=== PATIENT | female | born 1965 | race Caucasian/White ===

== ENCOUNTER 2016-02-21 22:09 | Emergency (ER) | payer MEDICARE, OTHER ==
[~2016-02-21] VITALS: Ht 165.1 cm; Wt 52.0 kg
[~2016-02-21 22:09] MED LIST: FENT25DI TD; HYDR-3535 PO; LORA-392 PO; MVI PO; PROT40TA PO; TUMS500C PO; VITA500T83 PO
[2016-02-21 22:12] VITALS: BP 134/76; PULSE 88; RESP 18; TEMP 98.4; O2SAT 99
[2016-02-21 22:35] VITALS: BP 156/96; PULSE 91; RESP 18; TEMP 98.1; O2SAT 98
[2016-02-21] MEDS ORDERED: SODIUM CHLORIDE 0.9% FLUSH 5 ML FLUSH IVF PRN (22:45)
[2016-02-21] MEDS ORDERED: HYDROmorphone HCL PF 1 MG/ML VIAL IV PUSH ONE (22:45)
[2016-02-21] MEDS ORDERED: ONDANSETRON HCL 4 MG/2 ML VIAL IVP ONE (22:45)
--- NOTE | 2016-02-21 22:52 | PD ---
HPI Chief Complaint: Fall Time Seen by Provider: 22:32 Travel History International Travel<30 days: No Contact w/Intl Traveler<30days: No Traveled to known affect area: No History of Present Illness HPI The patient is 50 year old female who presents to the [facility] emergency department with a history of reportedly losing her balance while attempting to move a piece of furniture at approximately 6 PM today. The patient reports that she fell forward and struck her left eyebrow area on the furniture and also hit her left shoulder. The patient additionally reports having left lateral chest wall pain. The patient reports that she did not come in right away as she did not think that she had any significant injuries. She reports that she became concerned when she was having difficulty moving her left shoulder when she was trying to place a sweater on her dog to go outside for a walk. The patient reports that she has had 2 alcoholic beverages this evening. She reports that she does have a history of pancreatitis and alcohol abuse, however she had been sober up until the holidays. She reports that she spent the holidays with her family and began to drink again. She denies taking any of her usual anxiety medication, Ativan, or her pain medication, Lortab today. The patient reports that she felt briefly disoriented after hitting her head. She denies having any loss of consciousness. She denies having any neck pain, paresthesias, or weakness of her extremities. The patient denies any recent fevers, cough, congestion, neck pain, chest pain, shortness of breath, abdominal pain, vomiting, diarrhea, urinary symptoms, or neurologic symptoms. [facility] Past Medical History Narrative Medical The patient's past medical history is significant for alcohol abuse, anxiety disorder, history of cirrhosis, pancreatitis, tobacco abuse, history of chronic abdominal pain related to pancreatitis, history of restless leg syndrome. Arthritis: No Asthma: No Autoimmune Disease: No Anxiety: Yes (PANIC ATTACKS) Depression: No Heart Rhythm Problems: No Cancer: Yes (SKIN RIGHT SHOULDER UPPER BACK 8 YEARS AGO) Cardiovascular Problems: No High Cholesterol: No Chemotherapy: No Chest Pain: No Congestive Heart Failure: No COPD: No Cerebrovascular Accident: No Diabetes: No Diminished Hearing: No Endocrine: No Gastrointestinal Disorders: Yes (had gtube to gain wt in 2011) GERD: No Genitourinary: No Headaches: Yes Hepatitis: Yes (CIRRHOSIS, PANCREATITIS) Hiatal Hernia: No Hypertension: No Immune Disorder: No Implanted Vascular Access Dvce: No Kidney Stones: No Musculoskeletal: Yes (SCOLIOSIS) Neurologic: No Psychiatric: Yes (ANXIETY/DEPRESSION) Reproductive: No Respiratory: Yes (EVERY DAY SMOKER- 1 PACK DAY.) Migraines: Yes Pancreatitis: Yes Radiation Therapy: No Renal Failure: No Seizures: No Sickle Cell Disease: No Sleep Apnea: No Thyroid Disease: No Ulcer: No Influenza Vaccination: No ?: Not Menopausal: Yes : 4 Para: 3 Miscarriage: 1 : 0 Past Surgical History Narrative Surgical The patient's past surgical history is significant for a right hip replacement. Abdominal Surgery: No AICD: No Arteriovenous Shunt: No Cardiac Surgery: No Ear Surgery: No Endocrine Surgery: No Eye Surgery: No Genitourinary Surgery: No Gynecologic Surgery: No Insulin Pump: No Joint Replacement: Yes (right hip replacement) Neurologic Surgery: No Oral Surgery: No Pacemaker: No Thoracic Surgery: No Social History Alcohol Use: Yes (daily ) Tobacco Use: Yes (vap cig) Substance Use: No Allergies-Medications (Allergen,Severity, Reaction): Coded Allergies: Morphine (Verified Allergy, Mild, ITCHY SKIN, 02/21/16) Penicillin (Verified Allergy, Mild, Rash, 02/21/16) Reported Meds & Prescriptions Reported Meds & Active Scripts Active Protonix (Pantoprazole Sodium) 40 Mg Tab 40 Mg PO DAILY 30 Days Tums (Calcium Carbonate) 500 Mg Chew 500 Mg PO BID Duragesic 25 Mcg/Hr (Fentanyl) 25 Mcg/Hr Patch 1 Patch TD Q3D Vitamin C (Ascorbic Acid) 500 Mg Tab 500 Mg PO BID Theragran (Multivitamins) 1 Tab Tab 1 Tab PO DAILY Reported Ativan (Lorazepam) 0.5 Mg Tab 0.5 Mg PO BID PRN Lortab 10 mg/325 mg (Hydrocodone/Acetaminophen 10 mg/325 mg) 1 Tab 1 Tab PO TID PRN Review of Systems Except as stated in HPI: all other systems reviewed are Neg General / Constitutional: No: Fever Eyes: No: Visual changes HENT: No: Headaches, Neck Stiffness, Neck Pain Cardiovascular: Positive: Chest Pain or Discomfort (left chest wall pain), No : Dyspnea on exertion Respiratory: No: Shortness of Breath Gastrointestinal: No: Abdominal Pain Genitourinary: No: Dysuria Musculoskeletal: Positive: Arthralgias, Limited ROM, Edema, Pain Skin: No Rash Neurologic: Positive: Headache, No: Weakness, Focal Abnormalities, Change in Mentation, Slurred Speech, Sensory Disturbance Psychiatric: No: Depression Endocrine: No: Polydipsia Hematologic/Lymphatic: No: Easy Bruising Physical Exam Narrative General: The patient is a well-developed well-nourished female in no acute distress. Head and Neck exam: Head is normocephalic, evidence of injury to the left lateral eyebrow area. The patient has an area of swelling, small hematoma formation with tenderness on palpation. There is no crepitus or step-off. No increased facial bone mobility with palpation. Eyes: Pupils are equal round and reactive to light. Nose: Midline septum with pink mucous membranes Mouth: Dentition unremarkable. Moist mucus membranes. Posterior oropharynx is not erythematous. No tonsillar hypertrophy. Uvula midline. Airway patent. Neck: No palpable lymphadenopathy. No nuchal rigidity. No thyromegaly. No spinous process tenderness to palpation, no step-off, no crepitus, no erythema or ecchymosis. The patient has full active range of motion without pain. Cardiovascular: Regular rate and rhythm without murmurs, gallops, or rubs. The patient reports chest wall tenderness on palpation along the left lateral chest wall and underneath the left breast. There is no visible ecchymosis or erythema. There is no step-off or crepitus. There is no flail segment. Lungs: Clear to auscultation bilaterally. No wheezes, rhonchi, or rales. Abdomen: Soft, without tenderness to palpation in all 4 quadrants of the abdomen. No guarding, rebound, or rigidity. Normal bowel sounds are audible. Extremities: No clubbing, cyanosis, or edema, except an area of interest, the left shoulder. The patient is noted to have swelling along the upper aspect of the left shoulder, overlying specifically the distal left clavicle and proximal humerus. The patient has decreased range of motion. She has no loss of fullness in the glenoid fossa. She has intact sensation over all fingertips. She has no pain on palpation of her left elbow, left wrist, or hand. The patient has no pain with range of motion of her left elbow, left wrist, or left hand. The patient has less than 3 second capillary refill. 2+ pulses in all 4 extremities. Back: No spinous process tenderness to palpation. No costovertebral angle tenderness to palpation. Neurologic Exam: Cranial nerves 2-12 were intact on exam. Strength is 5/5 in all 4 extremities. No sensory deficits noted. The patient is oriented to person, place, time, and situation. Skin Exam: No rash noted. Intact skin that is warm and dry. Data Data Last Documented VS Vital Signs Date Time Temp Pulse Resp B/P Pulse Ox O2 Delivery O2 Flow Rate FiO2 02/21/16 23:16 98 Room Air 02/21/16 22:35 98.1 91 18 156/96 Orders Shoulder, Complete (>2vws) (02/21/16 22:33) Ice/Cold Pack (02/21/16 22:33) Ribs, Uni (W/Exp Cxr-Min 3vw) (02/21/16 22:36) Iv Access Insert/Monitor (02/21/16 22:36) Ecg Monitoring (02/21/16 22:36) Oximetry (02/21/16 22:36) NPO (02/21/16 22:36) Ondansetron Inj (Zofran Inj) (02/21/16 22:45) Sodium Chloride 0.9% Flush (Ns Flush) (02/21/16 22:45) Hydromorphone Pf Inj (Dilaudid Pf Inj) (02/21/16 22:45) Ct Brain W/O Iv Contrast(Rout) (02/21/16 22:40) Splint Or Brace Apply/Monitor (02/21/16 23:11) Sling And Swathe (02/21/16 ) Acetamin-Hydrocod 325-5 Mg (Dulac 5-325 (02/21/16 23:30) MDM Medical Decision Making Medical Screen Exam Complete: Yes Emergency Medical Condition: Yes Medical Record Reviewed: Yes Differential Diagnosis Rib fracture, versus pneumothorax, versus hemothorax, versus chest wall contusion, versus left shoulder fracture, versus dislocation, versus clavicle fracture, versus intracranial trauma Narrative Course During the course of the patients emergency department visit, the patients history, examination, and differential diagnosis were reviewed with the patient. The patient had IV access obtained and blood work sent for analysis. A left rib series was ordered. A left shoulder x-ray series was ordered. The patient will have an ice pack applied to the area of swelling. A CT scan of the brain was ordered. The patient was provided Lortab for pain after imaging reveals a distal apical fracture that is only mildly displaced. Radiology studies were reviewed and remarkable for a left shoulder x-ray that reveals a mildly displaced distal left clavicle fracture. No other fracture of the left shoulder. Left sided rib films reveals no evidence of pneumothorax or acute rib fracture, however the patient has evidence of prior bilateral older appearing rib fractures. CT scan of the brain shows minimal fluid in the right sphenoid sinus. No acute intracranial abnormality. The patient will be discharged home to continue her usual pain management regimen. The patient was instructed to avoid alcohol. The patient was instructed to follow-up with an orthopedic physician regarding her left clavicle fracture. She is placed in a sling and swath she is given the name of the orthopedic physician on-call for follow-up, Dr. Orourke. The patient is resting comfortably and feels better, is alert and in no distress. The patients results and examination findings were discussed with the patient. The repeat examination is unremarkable and benign. The history, exam, diagnostic testing, and current condition do not suggest any significant pathology to warrant further testing, continued ED treatment, admission, or surgical evaluation at this point. The vital signs have been stable. The patient does not have uncontrollable pain, intractable vomiting, or other significant symptoms. The patient's condition is stable and appropriate for discharge. The patient will pursue further outpatient evaluation with a primary care physician or other designated or consulting physician as indicated in the discharge instructions. The patient expressed understanding and was agreeable with this plan. Diagnosis Primary Impression: Fall Additional Impressions: Left shoulder pain Qualified Code: M25.512 - Acute pain of left shoulder Clavicle fracture Qualified Code: S42.035A - Closed nondisplaced fracture of acromial end of left clavicle, initial encounter Referrals: hBarath Orourke MD 1 week Primary Care Physician 2 days Patient Instructions: Clavicle Fracture (ED), Contusion in Adults (ED), Fall Prevention (ED), General Instructions Additional Instructions: Continue your current pain management regimen. Avoid alcohol. Follow-up with orthopedic physician in the next week. Disposition: 01 DISCHARGE HOME Condition: Stable Verna Ramirez MD Feb 21, 2016 22:52
--- NOTE | 2016-02-21 23:13 | RADRPT ---
EXAM DATE/TIME: 02/21/2016 22:50 [facility] COMPARISON: CHEST SINGLE AP, June 06, 2013, 12:13. INDICATIONS : Pain from fall on dresser. MEDICAL HISTORY : None. SURGICAL HISTORY : None. ENCOUNTER: Initial ACUITY: 1 day PAIN SCORE: 10/10 LOCATION: Left shoulder. FINDINGS: Multiple views of the left ribs were performed. There is no evidence of displaced fracture. No dest ructive lesions or areas of periosteal thickening are seen. Expiratory view of the chest is negative for pneumothorax. The mediastinal structures are midline. Old bilateral rib fractures. CONCLUSION: No acute disease. Angelo Fiore MD on February 21, 2016 at 23:09 Board Certified Radiologist. This report was verified electronically.
--- NOTE | 2016-02-21 23:14 | RADRPT ---
EXAM DATE/TIME: 02/21/2016 22:54 [facility] COMPARISON: No previous studies available for comparison. INDICATIONS : Pain from falling on dresser. MEDICAL HISTORY : None. SURGICAL HISTORY : None. ENCOUNTER: Initial ACUITY: 1 day PAIN SCORE: 10/10 LOCATION: Left shoulder. FINDINGS: Multiple view examination of the left shoulder demonstrates mildly displaced distal left clavicle fra cture. Remainder the left shoulder is otherwise intact. The glenohumeral joint is maintained. CONCLUSION: Distal left clavicle fracture. Angelo Fiore MD on February 21, 2016 at 23:11 Board Certified Radiologist. This report was verified electronically.
[2016-02-21 23:16] VITALS: O2SAT 98
--- NOTE | 2016-02-21 23:22 | RADRPT ---
EXAM DATE/TIME: 02/21/2016 23:07 [facility] COMPARISON: No previous studies available for comparison. INDICATIONS : Trauma; fall. RADIATION DOSE: 34.32 CTDIvol (mGy) MEDICAL HISTORY : Cirrhosis. Pancreatitis. SURGICAL HISTORY : Right hip replacement. ENCOUNTER: Initial ACUITY: 1 day PAIN SCALE: 2/10 LOCATION: cranial TECHNIQUE: Multiple contiguous axial images were obtained of the head. Using automated exposure control and adj ustment of the mA and/or kV according to patient size, radiation dose was kept as low as reasonably a chievable to obtain optimal diagnostic quality images. FINDINGS: CEREBRUM: The ventricles are normal for age. No evidence of midline shift, mass lesion, hemorrhage or acute in farction. No extra-axial fluid collections are seen. POSTERIOR FOSSA: The cerebellum and brainstem are intact. The 4th ventricle is midline. The cerebellopontine angle i s unremarkable. EXTRACRANIAL: The visualized portion of the orbits is intact. Minimal fluid right sphenoid sinus. SKULL: The calvaria is intact. No evidence of skull fracture. CONCLUSION: Minimal fluid right sphenoid sinus. No acute intracranial abnormality. Angelo Fiore MD on February 21, 2016 at 23:19 Board Certified Radiologist. This report was verified electronically.
[2016-02-21] MEDS ORDERED: ACETAMINOPHEN/HYDROcodone 325 MG/5 MG TAB PO ONE (23:30)
== END 2016-02-22 00:23 | disposition home or self-care (01) ==
LOC: NEPE 22:09
DX: S42.032A Displaced fracture of lateral end of left clavicle, initial encounter for closed fracture (principal); W18.39XA Other fall on same level, initial encounter; Y93.89 Activity, other specified; Y92.9 Unspecified place or not applicable; Z72.0 Tobacco use; F10.20 Alcohol dependence, uncomplicated
CPT/HCPCS: 70450; 71101; 73030; 96374; 99284; J2405

== ENCOUNTER 2016-04-18 17:09 | Emergency (ER) | payer MEDICARE, OTHER ==
[~2016-04-18] VITALS: Ht 165.1 cm; Wt 52.0 kg
[2016-04-18 17:12] VITALS: BP 122/75; PULSE 90; RESP 16; TEMP 97.8; O2SAT 98
--- NOTE | 2016-04-18 19:25 | PD ---
HPI Chief Complaint: Injury Time Seen by Provider: 19:19 Travel History International Travel<30 days: No Contact w/Intl Traveler<30days: No Traveled to known affect area: No History of Present Illness HPI 50-year-old white female presents to emergency department by EMS for evaluation of left foot pain. She states that she fell earlier this morning over her dogs bed. She does not recall hearing or feeling a pop or crack in her foot. She states her foot became swollen and painful. She is not been able to bear weight. She states that she's been crawling around her apartment. She admits to drinking alcohol. She denies any injury to her head, neck or back. No numbness or tingling. PFSH Past Medical History Arthritis: No Asthma: No Autoimmune Disease: No Anxiety: Yes (PANIC ATTACKS) Depression: No Heart Rhythm Problems: No Cancer: Yes (SKIN RIGHT SHOULDER UPPER BACK 8 YEARS AGO) Cardiovascular Problems: No High Cholesterol: No Chemotherapy: No Chest Pain: No Congestive Heart Failure: No COPD: No Cerebrovascular Accident: No Diabetes: No Diminished Hearing: No Endocrine: No Gastrointestinal Disorders: Yes (had gtube to gain wt in 2011) GERD: No Genitourinary: No Headaches: Yes Hepatitis: Yes (CIRRHOSIS, PANCREATITIS) Hiatal Hernia: No Hypertension: No Immune Disorder: No Implanted Vascular Access Dvce: No Kidney Stones: No Musculoskeletal: Yes (SCOLIOSIS) Neurologic: No Psychiatric: Yes (ANXIETY/DEPRESSION) Reproductive: No Respiratory: Yes (EVERY DAY SMOKER- 1 PACK DAY.) Migraines: Yes Pancreatitis: Yes Radiation Therapy: No Renal Failure: No Seizures: No Sickle Cell Disease: No Sleep Apnea: No Thyroid Disease: No Ulcer: No Menopausal: Yes : 4 Para: 3 Miscarriage: 1 : 0 Past Surgical History Abdominal Surgery: No AICD: No Arteriovenous Shunt: No Cardiac Surgery: No Ear Surgery: No Endocrine Surgery: No Eye Surgery: No Genitourinary Surgery: No Gynecologic Surgery: No Insulin Pump: No Joint Replacement: Yes (right hip replacement) Neurologic Surgery: No Oral Surgery: No Pacemaker: No Thoracic Surgery: No Social History Alcohol Use: Yes (daily ) Tobacco Use: Yes (vap cig) Substance Use: No Allergies-Medications (Allergen,Severity, Reaction): Coded Allergies: Morphine (Verified Allergy, Mild, ITCHY SKIN, 04/18/16) Penicillin (Verified Allergy, Mild, Rash, 04/18/16) Reported Meds & Prescriptions Reported Meds & Active Scripts Active Protonix (Pantoprazole Sodium) 40 Mg Tab 40 Mg PO DAILY 30 Days Tums (Calcium Carbonate) 500 Mg Chew 500 Mg PO BID Duragesic 25 Mcg/Hr (Fentanyl) 25 Mcg/Hr Patch 1 Patch TD Q3D Vitamin C (Ascorbic Acid) 500 Mg Tab 500 Mg PO BID Theragran (Multivitamins) 1 Tab Tab 1 Tab PO DAILY Reported Ativan (Lorazepam) 0.5 Mg Tab 0.5 Mg PO BID PRN Lortab 10 mg/325 mg (Hydrocodone/Acetaminophen 10 mg/325 mg) 1 Tab 1 Tab PO TID PRN Review of Systems Except as stated in HPI: all other systems reviewed are Neg Physical Exam Narrative GENERAL: Well-developed, well-nourished in no acute distress. Nontoxic appearing. HEAD: Normocephalic, atraumatic. EYES: Pupils equal round and reactive. Extraocular motions intact. No scleral icterus. No injection or drainage. ENT: TMs clear without erythema. The external auditory canals clear. Nose: clear . Posterior pharynx is pink and moist. No tonsillar edema or exudate. Uvula midline. Airway patent. NECK: Trachea midline.Supple, nontender, moves head freely. No central bony tenderness or spasm. CARDIOVASCULAR: Regular rate and rhythm without murmurs, gallops, or rubs. RESPIRATORY: Clear to auscultation. Breath sounds equal bilaterally. No wheezes , rales, or rhonchi. GASTROINTESTINAL: Abdomen soft, non-tender, nondistended. No hepato-splenomegaly , or palpable masses. No guarding. EXTREMITIES: No clubbing, cyanosis, or examination of the left lower extremity reveals pain and swelling to the distal forefoot involving the third, fourth, fifth metatarsals. The skin is intact. There is some ecchymosis. No pain in the toes, heel, Achilles. No pain in the ankle, knee or hip. The right lower extremity as well as the upper extremities are without localizing bony tenderness or deformity. She has some mild ecchymosis to both knees from crawling on the floor. BACK: Nontender without deformity or crepitance. No flank tenderness. Data Data Last Documented VS Vital Signs Date Time Temp Pulse Resp B/P Pulse Ox O2 Delivery O2 Flow Rate FiO2 04/18/16 17:12 97.8 90 16 122/75 98 Room Air Orders Foot, Complete (Eic3typ) (04/18/16 19:10) Ice/Cold Pack (04/18/16 19:10) Crutches (04/18/16 19:10) Splint Or Brace Apply/Monitor (04/18/16 19:25) MDM Medical Decision Making Medical Screen Exam Complete: Yes Emergency Medical Condition: Yes Medical Record Reviewed: Yes Interpretation(s) Left foot: Patient has a fracture of the base of the second metatarsal. There is a question of fracture the base of the third metatarsal. Differential Diagnosis MDM: High Differential diagnoses: Fracture, sprain, strain, dislocation, contusion, neurovascular injury Narrative Course Patient has sustained fractures of the left foot read she is placed in a cam walker and given crutches. Patient given Lortab 5 a grams by mouth. Diagnosis Primary Impression: Foot fracture, left Qualified Code: S92.902A - Foot fracture, left, closed, initial encounter Patient Instructions: General Instructions Additional Instructions: Rest. Elevation. Ice packs for the next 3 days. Cam Walker and crutches. No weight-bearing and then progress to weight-bearing as tolerated. Continue her home meds. Follow-up with an orthopedist or pharmacy technician infusion in 3-7 days.. Return to the ER if any problems Med/Other Pt SpecificInfo: No Meds Exist/No RX given Disposition: 01 DISCHARGE HOME Condition: Stable Nikolay Saba Apr 18, 2016 19:25
[2016-04-18] MEDS ORDERED: ACETAMINOPHEN/HYDROcodone 325 MG/5 MG TAB PO ONE (19:30)
--- NOTE | 2016-04-18 19:39 | RADRPT ---
EXAM DATE/TIME: 04/18/2016 19:31 [facility] COMPARISON: No previous studies available for comparison. INDICATIONS : Pain and swelling left foot, fell MEDICAL HISTORY : None. SURGICAL HISTORY : None. ENCOUNTER: Initial ACUITY: 2 days PAIN SCORE: 10/10 LOCATION: Left Foot FINDINGS: Mildly displaced fracture seen base of the second metatarsal and there is about 2 mm of lateral displ acement. No other fractures are demonstrated. No acute bony destruction seen. Bones are osteopenic. N o radiopaque foreign bodies are demonstrated. CONCLUSION: Second metatarsal base is fractured. Marco Antonio Lawson MD on April 18, 2016 at 19:36 Board Certified Radiologist. This report was verified electronically.
== END 2016-04-18 20:13 | disposition home or self-care (01) ==
LOC: NEPB 17:09
DX: S92.322A Displaced fracture of second metatarsal bone, left foot, initial encounter for closed fracture (principal); K74.60 Unspecified cirrhosis of liver; K85.90 Acute pancreatitis without necrosis or infection, unspecified; M41.9 Scoliosis, unspecified; F17.210 Nicotine dependence, cigarettes, uncomplicated; F41.8 Other specified anxiety disorders; Z96.641 Presence of right artificial hip joint; F10.20 Alcohol dependence, uncomplicated; W01.0XXA Fall on same level from slipping, tripping and stumbling without subsequent striking against object, initial encounter; Y93.9 Activity, unspecified; Y92.89 Other specified places as the place of occurrence of the external cause; Y99.9 Unspecified external cause status
CPT/HCPCS: 73630; 99283; E0113; L2114

== ENCOUNTER 2017-10-27 14:51 | Inpatient (IN) ==
--- NOTE | 2017-10-27 15:08 | ED ---
HPI General Chief complaint: GI Bleed Stated complaint: GI complaint Time Seen by Provider: 10/27/17 15:05 Source: patient and EMS Mode of arrival: EMS Limitations: no limitations History of Present Illness HPI Narrative: 52-year-old female patient with history of cirrhosis, ascites, pancreatitis, history of alcohol use, presents to the ER today brought in by EMS because she states that she was seen 2 days ago, was scheduled to go get ascites drainage today but something was wrong with her paperwork, also started having black stool today and getting weaker, nauseous, throwing up, at which point she decided to call EMS. She denies any chest pains, or other issues. Related Data Home Medications Medication Instructions Recorded Confirmed fentanyl 1 patch TRANSDERMAL Q72H 10/25/17 10/27/17 gabapentin 600 mg PO HS 10/25/17 10/27/17 hydrocodone-acetaminophen 1 tab PO Q4H PRN 10/25/17 10/27/17 Allergies Allergy/AdvReac Type Severity Reaction Status Date / Time morphine Allergy Mild ITCHY SKIN Verified 10/25/17 18:15 penicillin G Allergy Mild Rash Verified 10/25/17 18:15 Review of Systems ROS: all other systems reviewed are negative [facility] Medical History Medical History Cirrhosis of liver (Acute) Hepatitis C (Acute) History of abdominal paracentesis (Acute) Pancreatitis (Acute) Weight loss (Acute) Surgical History Surgical History History of hip surgery (Acute) Social History Social History Substance History: No History of Abuse Second Hand Smoke Exposure: No Smoking Status: Current every day smoker Tobacco Type: Cigarettes How Often Do You Have a Drink Containing Alcohol: 4 or more times a week Recent Travel in [facility] within the Last 8 Weeks: No Recent Out of Country Travel within the Last 8 Weeks: No Immunization History Tetanus Immunization: Unsure Hx Influenza Vaccine This Season: No Exam Narrative Exam Narrative: GENERAL: Well-developed middle-age female patient currently in moderate distress. Awake and oriented 3. SKIN: Focused skin assessment warm/dry. Jaundiced. HEAD: Atraumatic. Normocephalic. EYES: Pupils equal and round. Notable scleral icterus. No injection or drainage. ENT: No nasal bleeding or discharge. Mucous membranes pink and moist. NECK: Trachea midline. No JVD. CARDIOVASCULAR: Regular rate and rhythm. No murmur appreciated. RESPIRATORY: No accessory muscle use. Clear to auscultation. Breath sounds equal bilaterally. GASTROINTESTINAL: Abdomen soft, non-tender, moderately distended. MUSCULOSKELETAL: No obvious deformities. No clubbing. No cyanosis. No edema. RECTAL EXAM: No masses or tenderness, stool is dark, Hemoccult positive. NEUROLOGICAL: Awake and alert. No obvious cranial nerve deficits. Motor grossly within normal limits. Normal speech. PSYCHIATRIC: Appropriate mood and affect; insight and judgment normal. Procedures Hemaprompt Stool Procedural Steps Taken: specimen placed in appropriate test area, developer placed on specimen and control areas and controls appropriately positive and negative Hemaprompt Stool Result: positive Course Initial Documented Vital Signs Temperature 98.5 F 10/27/17 15:04 Pulse Rate 86 10/27/17 15:04 Respiratory Rate 24 10/27/17 15:04 Blood Pressure 131/81 10/27/17 15:04 Pulse Oximetry 95 10/27/17 15:04 Last Documented Vital Signs Temperature 98.5 F 10/27/17 15:04 Pulse Rate 86 10/27/17 15:04 Respiratory Rate 24 10/27/17 15:04 Blood Pressure 131/81 10/27/17 15:04 Pulse Oximetry 95 10/27/17 15:32 Medical Decision Making MDM Narrative Medical decision making narrative: Hemoglobin is quite low, Hemoccult is positive. Suspicion is that she is having a GI bleed. Protonix was initiated in the ER. 2 units of blood were ordered for her. Patient will need admission and GI consult for further treatment. Case has been discussed with Dr. Mills for admission. Medical Screen Exam Complete: Yes Emergency Medical Condition: Yes Differential Diagnosis Differential Diagnosis: GI bleed Lab Data Lab results reviewed: Yes I reviewed the patient's lab results. Result diagrams: 10/27/17 15:13 10/27/17 15:13 Lab Results 10/27/17 10/27/17 10/27/17 Range/Units 15:13 15:13 15:13 WBC 7.2 (4.0-11.0) th/mm3 RBC 1.64 L (4.00-5.30) mil/mm3 Hgb 6.6 L* (11.6-15.3) gm/dL Hct 19.9 L* (35.0-46.0) % MCV 121.3 H D (80.0-100.0) fL MCH 40.0 H (27.0-34.0) pg MCHC 33.0 (32.0-36.0) % RDW 18.1 H (11.6-17.2) % Plt Count 45 L (150-450) th/mm3 MPV 9.0 (7.0-11.0) fL Prelim Diff (Auto) Slide review pending Neut % (Auto) 74.9 H (16.0-70.0) % Lymph % (Auto) 14.3 (9.0-44.0) % [place] % (Auto) 8.8 H (0.0-8.0) % Eos % (Auto) 1.4 (0.0-4.0) % Baso % (Auto) 0.6 (0.0-2.0) % Neut # (Auto) 5.4 (1.8-7.7) th/mm3 Lymph # (Auto) 1.0 (1.0-4.8) th/mm3 [place] # (Auto) 0.6 (0.0-0.9) th/mm3 Eos # (Auto) 0.1 (0.0-0.4) th/mm3 Baso # (Auto) 0.0 (0.0-0.2) th/mm3 WBC Differential . Diff Scan Auto diff confirmed Differential Comment . PT 20.2 H (9.8-11.6) sec INR 2.0 Ratio APTT 35.3 H (24.3-30.1) sec Sodium 139 (136-145) meq/L Potassium 3.3 L (3.5-5.1) meq/L Chloride 106 (98-107) meq/L Carbon Dioxide 25.9 (21.0-32.0) meq/L Anion Gap 7 (5-15) meq/L BUN 10 (7-18) mg/dL Creatinine 0.56 (0.50-1.00) mg/dL Estimated GFR Greater than 89 (>89) mL/min Random Glucose 94 (74-106) mg/dL Calcium 7.9 L (8.5-10.1) mg/dL Total Bilirubin 15.7 H (0.2-1.0) mg/dL AST 140 H (15-37) U/L ALT 24 (10-53) U/L Alkaline Phosphatase 131 H (45-117) U/L Ammonia (11-32) mcmol/L Total Protein 7.2 (6.4-8.2) g/dL Albumin 2.0 L (3.4-5.0) g/dL Lipase 103 (73-393) U/L Blood Type Antibody Screen MTS Gel Crossmatch 10/27/17 10/27/17 10/27/17 Range/Units 15:13 15:17 15:38 WBC (4.0-11.0) th/mm3 RBC (4.00-5.30) mil/mm3 Hgb (11.6-15.3) gm/dL Hct (35.0-46.0) % MCV (80.0-100.0) fL MCH (27.0-34.0) pg MCHC (32.0-36.0) % RDW (11.6-17.2) % Plt Count (150-450) th/mm3 MPV (7.0-11.0) fL Prelim Diff (Auto) Neut % (Auto) (16.0-70.0) % Lymph % (Auto) (9.0-44.0) % [place] % (Auto) (0.0-8.0) % Eos % (Auto) (0.0-4.0) % Baso % (Auto) (0.0-2.0) % Neut # (Auto) (1.8-7.7) th/mm3 Lymph # (Auto) (1.0-4.8) th/mm3 [place] # (Auto) (0.0-0.9) th/mm3 Eos # (Auto) (0.0-0.4) th/mm3 Baso # (Auto) (0.0-0.2) th/mm3 WBC Differential Diff Scan Differential Comment PT (9.8-11.6) sec INR Ratio APTT (24.3-30.1) sec Sodium (136-145) meq/L Potassium (3.5-5.1) meq/L Chloride (98-107) meq/L Carbon Dioxide (21.0-32.0) meq/L Anion Gap (5-15) meq/L BUN (7-18) mg/dL Creatinine (0.50-1.00) mg/dL Estimated GFR (>89) mL/min Random Glucose (74-106) mg/dL Calcium (8.5-10.1) mg/dL Total Bilirubin (0.2-1.0) mg/dL AST (15-37) U/L ALT (10-53) U/L Alkaline Phosphatase (45-117) U/L Ammonia 21 (11-32) mcmol/L Total Protein (6.4-8.2) g/dL Albumin (3.4-5.0) g/dL Lipase (73-393) U/L Blood Type O Positive Antibody Screen Negative MTS Gel Crossmatch See Detail Discharge Plan Discharge Disposition Patient Disposition: 30 Still Patient Discharge Condition Condition: Fair Discharge Details Anticipated Discharge Date: 10/27/17 Diagnosis: Acute GI bleeding, Anemia Physicians Team ED Provider: Dru Bray Primary Care Provider: Marco Antonio Aranda Rxs /Orders / Referrals /Forms Prescriptions: No Action gabapentin 600 mg Tablet 600 mg PO HS RF: 0 hydrocodone-acetaminophen 10-325 mg Tablet 1 tab PO Q4H PRN (Reason: Pain) RF: 0 fentanyl 25 mcg/hr Patch 72 Hour 1 patch TRANSDERMAL Q72H RF: 0 Discharge Interventions Interventions: Vital Signs Last Done: 10/27/17 15:04 Status ED Status: With Doctor
[2017-10-27 15:27] LABS: Baso % (Auto) 0.6 % (0.0-2.0); Eos # (Auto) 0.1 th/mm3 (0.0-0.4); Eos % (Auto) 1.4 % (0.0-4.0); Lymph % (Auto) 14.3 % (9.0-44.0); Mean Corpuscular Volume 121.3 fL (80.0-100.0); Mono # (Auto) 0.6 th/mm3 (0.0-0.9); Mono % (Auto) 8.8 % (0.0-8.0); Neut # (Auto) 5.4 th/mm3 (1.8-7.7); Neut % (Auto) 74.9 % (16.0-70.0); Platelet Count 45 th/mm3 (150-450); Red Blood Count 1.64 mil/mm3 (4.00-5.30); Red Cell Distribution Width 18.1 % (11.6-17.2); White Blood Count 7.2 th/mm3 (4.0-11.0)
[2017-10-27 15:37] LABS: Activated Partial Thrombo Time 35.3 sec (24.3-30.1)
[2017-10-27] MEDS: Pantoprazole Inj 80 MG in Sodium Chlor 0.9% Inj 100 ML IV.CONT SCH (15:37)
[2017-10-27 15:38] LABS: Hematocrit 19.9 % (35.0-46.0); Hemoglobin 6.6 gm/dL (11.6-15.3); Prothrombin Time 20.2 sec (9.8-11.6)
[2017-10-27 15:51] LABS: Anion Gap 7 meq/L (5-15); Aspartate Aminotransferase 140 U/L (15-37); Blood Urea Nitrogen 10 mg/dL (7-18); Calcium 7.9 mg/dL (8.5-10.1); Carbon Dioxide 25.9 meq/L (21.0-32.0); Chloride 106 meq/L (98-107); Glomerular Filtration Rate Greater Than 89 mL/min (>89); Glucose,Random 94 mg/dL (74-106); Lipase 103 U/L (73-393); Potassium 3.3 meq/L (3.5-5.1); Sodium 139 meq/L (136-145)
[2017-10-27 15:53] LABS: Alanine Aminotransferase 24 U/L (10-53)
[2017-10-27 15:54] LABS: Alkaline Phosphatase 131 U/L (45-117); Total Protein 7.2 g/dL (6.4-8.2)
[2017-10-27] MEDS ORDERED: Sodium Chlor 0.9% Inj 250 ML IV.SIG SCH (16:00)
[2017-10-27] MEDS: Sod Chloride 0.9% Inj 1,000 ML IV.CONT SCH (17:14)
[2017-10-27] MEDS ORDERED: Naloxone Inj 0.4 MG/ML Vial IV.PUSH PRN (17:15)
[2017-10-27] MEDS ORDERED: Acetaminophen 325 MG Tablet PO PRN (17:15)
--- NOTE | 2017-10-27 17:15 | P.HPIM ---
History of Present Illness Primary Care Physician: Marco Antonio Aranda DO Chief Complaint: Nausea vomiting abdominal pain History of Present Illness: 52-year-old white female with a history of hepatitis C, alcoholic cirrhosis presents with a four-day history of worsening abdominal girth and swelling along with epigastric abdominal pain. She noted black tarry stools yesterday evening and describes her stool as loose and watery. She also reports multiple episodes of nonbilious and nonbloody emesis along with symptoms of nausea. She reports she was drinking 3-4 alcoholic drinks on a daily basis but stopped about 4 days ago when she started having increased abdominal pain. She currently is not taking any medications. She denies taking aspirin and over-the -counter NSAIDs. Of note, she had EGD back in 2013 which showed esophagitis and gastritis. She denies any unusual food intake. Inpatient Certification: I certify that the inpatient services were ordered in accordance with Medicare regulations governing the order. This includes certification that hospital inpatient services are reasonable and necessary and in the case of services not specified as inpatient-only under 42 CFR 419.22(n), that they are appropriately provided as inpatient services in accordance to with the 2-midnight benchmark under 43 CFR 412.3(e) Estimated Total Length of Stay (Days): 3 Plans for Post Hospital Care: Home Review of Systems All other systems reviewed negative except as stated in HPI PMFSH - History History Provided By: Patient - Medical History Medical History: Medical History (Last Reviewed 10/27/17 @ 15:09 by Dru Bray MD) Cirrhosis of liver Hepatitis C History of abdominal paracentesis Pancreatitis Weight loss - Surgical History Surgical History: Surgical History (Last Updated 10/27/17 @ 17:09 by Joana Mills MD) History of total right hip replacement - Family History Family History: Family History (Last Updated 10/27/17 @ 17:09 by Joana Mills MD) Mother Heart disease - Tobacco History Second Hand Smoke Exposure: No Tobacco Use In Past 30 Days: Yes Smoking Status: Current every day smoker Tobacco Type: Cigarettes - Alcohol History How Often Do You Have a Drink Containing Alcohol: 4 or more times a week - Substance Use History Substance History: No History of Abuse - Travel History Recent Travel in the [place] Within the Last 8 Weeks: No Recent Travel Out of the Country Within the Last 8 Weeks: No - Immunization History Tetanus Immunization: Unsure Hx Influenza Vaccine This Season: No Medications and Allergies Active Medications: Active Medications Pantoprazole Sodium 80 mg/ (Sodium Chloride) 100 mls @ 10 mls/hr IV.CONT CONT ERIN Last Admin: 10/27/17 15:37 Dose: 10 mls/hr Sodium Chloride (Ns Inj) 250 mls @ 15 mls/hr IV.SIG ONCE ERIN Stop: 10/28/17 08:39 Sodium Chloride (Ns Inj) 1,000 mls @ 70 mls/hr IV.CONT .[id number] ERIN Octreotide Acetate 500 mcg/ (Sodium Chloride) 500.5 mls @ 25.02 mls/hr IV.CONT .Q20H1M ERIN Stop: 11/01/17 16:59 Ciprofloxacin/Dextrose (Cipro 400 Mg/200 Ml Inj) 400 mg in 200 mls @ 200 mls/ hr IV.SIG Q12H ERIN Ondansetron HCl (Zofran Inj) 4 mg IV.PUSH Q6H PRN PRN Reason: NAUSEA OR VOMITING Sodium Chloride (Ns Flush) 2 ml IV.FLUSH PRN PRN PRN Reason: FLUSH AFTER USING IV ACCESS Sodium Chloride (Ns Flush) 2 ml IV.FLUSH BID ERIN Sodium Chloride (Ns Flush) 2 ml IV.FLUSH PRN PRN PRN Reason: FLUSH AFTER USING IV ACCESS Allergies Allergy/AdvReac Type Severity Reaction Status Date / Time morphine Allergy Mild ITCHY SKIN Verified 10/25/17 18:15 penicillin G Allergy Mild Rash Verified 10/25/17 18:15 Home Medications Medication Instructions Recorded Confirmed Type fentanyl 1 patch TRANSDERMAL Q72H 10/25/17 10/27/17 History gabapentin 600 mg PO HS 10/25/17 10/27/17 History hydrocodone-acetaminophen 1 tab PO Q4H PRN 10/25/17 10/27/17 History Exam Vital signs: Vital Signs 10/27/17 15:04 10/27/17 15:32 Temperature 98.5 F Pulse Rate 86 Respiratory Rate 24 Blood Pressure 131/81 Pulse Oximetry 95 95 Intake & Output 10/26/17 10/27/17 10/27/17 18:59 06:59 18:59 Weight 51.71 kg Narrative: GENERAL: Well-nourished well-developed white female in no acute distress jaundice SKIN: Warm and dry. Jaundice HEAD: Atraumatic. Normocephalic. EYES: Pupils equal and round. Positive for scleral icterus. No injection or drainage. ENT: No nasal bleeding or discharge. Mucous membranes pink and moist. NECK: Trachea midline. No JVD. CARDIOVASCULAR: Regular rate and rhythm. RESPIRATORY: No accessory muscle use. Clear to auscultation. Breath sounds equal bilaterally. GASTROINTESTINAL: Abdomen soft, epigastric tenderness with no rebound or guarding, mild distention hepatic and splenic margins not palpable. Normoactive bowel sounds MUSCULOSKELETAL: Extremities without clubbing, cyanosis, or edema. No obvious deformities. NEUROLOGICAL: Awake and alert to person place time. No obvious cranial nerve deficits. Motor grossly within normal limits. Five out of 5 muscle strength in the arms and legs. Normal speech. PSYCHIATRIC: Appropriate mood and affect; insight and judgment normal. Results - Labs CBC & Chem 7: 10/27/17 15:13 10/27/17 15:13 Labs: Short CBC 10/27/17 Range/Units 15:13 WBC 7.2 (4.0-11.0) th/mm3 Hgb 6.6 L* (11.6-15.3) gm/dL Hct 19.9 L* (35.0-46.0) % Plt Count 45 L (150-450) th/mm3 BMP 10/27/17 15:13 Sodium 139 Potassium 3.3 L Chloride 106 Carbon Dioxide 25.9 BUN 10 Creatinine 0.56 Calcium 7.9 L Liver Function 10/27/17 Range/Units 15:13 Total Bilirubin 15.7 H (0.2-1.0) mg/dL AST 140 H (15-37) U/L ALT 24 (10-53) U/L Alkaline Phosphatase 131 H (45-117) U/L Albumin 2.0 L (3.4-5.0) g/dL Caprini VTE Risk Assessment Caprini VTE Risk Assessment: Moderate/High Risk (score >= 2) Caprini Risk Assessment Model: Point Value = 1 Point Value = 2 Point Value = 3 Point Value = 5 Age 41-60 Minor surgery BMI > 25 kg/m2 Swollen legs Varicose veins or History of unexplained or recurrent spontaneous Oral contraceptives or hormone replacement Sepsis (< 1 month) Serious lung disease, including pneumonia (< 1 month) Abnormal pulmonary function Acute myocardial infarction Congestive heart failure (< 1 month) History of inflammatory bowel disease Medical patient at bed rest Age 61-74 Arthroscopic surgery Major open surgery (> 45 min) Laparoscopic surgery (> 45 min) Malignancy Confined to bed (> 72 hours) Immobilizing plaster cast Central venous access Age >= 75 History of VTE Family history of VTE Factor V Leiden Prothrombin [id number] Lupus anticoagulant Anticardiolipin antibodies Elevated serum homocysteine Heparin-induced thrombocytopenia Other congenital or acquired thrombophilia Stroke (< 1 month) Elective arthroplasty Hip, pelvis, or leg fracture Acute spinal cord injury (< 1 month) Prophylaxis Regimen: Total Risk Factor Score Risk Level Prophylaxis Regimen 0-1 Low Early ambulation 2 Moderate Order ONE of the following: *Sequential Compression Device (SCD) *Heparin 5000 units SQ BID 3-4 Higher Order ONE of the following medications: *Heparin 5000 units SQ TID *Enoxaparin/Lovenox 40 mg SQ daily (WT < 150 kg, CrCl > 30 mL/min) *Enoxaparin/Lovenox 30 mg SQ daily (WT < 150 kg, CrCl > 10-29 mL/min) *Enoxaparin/Lovenox 30 mg SQ BID (WT < 150 kg, CrCl > 30 mL/min) AND/OR *Sequential Compression Device (SCD) 5 or more Highest Order ONE of the following medications: *Heparin 5000 units SQ TID (Preferred with Epidurals) *Enoxaparin/Lovenox 40 mg SQ daily (WT < 150 kg, CrCl > 30 mL/min) *Enoxaparin/Lovenox 30 mg SQ daily (WT < 150 kg, CrCl > 10-29 mL/min) *Enoxaparin/Lovenox 30 mg SQ BID (WT < 150 kg, CrCl > 30 mL/min) AND *Sequential Compression Device (SCD) Assessment and Plan - Plan 52-year-old white female with a history of alcoholic cirrhosis, hepatitis C presents with 1. GI bleedsuspect upper, at this time Protonix drip has been initiated. Due to history of cirrhosis will initiate octreotide until EGD can be completed. Cipro IV to be initiated for empiric antibiotics prophylaxis. Transfuse 2 units of packed red blood cell, serial hemoglobin hematocrit to be done. Obtain a GI consultation for further recommendations and evaluation for EGD. 2. Acute anemia due to acute GI bleed. Monitor serial hemoglobin hematocrit, transfuse 2 units of packed red blood cell. 3. History of alcoholic cirrhosis with ascitesconsider restarting diuretics Lasix and Aldactone after stabilization of patient's GI bleed. 4. History of alcohol abuse cessation counseling. Placed on CIWA protocol and monitor for withdrawal symptoms. 5. Hypokalemiareplete check magnesium level 6. Acute liver failure likely due to chronic alcohol abuse and hep Cconsider steroids and monitor hepatic function, further recommendations per GI. 7. DVT prophylaxisanticoagulation contraindicated due to GI bleed.
[2017-10-27] MEDS: Ciprofloxacin 400 MG/200 ML 400 MG/200 ML PIGGYBACK IV.SIG SCH (18:08)
[2017-10-27] MEDS ORDERED: HYDROmorphone PF Inj 2 MG/ML Vial IV.PUSH PRN (18:15)
[2017-10-27] MEDS: Octreotide Inj 500 MCG in Sodium Chlor 0.9% Inj 500 ML IV.CONT SCH (18:20)
[2017-10-27] MEDS: Gabapentin 300 MG Capsule PO SCH (20:55)
[2017-10-28 00:42] LABS: Hemoglobin 8.1 gm/dL (11.6-15.3)
[2017-10-28] MEDS: Pantoprazole Inj 80 MG in Sodium Chlor 0.9% Inj 100 ML IV.CONT SCH (03:01)
[2017-10-28] MEDS: Ciprofloxacin 400 MG/200 ML 400 MG/200 ML PIGGYBACK IV.SIG SCH ×2 (06:05→17:45)
[2017-10-28] MEDS: Sod Chloride 0.9% Inj 1,000 ML IV.CONT SCH ×3 (06:05→23:05)
[2017-10-28 07:09] LABS: Hematocrit 23.2 % (35.0-46.0); Hemoglobin 8.1 gm/dL (11.6-15.3)
[2017-10-28 07:35] LABS: Alanine Aminotransferase 20 U/L (10-53); Albumin 1.8 g/dL (3.4-5.0); Anion Gap 9 meq/L (5-15); Aspartate Aminotransferase 112 U/L (15-37); Blood Urea Nitrogen 11 mg/dL (7-18); Calcium 7.2 mg/dL (8.5-10.1); Carbon Dioxide 23.7 meq/L (21.0-32.0); Chloride 107 meq/L (98-107); Glomerular Filtration Rate Greater Than 89 mL/min (>89); Glucose,Random 75 mg/dL (74-106); Potassium 3.5 meq/L (3.5-5.1); Sodium 140 meq/L (136-145)
[2017-10-28 07:41] LABS: Alkaline Phosphatase 116 U/L (45-117); Total Protein 6.4 g/dL (6.4-8.2)
--- NOTE | 2017-10-28 12:22 | P.PNIM ---
Subjective Interval history: Mrs. Ortiz is a 52 year old female admitted with GI Bleed and Upper Abdominal Pain and bloating. She is transfused overnight. Hgb shows improvement this morning status post transfusion. Patient has not had another bloody bowel movement. Physical Exam Vital signs: Vital Signs 10/27/17 15:04 10/27/17 15:32 10/27/17 17:10 Temperature 98.5 F 98.4 F Pulse Rate 86 90 Respiratory Rate 24 20 Blood Pressure 131/81 121/59 L Pulse Oximetry 95 95 98 10/27/17 17:26 10/27/17 17:50 10/27/17 20:00 Temperature 98.4 F 98.5 F 99.3 F Pulse Rate 88 95 H 83 Respiratory Rate 22 20 18 Blood Pressure 114/64 133/90 131/67 Pulse Oximetry 98 95 92 L 10/27/17 20:20 10/27/17 20:27 10/27/17 20:43 Temperature 98.3 F 98.3 F 98.5 F Pulse Rate 75 79 77 Respiratory Rate 18 18 18 Blood Pressure 125/68 127/68 127/72 Pulse Oximetry 95 95 95 10/27/17 22:45 10/28/17 00:00 10/28/17 03:09 Temperature 98.9 F 98.9 F Pulse Rate 71 77 Respiratory Rate 18 18 Blood Pressure 132/67 117/57 L Pulse Oximetry 95 93 L 95 10/28/17 04:00 10/28/17 08:00 Temperature 98.4 F 98.5 F Pulse Rate 78 78 Respiratory Rate 18 18 Blood Pressure 114/62 116/68 Pulse Oximetry 94 L 92 L Intake & Output 10/27/17 10/28/17 10/28/17 18:59 06:59 18:59 Intake Total 0 / 0 1540 / 1540 1250 / 1250 Balance 0 / 0 1540 / 1540 1250 / 1250 Weight 55.6 kg 56.1 kg Intake: IV 500 / 500 1250 / 1250 Protonix Inj 80 MG In NS Inj 100 / 100 100 ML @ 10 mls/hr IV.CONT CONT ERIN Rx#:[id number] NS Inj 1,000 ML @ 70 mls/hr IV. 1000 / 1000 CONT .[id number] ERIN Rx#:[id number] Cipro 400 MG/200 ML Inj 400 mg 400 / 400 In 200 ml @ 200 mls/hr IV.SIG Q12H ERIN Rx#:[id number] NS Inj 250 ML @ 15 mls/hr IV. 250 / 250 SIG ONCE ERIN Rx#:[id number] Oral 240 / 240 Intake (Blood Product) Amt 0 / 0 0 / 0 Rbc As-3 Leukoreduced Unit 0 / 0 0 / 0 [id number] Rbc As-3 Leukoreduced Unit 0 / 0 [id number] Mass Transfusion Protocol 800 / 800 Other: # Voids 1 Date of Last Bowel Movement 10/27/17 10/27/17 # Bowel Movements 2 Weight On Admission 55.6 kg Narrative: GENERAL: NAD, A&Ox3 HEAD: Normocephalic. NECK: Supple, trachea midline. No lymphadenopathy. EYES: No scleral icterus. No injection or drainage. CARDIOVASCULAR: Regular rate and rhythm without murmurs, gallops, or rubs. RESPIRATORY: Breath sounds equal bilaterally. No accessory muscle use. GASTROINTESTINAL: Abdomen soft, non-tender, nondistended. MUSCULOSKELETAL: No cyanosis, or edema. SKIN: Warm and dry. NEURO: No focal neurological deficits. Results - Labs CBC & Chem 7: 10/28/17 05:59 10/28/17 05:59 Laboratory Results - last 24 hr 10/27/17 10/27/17 10/27/17 15:13 15:13 15:13 WBC 7.2 RBC 1.64 L Hgb 6.6 L* Hct 19.9 L* MCV 121.3 H D MCH 40.0 H MCHC 33.0 RDW 18.1 H Plt Count 45 L MPV 9.0 Prelim Diff (Auto) Slide review pending Neut % (Auto) 74.9 H Lymph % (Auto) 14.3 [place] % (Auto) 8.8 H Eos % (Auto) 1.4 Baso % (Auto) 0.6 Neut # (Auto) 5.4 Lymph # (Auto) 1.0 [place] # (Auto) 0.6 Eos # (Auto) 0.1 Baso # (Auto) 0.0 WBC Differential . Diff Scan Auto diff confirmed Differential Comment . PT 20.2 H INR 2.0 APTT 35.3 H Sodium 139 Potassium 3.3 L Chloride 106 Carbon Dioxide 25.9 Anion Gap 7 BUN 10 Creatinine 0.56 Estimated GFR Greater than 89 Random Glucose 94 Calcium 7.9 L Prot Corrected Calcium Total Bilirubin 15.7 H AST 140 H ALT 24 Alkaline Phosphatase 131 H Ammonia Total Protein 7.2 Albumin 2.0 L Lipase 103 Blood Type Antibody Screen MTS Gel Crossmatch 10/27/17 10/27/17 10/27/17 15:13 15:17 15:38 WBC RBC Hgb Hct MCV MCH MCHC RDW Plt Count MPV Prelim Diff (Auto) Neut % (Auto) Lymph % (Auto) [place] % (Auto) Eos % (Auto) Baso % (Auto) Neut # (Auto) Lymph # (Auto) [place] # (Auto) Eos # (Auto) Baso # (Auto) WBC Differential Diff Scan Differential Comment PT INR APTT Sodium Potassium Chloride Carbon Dioxide Anion Gap BUN Creatinine Estimated GFR Random Glucose Calcium Prot Corrected Calcium Total Bilirubin AST ALT Alkaline Phosphatase Ammonia 21 Total Protein Albumin Lipase Blood Type O Positive Antibody Screen Negative MTS Gel Crossmatch See Detail 10/28/17 10/28/17 10/28/17 00:05 05:59 05:59 WBC RBC Hgb 8.1 L 8.1 L Hct 23.0 L 23.2 L MCV MCH MCHC RDW Plt Count MPV Prelim Diff (Auto) Neut % (Auto) Lymph % (Auto) [place] % (Auto) Eos % (Auto) Baso % (Auto) Neut # (Auto) Lymph # (Auto) [place] # (Auto) Eos # (Auto) Baso # (Auto) WBC Differential Diff Scan Differential Comment PT INR APTT Sodium 140 Potassium 3.5 Chloride 107 Carbon Dioxide 23.7 Anion Gap 9 BUN 11 Creatinine 0.64 Estimated GFR Greater than 89 Random Glucose 75 Calcium 7.2 L* Prot Corrected Calcium 7.6 L Total Bilirubin 15.0 H AST 112 H ALT 20 Alkaline Phosphatase 116 Ammonia Total Protein 6.4 D Albumin 1.8 L Lipase Blood Type Antibody Screen MTS Gel Crossmatch Assessment and Plan - Assessment (1) Acute GI bleeding Code(s): K92.2 - Gastrointestinal hemorrhage, unspecified Status: Acute (2) Anemia Code(s): D64.9 - Anemia, unspecified Status: Acute - Plan 52-year-old white female with a history of alcoholic cirrhosis, hepatitis C presents with GI bleed and acute blood loss anemia. GI bleed History of cirrhosis with ascites Acute blood loss anemia Suspected upper GI bleed Continue Protonix drip Continue octreotide GI has been consulted Ciprofloxacin continued Patient transfused 2 units packed red blood cells on 10/27/2017 consider restarting diuretics Lasix and Aldactone after stabilization History of alcoholism Continue CIWA protocol Monitor for delirium tremens Hypokalemia Monitor and replace as needed Acute liver failure likely due to chronic alcohol abuse and hep C Avoid alcohol Follow LFTs Not a good candidate for steroids at this point DVT prophylaxis SCDs
--- NOTE | 2017-10-28 13:31 | P.CONGI ---
History of Present Illness Chief complaint: GI bleed/ symtomatic anemia History of Present Illness: This is a 52 year old female patient with history of chronic pancreatitis, alcoholic hepatitis, cirrhosis who presents to the emergency room with worsening abd girth which started 3 days ago, was seen in the ED at that time and was sent home. Pt returned with black tarry stools X 2 days, last episode was yesterday morning. CT of a/p on 10/25/17 showed cirrhosis with moderate amount of ascitic fluid. Chronic pancreatitis, spleen is upper limits of normal size, non obstructing bilateral renal calculi, gall bladder is at the upper limits of normal in size. PPI and Octreotide started. hgb on admission 6.6, today is 8.1 s/p 2 units of blood. Pt had EGD on 04/10/15 showed mild antral gastropathy, other linton normal. States hasn't been following with GI as an OP. She cont to drink about 4 drinks a day but quit 4 days ago. She is not taking any medications for cirrhosis. INR today is 2.0, bili is 15, AST 112, rest normal , albumin is 1.8. WBC wnl. Pt denies nausea, vomiting, or hematochezia. <Rome Meier - Last Filed: 10/28/17 13:38> Review of Systems All other systems reviewed negative except as stated in HPI <Rome Meier - Last Filed: 10/28/17 13:38> PMFSH - History History Provided By: Patient - Medical History Medical History: Medical History (Last Reviewed 10/27/17 @ 18:37 by Lashanda Agarwal RN) Cirrhosis of liver History of abdominal paracentesis Pancreatitis Weight loss - Surgical History Surgical History: Surgical History (Last Reviewed 10/27/17 @ 18:37 by Lashanda Agarwal RN) History of total right hip replacement - Family History Family History: Family History (Last Updated 10/27/17 @ 17:09 by Joana Mills MD) Mother Heart disease - Tobacco History Second Hand Smoke Exposure: Yes Tobacco Use In Past 30 Days: Yes Smoking Status: Current every day smoker Tobacco Type: Cigarettes - Alcohol History How Often Do You Have a Drink Containing Alcohol: 2 to 3 times a week - Substance Use History Substance History: No History of Abuse - Travel History Recent Travel in the [facility] Within the Last 8 Weeks: No Recent Travel Out of the Country Within the Last 8 Weeks: No - Immunization History Tetanus Immunization: Unsure Hx Influenza Vaccine This Season: No <Rome Meier - Last Filed: 10/28/17 13:38> - Medical History Medical History: Medical History (Last Reviewed 10/27/17 @ 18:37 by Lashanda Agarwal RN) Cirrhosis of liver History of abdominal paracentesis Pancreatitis Weight loss - Surgical History Surgical History: Surgical History (Last Reviewed 10/27/17 @ 18:37 by Lashanda Agarwal RN) History of total right hip replacement - Family History Family History: Family History (Last Updated 10/27/17 @ 17:09 by Joana Mills MD) Mother Heart disease <Livia Nur - Last Filed: 10/28/17 17:55> Medications and Allergies Active Medications: Active Medications Acetaminophen (Tylenol) 650 mg PO Q6HR PRN PRN Reason: PAIN SCALE 1 TO 2 Hydrocodone Bitart/Acetaminophen (Roby 5/325) 1 tab PO Q4H PRN PRN Reason: PAIN SCALE 3 TO 5 Hydrocodone Bitart/Acetaminophen (Roby 7.5/325) 1 tab PO Q4H PRN PRN Reason: PAIN SCALE 6 TO 10 Last Admin: 10/28/17 11:00 Dose: 1 tab Gabapentin (Neurontin) 600 mg PO HS [facility] Last Admin: 10/27/17 20:55 Dose: 600 mg Hydromorphone HCl (Dilaudid Pf Inj) 1 mg IV.PUSH Q4H PRN PRN Reason: BREAKTHROUGH PAIN Pantoprazole Sodium 80 mg/ (Sodium Chloride) 100 mls @ 10 mls/hr IV.CONT CONT [facility] Last Admin: 10/28/17 03:01 Dose: 10 mls/hr Sodium Chloride (Ns Inj) 1,000 mls @ 70 mls/hr IV.CONT .[id number] ERIN Last Admin: 10/28/17 11:04 Dose: 70 mls/hr Octreotide Acetate 500 mcg/ (Sodium Chloride) 500.5 mls @ 25.02 mls/hr IV.CONT .Q20H1M ERIN Stop: 11/01/17 16:59 Last Admin: 10/27/17 18:20 Dose: 25 mcg/hr, 25.02 mls/hr Ciprofloxacin/Dextrose (Cipro 400 Mg/200 Ml Inj) 400 mg in 200 mls @ 200 mls/ hr IV.SIG Q12H [facility] Last Infusion: 10/28/17 06:30 Dose: Infused Naloxone HCl (Narcan Inj) 0.4 mg IV.PUSH UNSCH PRN PRN Reason: SEE LABEL COMMENTS Ondansetron HCl (Zofran Inj) 4 mg IV.PUSH Q6H PRN PRN Reason: NAUSEA OR VOMITING Sodium Chloride (Ns Flush) 2 ml IV.FLUSH BID [facility] Last Admin: 10/28/17 11:01 Dose: 2 ml Sodium Chloride (Ns Flush) 2 ml IV.FLUSH PRN PRN PRN Reason: FLUSH AFTER USING IV ACCESS <Rome Meier - Last Filed: 10/28/17 13:38> Active Medications: Active Medications Acetaminophen (Tylenol) 650 mg PO Q6HR PRN PRN Reason: PAIN SCALE 1 TO 2 Hydrocodone Bitart/Acetaminophen (Roby 5/325) 1 tab PO Q4H PRN PRN Reason: PAIN SCALE 3 TO 5 Hydrocodone Bitart/Acetaminophen (Roby 7.5/325) 1 tab PO Q4H PRN PRN Reason: PAIN SCALE 6 TO 10 Last Admin: 10/28/17 11:00 Dose: 1 tab Furosemide (Lasix) 20 mg PO DAILY [facility] Gabapentin (Neurontin) 600 mg PO HS [facility] Last Admin: 10/27/17 20:55 Dose: 600 mg Hydromorphone HCl (Dilaudid Pf Inj) 1 mg IV.PUSH Q4H PRN PRN Reason: BREAKTHROUGH PAIN Pantoprazole Sodium 80 mg/ (Sodium Chloride) 100 mls @ 10 mls/hr IV.CONT CONT [facility] Last Infusion: 10/28/17 13:29 Dose: Infused Sodium Chloride (Ns Inj) 1,000 mls @ 70 mls/hr IV.CONT .[id number] [facility] Last Admin: 10/28/17 11:04 Dose: 70 mls/hr Octreotide Acetate 500 mcg/ (Sodium Chloride) 500.5 mls @ 25.02 mls/hr IV.CONT .Q20H1M [facility] Stop: 11/01/17 16:59 Last Admin: 10/28/17 15:32 Dose: 25 mcg/hr, 25.02 mls/hr Ciprofloxacin/Dextrose (Cipro 400 Mg/200 Ml Inj) 400 mg in 200 mls @ 200 mls/ hr IV.SIG Q12H ERIN Last Admin: 10/28/17 17:45 Dose: 200 mls/hr Albumin Human (Flexbumin 25% Inj) 50 mls @ 60 mls/hr IV.SIG Q12H ERIN Stop: 10/30/17 13:59 Last Infusion: 10/28/17 16:29 Dose: Infused Naloxone HCl (Narcan Inj) 0.4 mg IV.PUSH UNSCH PRN PRN Reason: SEE LABEL COMMENTS Ondansetron HCl (Zofran Inj) 4 mg IV.PUSH Q6H PRN PRN Reason: NAUSEA OR VOMITING Sodium Chloride (Ns Flush) 2 ml IV.FLUSH BID [facility] Last Admin: 10/28/17 11:01 Dose: 2 ml Sodium Chloride (Ns Flush) 2 ml IV.FLUSH PRN PRN PRN Reason: FLUSH AFTER USING IV ACCESS Spironolactone (Aldactone) 50 mg PO DAILY [facility] <Livia Nur - Last Filed: 10/28/17 17:55> Allergies Allergy/AdvReac Type Severity Reaction Status Date / Time penicillin G Allergy Mild Rash Verified 10/25/17 18:15 Home Medications Medication Instructions Recorded Confirmed Type fentanyl 1 patch TRANSDERMAL Q72H 10/25/17 10/27/17 History gabapentin 600 mg PO HS 10/25/17 10/27/17 History hydrocodone-acetaminophen 1 tab PO Q4H PRN 10/25/17 10/27/17 History lorazepam [Ativan] 0.5 mg PO PRN 10/27/17 10/27/17 History Exam Vital signs: Vital Signs 10/27/17 15:04 10/27/17 15:32 10/27/17 17:10 Temperature 98.5 F 98.4 F Pulse Rate 86 90 Respiratory Rate 24 20 Blood Pressure 131/81 121/59 L Pulse Oximetry 95 95 98 10/27/17 17:26 10/27/17 17:50 10/27/17 20:00 Temperature 98.4 F 98.5 F 99.3 F Pulse Rate 88 95 H 83 Respiratory Rate 22 20 18 Blood Pressure 114/64 133/90 131/67 Pulse Oximetry 98 95 92 L 10/27/17 20:20 10/27/17 20:27 10/27/17 20:43 Temperature 98.3 F 98.3 F 98.5 F Pulse Rate 75 79 77 Respiratory Rate 18 18 18 Blood Pressure 125/68 127/68 127/72 Pulse Oximetry 95 95 95 10/27/17 22:45 10/28/17 00:00 10/28/17 03:09 Temperature 98.9 F 98.9 F Pulse Rate 71 77 Respiratory Rate 18 18 Blood Pressure 132/67 117/57 L Pulse Oximetry 95 93 L 95 10/28/17 04:00 10/28/17 08:00 10/28/17 12:00 Temperature 98.4 F 98.5 F Pulse Rate 78 78 71 Respiratory Rate 18 18 Blood Pressure 114/62 116/68 Pulse Oximetry 94 L 92 L 10/28/17 12:55 Temperature Pulse Rate Respiratory Rate Blood Pressure Pulse Oximetry 92 L Intake & Output 10/27/17 10/28/17 10/28/17 18:59 06:59 18:59 Intake Total 0 / 0 1540 / 1540 1250 / 1250 Balance 0 / 0 1540 / 1540 1250 / 1250 Weight 55.6 kg 56.1 kg Intake: IV 500 / 500 1250 / 1250 Protonix Inj 80 MG In NS Inj 100 / 100 100 ML @ 10 mls/hr IV.CONT CONT ERIN Rx#:[id number] NS Inj 1,000 ML @ 70 mls/hr IV. 1000 / 1000 CONT .[id number] ERIN Rx#:[id number] Cipro 400 MG/200 ML Inj 400 mg 400 / 400 In 200 ml @ 200 mls/hr IV.SIG Q12H ERIN Rx#:[id number] NS Inj 250 ML @ 15 mls/hr IV. 250 / 250 SIG ONCE ERIN Rx#:[id number] Oral 240 / 240 Intake (Blood Product) Amt 0 / 0 0 / 0 Rbc As-3 Leukoreduced Unit 0 / 0 0 / 0 [id number] Rbc As-3 Leukoreduced Unit 0 / 0 [id number] Mass Transfusion Protocol 800 / 800 Other: # Voids 1 Date of Last Bowel Movement 10/27/17 10/27/17 # Bowel Movements 2 Weight On Admission 55.6 kg - Constitutional no acute distress - Routine HEENT Exam Head: Present: normocephalic - Routine Respiratory Exam Present: CTA bilaterally - Routine Cardiovascular Exam Present: RRR - Routine Abdominal Exam Present: normoactive bowel sounds, tenderness, distended - Routine Extremities Exam Absent: edema - Routine Skin Exam Present: intact, dry, jaundice - Routine Neurological Exam Present: alert, oriented X3 <Rome Meier - Last Filed: 10/28/17 13:38> Vital signs: Vital Signs 10/27/17 20:00 10/27/17 20:20 10/27/17 20:27 Temperature 99.3 F 98.3 F 98.3 F Pulse Rate 83 75 79 Respiratory Rate 18 18 18 Blood Pressure 131/67 125/68 127/68 Pulse Oximetry 92 L 95 95 10/27/17 20:43 10/27/17 22:45 10/28/17 00:00 Temperature 98.5 F 98.9 F 98.9 F Pulse Rate 77 71 77 Respiratory Rate 18 18 18 Blood Pressure 127/72 132/67 117/57 L Pulse Oximetry 95 95 93 L 10/28/17 03:09 10/28/17 04:00 10/28/17 08:00 Temperature 98.4 F 98.5 F Pulse Rate 78 78 Respiratory Rate 18 18 Blood Pressure 114/62 116/68 Pulse Oximetry 95 94 L 92 L 10/28/17 12:00 10/28/17 12:55 10/28/17 17:47 Temperature 98.3 F Pulse Rate 70 Respiratory Rate 18 Blood Pressure 117/62 Pulse Oximetry 92 L 92 L 92 L Intake & Output 10/27/17 10/28/17 10/28/17 18:59 06:59 18:59 Intake Total 0 / 0 1540 / 1540 1900.5 / 1900.5 Balance 0 / 0 1540 / 1540 1900.5 / 1900.5 Weight 55.6 kg 56.1 kg Intake: IV 500 / 500 1900.5 / 1900.5 SandoSTATIN Inj 500 MCG In NS 500.5 / 500.5 Inj 500 ML @ 25 MCG/HR 25.02 mls/hr IV.CONT .Q20H1M EIRN Rx#: [id number] Protonix Inj 80 MG In NS Inj 100 / 100 100 / 100 100 ML @ 10 mls/hr IV.CONT CONT ERIN Rx#:[id number] NS Inj 1,000 ML @ 70 mls/hr IV. 1000 / 1000 CONT .[id number] ERIN Rx#:[id number] Flexbumin 25% Inj 50 ML @ 60 50 / 50 mls/hr IV.SIG Q12H ERIN Rx#: [id number] Cipro 400 MG/200 ML Inj 400 mg 400 / 400 In 200 ml @ 200 mls/hr IV.SIG Q12H ERIN Rx#:[id number] NS Inj 250 ML @ 15 mls/hr IV. 250 / 250 SIG ONCE ERIN Rx#:[id number] Oral 240 / 240 Intake (Blood Product) Amt 0 / 0 0 / 0 Rbc As-3 Leukoreduced Unit 0 / 0 0 / 0 [id number] Rbc As-3 Leukoreduced Unit 0 / 0 [id number] Mass Transfusion Protocol 800 / 800 Other: # Voids 1 Date of Last Bowel Movement 10/27/17 10/27/17 # Bowel Movements 2 Weight On Admission 55.6 kg <Livia Nur - Last Filed: 10/28/17 17:55> Results - Labs CBC & Chem 7: 10/28/17 05:59 10/28/17 05:59 Labs: Laboratory Results - last 24 hr 10/27/17 10/27/17 10/27/17 15:13 15:13 15:13 WBC 7.2 RBC 1.64 L Hgb 6.6 L* Hct 19.9 L* MCV 121.3 H D MCH 40.0 H MCHC 33.0 RDW 18.1 H Plt Count 45 L MPV 9.0 Prelim Diff (Auto) Slide review pending Neut % (Auto) 74.9 H Lymph % (Auto) 14.3 [place] % (Auto) 8.8 H Eos % (Auto) 1.4 Baso % (Auto) 0.6 Neut # (Auto) 5.4 Lymph # (Auto) 1.0 [place] # (Auto) 0.6 Eos # (Auto) 0.1 Baso # (Auto) 0.0 WBC Differential . Diff Scan Auto diff confirmed Differential Comment . PT 20.2 H INR 2.0 APTT 35.3 H Sodium 139 Potassium 3.3 L Chloride 106 Carbon Dioxide 25.9 Anion Gap 7 BUN 10 Creatinine 0.56 Estimated GFR Greater than 89 Random Glucose 94 Calcium 7.9 L Prot Corrected Calcium Total Bilirubin 15.7 H AST 140 H ALT 24 Alkaline Phosphatase 131 H Ammonia Total Protein 7.2 Albumin 2.0 L Lipase 103 Blood Type Antibody Screen MTS Gel Crossmatch 10/27/17 10/27/17 10/27/17 15:13 15:17 15:38 WBC RBC Hgb Hct MCV MCH MCHC RDW Plt Count MPV Prelim Diff (Auto) Neut % (Auto) Lymph % (Auto) [place] % (Auto) Eos % (Auto) Baso % (Auto) Neut # (Auto) Lymph # (Auto) [place] # (Auto) Eos # (Auto) Baso # (Auto) WBC Differential Diff Scan Differential Comment PT INR APTT Sodium Potassium Chloride Carbon Dioxide Anion Gap BUN Creatinine Estimated GFR Random Glucose Calcium Prot Corrected Calcium Total Bilirubin AST ALT Alkaline Phosphatase Ammonia 21 Total Protein Albumin Lipase Blood Type O Positive Antibody Screen Negative MTS Gel Crossmatch See Detail 10/28/17 10/28/17 10/28/17 00:05 05:59 05:59 WBC RBC Hgb 8.1 L 8.1 L Hct 23.0 L 23.2 L MCV MCH MCHC RDW Plt Count MPV Prelim Diff (Auto) Neut % (Auto) Lymph % (Auto) [place] % (Auto) Eos % (Auto) Baso % (Auto) Neut # (Auto) Lymph # (Auto) [place] # (Auto) Eos # (Auto) Baso # (Auto) WBC Differential Diff Scan Differential Comment PT INR APTT Sodium 140 Potassium 3.5 Chloride 107 Carbon Dioxide 23.7 Anion Gap 9 BUN 11 Creatinine 0.64 Estimated GFR Greater than 89 Random Glucose 75 Calcium 7.2 L* Prot Corrected Calcium 7.6 L Total Bilirubin 15.0 H AST 112 H ALT 20 Alkaline Phosphatase 116 Ammonia Total Protein 6.4 D Albumin 1.8 L Lipase Blood Type Antibody Screen MTS Gel Crossmatch <Rome Meier - Last Filed: 10/28/17 13:38> - Labs CBC & Chem 7: 10/28/17 05:59 10/28/17 05:59 Labs: Laboratory Results - last 24 hr 10/27/17 10/28/17 10/28/17 15:38 00:05 05:59 Hgb 8.1 L Hct 23.0 L Sodium 140 Potassium 3.5 Chloride 107 Carbon Dioxide 23.7 Anion Gap 9 BUN 11 Creatinine 0.64 Estimated GFR Greater than 89 Random Glucose 75 Calcium 7.2 L* Prot Corrected Calcium 7.6 L Total Bilirubin 15.0 H AST 112 H ALT 20 Alkaline Phosphatase 116 Total Protein 6.4 D Albumin 1.8 L MTS Gel Crossmatch See Detail Blood Bank Comment 10/28/17 10/28/17 05:59 13:41 Hgb 8.1 L Hct 23.2 L Sodium Potassium Chloride Carbon Dioxide Anion Gap BUN Creatinine Estimated GFR Random Glucose Calcium Prot Corrected Calcium Total Bilirubin AST ALT Alkaline Phosphatase Total Protein Albumin MTS Gel Crossmatch Blood Bank Comment <Livia Nur - Last Filed: 10/28/17 17:55> Assessment and Plan - Plan - Melena/anemia- Hx of alcoholic hepatitis, cirrhosis who presents to the emergency room with worsening abd girth which started 3 days ago, was seen in the ED at that time and was sent home. Pt returned with black tarry stools X 2 days, last episode was yesterday morning. CT of a/p on 10/25/17 showed cirrhosis with moderate amount of ascitic fluid. Chronic pancreatitis, spleen is upper limits of normal size, non obstructing bilateral renal calculi, gall bladder is at the upper limits of normal in size. PPI and Octreotide started. hgb on admission 6.6, today is 8.1 s/p 2 units of blood. Pt had EGD on 04/10/15 showed mild antral gastropathy, other linton normal. States hasn't been following with GI as an OP. She cont to drink about 4 drinks a day but quit 4 days ago. She is not taking any medications for cirrhosis. - Ascites- will start diuretics, not candidate for paracentesis with high INR - Coagulopathy/thrombocytopenia- INR today is 2.0, plt 45 - Hypo albumin is 1.8. - Hx of chronic pancreatitis- Sees pain management, takes Lortab as needed Normal Lipase - Alcoholic hepatitis on underlying liver cirrhosis. Continues to drink ETOH ( 4x a day but quit 4 days ago). Discriminant factor 58 T. Bilirubin 15, AST 112, rest normal Imaging as above. no indication for tx - Anemia. hgb on admission 6.6, today is 8.1 s/p 2 units of blood. due to acute gi bleed and hx of cirrhosis and continued ETOH use. - Hypocalcemia, hypokalemia per primary PLAN: - clears - IVF - PPI/octreotide - CBC, PT/INR, CMP in am - EGD/colonoscopy tomorrow if INR < 1.5 will - Golytely today - NPO mn - Give 2 units of FFP - Lasix 20 - Aldactone 50 - Give albumin - Alcohol cessation - Supportive care - Further recommendations to follow based on results of above - Pt seen and examined by and myself and this note is written on her behalf <Rome Meier - Last Filed: 10/28/17 13:38> - Attending Attestation seen, examined agree with above <Livia Nur - Last Filed: 10/28/17 17:55>
[2017-10-28] MEDS: Albumin Human 25% Inj 50 ML IV.SIG SCH (15:32)
[2017-10-28] MEDS: Octreotide Inj 500 MCG in Sodium Chlor 0.9% Inj 500 ML IV.CONT SCH (15:32)
[2017-10-28] MEDS ORDERED: PEG 3350/E-Lyte Soln 4000 ML Bottle PO ONE (16:00)
[2017-10-28] MEDS: Gabapentin 300 MG Capsule PO SCH (21:54)
[2017-10-29] MEDS: Albumin Human 25% Inj 50 ML IV.SIG SCH ×2 (03:01→13:49)
[2017-10-29] MEDS: Ciprofloxacin 400 MG/200 ML 400 MG/200 ML PIGGYBACK IV.SIG SCH ×2 (06:16→18:08)
[2017-10-29 07:38] LABS: Baso # (Auto) 0.1 th/mm3 (0.0-0.2); Baso % (Auto) 1.2 % (0.0-2.0); Eos # (Auto) 0.1 th/mm3 (0.0-0.4); Hematocrit 22.6 % (35.0-46.0); Hemoglobin 7.9 gm/dL (11.6-15.3); Lymph # (Auto) 0.8 th/mm3 (1.0-4.8); Lymph % (Auto) 11.3 % (9.0-44.0); Mean Corpuscular HGB Conc 35.1 % (32.0-36.0); Mean Corpuscular Hemoglobin 36.7 pg (27.0-34.0); Mean Corpuscular Volume 104.6 fL (80.0-100.0); Mean Platelet Volume 9.2 fL (7.0-11.0); Mono # (Auto) 0.7 th/mm3 (0.0-0.9); Mono % (Auto) 10.1 % (0.0-8.0); Neut # (Auto) 5.5 th/mm3 (1.8-7.7); Neut % (Auto) 75.4 % (16.0-70.0); Platelet Count 42 th/mm3 (150-450); Red Blood Count 2.17 mil/mm3 (4.00-5.30); Red Cell Distribution Width 27.7 % (11.6-17.2); White Blood Count 7.3 th/mm3 (4.0-11.0)
[2017-10-29 07:49] LABS: INR 2.3 Ratio; Prothrombin Time 23.5 sec (9.8-11.6)
[2017-10-29] MEDS: Spironolactone 50 MG Tablet PO SCH (08:00)
[2017-10-29] MEDS: Furosemide 20 MG Tablet PO SCH (08:00)
[2017-10-29 08:09] LABS: Alanine Aminotransferase 21 U/L (10-53); Albumin 1.9 g/dL (3.4-5.0); Alkaline Phosphatase 106 U/L (45-117); Anion Gap 8 meq/L (5-15); Aspartate Aminotransferase 97 U/L (15-37); Blood Urea Nitrogen 7 mg/dL (7-18); Calcium 6.5 mg/dL (8.5-10.1); Carbon Dioxide 23.3 meq/L (21.0-32.0); Chloride 105 meq/L (98-107); Glomerular Filtration Rate Greater Than 89 mL/min (>89); Glucose,Random 108 mg/dL (74-106); Magnesium 1.5 mg/dL (1.5-2.5); Potassium 3.3 meq/L (3.5-5.1); Sodium 136 meq/L (136-145); Total Protein 6.1 g/dL (6.4-8.2)
[2017-10-29 08:42] LABS: Dimorphic RBC Present
--- NOTE | 2017-10-29 11:20 | P.PNGI ---
Subjective Interval history: Pt is sitting up in chair, with complaints of abd bloating, and diarrhea due to the prep, no melena or hematochezia <Rome Meier - Last Filed: 10/31/17 19:31> Physical Exam Vital signs: Vital Signs 10/28/17 17:47 10/28/17 20:00 10/29/17 00:00 Temperature 98.0 F 98.2 F Pulse Rate 75 72 Respiratory Rate 20 21 Blood Pressure 137/70 117/64 Pulse Oximetry 92 L 94 L 90 L 10/29/17 04:00 10/29/17 04:33 10/29/17 08:00 Temperature 98.0 F 97.9 F Pulse Rate 73 98 H Respiratory Rate 19 16 20 Blood Pressure 115/59 L 122/68 Pulse Oximetry 96 94 L 10/29/17 10:56 10/29/17 11:57 10/29/17 12:00 Temperature 97.9 F 98.0 F Pulse Rate 67 68 Respiratory Rate 16 16 Blood Pressure 125/59 L 125/58 L Pulse Oximetry 94 L 95 94 L 10/29/17 12:15 10/29/17 15:33 10/29/17 16:25 Temperature 97.8 F 97.6 F 97.6 F Pulse Rate 69 70 67 Respiratory Rate 16 16 16 Blood Pressure 124/59 L 125/62 130/69 Pulse Oximetry 93 L 93 L Intake & Output 10/28/17 10/29/17 10/29/17 18:59 06:59 18:59 Intake Total 2100.5 / 2100.5 1425 / 1425 1550.5 / 1550.5 Balance 2100.5 / 2100.5 1425 / 1425 1550.5 / 1550.5 Weight 62.6 kg Intake: IV 2100.5 / 2100.5 1045 / 1045 1550.5 / 1550.5 SandoSTATIN Inj 500 MCG In NS 500.5 / 500.5 500.5 / 500.5 Inj 500 ML @ 25 MCG/HR 25.02 mls/hr IV.CONT .Q20H1M ERIN Rx#: [id number] Protonix Inj 80 MG In NS Inj 100 / 100 100 ML @ 10 mls/hr IV.CONT CONT ERIN Rx#:[id number] NS Inj 1,000 ML @ 70 mls/hr IV. 1000 / 1000 795 / 795 1000 / 1000 CONT .[id number] ERIN Rx#:[id number] Flexbumin 25% Inj 50 ML @ 60 50 / 50 50 / 50 50 / 50 mls/hr IV.SIG Q12H ERIN Rx#: [id number] Cipro 400 MG/200 ML Inj 400 mg 200 / 200 200 / 200 In 200 ml @ 200 mls/hr IV.SIG Q12H ERIN Rx#:[id number] NS Inj 250 ML @ 15 mls/hr IV. 250 / 250 SIG ONCE ERIN Rx#:[id number] Oral 380 / 380 Intake (Blood Product) Amt 0 / 0 Plasma Thawed 5 Day Cp2d Unit 0 / 0 [id number] Plasma Thawed 5 Day Cp2d Unit 0 / 0 [id number] Plt Pheresis A Leukoreduced 0 / 0 Unit [id number] Other: # Voids 5 Date of Last Bowel Movement 10/27/17 10/27/17 10/27/17 # Bowel Movements 0 <Livia Nur - Last Filed: 10/29/17 17:05> Vital signs: Vital Signs 10/28/17 12:00 10/28/17 12:55 10/28/17 16:00 Temperature 98.3 F 98.1 F Pulse Rate 70 69 Respiratory Rate 18 18 Blood Pressure 117/62 126/64 Pulse Oximetry 92 L 92 L 93 L 10/28/17 17:47 10/28/17 20:00 10/29/17 00:00 Temperature 98.0 F 98.2 F Pulse Rate 75 72 Respiratory Rate 20 21 Blood Pressure 137/70 117/64 Pulse Oximetry 92 L 94 L 90 L 10/29/17 04:00 10/29/17 04:33 10/29/17 08:00 Temperature 98.0 F 97.9 F Pulse Rate 73 71 Respiratory Rate 19 16 20 Blood Pressure 115/59 L 122/68 Pulse Oximetry 96 94 L 10/29/17 10:56 Temperature Pulse Rate Respiratory Rate Blood Pressure Pulse Oximetry 94 L Intake & Output 10/28/17 10/29/17 10/29/17 18:59 06:59 18:59 Intake Total 2099.5 / 2099.5 1425 / 1425 Balance 2100.5 / 2099.5 1425 / 1425 Weight 62.6 kg Intake: IV 2100.5 / 2100.5 1045 / 1045 SandoSTATIN Inj 500 MCG In NS 500.5 / 500.5 Inj 500 ML @ 25 MCG/HR 25.02 mls/hr IV.CONT .Q20H1M ERIN Rx#: [id number] Protonix Inj 80 MG In NS Inj 100 / 100 100 ML @ 10 mls/hr IV.CONT CONT ERIN Rx#:[id number] NS Inj 1,000 ML @ 70 mls/hr IV. 1000 / 1000 795 / 795 CONT .[id number] ERIN Rx#:[id number] Flexbumin 25% Inj 50 ML @ 60 50 / 50 50 / 50 mls/hr IV.SIG Q12H ERIN Rx#: [id number] Cipro 400 MG/200 ML Inj 400 mg 200 / 200 200 / 200 In 200 ml @ 200 mls/hr IV.SIG Q12H ERIN Rx#:[id number] NS Inj 250 ML @ 15 mls/hr IV. 250 / 250 SIG ONCE ERIN Rx#:[id number] Oral 380 / 380 Other: # Voids 5 Date of Last Bowel Movement 10/27/17 10/27/17 # Bowel Movements 0 Narrative: GENERAL: no acute distress HEAD: Normocephalic. NECK: Supple, trachea midline. CARDIOVASCULAR: Regular rate and rhythm without murmurs, gallops, or rubs. RESPIRATORY: Breath sounds equal bilaterally. No accessory muscle use. GASTROINTESTINAL: Abdomen distended, ascites, organomegaly, + bowel sounds MUSCULOSKELETAL: No cyanosis, or edema. SKIN: Warm and dry. Jaundice NEURO: No focal neurological deficits. <Rome Meier - Last Filed: 10/31/17 19:31> Results - Labs CBC & Chem 7: 10/29/17 07:04 10/29/17 07:04 Laboratory Results - last 24 hr 10/28/17 10/29/17 10/29/17 13:41 07:04 07:04 WBC 7.3 RBC 2.17 L Hgb 7.9 L Hct 22.6 L MCV 104.6 H D MCH 36.7 H MCHC 35.1 RDW 27.7 H D Plt Count 42 L MPV 9.2 Prelim Diff (Auto) Slide review pending Neut % (Auto) 75.4 H Lymph % (Auto) 11.3 [place] % (Auto) 10.1 H Eos % (Auto) 2.0 Baso % (Auto) 1.2 Neut # (Auto) 5.5 Lymph # (Auto) 0.8 L [place] # (Auto) 0.7 Eos # (Auto) 0.1 Baso # (Auto) 0.1 WBC Differential . Diff Scan Auto diff confirmed Differential Comment . Dimorphic RBCs Present H PT INR Sodium 136 Potassium 3.3 L Chloride 105 Carbon Dioxide 23.3 Anion Gap 8 BUN 7 Creatinine 0.55 Estimated GFR Greater than 89 Random Glucose 108 H Calcium 6.5 L* Prot Corrected Calcium 7.0 L* Phosphorus 2.0 L Magnesium 1.5 Total Bilirubin 14.5 H AST 97 H ALT 21 Alkaline Phosphatase 106 Total Protein 6.1 L Albumin 1.9 L Blood Bank Comment Bld Prod Order Comment 10/29/17 10/29/17 07:04 11:51 WBC RBC Hgb Hct MCV MCH MCHC RDW Plt Count MPV Prelim Diff (Auto) Neut % (Auto) Lymph % (Auto) [place] % (Auto) Eos % (Auto) Baso % (Auto) Neut # (Auto) Lymph # (Auto) [place] # (Auto) Eos # (Auto) Baso # (Auto) WBC Differential Diff Scan Differential Comment Dimorphic RBCs PT 23.5 H INR 2.3 Sodium Potassium Chloride Carbon Dioxide Anion Gap BUN Creatinine Estimated GFR Random Glucose Calcium Prot Corrected Calcium Phosphorus Magnesium Total Bilirubin AST ALT Alkaline Phosphatase Total Protein Albumin Blood Bank Comment Bld Prod Order Comment <Livia Nur - Last Filed: 10/29/17 17:05> - Labs CBC & Chem 7: 10/31/17 06:07 10/31/17 06:07 Laboratory Results - last 24 hr 10/28/17 10/29/17 10/29/17 13:41 07:04 07:04 WBC 7.3 RBC 2.17 L Hgb 7.9 L Hct 22.6 L MCV 104.6 H D MCH 36.7 H MCHC 35.1 RDW 27.7 H D Plt Count 42 L MPV 9.2 Prelim Diff (Auto) Slide review pending Neut % (Auto) 75.4 H Lymph % (Auto) 11.3 [place] % (Auto) 10.1 H Eos % (Auto) 2.0 Baso % (Auto) 1.2 Neut # (Auto) 5.5 Lymph # (Auto) 0.8 L [place] # (Auto) 0.7 Eos # (Auto) 0.1 Baso # (Auto) 0.1 WBC Differential . Diff Scan Auto diff confirmed Differential Comment . Dimorphic RBCs Present H PT INR Sodium 136 Potassium 3.3 L Chloride 105 Carbon Dioxide 23.3 Anion Gap 8 BUN 7 Creatinine 0.55 Estimated GFR Greater than 89 Random Glucose 108 H Calcium 6.5 L* Prot Corrected Calcium 7.0 L* Phosphorus 2.0 L Magnesium 1.5 Total Bilirubin 14.5 H AST 97 H ALT 21 Alkaline Phosphatase 106 Total Protein 6.1 L Albumin 1.9 L Blood Bank Comment 10/29/17 07:04 WBC RBC Hgb Hct MCV MCH MCHC RDW Plt Count MPV Prelim Diff (Auto) Neut % (Auto) Lymph % (Auto) [place] % (Auto) Eos % (Auto) Baso % (Auto) Neut # (Auto) Lymph # (Auto) [place] # (Auto) Eos # (Auto) Baso # (Auto) WBC Differential Diff Scan Differential Comment Dimorphic RBCs PT 23.5 H INR 2.3 Sodium Potassium Chloride Carbon Dioxide Anion Gap BUN Creatinine Estimated GFR Random Glucose Calcium Prot Corrected Calcium Phosphorus Magnesium Total Bilirubin AST ALT Alkaline Phosphatase Total Protein Albumin Blood Bank Comment <Rome Meier - Last Filed: 10/31/17 19:31> Assessment and Plan - Attending Attestation seen examined agree with above liver w-up, we will start Trental for now until egd/colon done Rifaximin 550 mg po bid chronic pancreatitis-start Sravani new lung lesion-see body of ct abd report-pulmonary eval <Livia Nur - Last Filed: 10/29/17 17:05> - Plan - Melena/anemia- (06/28/17) No melena or hematochezia today. hh today is 7.9/22.6, stable (06/27/17) Hx of alcoholic hepatitis, cirrhosis who presents to the emergency room with worsening abd girth which started 3 days ago, was seen in the ED at that time and was sent home. Pt returned with black tarry stools X 2 days, last episode was yesterday morning. CT of a/p on 10/25/17 showed cirrhosis with moderate amount of ascitic fluid. Chronic pancreatitis, spleen is upper limits of normal size, non obstructing bilateral renal calculi, gall bladder is at the upper limits of normal in size. PPI and Octreotide started. hgb on admission 6.6, today is 8.1 s/p 2 units of blood. Pt had EGD on 04/10/15 showed mild antral gastropathy, other linton normal. States hasn't been following with GI as an OP. She cont to drink about 4 drinks a day but quit 4 days ago. She is not taking any medications for cirrhosis. - Ascites- diuretics started , not candidate for paracentesis with high INR - Coagulopathy/thrombocytopenia- INR today is 2.3 plt 42 - Hypo albumin is 1.9. - Hx of chronic pancreatitis- Sees pain management, takes Lortab as needed Normal Lipase - Alcoholic hepatitis on underlying liver cirrhosis. Continues to drink ETOH ( 4x a day but quit 4 days ago). Discriminant factor 58 trending down slowly. T. Bilirubin 15---> 14.5, AST 112--->97, rest normal Imaging as above. - Anemia. hh stable, no signs of active bleed. hgb on admission 6.6, s/p 2 units of blood. hgb today is 7.9 stable due to acute gi bleed and hx of cirrhosis and continued ETOH use. - Hypocalcemia, hypokalemia per primary PLAN: - clears - IVF - PPI/octreotide - CBC, PT/INR, CMP in am - EGD/colonoscopy tomorrow if INR < 1.5 - cont. Golytely today, still working on it - NPO mn - Give 2 units of FFP, unfortunately, these were not given yesterday - Give one unit of plt - Cont. Lasix 20 - Cont. Aldactone 50 - Cont. albumin - Trental/ Xifaxan - Alcohol cessation - Supportive care - plan was discussed in details with charge nurse - Further recommendations to follow based on results of above - Pt seen and examined by and myself and this note is written on her behalf <Rome Meier - Last Filed: 10/31/17 19:31>
--- NOTE | 2017-10-29 12:17 | P.PNIM ---
Subjective Interval history: Slight downward trend in hemoglobin. Plan for EGD and colonoscopy if INR is less than 1.5. Currently INR is 2.3. Physical Exam Vital signs: Vital Signs 10/28/17 12:55 10/28/17 16:00 10/28/17 17:47 Temperature 98.1 F Pulse Rate 69 Respiratory Rate 18 Blood Pressure 126/64 Pulse Oximetry 92 L 93 L 92 L 10/28/17 20:00 10/29/17 00:00 10/29/17 04:00 Temperature 98.0 F 98.2 F 98.0 F Pulse Rate 75 72 73 Respiratory Rate 20 21 19 Blood Pressure 137/70 117/64 115/59 L Pulse Oximetry 94 L 90 L 96 10/29/17 04:33 10/29/17 08:00 10/29/17 10:56 Temperature 97.9 F Pulse Rate 71 Respiratory Rate 16 20 Blood Pressure 122/68 Pulse Oximetry 94 L 94 L 10/29/17 11:57 Temperature 97.9 F Pulse Rate 67 Respiratory Rate 16 Blood Pressure 125/59 L Pulse Oximetry 95 Intake & Output 10/28/17 10/29/17 10/29/17 18:59 06:59 18:59 Intake Total 2100.5 / 2100.5 1425 / 1425 Balance 2100.5 / 2100.5 1425 / 1425 Weight 62.6 kg Intake: IV 2100.5 / 2100.5 1045 / 1045 SandoSTATIN Inj 500 MCG In NS 500.5 / 500.5 Inj 500 ML @ 25 MCG/HR 25.02 mls/hr IV.CONT .Q20H1M ERIN Rx#: [id number] Protonix Inj 80 MG In NS Inj 100 / 100 100 ML @ 10 mls/hr IV.CONT CONT ERIN Rx#:[id number] NS Inj 1,000 ML @ 70 mls/hr IV. 1000 / 1000 795 / 795 CONT .[id number] ERIN Rx#:[id number] Flexbumin 25% Inj 50 ML @ 60 50 / 50 50 / 50 mls/hr IV.SIG Q12H ERIN Rx#: [id number] Cipro 400 MG/200 ML Inj 400 mg 200 / 200 200 / 200 In 200 ml @ 200 mls/hr IV.SIG Q12H ERIN Rx#:[id number] NS Inj 250 ML @ 15 mls/hr IV. 250 / 250 SIG ONCE ERIN Rx#:[id number] Oral 380 / 380 Other: # Voids 5 Date of Last Bowel Movement 10/27/17 10/27/17 # Bowel Movements 0 Narrative: GENERAL: NAD, A&Ox3 HEAD: Normocephalic. NECK: Supple, trachea midline. No lymphadenopathy. EYES: No scleral icterus. No injection or drainage. CARDIOVASCULAR: Regular rate and rhythm without murmurs, gallops, or rubs. RESPIRATORY: Breath sounds equal bilaterally. No accessory muscle use. GASTROINTESTINAL: Abdomen soft, non-tender, nondistended. MUSCULOSKELETAL: No cyanosis, or edema. SKIN: Warm and dry. NEURO: No focal neurological deficits. Results - Labs CBC & Chem 7: 10/29/17 07:04 10/29/17 07:04 Laboratory Results - last 24 hr 10/28/17 10/29/17 10/29/17 13:41 07:04 07:04 WBC 7.3 RBC 2.17 L Hgb 7.9 L Hct 22.6 L MCV 104.6 H D MCH 36.7 H MCHC 35.1 RDW 27.7 H D Plt Count 42 L MPV 9.2 Prelim Diff (Auto) Slide review pending Neut % (Auto) 75.4 H Lymph % (Auto) 11.3 [place] % (Auto) 10.1 H Eos % (Auto) 2.0 Baso % (Auto) 1.2 Neut # (Auto) 5.5 Lymph # (Auto) 0.8 L [place] # (Auto) 0.7 Eos # (Auto) 0.1 Baso # (Auto) 0.1 WBC Differential . Diff Scan Auto diff confirmed Differential Comment . Dimorphic RBCs Present H PT INR Sodium 136 Potassium 3.3 L Chloride 105 Carbon Dioxide 23.3 Anion Gap 8 BUN 7 Creatinine 0.55 Estimated GFR Greater than 89 Random Glucose 108 H Calcium 6.5 L* Prot Corrected Calcium 7.0 L* Phosphorus 2.0 L Magnesium 1.5 Total Bilirubin 14.5 H AST 97 H ALT 21 Alkaline Phosphatase 106 Total Protein 6.1 L Albumin 1.9 L Blood Bank Comment Bld Prod Order Comment 10/29/17 10/29/17 07:04 11:51 WBC RBC Hgb Hct MCV MCH MCHC RDW Plt Count MPV Prelim Diff (Auto) Neut % (Auto) Lymph % (Auto) [place] % (Auto) Eos % (Auto) Baso % (Auto) Neut # (Auto) Lymph # (Auto) [place] # (Auto) Eos # (Auto) Baso # (Auto) WBC Differential Diff Scan Differential Comment Dimorphic RBCs PT 23.5 H INR 2.3 Sodium Potassium Chloride Carbon Dioxide Anion Gap BUN Creatinine Estimated GFR Random Glucose Calcium Prot Corrected Calcium Phosphorus Magnesium Total Bilirubin AST ALT Alkaline Phosphatase Total Protein Albumin Blood Bank Comment Bld Prod Order Comment Assessment and Plan - Assessment (1) Acute GI bleeding Code(s): K92.2 - Gastrointestinal hemorrhage, unspecified Status: Acute (2) Anemia Code(s): D64.9 - Anemia, unspecified Status: Acute - Plan 52-year-old white female with a history of alcoholic cirrhosis, hepatitis C presents with GI bleed and acute blood loss anemia. INR is 2.3. Goal of INR is less than 1.5 in order to obtain EGD and colonoscopy. For now continue to monitor CBC. Transfuse again if needed, no acute need for transfusion this morning. Patient may have chronic hypertherapeutic INR due to her liver disease. GI bleed History of cirrhosis with ascites Acute blood loss anemia Suspected upper GI bleed Continue Protonix drip Continue octreotide GI has been consulted Ciprofloxacin continued Patient transfused 2 units packed red blood cells on 10/27/2017 consider restarting diuretics Lasix and Aldactone after stabilization History of alcoholism Continue CIWA protocol Monitor for delirium tremens Hypokalemia Monitor and replace as needed Acute liver failure likely due to chronic alcohol abuse and hep C Avoid alcohol Follow LFTs Not a good candidate for steroids at this point DVT prophylaxis SCDs
[2017-10-29] MEDS: Octreotide Inj 500 MCG in Sodium Chlor 0.9% Inj 500 ML IV.CONT SCH ×2 (12:18→16:00)
[2017-10-29] MEDS: Sod Chloride 0.9% Inj 1,000 ML IV.CONT SCH (12:19)
[2017-10-29] MEDS: Pentoxifylline 400 MG Controlled Release Tablet PO SCH (18:37)
[2017-10-29] MEDS: Lipase/Protease/Amylase 24/76/120 DR Capsule PO SCH (18:37)
[2017-10-29 20:17] LABS: Alpha Fetoprotein Tumor Marker 5.8 ng/mL (0.5-8.0)
[2017-10-29] MEDS: Gabapentin 300 MG Capsule PO SCH (20:22)
[2017-10-29 21:03] LABS: Hepatitis A IgM Antibody Nonreactive (Nonreactive)
[2017-10-30] MEDS: Albumin Human 25% Inj 50 ML IV.SIG SCH (01:15)
[2017-10-30] MEDS: Ciprofloxacin 400 MG/200 ML 400 MG/200 ML PIGGYBACK IV.SIG SCH ×2 (05:05→17:21)
[2017-10-30] MEDS: Octreotide Inj 500 MCG in Sodium Chlor 0.9% Inj 500 ML IV.CONT SCH ×2 (05:06→17:45)
[2017-10-30] MEDS: Sod Chloride 0.9% Inj 1,000 ML IV.CONT SCH ×2 (05:14→16:30)
[2017-10-30 06:28] LABS: Baso # (Auto) 0.1 th/mm3 (0.0-0.2); Baso % (Auto) 0.9 % (0.0-2.0); Eos # (Auto) 0.1 th/mm3 (0.0-0.4); Eos % (Auto) 1.3 % (0.0-4.0); Hematocrit 23.9 % (35.0-46.0); Hemoglobin 8.5 gm/dL (11.6-15.3); Lymph % (Auto) 11.7 % (9.0-44.0); Mean Corpuscular HGB Conc 35.4 % (32.0-36.0); Mean Corpuscular Hemoglobin 36.7 pg (27.0-34.0); Mean Corpuscular Volume 103.6 fL (80.0-100.0); Mean Platelet Volume 8.7 fL (7.0-11.0); Mono % (Auto) 12.1 % (0.0-8.0); Neut # (Auto) 6.2 th/mm3 (1.8-7.7); Platelet Count 82 th/mm3 (150-450); Red Cell Distribution Width 26.9 % (11.6-17.2); White Blood Count 8.4 th/mm3 (4.0-11.0)
[2017-10-30] MEDS ORDERED: Chlorhexidine Gluconate 2% 1 Pack (2 Cloths) TOPICAL ONE (06:35)
[2017-10-30 06:41] LABS: INR 2.2 Ratio; Prothrombin Time 22.7 sec (9.8-11.6)
[2017-10-30] MEDS ORDERED: Sodium Chlor 0.9% Inj 500 ML IV.SIG SCH (07:00)
[2017-10-30 07:05] LABS: Alanine Aminotransferase 22 U/L (10-53); Albumin 2.4 g/dL (3.4-5.0); Alkaline Phosphatase 108 U/L (45-117); Anion Gap 10 meq/L (5-15); Aspartate Aminotransferase 87 U/L (15-37); Blood Urea Nitrogen 4 mg/dL (7-18); Calcium 7.5 mg/dL (8.5-10.1); Carbon Dioxide 25.5 meq/L (21.0-32.0); Chloride 100 meq/L (98-107); Glomerular Filtration Rate Greater Than 89 mL/min (>89); Glucose,Random 122 mg/dL (74-106); Sodium 135 meq/L (136-145); Total Protein 6.7 g/dL (6.4-8.2)
[2017-10-30 07:18] LABS: Potassium 2.9 meq/L (3.5-5.1)
[2017-10-30 08:50] LABS: Dimorphic RBC Present; Platelet Morphology Normal (Normal)
[2017-10-30] MEDS: Potassium Chlor 10 mEq Premix 10 MEQ/100 ML PIGGYBACK IV.SIG SCH ×4 (09:00→13:13)
[2017-10-30] MEDS: Lipase/Protease/Amylase 24/76/120 DR Capsule PO SCH ×3 (09:14→17:20)
[2017-10-30] MEDS: Pentoxifylline 400 MG Controlled Release Tablet PO SCH ×3 (09:14→17:20)
[2017-10-30] MEDS: Spironolactone 50 MG Tablet PO SCH (09:14)
[2017-10-30] MEDS: Furosemide 20 MG Tablet PO SCH (11:55)
--- NOTE | 2017-10-30 12:25 | P.PNGI ---
Subjective Interval history: Comfortable in bed complains of abdominal distention and abdominal discomfort asking if she could go home Apparently patient did not drink her colonic prep for her endoscopy today Physical Exam Vital signs: Vital Signs 10/29/17 15:33 10/29/17 16:00 10/29/17 16:25 Temperature 97.6 F 98.1 F 97.6 F Pulse Rate 70 67 67 Respiratory Rate 16 16 16 Blood Pressure 125/62 130/69 130/69 Pulse Oximetry 93 L 95 93 L 10/29/17 20:00 10/30/17 00:00 10/30/17 04:00 Temperature 98.4 F 98.1 F Pulse Rate 72 70 74 Respiratory Rate 20 20 Blood Pressure 135/65 123/60 Pulse Oximetry 91 L 91 L 10/30/17 08:00 10/30/17 10:58 Temperature 97.9 F Pulse Rate 94 H Respiratory Rate 18 Blood Pressure 146/90 H Pulse Oximetry 93 L 93 L Intake & Output 10/29/17 10/30/17 10/30/17 18:59 06:59 18:59 Intake Total 2110.5 / 2110.5 460 / 460 200 / 200 Balance 2110.5 / 2110.5 460 / 460 200 / 200 Intake: IV 1550.5 / 1550.5 460 / 460 200 / 200 SandoSTATIN Inj 500 MCG In NS 500.5 / 500.5 Inj 500 ML @ 25 MCG/HR 25.02 mls/hr IV.CONT .Q20H1M ERIN Rx#: [id number] NS Inj 1,000 ML @ 70 mls/hr IV. 1000 / 1000 CONT .[id number] ERIN Rx#:[id number] Flexbumin 25% Inj 50 ML @ 60 50 / 50 50 / 50 mls/hr IV.SIG Q12H ERIN Rx#: [id number] Cipro 400 MG/200 ML Inj 400 mg 410 / 410 In 200 ml @ 200 mls/hr IV.SIG Q12H ERIN Rx#:[id number] KCl 10 mEq Premix Inj 10 meq In 200 / 200 100 ml @ 100 mls/hr IV.SIG Q1H ERIN Rx#:[id number] Oral 560 / 560 Intake (Blood Product) Amt 0 / 0 Plasma Thawed 5 Day Cp2d Unit 0 / 0 [id number] Plasma Thawed 5 Day Cp2d Unit 0 / 0 [id number] Plt Pheresis A Leukoreduced 0 / 0 Unit [id number] Other: # Voids 6 Date of Last Bowel Movement 10/27/17 # Bowel Movements 0 - Constitutional no acute distress - Routine HEENT Exam Head: Present: normocephalic - Routine Neck Exam Present: supple - Routine Respiratory Exam Present: CTA bilaterally - Routine Cardiovascular Exam Present: RRR - Routine Abdominal Exam Present: distended (Mildly tender no rebound or guarding positive for ascites) - Routine Extremities Exam Present: cyanosis, clubbing Results - Labs CBC & Chem 7: 10/30/17 06:11 10/30/17 06:11 Laboratory Results - last 24 hr 10/28/17 10/29/17 10/29/17 13:41 11:51 18:55 WBC RBC Hgb Hct MCV MCH MCHC RDW Plt Count MPV Prelim Diff (Auto) Neut % (Auto) Lymph % (Auto) [place] % (Auto) Eos % (Auto) Baso % (Auto) Neut # (Auto) Lymph # (Auto) [place] # (Auto) Eos # (Auto) Baso # (Auto) WBC Differential Diff Scan Differential Comment Platelet Estimate Platelet Morphology Dimorphic RBCs PT INR Sodium Potassium Chloride Carbon Dioxide Anion Gap BUN Creatinine Estimated GFR Random Glucose Calcium Iron 32 L Ferritin 278 H Total Bilirubin AST ALT Alkaline Phosphatase Total Protein Albumin Tumor Marker AFP 5.8 Hepatitis A IgM Ab Hep Bs Antigen Hep B Core IgM Ab Hep C IgG Ab Blood Bank Comment Bld Prod Order Comment 10/29/17 10/29/17 10/30/17 18:55 18:55 06:11 WBC 8.4 RBC 2.30 L Hgb 8.5 L Hct 23.9 L MCV 103.6 H MCH 36.7 H MCHC 35.4 RDW 26.9 H Plt Count 82 L D MPV 8.7 Prelim Diff (Auto) Slide review pending Neut % (Auto) 74.0 H Lymph % (Auto) 11.7 [place] % (Auto) 12.1 H Eos % (Auto) 1.3 Baso % (Auto) 0.9 Neut # (Auto) 6.2 Lymph # (Auto) 1.0 [place] # (Auto) 1.0 H Eos # (Auto) 0.1 Baso # (Auto) 0.1 WBC Differential . Diff Scan Auto diff confirmed Differential Comment . Platelet Estimate Low L Platelet Morphology Normal Dimorphic RBCs Present H PT INR Sodium Potassium Chloride Carbon Dioxide Anion Gap BUN Creatinine Estimated GFR Random Glucose Calcium Iron Ferritin Total Bilirubin AST ALT Alkaline Phosphatase Total Protein Albumin Tumor Marker AFP Hepatitis A IgM Ab Nonreactive Hep Bs Antigen Nonreactive Hep B Core IgM Ab Nonreactive Hep C IgG Ab Nonreactive Blood Bank Comment Bld Prod Order Comment 10/30/17 10/30/17 06:11 06:11 WBC RBC Hgb Hct MCV MCH MCHC RDW Plt Count MPV Prelim Diff (Auto) Neut % (Auto) Lymph % (Auto) [place] % (Auto) Eos % (Auto) Baso % (Auto) Neut # (Auto) Lymph # (Auto) [place] # (Auto) Eos # (Auto) Baso # (Auto) WBC Differential Diff Scan Differential Comment Platelet Estimate Platelet Morphology Dimorphic RBCs PT 22.7 H INR 2.2 Sodium 135 L Potassium 2.9 L* Chloride 100 Carbon Dioxide 25.5 Anion Gap 10 BUN 4 L Creatinine 0.59 Estimated GFR Greater than 89 Random Glucose 122 H Calcium 7.5 L D Iron Ferritin Total Bilirubin 15.8 H AST 87 H ALT 22 Alkaline Phosphatase 108 Total Protein 6.7 D Albumin 2.4 L Tumor Marker AFP Hepatitis A IgM Ab Hep Bs Antigen Hep B Core IgM Ab Hep C IgG Ab Blood Bank Comment Bld Prod Order Comment Assessment and Plan - Plan - Melena/anemia- (10/30/17) No melena or hematochezia today. hh stable no signs of active bleeding (10/28/17) Hx of alcoholic hepatitis, cirrhosis who presents to the emergency room with worsening abd girth which started 3 days ago, was seen in the ED at that time and was sent home. Pt returned with black tarry stools X 2 days, last episode was yesterday morning. CT of a/p on 10/25/17 showed cirrhosis with moderate amount of ascitic fluid. Chronic pancreatitis, spleen is upper limits of normal size, non obstructing bilateral renal calculi, gall bladder is at the upper limits of normal in size. PPI and Octreotide started. hgb on admission 6.6, today is 8.1 s/p 2 units of blood. Pt had EGD on 04/10/15 showed mild antral gastropathy, other linton normal. States hasn't been following with GI as an OP. She cont to drink about 4 drinks a day but quit 4 days ago. She is not taking any medications for cirrhosis. - Ascites- diuretics started , not candidate for paracentesis with high INR - Coagulopathy/thrombocytopenia- INR today is 2.3 plt 42 - Hypo albumin is 1.9. - Hx of chronic pancreatitis- Sees pain management, takes Lortab as needed Normal Lipase - Alcoholic hepatitis on underlying liver cirrhosis. Continues to drink ETOH ( 4x a day but quit 4 days ago). Discriminant factor 58 trending down slowly. T. Bilirubin 15---> 14.5, AST 112--->97, rest normal Imaging as above. no indication for tx - Anemia. hh stable, no signs of active bleed. hgb on admission 6.6, s/p 2 units of blood. hgb today is 7.9 stable due to acute gi bleed and hx of cirrhosis and continued ETOH use. - Hypocalcemia, hypokalemia per primary PLAN: -We will advance diet to low-salt -Need to minimize IV fluids at this point -Continue with PPI/octreotide -Monitor labs - EGD/colonoscopy prior to discharge once coagulopathy is being corrected and patient a little more stable and comfortable for cooperation -We will start vitamin K subcu and continue with the albumin - Cont. Lasix 20 - Cont. Aldactone 50 - Cont. albumin - Alcohol cessation - Supportive care
[2017-10-30] MEDS: Phytonadione Inj 10 MG/ML Vial SQ SCH (13:24)
--- NOTE | 2017-10-30 15:50 | P.PNIM ---
Subjective Interval history: INR is 2.2 today, despite plasma and platelet transfusions yesterday. No reports of active bleed. Upward trend in Hgb to 8.5 today. Physical Exam Vital signs: Vital Signs 10/29/17 16:00 10/29/17 16:25 10/29/17 20:00 Temperature 98.1 F 97.6 F 98.4 F Pulse Rate 67 67 72 Respiratory Rate 16 16 20 Blood Pressure 130/69 130/69 135/65 Pulse Oximetry 95 93 L 91 L 10/30/17 00:00 10/30/17 04:00 10/30/17 08:00 Temperature 98.1 F 97.9 F Pulse Rate 70 74 69 Respiratory Rate 20 18 Blood Pressure 123/60 146/90 H Pulse Oximetry 91 L 93 L 10/30/17 10:58 10/30/17 12:00 Temperature 98.4 F Pulse Rate 63 Respiratory Rate 18 Blood Pressure 121/72 Pulse Oximetry 93 L 98 Intake & Output 10/29/17 10/30/17 10/30/17 18:59 06:59 18:59 Intake Total 2110.5 / 2110.5 460 / 460 300 / 300 Balance 2110.5 / 2110.5 460 / 460 300 / 300 Intake: IV 1550.5 / 1550.5 460 / 460 300 / 300 SandoSTATIN Inj 500 MCG In NS 500.5 / 500.5 Inj 500 ML @ 25 MCG/HR 25.02 mls/hr IV.CONT .Q20H1M ERIN Rx#: [id number] NS Inj 1,000 ML @ 70 mls/hr IV. 1000 / 1000 CONT .[id number] ERIN Rx#:[id number] Flexbumin 25% Inj 50 ML @ 60 50 / 50 50 / 50 mls/hr IV.SIG Q12H ERIN Rx#: [id number] Cipro 400 MG/200 ML Inj 400 mg 410 / 410 In 200 ml @ 200 mls/hr IV.SIG Q12H ERIN Rx#:[id number] KCl 10 mEq Premix Inj 10 meq In 300 / 300 100 ml @ 100 mls/hr IV.SIG Q1H ERIN Rx#:[id number] Oral 560 / 560 Intake (Blood Product) Amt 0 / 0 Plasma Thawed 5 Day Cp2d Unit 0 / 0 [id number] Plasma Thawed 5 Day Cp2d Unit 0 / 0 [id number] Plt Pheresis A Leukoreduced 0 / 0 Unit [id number] Other: # Voids 6 1 # Urine Diapers 1 Date of Last Bowel Movement 10/27/17 # Bowel Movements 0 Narrative: GENERAL: NAD, A&Ox3 HEAD: Normocephalic. NECK: Supple, trachea midline. No lymphadenopathy. EYES: No scleral icterus. No injection or drainage. CARDIOVASCULAR: Regular rate and rhythm without murmurs, gallops, or rubs. RESPIRATORY: Breath sounds equal bilaterally. No accessory muscle use. GASTROINTESTINAL: Abdomen soft, non-tender, nondistended. MUSCULOSKELETAL: No cyanosis, or edema. SKIN: Warm and dry. NEURO: No focal neurological deficits. Results - Labs CBC & Chem 7: 10/30/17 06:11 10/30/17 06:11 Laboratory Results - last 24 hr 10/28/17 10/29/17 10/29/17 13:41 18:55 18:55 WBC RBC Hgb Hct MCV MCH MCHC RDW Plt Count MPV Prelim Diff (Auto) Neut % (Auto) Lymph % (Auto) [place] % (Auto) Eos % (Auto) Baso % (Auto) Neut # (Auto) Lymph # (Auto) [place] # (Auto) Eos # (Auto) Baso # (Auto) WBC Differential Diff Scan Differential Comment Platelet Estimate Platelet Morphology Dimorphic RBCs PT INR Sodium Potassium Chloride Carbon Dioxide Anion Gap BUN Creatinine Estimated GFR Random Glucose Calcium Iron 32 L Ferritin 278 H Total Bilirubin AST ALT Alkaline Phosphatase Total Protein Albumin Tumor Marker AFP 5.8 JOHN Screen Hepatitis A IgM Ab Nonreactive Hep Bs Antigen Hep B Core IgM Ab Nonreactive Hep C IgG Ab Nonreactive Blood Bank Comment 10/29/17 10/29/17 10/30/17 18:55 18:55 06:11 WBC 8.4 RBC 2.30 L Hgb 8.5 L Hct 23.9 L MCV 103.6 H MCH 36.7 H MCHC 35.4 RDW 26.9 H Plt Count 82 L D MPV 8.7 Prelim Diff (Auto) Slide review pending Neut % (Auto) 74.0 H Lymph % (Auto) 11.7 [place] % (Auto) 12.1 H Eos % (Auto) 1.3 Baso % (Auto) 0.9 Neut # (Auto) 6.2 Lymph # (Auto) 1.0 [place] # (Auto) 1.0 H Eos # (Auto) 0.1 Baso # (Auto) 0.1 WBC Differential . Diff Scan Auto diff confirmed Differential Comment . Platelet Estimate Low L Platelet Morphology Normal Dimorphic RBCs Present H PT INR Sodium Potassium Chloride Carbon Dioxide Anion Gap BUN Creatinine Estimated GFR Random Glucose Calcium Iron Ferritin Total Bilirubin AST ALT Alkaline Phosphatase Total Protein Albumin Tumor Marker AFP JOHN Screen Neg Hepatitis A IgM Ab Hep Bs Antigen Nonreactive Hep B Core IgM Ab Hep C IgG Ab Blood Bank Comment 10/30/17 10/30/17 06:11 06:11 WBC RBC Hgb Hct MCV MCH MCHC RDW Plt Count MPV Prelim Diff (Auto) Neut % (Auto) Lymph % (Auto) [place] % (Auto) Eos % (Auto) Baso % (Auto) Neut # (Auto) Lymph # (Auto) [place] # (Auto) Eos # (Auto) Baso # (Auto) WBC Differential Diff Scan Differential Comment Platelet Estimate Platelet Morphology Dimorphic RBCs PT 22.7 H INR 2.2 Sodium 135 L Potassium 2.9 L* Chloride 100 Carbon Dioxide 25.5 Anion Gap 10 BUN 4 L Creatinine 0.59 Estimated GFR Greater than 89 Random Glucose 122 H Calcium 7.5 L D Iron Ferritin Total Bilirubin 15.8 H AST 87 H ALT 22 Alkaline Phosphatase 108 Total Protein 6.7 D Albumin 2.4 L Tumor Marker AFP JOHN Screen Hepatitis A IgM Ab Hep Bs Antigen Hep B Core IgM Ab Hep C IgG Ab Blood Bank Comment Assessment and Plan - Assessment (1) Acute GI bleeding Code(s): K92.2 - Gastrointestinal hemorrhage, unspecified Status: Acute (2) Anemia Code(s): D64.9 - Anemia, unspecified Status: Acute - Plan 52-year-old white female with a history of alcoholic cirrhosis, hepatitis C presents with GI bleed and acute blood loss anemia. INR is 2.2 today, status post transfusion of platelets and plasma yesterday. Goal of INR is less than 1.5 in order to obtain EGD and colonoscopy. Vitamin K is being provided today. For now continue to monitor CBC. Transfuse again if needed, no acute need for transfusion this morning. Patient may have chronic hypnotherapeutic INR due to her liver disease. GI bleed History of cirrhosis with ascites Acute blood loss anemia Suspected upper GI bleed Continue Protonix drip Continue octreotide GI has been consulted Ciprofloxacin continued Patient transfused 2 units packed red blood cells on 10/27/2017 consider restarting diuretics Lasix and Aldactone after stabilization History of alcoholism Continue CIWA protocol Monitor for delirium tremens Hypokalemia Monitor and replace as needed Acute liver failure likely due to chronic alcohol abuse and hep C Avoid alcohol Follow LFTs Not a good candidate for steroids at this point DVT prophylaxis SCDs
--- NOTE | 2017-10-30 20:01 | ECG ---
Date Performed: 10/30/2017 Time Performed: 08:45:14 PTAGE: 52 years EKG: Sinus rhythm . Prolonged QT interval Possible anterior infarct - age undetermined Low QRS voltages in limb leads A bnormal ECG PREVIOUS TRACING : 05/30/2013 01.27 Compared to previous tracing, The QT interval is prolonged. There has been an increase in the T-wave changes. Clinical correlation is recommended DOCTOR: Monica Alatorre Interpretating Date/Time 10/30/2017 19:59:54
--- NOTE | 2017-10-30 20:50 | CT ---
EXAM DATE: 10/30/2017 8:43 PM EDT AGE/SEX: 52 years / Female INDICATIONS: Evaluate for lung mass CLINICAL DATA: This is the patient's initial encounter. Patient reports that signs and symptoms have been present for 1 day and indicates a pain score of 3/10. MEDICAL/SURGICAL HISTORY: Cirrhosis. Pancreatitis. None. RADIATION DOSE: 4.7 CTDI (mGy) COMPARISON: No prior exams available for comparison. TECHNIQUE: Multiple contiguous axial images were obtained through the chest without contrast. Image s were obtained in suspended respiration using multiple row detector helical technique. Using automa rhona exposure control and adjustment of the mA and/or kV according to patient size, radiation dose was kept as low as reasonably achievable to obtain optimal diagnostic quality images. DICOM format imag e data is available electronically for review and comparison. FINDINGS: There is some groundglass opacity in the perihilar and regions bilaterally. Differential diagnosis in cludes a mild inflammatory infiltrate or mild edema. There is some linear consolidation at the left l joe base, probably atelectasis with trace pleural fluid bilaterally. Upper abdomen reveals liver cirrhosis and mild ascites. No hilar, mediastinal or axillary adenopathy identified. CONCLUSION: 1. Perihilar and upper lobe groundglass opacity which is nonspecific but could represent some mild i nflammatory changes or mild edema. 2. Linear atelectasis or minimal consolidation at the left lung base with trace pleural fluid. 3. No suspicious lung mass or adenopathy identified. 4. Liver cirrhosis and mild to moderate ascites. Electronically signed by: Nikolay Wing MD 10/30/2017 8:49 PM EDT
[2017-10-30] MEDS: Gabapentin 300 MG Capsule PO SCH (21:29)
[2017-10-30] MEDS ORDERED: LORazepam 0.5 MG Tablet PO ONE (22:14)
--- NOTE | 2017-10-30 23:23 | MB ---
cc: Heri Aguilera MD DATE: 10/30/2017 REASON FOR CONSULTATION: Right lung density. HISTORY OF PRESENT ILLNESS: This is a 52-year-old lady with a past history of alcoholic cirrhosis and hepatitis C with chronic abdominal pain and chronic pancreatitis, was admitted via the emergency room with epigastric and abdominal pain and increasing abdominal distention. The patient also had some bloody stools and she was evaluated with a CT of the abdomen. CT of the abdomen demonstrated evidence of ascitics and cirrhotic-appearing liver with chronic pancreatitis that was noted. Spleen was in the upper limits of normal. There were bilateral renal calculi and there was also a density in the right lower lung zone about 1.2 cm in diameter, which was not present before. The patient states she has nausea. She has abdominal pains and denies any fevers, chills or hemoptysis, but has had some weight loss. PAST MEDICAL HISTORY: Included cirrhosis of the liver, hepatitis C, history of ascites with paracentesis and chronic pancreatitis for 4 years. PAST SURGICAL HISTORY: Includes right total hip replacement. HABITS: The patient smoked 1/2 to 1 pack per day and has done so for over 25 years. Alcohol use heavy in the past, but not recently. FAMILY HISTORY: Essentially noncontributory. Mother has heart disease. ALLERGIES: MORPHINE AND PENICILLIN . MEDICATIONS: List included: 1. Gabapentin 600 mg at bedtime 2. Fentanyl patch every 72 hours. REVIEW OF SYSTEMS: The patient has abdominal pains, nausea. She has lost weight. She has no leg swelling. Denies headaches or blackouts, but has some wheezing, cough and chest congestion. Depression and anxiety and joint pains of her extremities. No skin rash. PHYSICAL EXAMINATION: GENERAL: Thinly built, middle-aged lady, who is alert, pale, in no acute distress. VITAL SIGNS: Blood pressure 128/80, pulse was 90, respirations 20, temperature 98.2. HEENT: Normocephalic. Pupils were reactive. Sclerae were injected. Ears, no inflammation. Throat was dry. NECK: Supple, no bruits or thyroid enlargement or lymphadenopathy. CHEST: Distant breath sounds with occasional wheezes bilaterally. No crackles. HEART: Sounds regular S1 and S2. No murmur. No S3. ABDOMEN: Slightly protuberant with tenderness over the upper quadrants as well as epigastric area. The liver edge just felt below the costal margin. The bowel sounds are active. EXTREMITIES: No edema. No lesions, no calf tenderness. Reflexes are 1+. The patient does move all lower extremities well with no focal deficits. IMPRESSION: 1. Right lower lobe lung nodule, etiology undetermined. 2. Chronic obstructive pulmonary disease. 3. History of chronic pancreatitis. 4. History of alcoholic cirrhosis and ascites. 5. History of hepatitis C. 6. Small pleural effusions. PLAN: The patient will be sent for a CT of the chest without contrast. Nebulized albuterol and Atrovent solution added q.i.d. and O2 2 liters p.r.n. We will get a pulmonary function study at the bedside and the patient was advised to quit cigarette smoking and could possibly use nicotine patch p.r.n. I will followup the case with you, Dr. Mills. Heri Aguilera MD VMICHAEL/jordi , 07:49 PM , 08:01 PM
[2017-10-31] MEDS: Octreotide Inj 500 MCG in Sodium Chlor 0.9% Inj 500 ML IV.CONT SCH ×3 (01:29→21:40)
[2017-10-31] MEDS: Sod Chloride 0.9% Inj 1,000 ML IV.CONT SCH ×3 (05:28→20:00)
[2017-10-31] MEDS: Ciprofloxacin 400 MG/200 ML 400 MG/200 ML PIGGYBACK IV.SIG SCH ×2 (05:29→17:34)
[2017-10-31 06:53] LABS: Baso % (Auto) 0.4 % (0.0-2.0); Eos # (Auto) 0.1 th/mm3 (0.0-0.4); Eos % (Auto) 1.5 % (0.0-4.0); Hematocrit 24.7 % (35.0-46.0); Hemoglobin 8.4 gm/dL (11.6-15.3); Lymph # (Auto) 1.1 th/mm3 (1.0-4.8); Lymph % (Auto) 13.5 % (9.0-44.0); Mean Corpuscular HGB Conc 34.1 % (32.0-36.0); Mean Corpuscular Hemoglobin 36.6 pg (27.0-34.0); Mean Corpuscular Volume 107.3 fL (80.0-100.0); Mean Platelet Volume 8.7 fL (7.0-11.0); Mono # (Auto) 1.1 th/mm3 (0.0-0.9); Mono % (Auto) 14.2 % (0.0-8.0); Neut # (Auto) 5.6 th/mm3 (1.8-7.7); Neut % (Auto) 70.4 % (16.0-70.0); Platelet Count 80 th/mm3 (150-450); Red Cell Distribution Width 27.6 % (11.6-17.2)
[2017-10-31 07:31] LABS: Alanine Aminotransferase 18 U/L (10-53); Alkaline Phosphatase 96 U/L (45-117); Anion Gap 10 meq/L (5-15); Aspartate Aminotransferase 72 U/L (15-37); Blood Urea Nitrogen 4 mg/dL (7-18); Carbon Dioxide 27.4 meq/L (21.0-32.0); Chloride 100 meq/L (98-107); Glomerular Filtration Rate Greater Than 89 mL/min (>89); Glucose,Random 99 mg/dL (74-106); Sodium 137 meq/L (136-145)
[2017-10-31 08:28] LABS: Dimorphic RBC Present; Platelet Morphology Normal (Normal)
[2017-10-31] MEDS: Lipase/Protease/Amylase 24/76/120 DR Capsule PO SCH ×3 (09:48→17:34)
[2017-10-31] MEDS: Furosemide 20 MG Tablet PO SCH (09:48)
[2017-10-31] MEDS: Pentoxifylline 400 MG Controlled Release Tablet PO SCH ×3 (09:49→17:34)
[2017-10-31] MEDS: Mag Sulf 1 gm/100 ml Premix 100 ML IV.SIG SCH ×2 (09:49→12:02)
[2017-10-31] MEDS: Spironolactone 50 MG Tablet PO SCH (09:49)
[2017-10-31] MEDS: Phytonadione Inj 10 MG/ML Vial SQ SCH (09:50)
--- NOTE | 2017-10-31 11:40 | P.PNGI ---
Subjective Interval history: Patient resting in bed comfortably watching TV. States she had a BM last night that was soft and dark brown. Reports mild abdominal pain. Denies nausea or vomiting and tolerating diet well. <EdwardsMarni - Last Filed: 10/31/17 11:41> Physical Exam Vital signs: Vital Signs 10/30/17 12:00 10/30/17 16:00 10/30/17 20:22 Temperature 98.4 F 97.8 F Pulse Rate 58 L 57 L 59 L Respiratory Rate 18 18 Blood Pressure 121/72 120/56 L Pulse Oximetry 98 95 10/30/17 23:58 10/31/17 03:56 10/31/17 04:00 Temperature 98.6 F Pulse Rate 63 60 64 Respiratory Rate 18 Blood Pressure 107/57 L Pulse Oximetry 96 10/31/17 08:00 10/31/17 09:11 Temperature 97.8 F Pulse Rate 58 L 56 L Respiratory Rate 16 14 Blood Pressure 107/57 L Pulse Oximetry 94 L 97 Intake & Output 10/30/17 10/31/17 10/31/17 18:59 06:59 18:59 Intake Total 1850.5 / 1850.5 1410 / 1410 Output Total 400 / 400 Balance 1850.5 / 1850.5 1010 / 1010 Weight 56.6 kg Intake: IV 900.5 / 900.5 1410 / 1410 SandoSTATIN Inj 500 MCG In NS 500.5 / 500.5 Inj 500 ML @ 25 MCG/HR 25.02 mls/hr IV.CONT .Q20H1M ERIN Rx#: [id number] NS Inj 1,000 ML @ 70 mls/hr IV. 1000 / 1000 CONT .[id number] ERIN Rx#:[id number] Cipro 400 MG/200 ML Inj 400 mg 410 / 410 In 200 ml @ 200 mls/hr IV.SIG Q12H ERIN Rx#:[id number] KCl 10 mEq Premix Inj 10 meq In 400 / 400 100 ml @ 100 mls/hr IV.SIG Q1H ERIN Rx#:[id number] Other 950 / 950 Output: Urine 400 / 400 Other: # Voids 8 # Urine Diapers 1 Date of Last Bowel Movement 10/30/17 10/30/17 - Constitutional mild distress - Routine HEENT Exam Head: Present: normocephalic - Routine Neck Exam Present: supple - Routine Respiratory Exam Present: CTA bilaterally. Absent: accessory muscle use, respiratory distress - Routine Cardiovascular Exam Present: RRR - Routine Abdominal Exam Present: soft, normoactive bowel sounds, distended. Absent: guarding, firm - Routine Extremities Exam Present: pulses intact. Absent: cyanosis, edema - Routine Skin Exam Present: dry, warm - Routine Neurological Exam Present: alert, oriented X3 - Detailed Neurological Exam: Coma Scale Eye Opening: Spontaneous Verbal Response: Oriented Motor Response: Obey commands Franca Coma Scale Total: 15 - Routine Psychiatric Exam Present: normal affect, cooperative <EdwardsMarni - Last Filed: 10/31/17 11:41> Vital signs: Vital Signs 10/30/17 23:58 10/31/17 03:56 10/31/17 04:00 Temperature 98.6 F Pulse Rate 63 60 64 Respiratory Rate 18 Blood Pressure 107/57 L Pulse Oximetry 96 10/31/17 08:00 10/31/17 09:11 10/31/17 12:00 Temperature 97.8 F 97.9 F Pulse Rate 58 L 56 L 64 Respiratory Rate 16 14 19 Blood Pressure 107/57 L 98/57 L Pulse Oximetry 94 L 97 94 L 10/31/17 16:00 10/31/17 16:09 10/31/17 20:00 Temperature 98.9 F Pulse Rate 67 58 L 64 Respiratory Rate 14 18 Blood Pressure 96/51 L Pulse Oximetry 96 10/31/17 21:29 Temperature Pulse Rate 82 Respiratory Rate 12 Blood Pressure Pulse Oximetry Intake & Output 10/31/17 10/31/17 11/01/17 06:59 18:59 06:59 Intake Total 1410 / 1410 2059 Output Total 400 / 400 Balance 1010 / 1010 2059 Weight 56.6 kg Intake: IV 1410 / 1410 1100 / 1100 SandoSTATIN Inj 500 MCG In NS 500 / 500 Inj 500 ML @ 25 MCG/HR 25.02 mls/hr IV.CONT .Q20H1M ERIN Rx#: [id number] NS Inj 1,000 ML @ 70 mls/hr IV. 1000 / 1000 CONT .[id number] ERIN Rx#:[id number] Cipro 400 MG/200 ML Inj 400 mg 410 / 410 200 / 200 In 200 ml @ 200 mls/hr IV.SIG Q12H ERIN Rx#:[id number] Magnesium Sulfate 1 gm/D5W 100 200 / 200 ml Premix 100 ML @ 100 mls/hr IV.SIG Q1H ERIN Rx#:[id number] KCl 10 mEq Premix Inj 10 meq In 200 / 200 100 ml @ 100 mls/hr IV.SIG Q1H ERIN Rx#:[id number] Oral 960 / 960 Output: Urine 400 / 400 Other: # Voids 4 Date of Last Bowel Movement 10/30/17 # Bowel Movements 1 <Cade Chaudhary E - Last Filed: 10/31/17 21:37> Results - Labs CBC & Chem 7: 10/31/17 06:07 10/31/17 06:07 Laboratory Results - last 24 hr 10/29/17 10/30/17 10/31/17 18:55 16:10 06:07 WBC 8.0 RBC 2.30 L Hgb 8.4 L Hct 24.7 L MCV 107.3 H D MCH 36.6 H MCHC 34.1 RDW 27.6 H Plt Count 80 L MPV 8.7 Prelim Diff (Auto) Slide review pending Neut % (Auto) 70.4 H Lymph % (Auto) 13.5 [place] % (Auto) 14.2 H Eos % (Auto) 1.5 Baso % (Auto) 0.4 Neut # (Auto) 5.6 Lymph # (Auto) 1.1 [place] # (Auto) 1.1 H Eos # (Auto) 0.1 Baso # (Auto) 0.0 WBC Differential . Diff Scan Auto diff confirmed Differential Comment . Platelet Estimate Low L Platelet Morphology Normal Dimorphic RBCs Present H Sodium Potassium 3.2 L Chloride Carbon Dioxide Anion Gap BUN Creatinine Estimated GFR Random Glucose Calcium Prot Corrected Calcium Total Bilirubin AST ALT Alkaline Phosphatase Total Protein Albumin JOHN Screen Neg 10/31/17 06:07 WBC RBC Hgb Hct MCV MCH MCHC RDW Plt Count MPV Prelim Diff (Auto) Neut % (Auto) Lymph % (Auto) [place] % (Auto) Eos % (Auto) Baso % (Auto) Neut # (Auto) Lymph # (Auto) [place] # (Auto) Eos # (Auto) Baso # (Auto) WBC Differential Diff Scan Differential Comment Platelet Estimate Platelet Morphology Dimorphic RBCs Sodium 137 Potassium 3.0 L Chloride 100 Carbon Dioxide 27.4 Anion Gap 10 BUN 4 L Creatinine 0.53 Estimated GFR Greater than 89 Random Glucose 99 Calcium 7.0 L* Prot Corrected Calcium 7.6 L Total Bilirubin 13.5 H AST 72 H ALT 18 Alkaline Phosphatase 96 Total Protein 6.0 L D Albumin 2.0 L JOHN Screen - Imaging Impressions Chest CT 10/30/17 00:00 CONCLUSION: 1. Perihilar and upper lobe groundglass opacity which is nonspecific but could represent some mild inflammatory changes or mild edema. 2. Linear atelectasis or minimal consolidation at the left lung base with trace pleural fluid. 3. No suspicious lung mass or adenopathy identified. 4. Liver cirrhosis and mild to moderate ascites. <Marni Edwards - Last Filed: 10/31/17 11:41> - Labs CBC & Chem 7: 10/31/17 06:07 10/31/17 06:07 Laboratory Results - last 24 hr 10/31/17 10/31/17 06:07 06:07 WBC 8.0 RBC 2.30 L Hgb 8.4 L Hct 24.7 L MCV 107.3 H D MCH 36.6 H MCHC 34.1 RDW 27.6 H Plt Count 80 L MPV 8.7 Prelim Diff (Auto) Slide review pending Neut % (Auto) 70.4 H Lymph % (Auto) 13.5 [place] % (Auto) 14.2 H Eos % (Auto) 1.5 Baso % (Auto) 0.4 Neut # (Auto) 5.6 Lymph # (Auto) 1.1 [place] # (Auto) 1.1 H Eos # (Auto) 0.1 Baso # (Auto) 0.0 WBC Differential . Diff Scan Auto diff confirmed Differential Comment . Platelet Estimate Low L Platelet Morphology Normal Dimorphic RBCs Present H Sodium 137 Potassium 3.0 L Chloride 100 Carbon Dioxide 27.4 Anion Gap 10 BUN 4 L Creatinine 0.53 Estimated GFR Greater than 89 Random Glucose 99 Calcium 7.0 L* Prot Corrected Calcium 7.6 L Total Bilirubin 13.5 H AST 72 H ALT 18 Alkaline Phosphatase 96 Total Protein 6.0 L D Albumin 2.0 L <Cade Chaudhary - Last Filed: 10/31/17 21:37> Assessment and Plan (1) Acute GI bleeding Status: Acute Code(s): K92.2 - Gastrointestinal hemorrhage, unspecified (2) Anemia Status: Acute Code(s): D64.9 - Anemia, unspecified - Plan - Melena/anemia- (10/30/17) No melena or hematochezia today. hh stable no signs of active bleeding (10/28/17) Hx of alcoholic hepatitis, cirrhosis who presents to the emergency room with worsening abd girth which started 3 days ago, was seen in the ED at that time and was sent home. Pt returned with black tarry stools X 2 days, last episode was yesterday morning. CT of a/p on 10/25/17 showed cirrhosis with moderate amount of ascitic fluid. Chronic pancreatitis, spleen is upper limits of normal size, non obstructing bilateral renal calculi, gall bladder is at the upper limits of normal in size. PPI and Octreotide started. hgb on admission 6.6, today is 8.1 s/p 2 units of blood. Pt had EGD on 04/10/15 showed mild antral gastropathy, other l[place] normal. States hasn't been following with GI as an OP. She cont to drink about 4 drinks a day but quit 4 days ago. She is not taking any medications for cirrhosis. - Ascites- diuretics started , not candidate for paracentesis with high INR - Coagulopathy/thrombocytopenia- INR today is 2.3 plt 42 - Hypo albumin is 1.9. - Hx of chronic pancreatitis- Sees pain management, takes Lortab as needed Normal Lipase - Alcoholic hepatitis on underlying liver cirrhosis. Continues to drink ETOH ( 4x a day but quit 4 days ago). Discriminant factor 58 trending down slowly. T. Bilirubin 15---> 14.5, AST 112--->97, rest normal Imaging as above. no indication for tx - Anemia. hh stable, no signs of active bleed. hgb on admission 6.6, s/p 2 units of blood. hgb today is 7.9 stable due to acute gi bleed and hx of cirrhosis and continued ETOH use. - Hypocalcemia, hypokalemia per primary 10/31/17- Patient resting comfortably and reports mild abdominal tenderness on palpation. Tolerating diet well and denies nausea or vomiting. Pt states she had 1 dark brown bm last pm with no obvious bleeding noted. Hgb stable at 8.4 this morning. INR 10/30/17 2.2. Will recheck same, as patient currently receiving Vit K 10 mg SC daily.( 2nd dose) PLAN: -Cardiac diet -Continue PPI -Continue to monitor labs: Immunology pending -EGD/colonoscopy prior to discharge once coagulopathy is being corrected and patient a little more stable and comfortable for cooperation ( as per Dr. Chaudhary) -Continue Vitamin K -Cont. Lasix 20 and Aldactone for Ascites -Cont. albumin -Discussed the importance of alcohol cessation -Supportive care <Marni Edwards - Last Filed: 10/31/17 11:41> - Attending Attestation Patient seen and examined Agree with above Continue with current supportive care Monitor labs <Cade Chaudhary - Last Filed: 10/31/17 21:37>
[2017-10-31] MEDS: Potassium Chlor 10 mEq Premix 10 MEQ/100 ML PIGGYBACK IV.SIG SCH ×3 (12:02→14:07)
--- NOTE | 2017-10-31 13:47 | P.PN ---
Subjective Interval history: Follow-up visit GI bleed, history of cirrhosis with ascites, acute blood loss anemia, history of EtOH. Patient seen and examined today. Reports she still feel weak. Denies any hematochezia, hematemesis. States she has been jaundiced for months. Complains of being anxious and wanted to restart her medication Ativan. Denies pain and discomfort. Denies SOB/ dyspnea. Denies chest pain, palpitations, headaches, dizziness. Denies fevers, chills, n/v/d. Denies hematuria, dysuria. Physical Exam Vital signs: Vital Signs 10/30/17 16:00 10/30/17 20:22 10/30/17 23:58 Temperature 97.8 F Pulse Rate 57 L 59 L 63 Respiratory Rate 18 Blood Pressure 120/56 L Pulse Oximetry 95 10/31/17 03:56 10/31/17 04:00 10/31/17 08:00 Temperature 98.6 F 97.8 F Pulse Rate 60 64 58 L Respiratory Rate 18 16 Blood Pressure 107/57 L 107/57 L Pulse Oximetry 96 94 L 10/31/17 09:11 Temperature Pulse Rate 56 L Respiratory Rate 14 Blood Pressure Pulse Oximetry 97 Intake & Output 10/30/17 10/31/17 10/31/17 18:59 06:59 18:59 Intake Total 1850.5 / 1850.5 1410 / 1410 600 / 600 Output Total 400 / 400 Balance 1850.5 / 1850.5 1010 / 1010 600 / 600 Weight 56.6 kg Intake: IV 900.5 / 900.5 1410 / 1410 600 / 600 SandoSTATIN Inj 500 MCG In NS 500.5 / 500.5 500 / 500 Inj 500 ML @ 25 MCG/HR 25.02 mls/hr IV.CONT .Q20H1M ERIN Rx#: [id number] NS Inj 1,000 ML @ 70 mls/hr IV. 1000 / 1000 CONT .[id number] ERIN Rx#:[id number] Cipro 400 MG/200 ML Inj 400 mg 410 / 410 In 200 ml @ 200 mls/hr IV.SIG Q12H ERIN Rx#:[id number] Magnesium Sulfate 1 gm/D5W 100 100 / 100 ml Premix 100 ML @ 100 mls/hr IV.SIG Q1H ERIN Rx#:[id number] KCl 10 mEq Premix Inj 10 meq In 400 / 400 0 / 0 100 ml @ 100 mls/hr IV.SIG Q1H ERIN Rx#:[id number] Other 950 / 950 Output: Urine 400 / 400 Other: # Voids 8 # Urine Diapers 1 Date of Last Bowel Movement 10/30/17 10/30/17 Narrative: GENERAL: This is a well-nourished, well-developed patient, in no apparent distress. SKIN: Warm and dry. HEENT: Normocephalic. Pupils equal round, sclerae icteric. Nose without bleeding. Airway patent. NECK: Trachea midline. CARDIOVASCULAR: Regular rate and rhythm without murmurs, gallops, or rubs. RESPIRATORY: Diminished bases. No wheezes, rales, or rhonchi. GASTROINTESTINAL: Abdomen non-tender, distended, ascites. Bowel Sounds normoactive x4. MUSCULOSKELETAL: Extremities without clubbing, cyanosis, or edema. NEUROLOGICAL: Awake and alert. No focal neuro deficit. Moves all extremities. Normal speech. Results - Labs CBC & Chem 7: 10/31/17 06:07 10/31/17 06:07 Laboratory Results - last 24 hr 10/29/17 10/30/17 10/31/17 18:55 16:10 06:07 WBC 8.0 RBC 2.30 L Hgb 8.4 L Hct 24.7 L MCV 107.3 H D MCH 36.6 H MCHC 34.1 RDW 27.6 H Plt Count 80 L MPV 8.7 Prelim Diff (Auto) Slide review pending Neut % (Auto) 70.4 H Lymph % (Auto) 13.5 [place] % (Auto) 14.2 H Eos % (Auto) 1.5 Baso % (Auto) 0.4 Neut # (Auto) 5.6 Lymph # (Auto) 1.1 [place] # (Auto) 1.1 H Eos # (Auto) 0.1 Baso # (Auto) 0.0 WBC Differential . Diff Scan Auto diff confirmed Differential Comment . Platelet Estimate Low L Platelet Morphology Normal Dimorphic RBCs Present H Sodium Potassium 3.2 L Chloride Carbon Dioxide Anion Gap BUN Creatinine Estimated GFR Random Glucose Calcium Prot Corrected Calcium Total Bilirubin AST ALT Alkaline Phosphatase Total Protein Albumin JOHN Screen Neg 10/31/17 06:07 WBC RBC Hgb Hct MCV MCH MCHC RDW Plt Count MPV Prelim Diff (Auto) Neut % (Auto) Lymph % (Auto) [place] % (Auto) Eos % (Auto) Baso % (Auto) Neut # (Auto) Lymph # (Auto) [place] # (Auto) Eos # (Auto) Baso # (Auto) WBC Differential Diff Scan Differential Comment Platelet Estimate Platelet Morphology Dimorphic RBCs Sodium 137 Potassium 3.0 L Chloride 100 Carbon Dioxide 27.4 Anion Gap 10 BUN 4 L Creatinine 0.53 Estimated GFR Greater than 89 Random Glucose 99 Calcium 7.0 L* Prot Corrected Calcium 7.6 L Total Bilirubin 13.5 H AST 72 H ALT 18 Alkaline Phosphatase 96 Total Protein 6.0 L D Albumin 2.0 L JOHN Screen - Imaging Impressions Chest CT 10/30/17 00:00 CONCLUSION: 1. Perihilar and upper lobe groundglass opacity which is nonspecific but could represent some mild inflammatory changes or mild edema. 2. Linear atelectasis or minimal consolidation at the left lung base with trace pleural fluid. 3. No suspicious lung mass or adenopathy identified. 4. Liver cirrhosis and mild to moderate ascites. Assessment and Plan - Assessment (1) Acute GI bleeding Code(s): K92.2 - Gastrointestinal hemorrhage, unspecified Status: Acute (2) Anemia Code(s): D64.9 - Anemia, unspecified Status: Acute - Plan 52-year-old white female with a history of alcoholic cirrhosis, hepatitis C presents with GI bleed and acute blood loss anemia. INR is 2.2 today, status post transfusion of platelets and plasma yesterday. Goal of INR is less than 1.5 in order to obtain EGD and colonoscopy. Vitamin K is being provided today. For now continue to monitor CBC. Transfuse again if needed, no acute need for transfusion this morning. Patient may have chronic hypnotherapeutic INR due to her liver disease. GI bleed History of cirrhosis with ascites Acute blood loss anemia -Suspected upper GI bleed -Continue Protonix drip -Continue octreotide -GI has been consulted. Appreciate recommendations. Plan for EGD colonoscopy when INR is within normal. Current INR 2.2. Plan for vitamin K administration -Ciprofloxacin continued -Patient transfused 2 units packed red blood cells on 10/27/2017 -Started on Lasix and Aldactone -Monitor Anxiety -E-FORCSE Prescription Drug Monitoring Database has been queried and verified prior to prescribing the controlled substance. -Ativan 0.5 mg as needed History of alcoholism -Continue CIWA protocol -Monitor for delirium tremens Hypokalemia -Monitor and replace as needed -Check Mag, replace as needed -Follow BMP Acute liver failure likely due to chronic alcohol abuse and hep C -Avoid alcohol -Follow LFTs -Not a good candidate for steroids at this point. MELD 25 DVT prophylaxis SCDs Code Status: Full code Discussed Condition With: Patient, nursing Discharge Planning: Plan to DC home when clinically improved. Pending GI procedure.
[2017-10-31] MEDS: LORazepam 0.5 MG Tablet PO PRN ×2 (14:03→21:37)
--- NOTE | 2017-10-31 18:49 | P.PN ---
Subjective Interval history: C /O abdominal pain. No SOB at rest . Off O2. Has some wheezing and PFT pending. Physical Exam Vital signs: Vital Signs 10/30/17 20:22 10/30/17 23:58 10/31/17 03:56 Temperature Pulse Rate 59 L 63 60 Respiratory Rate Blood Pressure Pulse Oximetry 10/31/17 04:00 10/31/17 08:00 10/31/17 09:11 Temperature 98.6 F 97.8 F Pulse Rate 64 58 L 56 L Respiratory Rate 18 16 14 Blood Pressure 107/57 L 107/57 L Pulse Oximetry 96 94 L 97 10/31/17 12:00 10/31/17 16:00 10/31/17 16:09 Temperature 97.9 F Pulse Rate 64 67 58 L Respiratory Rate 19 14 Blood Pressure 98/57 L Pulse Oximetry 94 L Intake & Output 10/30/17 10/31/17 10/31/17 18:59 06:59 18:59 Intake Total 1850.5 / 1850.5 1410 / 1410 1500 / 1500 Output Total 400 / 400 Balance 1850.5 / 1850.5 1010 / 1010 1500 / 1500 Weight 56.6 kg Intake: IV 900.5 / 900.5 1410 / 1410 1100 / 1100 SandoSTATIN Inj 500 MCG In NS 500.5 / 500.5 500 / 500 Inj 500 ML @ 25 MCG/HR 25.02 mls/hr IV.CONT .Q20H1M ERIN Rx#: [id number] NS Inj 1,000 ML @ 70 mls/hr IV. 1000 / 1000 CONT .[id number] ERIN Rx#:[id number] Cipro 400 MG/200 ML Inj 400 mg 410 / 410 200 / 200 In 200 ml @ 200 mls/hr IV.SIG Q12H ERIN Rx#:[id number] Magnesium Sulfate 1 gm/D5W 100 200 / 200 ml Premix 100 ML @ 100 mls/hr IV.SIG Q1H ERIN Rx#:[id number] KCl 10 mEq Premix Inj 10 meq In 400 / 400 200 / 200 100 ml @ 100 mls/hr IV.SIG Q1H ERIN Rx#:[id number] Oral 400 / 400 Other 950 / 950 Output: Urine 400 / 400 Other: # Voids 8 5 # Urine Diapers 1 Date of Last Bowel Movement 10/30/17 10/30/17 Narrative: GENERAL: This is a well-nourished, well-developed patient, in no apparent distress. SKIN: Warm and dry. HEENT: Normocephalic. Pupils equal round, sclerae icteric. Nose without bleeding. Airway patent. NECK: Trachea midline. CARDIOVASCULAR: Regular rate and rhythm without murmurs, gallops, or rubs. RESPIRATORY: Diminished bases. Occ Bilateral wheezes GASTROINTESTINAL: Abdomen is tender, in upper abdomen and not distended, + ascites. Bowel Sounds normoactive x4. MUSCULOSKELETAL: Extremities without clubbing, cyanosis, or edema. NEUROLOGICAL: Awake and alert. No focal neuro deficit. Moves all extremities. Normal speech. Results - Labs CBC & Chem 7: 10/31/17 06:07 10/31/17 06:07 Laboratory Results - last 24 hr 10/31/17 10/31/17 06:07 06:07 WBC 8.0 RBC 2.30 L Hgb 8.4 L Hct 24.7 L MCV 107.3 H D MCH 36.6 H MCHC 34.1 RDW 27.6 H Plt Count 80 L MPV 8.7 Prelim Diff (Auto) Slide review pending Neut % (Auto) 70.4 H Lymph % (Auto) 13.5 [place] % (Auto) 14.2 H Eos % (Auto) 1.5 Baso % (Auto) 0.4 Neut # (Auto) 5.6 Lymph # (Auto) 1.1 [place] # (Auto) 1.1 H Eos # (Auto) 0.1 Baso # (Auto) 0.0 WBC Differential . Diff Scan Auto diff confirmed Differential Comment . Platelet Estimate Low L Platelet Morphology Normal Dimorphic RBCs Present H Sodium 137 Potassium 3.0 L Chloride 100 Carbon Dioxide 27.4 Anion Gap 10 BUN 4 L Creatinine 0.53 Estimated GFR Greater than 89 Random Glucose 99 Calcium 7.0 L* Prot Corrected Calcium 7.6 L Total Bilirubin 13.5 H AST 72 H ALT 18 Alkaline Phosphatase 96 Total Protein 6.0 L D Albumin 2.0 L - Imaging Impressions Chest CT 10/30/17 00:00 CONCLUSION: 1. Perihilar and upper lobe groundglass opacity which is nonspecific but could represent some mild inflammatory changes or mild edema. 2. Linear atelectasis or minimal consolidation at the left lung base with trace pleural fluid. 3. No suspicious lung mass or adenopathy identified. 4. Liver cirrhosis and mild to moderate ascites. Assessment and Plan - Assessment (1) Pulmonary infiltrate Code(s): R91.8 - Other nonspecific abnormal finding of lung field Status: Acute (2) Pneumonia Code(s): J18.9 - Pneumonia, unspecified organism Status: Acute (3) Acute GI bleeding Code(s): K92.2 - Gastrointestinal hemorrhage, unspecified Status: Acute (4) Anemia Code(s): D64.9 - Anemia, unspecified Status: Acute (5) Hepatitis C Code(s): B19.20 - Unspecified viral hepatitis C without hepatic coma Status: Acute - Plan 1. IS at bedside q3h. 2. Continue antibiotic as orederd. 3. Add Symbicort 160/4.5 mcg, 2puffs bid. 4. nebs qid , duoneb 5. O2 PRN 2L 6. lasix 20 mg daily
[2017-10-31 21:37] LABS: Alpha 1 Antitrypsin 137 mg/dL (100 - 190); Smooth Muscle Total Auto Abs Negative (Negative)
[2017-10-31] MEDS: Gabapentin 300 MG Capsule PO SCH (21:37)
[2017-11-01] MEDS: LORazepam 0.5 MG Tablet PO PRN ×4 (03:57→22:17)
[2017-11-01 06:13] LABS: Baso # (Auto) 0.1 th/mm3 (0.0-0.2); Eos # (Auto) 0.1 th/mm3 (0.0-0.4); Eos % (Auto) 1.4 % (0.0-4.0); Hematocrit 24.9 % (35.0-46.0); Hemoglobin 8.5 gm/dL (11.6-15.3); Lymph # (Auto) 0.9 th/mm3 (1.0-4.8); Lymph % (Auto) 14.2 % (9.0-44.0); Mean Corpuscular HGB Conc 34.1 % (32.0-36.0); Mean Corpuscular Hemoglobin 36.5 pg (27.0-34.0); Mean Corpuscular Volume 107.2 fL (80.0-100.0); Mean Platelet Volume 8.6 fL (7.0-11.0); Mono % (Auto) 15.9 % (0.0-8.0); Neut # (Auto) 4.4 th/mm3 (1.8-7.7); Neut % (Auto) 67.5 % (16.0-70.0); Platelet Count 87 th/mm3 (150-450); Red Blood Count 2.33 mil/mm3 (4.00-5.30); Red Cell Distribution Width 27.3 % (11.6-17.2); White Blood Count 6.5 th/mm3 (4.0-11.0)
[2017-11-01 06:20] LABS: INR 2.2 Ratio; Prothrombin Time 21.8 sec (9.8-11.6)
[2017-11-01] MEDS: Ciprofloxacin 400 MG/200 ML 400 MG/200 ML PIGGYBACK IV.SIG SCH ×2 (06:39→17:03)
[2017-11-01 06:54] LABS: Alanine Aminotransferase 20 U/L (10-53); Albumin 2.2 g/dL (3.4-5.0); Alkaline Phosphatase 105 U/L (45-117); Anion Gap 12 meq/L (5-15); Aspartate Aminotransferase 80 U/L (15-37); Blood Urea Nitrogen 5 mg/dL (7-18); Calcium 7.6 mg/dL (8.5-10.1); Chloride 102 meq/L (98-107); Glomerular Filtration Rate 88 mL/min (>89); Glucose,Random 103 mg/dL (74-106); Sodium 138 meq/L (136-145); Total Protein 6.4 g/dL (6.4-8.2)
[2017-11-01 07:05] LABS: Potassium 2.9 meq/L (3.5-5.1)
[2017-11-01] MEDS ORDERED: Potassium Chlor 20 mEq Premix 20 MEQ/100 ML PIGGYBACK IV.SIG SCH (07:51)
[2017-11-01] MEDS ORDERED: Potassium Chloride 25 MEQ Effervescent Tablet PO ONE (07:51)
[2017-11-01] MEDS ORDERED: Magnesium Sulfate Inj 2 GM in Sodium Chlor 0.9% Inj 96 ML IV.SIG ONE (07:51)
[2017-11-01 07:57] LABS: Dimorphic RBC Present
[2017-11-01 07:58] LABS: Platelet Morphology Normal (Normal)
[2017-11-01] MEDS: Spironolactone 50 MG Tablet PO SCH (08:29)
[2017-11-01] MEDS: Pentoxifylline 400 MG Controlled Release Tablet PO SCH ×3 (08:30→17:03)
[2017-11-01] MEDS: Phytonadione Inj 10 MG/ML Vial SQ SCH (08:30)
[2017-11-01] MEDS: Furosemide 20 MG Tablet PO SCH (08:30)
[2017-11-01] MEDS: Lipase/Protease/Amylase 24/76/120 DR Capsule PO SCH ×3 (08:31→17:02)
[2017-11-01] MEDS: Potassium Chlor 10 mEq Premix 10 MEQ/100 ML PIGGYBACK IV.SIG SCH ×4 (08:31→12:25)
[2017-11-01] MEDS: Octreotide Inj 500 MCG in Sodium Chlor 0.9% Inj 500 ML IV.CONT SCH (08:32)
[2017-11-01] MEDS: Sod Chloride 0.9% Inj 1,000 ML IV.CONT SCH ×2 (11:59→16:59)
--- NOTE | 2017-11-01 13:55 | P.PN ---
Subjective Interval history: Follow-up visit GI bleed, history of cirrhosis with ascites, acute blood loss anemia, history of EtOH. Patient seen and examined today. She feels generally weak. Denies pain and discomfort. Denies SOB/ dyspnea. Denies chest pain, palpitations, headaches, dizziness. Denies fevers, chills, n/v/d. Denies dysuria. Physical Exam Vital signs: Vital Signs 10/31/17 16:00 10/31/17 16:09 10/31/17 20:00 Temperature 98.9 F Pulse Rate 67 58 L 62 Respiratory Rate 14 18 Blood Pressure 96/51 L Pulse Oximetry 96 10/31/17 21:29 11/01/17 00:00 11/01/17 03:58 Temperature 98.4 F Pulse Rate 82 79 72 Respiratory Rate 12 18 16 Blood Pressure 91/44 L Pulse Oximetry 95 11/01/17 04:00 11/01/17 08:00 11/01/17 12:00 Temperature 98.3 F 98 F 98.2 F Pulse Rate 80 74 70 Respiratory Rate 18 18 18 Blood Pressure 92/53 L 96/52 L 98/56 L Pulse Oximetry 95 95 96 Intake & Output 10/31/17 11/01/17 11/01/17 18:59 06:59 18:59 Intake Total 2059 / 0 1200 / 1200 2200.5 / 2200.5 Output Total 400 / 400 Balance 2059 / 2059 800 / 800 2200.5 / 2200.5 Weight 57.4 kg Intake: IV 1100 / 1100 1000 / 1000 2200.5 / 2200.5 SandoSTATIN Inj 500 MCG In NS 500 / 500 500.5 / 500.5 Inj 500 ML @ 25 MCG/HR 25.02 mls/hr IV.CONT .Q20H1M ERIN Rx#: [id number] NS Inj 1,000 ML @ 50 mls/hr IV. 1000 / 1000 1000 / 1000 CONT .Q20H ERIN Rx#:[id number] Cipro 400 MG/200 ML Inj 400 mg 200 / 200 200 / 200 In 200 ml @ 200 mls/hr IV.SIG Q12H ERIN Rx#:[id number] Magnesium Sulfate 1 gm/D5W 100 200 / 200 ml Premix 100 ML @ 100 mls/hr IV.SIG Q1H ERIN Rx#:[id number] Magnesium Sulfate Inj 2 GM In 100 / 100 NS Inj 96 ML @ 50 mls/hr IV.SIG ONCE ONE Rx#:[id number] KCl 10 mEq Premix Inj 10 meq In 200 / 200 400 / 400 100 ml @ 100 mls/hr IV.SIG Q1H ERIN Rx#:[id number] Oral 960 / 960 200 / 200 Output: Urine 400 / 400 Other: # Voids 4 Date of Last Bowel Movement 10/31/17 10/31/17 # Bowel Movements 1 1 Narrative: GENERAL: This is a well-nourished, well-developed patient, in no apparent distress. SKIN: Warm and dry. Jaundiced. HEENT: Normocephalic. Pupils equal round, sclerae icteric. Nose without bleeding. Airway patent. NECK: Trachea midline. CARDIOVASCULAR: Regular rate and rhythm without murmurs, gallops, or rubs. RESPIRATORY: Diminished bases. No wheezes, rales, or rhonchi. GASTROINTESTINAL: Abdomen non-tender, distended, ascites. Bowel Sounds normoactive x4. MUSCULOSKELETAL: Extremities without clubbing, cyanosis, or edema. NEUROLOGICAL: Awake and alert. No focal neuro deficit. Moves all extremities. Normal speech. Results - Labs CBC & Chem 7: 11/01/17 05:49 11/01/17 05:49 Laboratory Results - last 24 hr 10/30/17 11/01/17 11/01/17 06:11 05:49 05:49 WBC 6.5 RBC 2.33 L Hgb 8.5 L Hct 24.9 L MCV 107.2 H MCH 36.5 H MCHC 34.1 RDW 27.3 H Plt Count 87 L MPV 8.6 Prelim Diff (Auto) Slide review pending Neut % (Auto) 67.5 Lymph % (Auto) 14.2 [place] % (Auto) 15.9 H Eos % (Auto) 1.4 Baso % (Auto) 1.0 Neut # (Auto) 4.4 Lymph # (Auto) 0.9 L [place] # (Auto) 1.0 H Eos # (Auto) 0.1 Baso # (Auto) 0.1 WBC Differential . Diff Scan Auto diff confirmed Differential Comment . Platelet Estimate Low L Platelet Morphology Normal Dimorphic RBCs Present H PT 21.8 H INR 2.2 Sodium Potassium Chloride Carbon Dioxide Anion Gap BUN Creatinine Estimated GFR Random Glucose Calcium Total Bilirubin AST ALT Alkaline Phosphatase Total Protein Albumin [id number] Anti-Smooth Muscle Ab Negative 11/01/17 05:49 WBC RBC Hgb Hct MCV MCH MCHC RDW Plt Count MPV Prelim Diff (Auto) Neut % (Auto) Lymph % (Auto) [place] % (Auto) Eos % (Auto) Baso % (Auto) Neut # (Auto) Lymph # (Auto) [place] # (Auto) Eos # (Auto) Baso # (Auto) WBC Differential Diff Scan Differential Comment Platelet Estimate Platelet Morphology Dimorphic RBCs PT INR Sodium 138 Potassium 2.9 L* Chloride 102 Carbon Dioxide 24.0 Anion Gap 12 BUN 5 L Creatinine 0.70 Estimated GFR 88 L Random Glucose 103 Calcium 7.6 L Total Bilirubin 13.6 H AST 80 H ALT 20 Alkaline Phosphatase 105 Total Protein 6.4 Albumin 2.2 L [id number] Anti-Smooth Muscle Ab Assessment and Plan - Assessment (1) Acute GI bleeding Code(s): K92.2 - Gastrointestinal hemorrhage, unspecified Status: Acute (2) Anemia Code(s): D64.9 - Anemia, unspecified Status: Acute - Plan 52-year-old white female with a history of alcoholic cirrhosis, hepatitis C presents with GI bleed and acute blood loss anemia. INR is 2.2 today, status post transfusion of platelets and plasma yesterday. Goal of INR is less than 1.5 in order to obtain EGD and colonoscopy. Vitamin K is being provided today. For now continue to monitor CBC. Transfuse again if needed, no acute need for transfusion this morning. Patient may have chronic hypnotherapeutic INR due to her liver disease. GI bleed History of cirrhosis with ascites Acute blood loss anemia -Suspected upper GI bleed -Continue Protonix drip -Continue octreotide -GI has been consulted. Appreciate recommendations. Plan for EGD colonoscopy when INR is within normal. -Vitamin K administration -Ciprofloxacin continued -Patient transfused 2 units packed red blood cells on 10/27/2017 -on Lasix and Aldactone -Abdominal distention but tolerating PO diet. Unable to do paracentesis as INR cont to be elevated -Monitor INR 2.2 Anxiety -E-FORCSE Prescription Drug Monitoring Database has been queried and verified prior to prescribing the controlled substance. -Ativan 0.5 mg as needed History of alcoholism -Continue CIHI protocol -Monitor for delirium tremens Hypokalemia -Monitor and replace as needed -Check Mag, replace as needed -Follow BMP Acute liver failure likely due to chronic alcohol abuse and hep C -Avoid alcohol -Follow LFTs -Not a good candidate for steroids at this point. MELD 25 DVT prophylaxis SCDs Code Status: Full Code Discussed Condition With: Patient, nursing Discharge Planning: Plan to DC home when clinically improved. Pending GI procedure.
[2017-11-01 16:55] LABS: Calcium 7.8 mg/dL (8.5-10.1); Carbon Dioxide 26.2 meq/L (21.0-32.0)
--- NOTE | 2017-11-01 17:34 | P.PNGI ---
Subjective Interval history: Patient ambulating in room with Physical therapy and sitting up in chair at bedside. Pt states she is tolerating meals well. Denies nausea or vomiting. BM today, denies noted bleeding <Marni Edwards - Last Filed: 11/01/17 17:46> Physical Exam Vital signs: Vital Signs 10/31/17 20:00 10/31/17 21:29 11/01/17 00:00 Temperature 98.9 F 98.4 F Pulse Rate 62 82 79 Respiratory Rate 18 12 18 Blood Pressure 96/51 L 91/44 L Pulse Oximetry 96 95 11/01/17 03:58 11/01/17 04:00 11/01/17 08:00 Temperature 98.3 F 98 F Pulse Rate 72 80 74 Respiratory Rate 16 18 18 Blood Pressure 92/53 L 96/52 L Pulse Oximetry 95 95 11/01/17 12:00 11/01/17 14:08 11/01/17 16:00 Temperature 98.2 F Pulse Rate 70 71 Respiratory Rate 18 Blood Pressure 98/56 L Pulse Oximetry 96 93 L Intake & Output 10/31/17 11/01/17 11/01/17 18:59 06:59 18:59 Intake Total 0 / 2060 1200 / 1200 2200.5 / 2200.5 Output Total 400 / 400 Balance 2059 / 0 800 / 800 2200.5 / 2200.5 Weight 57.4 kg Intake: IV 1100 / 1100 1000 / 1000 2200.5 / 2200.5 SandoSTATIN Inj 500 MCG In NS 500 / 500 500.5 / 500.5 Inj 500 ML @ 25 MCG/HR 25.02 mls/hr IV.CONT .Q20H1M ERIN Rx#: [id number] NS Inj 1,000 ML @ 50 mls/hr IV. 1000 / 1000 1000 / 1000 CONT .Q20H ERIN Rx#:[id number] Cipro 400 MG/200 ML Inj 400 mg 200 / 200 200 / 200 In 200 ml @ 200 mls/hr IV.SIG Q12H ERIN Rx#:[id number] Magnesium Sulfate 1 gm/D5W 100 200 / 200 ml Premix 100 ML @ 100 mls/hr IV.SIG Q1H ERIN Rx#:[id number] Magnesium Sulfate Inj 2 GM In 100 / 100 NS Inj 96 ML @ 50 mls/hr IV.SIG ONCE ONE Rx#:[id number] KCl 10 mEq Premix Inj 10 meq In 200 / 200 400 / 400 100 ml @ 100 mls/hr IV.SIG Q1H ERIN Rx#:[id number] Oral 960 / 960 200 / 200 Output: Urine 400 / 400 Other: # Voids 4 Date of Last Bowel Movement 10/31/17 10/31/17 # Bowel Movements 1 1 - Constitutional no acute distress - Routine HEENT Exam Head: Present: normocephalic Eye: Present: conjunctival icterus - Routine Respiratory Exam Present: CTA bilaterally - Routine Cardiovascular Exam Present: RRR - Routine Abdominal Exam Present: normoactive bowel sounds, distended. Absent: tenderness - Routine Extremities Exam Present: full ROM, pulses intact - Routine Skin Exam Present: dry, warm, jaundice - Routine Neurological Exam Present: alert, oriented X3 - Detailed Neurological Exam: Coma Scale Eye Opening: Spontaneous Verbal Response: Oriented Motor Response: Obey commands Carbon Coma Scale Total: 15 - Routine Psychiatric Exam Present: normal affect, cooperative <Edwards,Marni - Last Filed: 11/01/17 17:46> Vital signs: Vital Signs 11/01/17 00:00 11/01/17 03:58 11/01/17 04:00 Temperature 98.4 F 98.3 F Pulse Rate 79 72 80 Respiratory Rate 18 16 18 Blood Pressure 91/44 L 92/53 L Pulse Oximetry 95 95 11/01/17 08:00 11/01/17 12:00 11/01/17 14:08 Temperature 98 F 98.2 F Pulse Rate 74 70 Respiratory Rate 18 18 Blood Pressure 96/52 L 98/56 L Pulse Oximetry 95 96 93 L 11/01/17 16:00 11/01/17 20:00 Temperature 97.9 F 97.9 F Pulse Rate 72 77 Respiratory Rate 20 18 Blood Pressure 104/58 L 96/54 L Pulse Oximetry 97 96 Intake & Output 11/01/17 11/01/17 11/02/17 06:59 18:59 06:59 Intake Total 1200 / 1200 2920.5 / 2920.5 Output Total 400 / 400 Balance 800 / 800 2920.5 / 2920.5 Weight 57.4 kg Intake: IV 1000 / 1000 2400.5 / 2400.5 SandoSTATIN Inj 500 MCG In NS 500.5 / 500.5 Inj 500 ML @ 25 MCG/HR 25.02 mls/hr IV.CONT .Q20H1M ERIN Rx#: [id number] NS Inj 1,000 ML @ 50 mls/hr IV. 1000 / 1000 1000 / 1000 CONT .Q20H ERIN Rx#:[id number] Cipro 400 MG/200 ML Inj 400 mg 400 / 400 In 200 ml @ 200 mls/hr IV.SIG Q12H ERIN Rx#:[id number] Magnesium Sulfate Inj 2 GM In 100 / 100 NS Inj 96 ML @ 50 mls/hr IV.SIG ONCE ONE Rx#:[id number] KCl 10 mEq Premix Inj 10 meq In 400 / 400 100 ml @ 100 mls/hr IV.SIG Q1H ERIN Rx#:[id number] Oral 200 / 200 520 / 520 Output: Urine 400 / 400 Other: # Voids 5 Date of Last Bowel Movement 10/31/17 10/31/17 # Bowel Movements 1 0 <Cade Chaudhary E - Last Filed: 11/01/17 21:53> Results - Labs CBC & Chem 7: 11/01/17 05:49 11/01/17 15:44 Laboratory Results - last 24 hr 10/30/17 11/01/17 11/01/17 06:11 05:49 05:49 WBC 6.5 RBC 2.33 L Hgb 8.5 L Hct 24.9 L MCV 107.2 H MCH 36.5 H MCHC 34.1 RDW 27.3 H Plt Count 87 L MPV 8.6 Prelim Diff (Auto) Slide review pending Neut % (Auto) 67.5 Lymph % (Auto) 14.2 [place] % (Auto) 15.9 H Eos % (Auto) 1.4 Baso % (Auto) 1.0 Neut # (Auto) 4.4 Lymph # (Auto) 0.9 L [place] # (Auto) 1.0 H Eos # (Auto) 0.1 Baso # (Auto) 0.1 WBC Differential . Diff Scan Auto diff confirmed Differential Comment . Platelet Estimate Low L Platelet Morphology Normal Dimorphic RBCs Present H PT 21.8 H INR 2.2 Sodium Potassium Chloride Carbon Dioxide Anion Gap BUN Creatinine Estimated GFR Random Glucose Calcium Total Bilirubin AST ALT Alkaline Phosphatase Total Protein Albumin Bsceb-[id number] 137 Anti-Smooth Muscle Ab Negative 11/01/17 11/01/17 05:49 15:44 WBC RBC Hgb Hct MCV MCH MCHC RDW Plt Count MPV Prelim Diff (Auto) Neut % (Auto) Lymph % (Auto) [place] % (Auto) Eos % (Auto) Baso % (Auto) Neut # (Auto) Lymph # (Auto) [place] # (Auto) Eos # (Auto) Baso # (Auto) WBC Differential Diff Scan Differential Comment Platelet Estimate Platelet Morphology Dimorphic RBCs PT INR Sodium 138 137 Potassium 2.9 L* 4.0 D Chloride 102 103 Carbon Dioxide 24.0 26.2 Anion Gap 12 8 BUN 5 L 4 L Creatinine 0.70 0.70 Estimated GFR 88 L 88 L Random Glucose 103 128 H Calcium 7.6 L 7.8 L Total Bilirubin 13.6 H AST 80 H ALT 20 Alkaline Phosphatase 105 Total Protein 6.4 Albumin 2.2 L [id number]-6-[id number] Anti-Smooth Muscle Ab <Marni Edwards - Last Filed: 11/01/17 17:46> - Labs CBC & Chem 7: 11/01/17 05:49 11/01/17 15:44 Laboratory Results - last 24 hr 10/30/17 11/01/17 11/01/17 06:11 05:49 05:49 WBC 6.5 RBC 2.33 L Hgb 8.5 L Hct 24.9 L MCV 107.2 H MCH 36.5 H MCHC 34.1 RDW 27.3 H Plt Count 87 L MPV 8.6 Prelim Diff (Auto) Slide review pending Neut % (Auto) 67.5 Lymph % (Auto) 14.2 [place] % (Auto) 15.9 H Eos % (Auto) 1.4 Baso % (Auto) 1.0 Neut # (Auto) 4.4 Lymph # (Auto) 0.9 L [place] # (Auto) 1.0 H Eos # (Auto) 0.1 Baso # (Auto) 0.1 WBC Differential . Diff Scan Auto diff confirmed Differential Comment . Platelet Estimate Low L Platelet Morphology Normal Dimorphic RBCs Present H PT 21.8 H INR 2.2 Sodium Potassium Chloride Carbon Dioxide Anion Gap BUN Creatinine Estimated GFR Random Glucose Calcium Total Bilirubin AST ALT Alkaline Phosphatase Total Protein Albumin IgA 997 H Tiss Transglutamin IgG ND 11/01/17 11/01/17 05:49 15:44 WBC RBC Hgb Hct MCV MCH MCHC RDW Plt Count MPV Prelim Diff (Auto) Neut % (Auto) Lymph % (Auto) [place] % (Auto) Eos % (Auto) Baso % (Auto) Neut # (Auto) Lymph # (Auto) [place] # (Auto) Eos # (Auto) Baso # (Auto) WBC Differential Diff Scan Differential Comment Platelet Estimate Platelet Morphology Dimorphic RBCs PT INR Sodium 138 137 Potassium 2.9 L* 4.0 D Chloride 102 103 Carbon Dioxide 24.0 26.2 Anion Gap 12 8 BUN 5 L 4 L Creatinine 0.70 0.70 Estimated GFR 88 L 88 L Random Glucose 103 128 H Calcium 7.6 L 7.8 L Total Bilirubin 13.6 H AST 80 H ALT 20 Alkaline Phosphatase 105 Total Protein 6.4 Albumin 2.2 L IgA Tiss Transglutamin IgG <Cade Chaudhary - Last Filed: 11/01/17 21:53> Assessment and Plan - Plan - Melena/anemia- (06/28/17) No melena or hematochezia today. hh today is 7.9/22.6, stable (06/27/17) Hx of alcoholic hepatitis, cirrhosis who presents to the emergency room with worsening abd girth which started 3 days ago, was seen in the ED at that time and was sent home. Pt returned with black tarry stools X 2 days, last episode was yesterday morning. CT of a/p on 10/25/17 showed cirrhosis with moderate amount of ascitic fluid. Chronic pancreatitis, spleen is upper limits of normal size, non obstructing bilateral renal calculi, gall bladder is at the upper limits of normal in size. PPI and Octreotide started. hgb on admission 6.6, today is 8.1 s/p 2 units of blood. Pt had EGD on 04/10/15 showed mild antral gastropathy, other linton normal. States hasn't been following with GI as an OP. She cont to drink about 4 drinks a day but quit 4 days ago. She is not taking any medications for cirrhosis. - Ascites- diuretics started , not candidate for paracentesis with high INR - Coagulopathy/thrombocytopenia- INR today is 2.3 plt 42 - Hypo albumin is 1.9. - Hx of chronic pancreatitis- Sees pain management, takes Lortab as needed Normal Lipase - Alcoholic hepatitis on underlying liver cirrhosis. Continues to drink ETOH ( 4x a day but quit 4 days ago). Discriminant factor 58 trending down slowly. T. Bilirubin 15---> 14.5, AST 112--->97, rest normal Imaging as above. - Anemia. hh stable, no signs of active bleed. hgb on admission 6.6, s/p 2 units of blood. hgb today is 7.9 stable due to acute gi bleed and hx of cirrhosis and continued ETOH use. - Hypocalcemia, hypokalemia per primary 11/01/17- Patient ambulating in room with physical therapy. Sitting up in chair. Reports eating well and denies nausea or vomiting. BM today with no noted bleeding. AM labs noted Hgb 8.5 Hct 24.9 TB 13.6 AST 80 ALT 20 Alk phos 105 Albumin 2.2 INR 2.2 Vitamin K ineffective and 3rd dose administered this am. Will discontinue for now. PLAN: - Cardiac diet - IVF - PPI -Cont. Lasix 20 -Cont. Aldactone 50 -Cont. albumin -Trental/ Xifaxan -Alcohol cessation -Supportive care -Further recommendations to follow based on results of above Patient seen by myself and Dr. Chaudhary and this note is written on his behalf. <Marni Edwards - Last Filed: 11/01/17 17:46> - Plan Patient seen and examined Agree with above Continue with current supportive care Monitor labs EGD colonoscopy either Monday or prior discharge depending on how she is doing <Cade Chaudhary - Last Filed: 11/01/17 21:53>
--- NOTE | 2017-11-01 17:42 | P.PN ---
Subjective Interval history: Alert and having no SOB. Off O2. CT chest shows no mass and only shows patchy infiltrates. Going for EGD/ Colonoscopy Physical Exam Vital signs: Vital Signs 10/31/17 20:00 10/31/17 21:29 11/01/17 00:00 Temperature 98.9 F 98.4 F Pulse Rate 62 82 79 Respiratory Rate 18 12 18 Blood Pressure 96/51 L 91/44 L Pulse Oximetry 96 95 11/01/17 03:58 11/01/17 04:00 11/01/17 08:00 Temperature 98.3 F 98 F Pulse Rate 72 80 74 Respiratory Rate 16 18 18 Blood Pressure 92/53 L 96/52 L Pulse Oximetry 95 95 11/01/17 12:00 11/01/17 14:08 11/01/17 16:00 Temperature 98.2 F Pulse Rate 70 71 Respiratory Rate 18 Blood Pressure 98/56 L Pulse Oximetry 96 93 L Intake & Output 10/31/17 11/01/17 11/01/17 18:59 06:59 18:59 Intake Total 2060 / 2060 1200 / 1200 2200.5 / 2200.5 Output Total 400 / 400 Balance 2059 / 2060 800 / 800 2200.5 / 2200.5 Weight 57.4 kg Intake: IV 1100 / 1100 1000 / 1000 2200.5 / 2200.5 SandoSTATIN Inj 500 MCG In NS 500 / 500 500.5 / 500.5 Inj 500 ML @ 25 MCG/HR 25.02 mls/hr IV.CONT .Q20H1M ERIN Rx#: [id number] NS Inj 1,000 ML @ 50 mls/hr IV. 1000 / 1000 1000 / 1000 CONT .Q20H ERIN Rx#:[id number] Cipro 400 MG/200 ML Inj 400 mg 200 / 200 200 / 200 In 200 ml @ 200 mls/hr IV.SIG Q12H ERIN Rx#:[id number] Magnesium Sulfate 1 gm/D5W 100 200 / 200 ml Premix 100 ML @ 100 mls/hr IV.SIG Q1H ERIN Rx#:[id number] Magnesium Sulfate Inj 2 GM In 100 / 100 NS Inj 96 ML @ 50 mls/hr IV.SIG ONCE ONE Rx#:[id number] KCl 10 mEq Premix Inj 10 meq In 200 / 200 400 / 400 100 ml @ 100 mls/hr IV.SIG Q1H ERIN Rx#:[id number] Oral 960 / 960 200 / 200 Output: Urine 400 / 400 Other: # Voids 4 Date of Last Bowel Movement 10/31/17 10/31/17 # Bowel Movements 1 1 Narrative: GENERAL: This is a thin Mid aged W/F , in no apparent distress. SKIN: Warm and dry. Jaundiced. HEENT: Normocephalic. Pupils equal round, sclerae icteric. Nose without bleeding. Airway patent. NECK: Trachea midline. CARDIOVASCULAR: Regular rate and rhythm without murmurs, gallops, or rubs. RESPIRATORY: No wheezes, rales, or rhonchi. GASTROINTESTINAL: Abdomen non-tender, distended, with ascites. Bowel Sounds normoactive x4. MUSCULOSKELETAL: Extremities without clubbing, cyanosis, or edema. NEUROLOGICAL: Awake and alert. No focal neuro deficit. Moves all extremities. Normal speech. Results - Labs CBC & Chem 7: 11/01/17 05:49 11/01/17 15:44 Laboratory Results - last 24 hr 10/30/17 11/01/17 11/01/17 06:11 05:49 05:49 WBC 6.5 RBC 2.33 L Hgb 8.5 L Hct 24.9 L MCV 107.2 H MCH 36.5 H MCHC 34.1 RDW 27.3 H Plt Count 87 L MPV 8.6 Prelim Diff (Auto) Slide review pending Neut % (Auto) 67.5 Lymph % (Auto) 14.2 [place] % (Auto) 15.9 H Eos % (Auto) 1.4 Baso % (Auto) 1.0 Neut # (Auto) 4.4 Lymph # (Auto) 0.9 L [place] # (Auto) 1.0 H Eos # (Auto) 0.1 Baso # (Auto) 0.1 WBC Differential . Diff Scan Auto diff confirmed Differential Comment . Platelet Estimate Low L Platelet Morphology Normal Dimorphic RBCs Present H PT 21.8 H INR 2.2 Sodium Potassium Chloride Carbon Dioxide Anion Gap BUN Creatinine Estimated GFR Random Glucose Calcium Total Bilirubin AST ALT Alkaline Phosphatase Total Protein Albumin Kldij-8-Eeuygahzvsh 137 Anti-Smooth Muscle Ab Negative 11/01/17 11/01/17 05:49 15:44 WBC RBC Hgb Hct MCV MCH MCHC RDW Plt Count MPV Prelim Diff (Auto) Neut % (Auto) Lymph % (Auto) [place] % (Auto) Eos % (Auto) Baso % (Auto) Neut # (Auto) Lymph # (Auto) [place] # (Auto) Eos # (Auto) Baso # (Auto) WBC Differential Diff Scan Differential Comment Platelet Estimate Platelet Morphology Dimorphic RBCs PT INR Sodium 138 137 Potassium 2.9 L* 4.0 D Chloride 102 103 Carbon Dioxide 24.0 26.2 Anion Gap 12 8 BUN 5 L 4 L Creatinine 0.70 0.70 Estimated GFR 88 L 88 L Random Glucose 103 128 H Calcium 7.6 L 7.8 L Total Bilirubin 13.6 H AST 80 H ALT 20 Alkaline Phosphatase 105 Total Protein 6.4 Albumin 2.2 L Nyvfw-1-Rgaqawenpta Anti-Smooth Muscle Ab Assessment and Plan - Assessment (1) Pulmonary infiltrate Code(s): R91.8 - Other nonspecific abnormal finding of lung field Status: Acute (2) Pneumonia Code(s): J18.9 - Pneumonia, unspecified organism Status: Acute (3) Acute GI bleeding Code(s): K92.2 - Gastrointestinal hemorrhage, unspecified Status: Acute (4) Anemia Code(s): D64.9 - Anemia, unspecified Status: Acute (5) Hepatitis C Code(s): B19.20 - Unspecified viral hepatitis C without hepatic coma Status: Acute - Plan 1. IS at bedside q3h. 2. Continue antibiotic 3. Cont Symbicort 160/4.5 mcg, 2puffs bid. 4. nebs qid , duoneb 5. O2 PRN 2L 6. Cont lasix 20 mg daily 7. CBC, BMP in am
[2017-11-01 19:52] LABS: IgA Serum 997 mg/dL (81-463); Tissue Transglutaminase Ab IgG ND U/mL (())
[2017-11-01] MEDS: Gabapentin 300 MG Capsule PO SCH (21:07)
[2017-11-02] MEDS: LORazepam 0.5 MG Tablet PO PRN ×3 (04:16→20:23)
[2017-11-02] MEDS: Ciprofloxacin 400 MG/200 ML 400 MG/200 ML PIGGYBACK IV.SIG SCH ×2 (05:19→17:13)
--- NOTE | 2017-11-02 06:52 | XR ---
EXAM DATE: 11/02/2017 6:44 AM EDT AGE/SEX: 52 years / Female INDICATIONS: Short of breath, evaluate infiltrate CLINICAL DATA: This is the patient's subsequent encounter. Patient reports that signs and symptoms h ave been present for 1 week and indicates a pain score of 0/10. MEDICAL/SURGICAL HISTORY: Cirrhosis. Pancreatitis. ascites None. [place] [facility] [place]. . FINDINGS: Patchy mild areas of alveolar infiltrate and some subsegmental atelectasis in the left lung base. No significant effusion. Cardiac contours are satisfactory. CONCLUSION: Patchy infiltrates. Electronically signed by: Marco Antonio Valle MD 11/02/2017 6:51 AM EDT
[2017-11-02 07:10] LABS: Anion Gap 8 meq/L (5-15); Aspartate Aminotransferase 84 U/L (15-37); Blood Urea Nitrogen 4 mg/dL (7-18); Calcium 7.9 mg/dL (8.5-10.1); Carbon Dioxide 24.7 meq/L (21.0-32.0); Chloride 103 meq/L (98-107); Glomerular Filtration Rate Greater Than 89 mL/min (>89); Glucose,Random 102 mg/dL (74-106); Potassium 4.2 meq/L (3.5-5.1); Sodium 136 meq/L (136-145)
[2017-11-02 07:11] LABS: Alanine Aminotransferase 21 U/L (10-53)
[2017-11-02 07:13] LABS: Alkaline Phosphatase 107 U/L (45-117); Total Protein 6.4 g/dL (6.4-8.2)
[2017-11-02] MEDS: Lipase/Protease/Amylase 24/76/120 DR Capsule PO SCH ×3 (08:36→17:14)
[2017-11-02] MEDS: Pentoxifylline 400 MG Controlled Release Tablet PO SCH ×3 (08:37→17:14)
[2017-11-02] MEDS: Furosemide 20 MG Tablet PO SCH (08:37)
[2017-11-02] MEDS: Spironolactone 50 MG Tablet PO SCH (08:37)
[2017-11-02] MEDS: Sod Chloride 0.9% Inj 1,000 ML IV.CONT SCH ×2 (09:14→13:22)
--- NOTE | 2017-11-02 13:29 | P.PNGI ---
Subjective Interval history: Patient resting in bed, awake and alert. She denies abdominal pain. Denies nausea or vomiting. States she had a small BM yesterday and denies any noted bleeding. <Marni Edwards - Last Filed: 11/02/17 15:26> Physical Exam Vital signs: Vital Signs 11/01/17 14:08 11/01/17 16:00 11/01/17 20:00 Temperature 97.9 F 97.9 F Pulse Rate 72 65 Respiratory Rate 20 18 Blood Pressure 104/58 L 96/54 L Pulse Oximetry 93 L 97 96 11/02/17 00:00 11/02/17 04:00 11/02/17 08:00 Temperature 97.5 F L 98.1 F Pulse Rate 70 64 56 L Respiratory Rate 18 18 20 Blood Pressure 113/55 L 110/54 L Pulse Oximetry 97 95 11/02/17 09:15 Temperature Pulse Rate 63 Respiratory Rate 16 Blood Pressure Pulse Oximetry 97 Intake & Output 11/01/17 11/02/17 11/02/17 18:59 06:59 18:59 Intake Total 2920.5 / 2920.5 896 / 896 400 / 400 Output Total 1200 / 1200 Balance 2920.5 / 2920.5 -304 / -304 400 / 400 Weight 57.2 kg Intake: IV 2400.5 / 2400.5 800 / 800 400 / 400 SandoSTATIN Inj 500 MCG In NS 500.5 / 500.5 0 / 0 Inj 500 ML @ 25 MCG/HR 25.02 mls/hr IV.CONT .Q20H1M ERIN Rx#: [id number] NS Inj 1,000 ML @ 50 mls/hr IV. 1000 / 1000 600 / 600 400 / 400 CONT .Q20H ERIN Rx#:[id number] Cipro 400 MG/200 ML Inj 400 mg 400 / 400 200 / 200 In 200 ml @ 200 mls/hr IV.SIG Q12H ERIN Rx#:[id number] Magnesium Sulfate Inj 2 GM In 100 / 100 NS Inj 96 ML @ 50 mls/hr IV.SIG ONCE ONE Rx#:[id number] KCl 10 mEq Premix Inj 10 meq In 400 / 400 100 ml @ 100 mls/hr IV.SIG Q1H ERIN Rx#:[id number] Oral 520 / 520 96 / 96 Output: Urine 1200 / 1200 Other: # Voids 5 Date of Last Bowel Movement 10/31/17 11/01/17 # Bowel Movements 0 - Constitutional no acute distress - Routine HEENT Exam Head: Present: normocephalic Eye: Present: conjunctival icterus - Routine Respiratory Exam Present: CTA bilaterally. Absent: accessory muscle use - Routine Cardiovascular Exam Present: RRR - Routine Abdominal Exam Present: soft, normoactive bowel sounds, distended. Absent: tenderness - Routine Skin Exam Present: dry, warm, jaundice - Routine Neurological Exam Present: alert, oriented X3 - Detailed Neurological Exam: Coma Scale Eye Opening: Spontaneous Verbal Response: Oriented Motor Response: Obey commands Franca Coma Scale Total: 15 - Routine Psychiatric Exam Present: normal affect, cooperative <Edwards,Marni - Last Filed: 11/02/17 15:26> Vital signs: Vital Signs 11/01/17 20:00 11/02/17 00:00 11/02/17 04:00 Temperature 97.9 F 97.5 F L 98.1 F Pulse Rate 65 70 64 Respiratory Rate 18 18 18 Blood Pressure 96/54 L 113/55 L 110/54 L Pulse Oximetry 96 97 95 11/02/17 08:00 11/02/17 09:15 11/02/17 12:00 Temperature 97.6 F 97.5 F L Pulse Rate 61 63 66 Respiratory Rate 16 16 16 Blood Pressure 112/57 L 103/55 L Pulse Oximetry 95 97 94 L 11/02/17 16:00 11/02/17 16:24 Temperature Pulse Rate 57 L 63 Respiratory Rate 14 Blood Pressure Pulse Oximetry Intake & Output 11/01/17 11/02/17 11/02/17 18:59 06:59 18:59 Intake Total 2920.5 / 2920.5 896 / 896 400 / 400 Output Total 1200 / 1200 Balance 2920.5 / 2920.5 -304 / -304 400 / 400 Weight 57.2 kg Intake: IV 2400.5 / 2400.5 800 / 800 400 / 400 SandoSTATIN Inj 500 MCG In NS 500.5 / 500.5 0 / 0 Inj 500 ML @ 25 MCG/HR 25.02 mls/hr IV.CONT .Q20H1M ERIN Rx#: [id number] NS Inj 1,000 ML @ 50 mls/hr IV. 1000 / 1000 600 / 600 400 / 400 CONT .Q20H ERIN Rx#:[id number] Cipro 400 MG/200 ML Inj 400 mg 400 / 400 200 / 200 In 200 ml @ 200 mls/hr IV.SIG Q12H [facility] Rx#:[id number] Magnesium Sulfate Inj 2 GM In 100 / 100 NS Inj 96 ML @ 50 mls/hr IV.SIG ONCE ONE Rx#:[id number] KCl 10 mEq Premix Inj 10 meq In 400 / 400 100 ml @ 100 mls/hr IV.SIG Q1H [facility] Rx#:[id number] Oral 520 / 520 96 / 96 Output: Urine 1200 / 1200 Other: # Voids 5 Date of Last Bowel Movement 10/31/17 11/01/17 # Bowel Movements 0 <Cade Chaudhary - Last Filed: 11/02/17 17:02> Results - Labs CBC & Chem 7: 11/01/17 05:49 11/02/17 05:56 Laboratory Results - last 24 hr 10/30/17 11/01/17 11/02/17 06:11 15:44 05:56 Sodium 137 136 Potassium 4.0 D 4.2 Chloride 103 103 Carbon Dioxide 26.2 24.7 Anion Gap 8 8 BUN 4 L 4 L Creatinine 0.70 0.60 Estimated GFR 88 L Greater than 89 Random Glucose 128 H 102 Calcium 7.8 L 7.9 L Total Bilirubin 12.3 H AST 84 H ALT 21 Alkaline Phosphatase 107 Total Protein 6.4 Albumin 2.0 L IgA 997 H Endomysial Ab Titer ND Endomysial IgA Ab ND Tiss Transglutamin IgG ND Tiss Transglutamin IgA 3 Celiac Disease Interp - Imaging Impressions Chest X-Ray 11/02/17 00:00 CONCLUSION: Patchy infiltrates. <Marni Edwards - Last Filed: 11/02/17 15:26> - Labs CBC & Chem 7: 11/01/17 05:49 11/02/17 05:56 Laboratory Results - last 24 hr 10/30/17 11/01/17 11/02/17 06:11 15:44 05:56 Sodium 137 136 Potassium 4.0 D 4.2 Chloride 103 103 Carbon Dioxide 26.2 24.7 Anion Gap 8 8 BUN 4 L 4 L Creatinine 0.70 0.60 Estimated GFR 88 L Greater than 89 Random Glucose 128 H 102 Calcium 7.8 L 7.9 L Total Bilirubin 12.3 H AST 84 H ALT 21 Alkaline Phosphatase 107 Total Protein 6.4 Albumin 2.0 L Ceruloplasmin 18 IgA 997 H Endomysial Ab Titer ND Endomysial IgA Ab ND Tiss Transglutamin IgG ND Tiss Transglutamin IgA 3 Celiac Disease Interp - Imaging Impressions Chest X-Ray 11/02/17 00:00 CONCLUSION: Patchy infiltrates. <Sa Jetoneida Hernadez - Last Filed: 11/02/17 17:02> Assessment and Plan (1) Acute GI bleeding Status: Acute Code(s): K92.2 - Gastrointestinal hemorrhage, unspecified (2) Anemia Status: Acute Code(s): D64.9 - Anemia, unspecified - Plan Melena/anemia- (06/28/17) No melena or hematochezia today. hh today is 7.9/22.6, stable (06/27/17) Hx of alcoholic hepatitis, cirrhosis who presents to the emergency room with worsening abd girth which started 3 days ago, was seen in the ED at that time and was sent home. Pt returned with black tarry stools X 2 days, last episode was yesterday morning. CT of a/p on 10/25/17 showed cirrhosis with moderate amount of ascitic fluid. Chronic pancreatitis, spleen is upper limits of normal size, non obstructing bilateral renal calculi, gall bladder is at the upper limits of normal in size. PPI and Octreotide started. hgb on admission 6.6, today is 8.1 s/p 2 units of blood. Pt had EGD on 04/10/15 showed mild antral gastropathy, other linton normal. States hasn't been following with GI as an OP. She cont to drink about 4 drinks a day but quit 4 days ago. She is not taking any medications for cirrhosis. - Ascites- diuretics started , not candidate for paracentesis with high INR - Coagulopathy/thrombocytopenia- INR today is 2.3 plt 42 - Hypo albumin is 1.9. - Hx of chronic pancreatitis- Sees pain management, takes Lortab as needed Normal Lipase - Alcoholic hepatitis on underlying liver cirrhosis. Continues to drink ETOH ( 4x a day but quit 4 days ago). Discriminant factor 58 trending down slowly. T. Bilirubin 15---> 14.5, AST 112--->97, rest normal Imaging as above. - Anemia. hh stable, no signs of active bleed. hgb on admission 6.6, s/p 2 units of blood. hgb today is 7.9 stable due to acute gi bleed and hx of cirrhosis and continued ETOH use. - Hypocalcemia, hypokalemia per primary 11/01/17- Patient ambulating in room with physical therapy. Sitting up in chair. Reports eating well and denies nausea or vomiting. BM today with no noted bleeding. AM labs noted Hgb 8.5 Hct 24.9 TB 13.6 AST 80 ALT 20 Alk phos 105 Albumin 2.2 INR 2.2 Vitamin K ineffective and 3rd dose administered this am. Will discontinue for now. 11/02/17- Patient sitting up in bed. Reports no nausea or vomiting. States small BM yesterday with no noted bleeding. Discussed INR test and need for EGD/ Colon if stable prior to discharge per Dr. Chaudhary. Pt verbalized understanding. Patient states she would like to have EGD and Colonoscopy on Monday11/06/17. Consent forms on chart. Labs 11/02/17- Total Bili 12.3 AST 84 ALT 21 ALP 107. . Plan -Cardiac diet -IVF -PPI -Cont. Lasix 20 -Trental -Monitor labs -EGD and Colonoscopy on Monday11/06/17/ will order FFP to correct INR if needed -Alcohol cessation -Supportive care - Further recommendations to follow based on results of above Patient seen by myself and Dr. Chaudhary and this note is written on his behalf. <Marni Edwards - Last Filed: 11/02/17 15:26> (1) Acute GI bleeding Status: Acute Code(s): K92.2 - Gastrointestinal hemorrhage, unspecified (2) Anemia Status: Acute Code(s): D64.9 - Anemia, unspecified - Plan Patient seen and examined Agree with above Continue with current supportive care Monitor labs Probable endoscopy on Monday <Cade Chaudhary - Last Filed: 11/02/17 17:02>
[2017-11-02 13:53] LABS: Ceruloplasmin 18 mg/dL (18-53)
--- NOTE | 2017-11-02 15:18 | P.PN ---
Subjective Interval history: awake and alert states ate pretty well- had German muffin no melena or hematochezia- "has not poop yet today" no cough, no dysuria Physical Exam Vital signs: Vital Signs 11/01/17 16:00 11/01/17 20:00 11/02/17 00:00 Temperature 97.9 F 97.9 F 97.5 F L Pulse Rate 72 65 70 Respiratory Rate 20 18 18 Blood Pressure 104/58 L 96/54 L 113/55 L Pulse Oximetry 97 96 97 11/02/17 04:00 11/02/17 08:00 11/02/17 09:15 Temperature 98.1 F 97.6 F Pulse Rate 64 61 63 Respiratory Rate 18 16 16 Blood Pressure 110/54 L 112/57 L Pulse Oximetry 95 95 97 11/02/17 12:00 Temperature 97.5 F L Pulse Rate 66 Respiratory Rate 16 Blood Pressure 103/55 L Pulse Oximetry 94 L Intake & Output 11/01/17 11/02/17 11/02/17 18:59 06:59 18:59 Intake Total 2920.5 / 2920.5 896 / 896 400 / 400 Output Total 1200 / 1200 Balance 2920.5 / 2920.5 -304 / -304 400 / 400 Weight 57.2 kg Intake: IV 2400.5 / 2400.5 800 / 800 400 / 400 SandoSTATIN Inj 500 MCG In NS 500.5 / 500.5 0 / 0 Inj 500 ML @ 25 MCG/HR 25.02 mls/hr IV.CONT .Q20H1M [facility] Rx#: [id number] NS Inj 1,000 ML @ 50 mls/hr IV. 1000 / 1000 600 / 600 400 / 400 CONT .Q20H [facility] Rx#:[id number] Cipro 400 MG/200 ML Inj 400 mg 400 / 400 200 / 200 In 200 ml @ 200 mls/hr IV.SIG Q12H [facility] Rx#:[id number] Magnesium Sulfate Inj 2 GM In 100 / 100 NS Inj 96 ML @ 50 mls/hr IV.SIG ONCE ONE Rx#:[id number] KCl 10 mEq Premix Inj 10 meq In 400 / 400 100 ml @ 100 mls/hr IV.SIG Q1H [facility] Rx#:[id number] Oral 520 / 520 96 / 96 Output: Urine 1200 / 1200 Other: # Voids 5 Date of Last Bowel Movement 10/31/17 11/01/17 # Bowel Movements 0 Narrative: awake and alert, oriented x 3 anciteric neck suple lungs- no rales, no wheezes regular rhythm abdomen- distended but soft- likley wth ascites extremiteis no edema neuro exam- unremarkable Results - Labs CBC & Chem 7: 11/04/17 04:42 11/04/17 04:42 Laboratory Results - last 24 hr 10/30/17 11/01/17 11/02/17 06:11 15:44 05:56 Sodium 137 136 Potassium 4.0 D 4.2 Chloride 103 103 Carbon Dioxide 26.2 24.7 Anion Gap 8 8 BUN 4 L 4 L Creatinine 0.70 0.60 Estimated GFR 88 L Greater than 89 Random Glucose 128 H 102 Calcium 7.8 L 7.9 L Total Bilirubin 12.3 H AST 84 H ALT 21 Alkaline Phosphatase 107 Total Protein 6.4 Albumin 2.0 L Ceruloplasmin 18 IgA 997 H Endomysial Ab Titer ND Endomysial IgA Ab ND Tiss Transglutamin IgG ND Tiss Transglutamin IgA 3 Celiac Disease Interp - Imaging Impressions Chest X-Ray 11/02/17 00:00 CONCLUSION: Patchy infiltrates. Assessment and Plan - Assessment (1) Acute GI bleeding Code(s): K92.2 - Gastrointestinal hemorrhage, unspecified Status: Acute (2) Anemia Code(s): D64.9 - Anemia, unspecified Status: Acute - Plan 52-year-old white female with a history of alcoholic cirrhosis, hepatitis C presents with GI bleed and acute blood loss anemia. INR is 2.1 status post transfusion of platelets and plasma 10/31 Goal of INR is less than 1.5 in order to obtain EGD and colonoscopy. Vitamin K is being provided today. For now continue to monitor CBC. Transfuse again if needed, no acute need for transfusion this morning. Patient may have chronic hypnotherapeutic INR due to her liver disease. GI bleed History of cirrhosis Ascites on exam- soft not tense Acute blood loss anemia -Suspected upper GI bleed -Continue Protonix- change to po 40 mg bid -GI has been consulted. Appreciate recommendations. Plan for EGD colonoscopy when INR is within normal. -Vitamin K administration -Ciprofloxacin continued- DC ciprofloxacin after tonight -Patient transfused 2 units packed red blood cells on 10/27/2017 -on Lasix and Aldactone -tolerating PO diet. Unable to do paracentesis as INR cont to be elevated -Monitor INR 2.2 - monitor abdominal girth Anxiety -E-FORCSE Prescription Drug Monitoring Database has been queried and verified prior to prescribing the controlled substance. -Ativan 0.5 mg as needed History of alcoholism -Continue CIWA protocol -Monitor for delirium tremens Hypokalemia -Monitor and replace as needed -Check Mag, replace as needed -Follow BMP Acute liver failure likely due to chronic alcohol abuse and hep C -Avoid alcohol -Follow LFTs -Not a good candidate for steroids at this point. MELD 25 DVT prophylaxis SCDs Code Status: Full Code Discussed Condition With: Patient, nursing Discharge Planning: Plan to DC home when clinically improved. Pending GI procedure.
[2017-11-02] MEDS: Gabapentin 300 MG Capsule PO SCH (20:22)
[2017-11-03] MEDS: LORazepam 0.5 MG Tablet PO PRN ×3 (04:35→23:41)
[2017-11-03] MEDS: Sod Chloride 0.9% Inj 1,000 ML IV.CONT SCH ×2 (06:23→08:56)
[2017-11-03 07:22] LABS: Baso # (Auto) 0.1 th/mm3 (0.0-0.2); Baso % (Auto) 0.8 % (0.0-2.0); Eos # (Auto) 0.1 th/mm3 (0.0-0.4); Eos % (Auto) 1.6 % (0.0-4.0); Hematocrit 25.1 % (35.0-46.0); Hemoglobin 8.7 gm/dL (11.6-15.3); Lymph # (Auto) 1.4 th/mm3 (1.0-4.8); Lymph % (Auto) 20.5 % (9.0-44.0); Mean Corpuscular HGB Conc 34.7 % (32.0-36.0); Mean Corpuscular Volume 106.5 fL (80.0-100.0); Mean Platelet Volume 8.9 fL (7.0-11.0); Mono # (Auto) 1.1 th/mm3 (0.0-0.9); Mono % (Auto) 15.6 % (0.0-8.0); Neut # (Auto) 4.2 th/mm3 (1.8-7.7); Neut % (Auto) 61.5 % (16.0-70.0); Platelet Count 121 th/mm3 (150-450); Red Blood Count 2.36 mil/mm3 (4.00-5.30); Red Cell Distribution Width 25.7 % (11.6-17.2); White Blood Count 6.8 th/mm3 (4.0-11.0)
[2017-11-03 07:38] LABS: INR 2.1 Ratio; Prothrombin Time 21.1 sec (9.8-11.6)
[2017-11-03 07:57] LABS: Alanine Aminotransferase 21 U/L (10-53); Albumin 2.2 g/dL (3.4-5.0); Alkaline Phosphatase 117 U/L (45-117); Anion Gap 10 meq/L (5-15); Aspartate Aminotransferase 94 U/L (15-37); Blood Urea Nitrogen 6 mg/dL (7-18); Calcium 8.1 mg/dL (8.5-10.1); Carbon Dioxide 25.4 meq/L (21.0-32.0); Chloride 103 meq/L (98-107); Glomerular Filtration Rate Greater Than 89 mL/min (>89); Glucose,Random 87 mg/dL (74-106); Potassium 3.2 meq/L (3.5-5.1); Sodium 138 meq/L (136-145); Total Protein 6.7 g/dL (6.4-8.2)
[2017-11-03] MEDS: Spironolactone 50 MG Tablet PO SCH (08:53)
[2017-11-03] MEDS: Furosemide 20 MG Tablet PO SCH (08:53)
[2017-11-03] MEDS: Lipase/Protease/Amylase 24/76/120 DR Capsule PO SCH ×3 (08:53→18:34)
[2017-11-03] MEDS: Pentoxifylline 400 MG Controlled Release Tablet PO SCH ×3 (08:54→18:35)
[2017-11-03 09:24] LABS: Dimorphic RBC Present
--- NOTE | 2017-11-03 09:29 | P.PN ---
Subjective Interval history: patient feeling better ate 75 % of her breakfast no pain no BM yet- but feels it is coming-+ lots of flatus Physical Exam Vital signs: Vital Signs 11/02/17 12:00 11/02/17 16:00 11/02/17 16:24 Temperature 97.5 F L 97.3 F L Pulse Rate 66 78 63 Respiratory Rate 16 16 14 Blood Pressure 103/55 L 102/56 L Pulse Oximetry 94 L 97 11/02/17 20:00 11/02/17 23:54 11/03/17 00:00 Temperature 98.1 F 98.8 F Pulse Rate 76 70 70 Respiratory Rate 15 14 Blood Pressure 100/53 L 92/51 L Pulse Oximetry 96 95 11/03/17 04:00 11/03/17 04:18 11/03/17 08:00 Temperature 98 F 98.3 F Pulse Rate 85 77 77 Respiratory Rate 18 19 16 Blood Pressure 100/51 L 103/53 L Pulse Oximetry 96 97 95 11/03/17 08:08 Temperature Pulse Rate 80 Respiratory Rate 14 Blood Pressure Pulse Oximetry Intake & Output 11/02/17 11/03/17 11/03/17 18:59 06:59 18:59 Intake Total 1560 / 1560 1240 / 1240 Output Total 1500 / 1500 950 / 950 Balance 60 / 60 290 / 290 Weight 56.3 kg Intake: IV 600 / 600 1000 / 1000 NS Inj 1,000 ML @ 50 mls/hr IV. 400 / 400 1000 / 1000 CONT .Q20H [facility] Rx#:[id number] Cipro 400 MG/200 ML Inj 400 mg 200 / 200 In 200 ml @ 200 mls/hr IV.SIG Q12H [facility] Rx#:[id number] Oral 960 / 960 240 / 240 Output: Urine 1500 / 1500 950 / 950 Other: Date of Last Bowel Movement 11/02/17 # Bowel Movements 0 1 Narrative: awake and alert, oriented x 3 + icterisia neck supple lungs- no rales, no wheezes regular rhythm abdomen- soft, mild fluid wave, no guarding, extremiteis no edema neuro exam- unremarkable Results - Labs CBC & Chem 7: 11/04/17 04:42 11/04/17 04:42 Laboratory Results - last 24 hr 10/30/17 11/03/17 11/03/17 06:11 05:50 05:50 WBC 6.8 RBC 2.36 L Hgb 8.7 L Hct 25.1 L MCV 106.5 H MCH 37.0 H MCHC 34.7 RDW 25.7 H Plt Count 121 L D MPV 8.9 Prelim Diff (Auto) Slide review pending Neut % (Auto) 61.5 Lymph % (Auto) 20.5 Allen % (Auto) 15.6 H Eos % (Auto) 1.6 Baso % (Auto) 0.8 Neut # (Auto) 4.2 Lymph # (Auto) 1.4 Allen # (Auto) 1.1 H Eos # (Auto) 0.1 Baso # (Auto) 0.1 Differential Comment . PT INR Sodium 138 Potassium 3.2 L D Chloride 103 Carbon Dioxide 25.4 Anion Gap 10 BUN 6 L Creatinine 0.68 Estimated GFR Greater than 89 Random Glucose 87 Calcium 8.1 L Total Bilirubin 13.1 H AST 94 H ALT 21 Alkaline Phosphatase 117 Total Protein 6.7 Albumin 2.2 L Ceruloplasmin 18 11/03/17 05:50 WBC RBC Hgb Hct MCV MCH MCHC RDW Plt Count MPV Prelim Diff (Auto) Neut % (Auto) Lymph % (Auto) Allen % (Auto) Eos % (Auto) Baso % (Auto) Neut # (Auto) Lymph # (Auto) Allen # (Auto) Eos # (Auto) Baso # (Auto) Differential Comment PT 21.1 H INR 2.1 Sodium Potassium Chloride Carbon Dioxide Anion Gap BUN Creatinine Estimated GFR Random Glucose Calcium Total Bilirubin AST ALT Alkaline Phosphatase Total Protein Albumin Ceruloplasmin Assessment and Plan - Assessment (1) Acute GI bleeding Code(s): K92.2 - Gastrointestinal hemorrhage, unspecified Status: Acute (2) Anemia Code(s): D64.9 - Anemia, unspecified Status: Acute - Plan 52-year-old white female with a history of alcoholic cirrhosis, hepatitis C presents with GI bleed and acute blood loss anemia. INR is 2.1 status post transfusion of platelets and plasma 10/31 Goal of INR is less than 1.5 in order to obtain EGD and colonoscopy. Vitamin K is being provided today. For now continue to monitor CBC. Transfuse again if needed, no acute need for transfusion this morning. Patient may have chronic hypnotherapeutic INR due to her liver disease. GI bleed History of cirrhosis Ascites on exam- soft not tense Acute blood loss anemia -Suspected upper GI bleed -Continue Protonix- po 40 mg bid -GI has been consulted. Appreciate recommendations. Plan for EGD colonoscopy when INR is within normal. -Vitamin K administration -S/P Ciprofloxacin course 11/02 -Patient transfused 2 units packed red blood cells on 10/27/2017 -on Lasix and Aldactone -tolerating PO diet. Unable to do paracentesis as INR cont to be elevated -Monitor INR 2.2 - monitor abdominal girth- abdomen soft, nont tense - plan for endoscopy- Monday per GI Anxiety -E-FORCSE Prescription Drug Monitoring Database has been queried and verified prior to prescribing the controlled substance. -Ativan 0.5 mg as needed History of alcoholism- stable no DTs -Continue CIWA protocol -Monitor for delirium tremens Hypokalemia -replaced- recheck this am -Check Mag, replace as needed Acute liver failure likely due to chronic alcohol abuse and hep C -Avoid alcohol -Follow LFTs -Not a good candidate for steroids at this point. MELD 25 DVT prophylaxis SCDs Patient up and ambulating Code Status: Full Code Discussed Condition With: Patient, nursing Discharge Planning: Plan to DC home when clinically improved. Pending GI procedure.
--- NOTE | 2017-11-03 12:32 | P.PNGI ---
Subjective Interval history: Patient resting comfortably in bed with eyes closed. Denies any nausea or vomiting. Tolerating meal well. States no BM as of yet today. Denies any noted bleeding. Plan for endoscopy on Monday. <Marni Edwards - Last Filed: 11/03/17 12:40> Physical Exam Vital signs: Vital Signs 11/02/17 16:00 11/02/17 16:24 11/02/17 20:00 Temperature 97.3 F L 98.1 F Pulse Rate 78 63 76 Respiratory Rate 16 14 15 Blood Pressure 102/56 L 100/53 L Pulse Oximetry 97 96 11/02/17 23:54 11/03/17 00:00 11/03/17 04:00 Temperature 98.8 F 98 F Pulse Rate 70 70 85 Respiratory Rate 14 18 Blood Pressure 92/51 L 100/51 L Pulse Oximetry 95 96 11/03/17 04:18 11/03/17 08:00 11/03/17 08:08 Temperature 98.3 F Pulse Rate 77 74 80 Respiratory Rate 19 16 14 Blood Pressure 103/53 L Pulse Oximetry 97 95 Intake & Output 11/02/17 11/03/17 11/03/17 18:59 06:59 18:59 Intake Total 1560 / 1560 1240 / 1240 Output Total 1500 / 1500 950 / 950 Balance 60 / 60 290 / 290 Weight 56.3 kg Intake: IV 600 / 600 1000 / 1000 NS Inj 1,000 ML @ 50 mls/hr IV. 400 / 400 1000 / 1000 CONT .Q20H [facility] Rx#:[id number] Cipro 400 MG/200 ML Inj 400 mg 200 / 200 In 200 ml @ 200 mls/hr IV.SIG Q12H [facility] Rx#:[id number] Oral 960 / 960 240 / 240 Output: Urine 1500 / 1500 950 / 950 Other: Date of Last Bowel Movement 11/02/17 # Bowel Movements 0 1 - Constitutional no acute distress - Routine HEENT Exam Head: Present: normocephalic - Routine Respiratory Exam Present: CTA bilaterally. Absent: accessory muscle use - Routine Cardiovascular Exam Present: RRR - Routine Abdominal Exam Present: soft, normoactive bowel sounds, distended. Absent: guarding, firm - Routine Extremities Exam Present: full ROM, pulses intact - Routine Skin Exam Present: dry, warm, jaundice - Routine Neurological Exam Present: alert, oriented X3 - Detailed Neurological Exam: Coma Scale Eye Opening: Spontaneous Verbal Response: Oriented Motor Response: Obey commands Franca Coma Scale Total: 15 - Routine Psychiatric Exam Present: normal affect, cooperative <Marni Edwards - Last Filed: 11/03/17 12:40> Vital signs: Vital Signs 11/02/17 16:00 11/02/17 16:24 11/02/17 20:00 Temperature 97.3 F L 98.1 F Pulse Rate 78 63 76 Respiratory Rate 16 14 15 Blood Pressure 102/56 L 100/53 L Pulse Oximetry 97 96 11/02/17 23:54 11/03/17 00:00 11/03/17 04:00 Temperature 98.8 F 98 F Pulse Rate 70 70 85 Respiratory Rate 14 18 Blood Pressure 92/51 L 100/51 L Pulse Oximetry 95 96 11/03/17 04:18 11/03/17 08:00 11/03/17 08:08 Temperature 98.3 F Pulse Rate 77 74 80 Respiratory Rate 19 16 14 Blood Pressure 103/53 L Pulse Oximetry 97 95 Intake & Output 11/02/17 11/03/17 11/03/17 18:59 06:59 18:59 Intake Total 1560 / 1560 1240 / 1240 Output Total 1500 / 1500 950 / 950 Balance 60 / 60 290 / 290 Weight 56.3 kg Intake: IV 600 / 600 1000 / 1000 NS Inj 1,000 ML @ 50 mls/hr IV. 400 / 400 1000 / 1000 CONT .Q20H [facility] Rx#:[id number] Cipro 400 MG/200 ML Inj 400 mg 200 / 200 In 200 ml @ 200 mls/hr IV.SIG Q12H [facility] Rx#:[id number] Oral 960 / 960 240 / 240 Output: Urine 1500 / 1500 950 / 950 Other: Date of Last Bowel Movement 11/02/17 # Bowel Movements 0 1 <Cade Chaudhary - Last Filed: 11/03/17 13:05> Results - Labs CBC & Chem 7: 11/03/17 05:50 11/03/17 05:50 Laboratory Results - last 24 hr 10/30/17 11/03/17 11/03/17 06:11 05:50 05:50 WBC 6.8 RBC 2.36 L Hgb 8.7 L Hct 25.1 L MCV 106.5 H MCH 37.0 H MCHC 34.7 RDW 25.7 H Plt Count 121 L D MPV 8.9 Prelim Diff (Auto) Slide review pending Neut % (Auto) 61.5 Lymph % (Auto) 20.5 Graham % (Auto) 15.6 H Eos % (Auto) 1.6 Baso % (Auto) 0.8 Neut # (Auto) 4.2 Lymph # (Auto) 1.4 Graham # (Auto) 1.1 H Eos # (Auto) 0.1 Baso # (Auto) 0.1 WBC Differential . Diff Scan Auto diff confirmed Differential Comment . Dimorphic RBCs Present H PT INR Sodium 138 Potassium 3.2 L D Chloride 103 Carbon Dioxide 25.4 Anion Gap 10 BUN 6 L Creatinine 0.68 Estimated GFR Greater than 89 Random Glucose 87 Calcium 8.1 L Magnesium Total Bilirubin 13.1 H AST 94 H ALT 21 Alkaline Phosphatase 117 Total Protein 6.7 Albumin 2.2 L Ceruloplasmin 18 11/03/17 11/03/17 05:50 05:50 WBC RBC Hgb Hct MCV MCH MCHC RDW Plt Count MPV Prelim Diff (Auto) Neut % (Auto) Lymph % (Auto) Graham % (Auto) Eos % (Auto) Baso % (Auto) Neut # (Auto) Lymph # (Auto) Graham # (Auto) Eos # (Auto) Baso # (Auto) WBC Differential Diff Scan Differential Comment Dimorphic RBCs PT 21.1 H INR 2.1 Sodium Potassium Chloride Carbon Dioxide Anion Gap BUN Creatinine Estimated GFR Random Glucose Calcium Magnesium 1.6 Total Bilirubin AST ALT Alkaline Phosphatase Total Protein Albumin Ceruloplasmin <Marni Edwards - Last Filed: 11/03/17 12:40> - Labs CBC & Chem 7: 11/03/17 05:50 11/03/17 05:50 Laboratory Results - last 24 hr 10/30/17 11/03/17 11/03/17 06:11 05:50 05:50 WBC 6.8 RBC 2.36 L Hgb 8.7 L Hct 25.1 L MCV 106.5 H MCH 37.0 H MCHC 34.7 RDW 25.7 H Plt Count 121 L D MPV 8.9 Prelim Diff (Auto) Slide review pending Neut % (Auto) 61.5 Lymph % (Auto) 20.5 Graham % (Auto) 15.6 H Eos % (Auto) 1.6 Baso % (Auto) 0.8 Neut # (Auto) 4.2 Lymph # (Auto) 1.4 Graham # (Auto) 1.1 H Eos # (Auto) 0.1 Baso # (Auto) 0.1 WBC Differential . Diff Scan Auto diff confirmed Differential Comment . Dimorphic RBCs Present H PT INR Sodium 138 Potassium 3.2 L D Chloride 103 Carbon Dioxide 25.4 Anion Gap 10 BUN 6 L Creatinine 0.68 Estimated GFR Greater than 89 Random Glucose 87 Calcium 8.1 L Magnesium Total Bilirubin 13.1 H AST 94 H ALT 21 Alkaline Phosphatase 117 Total Protein 6.7 Albumin 2.2 L Ceruloplasmin 18 11/03/17 11/03/17 05:50 05:50 WBC RBC Hgb Hct MCV MCH MCHC RDW Plt Count MPV Prelim Diff (Auto) Neut % (Auto) Lymph % (Auto) Graham % (Auto) Eos % (Auto) Baso % (Auto) Neut # (Auto) Lymph # (Auto) Graham # (Auto) Eos # (Auto) Baso # (Auto) WBC Differential Diff Scan Differential Comment Dimorphic RBCs PT 21.1 H INR 2.1 Sodium Potassium Chloride Carbon Dioxide Anion Gap BUN Creatinine Estimated GFR Random Glucose Calcium Magnesium 1.6 Total Bilirubin AST ALT Alkaline Phosphatase Total Protein Albumin Ceruloplasmin <Cade Chaudhary E - Last Filed: 11/03/17 13:05> Assessment and Plan (1) Acute GI bleeding Status: Acute Code(s): K92.2 - Gastrointestinal hemorrhage, unspecified (2) Anemia Status: Acute Code(s): D64.9 - Anemia, unspecified - Plan 11/02/17- Patient sitting up in bed. Reports no nausea or vomiting. States small BM yesterday with no noted bleeding. Discussed INR test and need for EGD/ Colon if stable prior to discharge per Dr. Chaudhary. Pt verbalized understanding. Patient states she would like to have EGD and Colonoscopy on Monday11/06/17. Consent forms on chart. Labs 11/02/17- Total Bili 12.3 AST 84 ALT 21 ALP 107 11/03/17-Patient laying in bed resting comfortably. No BM today denies any bleeding noted. Denies any nausea or vomiting .Plan for EGD and colonoscopy on 11/06/2017. Labs reviewed today WBC count 6.8 hemoglobin 8.7 hematocrit 25.1 platelet count 121 INR 2.1 total bilirubin 13.1 AST 94 ALT 21 alk phos 117 albumin 2.2. Plan -Cardiac diet -Continue PPI -Trental -Aldactone -Continue Creon -Continue to monitor labs -EGD and colonoscopy planned for 11/06/2017 -Avoid hepatotoxic chemicals -Avoid NSAIDs -Alcohol cessation -Supportive care -Further recommendations to follow This patient has been seen by myself and Dr. Chaudhary and this note is written on his behalf <Marni Edwards - Last Filed: 11/03/17 12:40> (1) Acute GI bleeding Status: Acute Code(s): K92.2 - Gastrointestinal hemorrhage, unspecified (2) Anemia Status: Acute Code(s): D64.9 - Anemia, unspecified - Plan Patient seen and examined Agree with above Continue current supportive care Monitor labs Patient with acute alcoholic hepatitis appears to be resolving No active bleeding at this point Plan for endoscopy on Monday <Cade Chaudhary - Last Filed: 11/03/17 13:05>
[2017-11-03] MEDS: Gabapentin 300 MG Capsule PO SCH (20:19)
[2017-11-04 05:17] LABS: Baso % (Auto) 0.5 % (0.0-2.0); Eos # (Auto) 0.1 th/mm3 (0.0-0.4); Hematocrit 25.5 % (35.0-46.0); Hemoglobin 8.8 gm/dL (11.6-15.3); Lymph # (Auto) 1.2 th/mm3 (1.0-4.8); Lymph % (Auto) 18.3 % (9.0-44.0); Mean Corpuscular HGB Conc 34.4 % (32.0-36.0); Mean Corpuscular Hemoglobin 37.2 pg (27.0-34.0); Mean Corpuscular Volume 107.9 fL (80.0-100.0); Mean Platelet Volume 7.9 fL (7.0-11.0); Mono % (Auto) 15.2 % (0.0-8.0); Neut # (Auto) 4.1 th/mm3 (1.8-7.7); Platelet Count 126 th/mm3 (150-450); Red Blood Count 2.37 mil/mm3 (4.00-5.30); Red Cell Distribution Width 25.4 % (11.6-17.2); White Blood Count 6.3 th/mm3 (4.0-11.0)
[2017-11-04 05:22] LABS: INR 2.2 Ratio; Prothrombin Time 21.8 sec (9.8-11.6)
[2017-11-04 05:41] LABS: Albumin 2.1 g/dL (3.4-5.0); Anion Gap 11 meq/L (5-15); Aspartate Aminotransferase 92 U/L (15-37); Blood Urea Nitrogen 8 mg/dL (7-18); Calcium 8.1 mg/dL (8.5-10.1); Carbon Dioxide 24.8 meq/L (21.0-32.0); Chloride 103 meq/L (98-107); Glomerular Filtration Rate Greater Than 89 mL/min (>89); Glucose,Random 80 mg/dL (74-106); Potassium 3.8 meq/L (3.5-5.1); Sodium 139 meq/L (136-145)
[2017-11-04 05:46] LABS: Alanine Aminotransferase 23 U/L (10-53); Alkaline Phosphatase 115 U/L (45-117); Total Protein 6.8 g/dL (6.4-8.2)
[2017-11-04 07:14] LABS: Dimorphic RBC Present; Platelet Morphology Normal (Normal)
[2017-11-04] MEDS: Spironolactone 50 MG Tablet PO SCH (08:40)
[2017-11-04] MEDS: Lipase/Protease/Amylase 24/76/120 DR Capsule PO SCH ×3 (08:40→18:30)
[2017-11-04] MEDS: Furosemide 20 MG Tablet PO SCH (08:40)
[2017-11-04] MEDS: Pentoxifylline 400 MG Controlled Release Tablet PO SCH ×3 (08:40→18:30)
[2017-11-04] MEDS: LORazepam 0.5 MG Tablet PO PRN ×2 (08:43→20:27)
--- NOTE | 2017-11-04 12:05 | P.PNGI ---
Subjective Interval history: Patient's resting in the bed answers questions appropriately denies any nausea vomiting or abdominal pain States bowel movement 11/03/2017 current hemoglobin stable at 8.8 no obvious bleeding <Yvonne Richards - Last Filed: 11/04/17 12:07> Physical Exam Vital signs: Vital Signs 11/03/17 12:00 11/03/17 16:00 11/03/17 20:00 Temperature 98.3 F 98.4 F 98.2 F Pulse Rate 70 72 69 Respiratory Rate 16 17 15 Blood Pressure 109/52 L 90/60 L 102/56 L Pulse Oximetry 97 95 95 11/04/17 00:00 11/04/17 04:00 11/04/17 08:00 Temperature 97.9 F 98.2 F 98.6 F Pulse Rate 75 71 64 Respiratory Rate 16 18 18 Blood Pressure 109/68 104/60 104/60 Pulse Oximetry 98 95 95 Intake & Output 11/03/17 11/04/17 11/04/17 18:59 06:59 18:59 Intake Total 700 / 700 420 / 420 Output Total 2200 / 2200 750 / 750 Balance -1500 / -1500 -330 / -330 Weight 55.8 kg Intake: IV 340 / 340 NS Inj 1,000 ML @ 50 mls/hr IV. 340 / 340 CONT .Q20H [facility] Rx#:[id number] Oral 360 / 360 420 / 420 Output: Urine 2200 / 2200 750 / 750 Other: # Bowel Movements 0 - Constitutional no acute distress, chronically ill appearing - Routine HEENT Exam Head: Present: normocephalic ENT: Present: mucous membranes moist - Routine Neck Exam Present: supple - Routine Respiratory Exam Present: accessory muscle use (No obvious shortness of breath) - Routine Cardiovascular Exam Present: S1, S2 - Routine Abdominal Exam Present: soft (Round, no obvious abdominal pain, minimal discomfort with light palpation) - Routine Skin Exam Present: intact <Yvonne Richards - Last Filed: 11/04/17 12:07> Vital signs: Vital Signs 11/04/17 00:00 11/04/17 04:00 11/04/17 08:00 Temperature 97.9 F 98.2 F 98.6 F Pulse Rate 75 71 64 Respiratory Rate 16 18 18 Blood Pressure 109/68 104/60 104/60 Pulse Oximetry 98 95 95 11/04/17 12:00 11/04/17 16:00 11/04/17 20:00 Temperature 98.5 F 98.1 F 97.9 F Pulse Rate 65 81 77 Respiratory Rate 18 20 18 Blood Pressure 97/51 L 172/96 H 98/54 L Pulse Oximetry 94 L 98 94 L Intake & Output 11/04/17 11/04/17 11/05/17 06:59 18:59 06:59 Intake Total 420 / 420 480 / 480 Output Total 750 / 750 Balance -330 / -330 480 / 480 Weight 55.8 kg Intake: Oral 420 / 420 480 / 480 Output: Urine 750 / 750 Other: # Voids 2 Date of Last Bowel Movement 11/04/17 # Bowel Movements 1 <Cade Chaudhary - Last Filed: 11/04/17 22:58> Results - Labs CBC & Chem 7: 11/04/17 04:42 11/04/17 04:42 Laboratory Results - last 24 hr 11/04/17 11/04/17 11/04/17 04:42 04:42 04:42 WBC 6.3 RBC 2.37 L Hgb 8.8 L Hct 25.5 L MCV 107.9 H MCH 37.2 H MCHC 34.4 RDW 25.4 H Plt Count 126 L MPV 7.9 Prelim Diff (Auto) Slide review pending Neut % (Auto) 65.0 Lymph % (Auto) 18.3 Gillespie % (Auto) 15.2 H Eos % (Auto) 1.0 Baso % (Auto) 0.5 Neut # (Auto) 4.1 Lymph # (Auto) 1.2 Gillespie # (Auto) 1.0 H Eos # (Auto) 0.1 Baso # (Auto) 0.0 WBC Differential . Diff Scan Auto diff confirmed Differential Comment . Platelet Estimate Low L Platelet Morphology Normal Dimorphic RBCs Present H PT 21.8 H INR 2.2 Sodium 139 Potassium 3.8 Chloride 103 Carbon Dioxide 24.8 Anion Gap 11 BUN 8 Creatinine 0.58 Estimated GFR Greater than 89 Random Glucose 80 Calcium 8.1 L Total Bilirubin 14.0 H AST 92 H ALT 23 Alkaline Phosphatase 115 Total Protein 6.8 Albumin 2.1 L <Yvonne Richards - Last Filed: 11/04/17 12:07> - Labs CBC & Chem 7: 11/04/17 04:42 11/04/17 04:42 Laboratory Results - last 24 hr 11/04/17 11/04/17 11/04/17 04:42 04:42 04:42 WBC 6.3 RBC 2.37 L Hgb 8.8 L Hct 25.5 L MCV 107.9 H MCH 37.2 H MCHC 34.4 RDW 25.4 H Plt Count 126 L MPV 7.9 Prelim Diff (Auto) Slide review pending Neut % (Auto) 65.0 Lymph % (Auto) 18.3 Gillespie % (Auto) 15.2 H Eos % (Auto) 1.0 Baso % (Auto) 0.5 Neut # (Auto) 4.1 Lymph # (Auto) 1.2 Gillespie # (Auto) 1.0 H Eos # (Auto) 0.1 Baso # (Auto) 0.0 WBC Differential . Diff Scan Auto diff confirmed Differential Comment . Platelet Estimate Low L Platelet Morphology Normal Dimorphic RBCs Present H PT 21.8 H INR 2.2 Sodium 139 Potassium 3.8 Chloride 103 Carbon Dioxide 24.8 Anion Gap 11 BUN 8 Creatinine 0.58 Estimated GFR Greater than 89 Random Glucose 80 Calcium 8.1 L Total Bilirubin 14.0 H AST 92 H ALT 23 Alkaline Phosphatase 115 Total Protein 6.8 Albumin 2.1 L <Cade Chaudhary - Last Filed: 11/04/17 22:58> Assessment and Plan (1) Acute GI bleeding Status: Acute Code(s): K92.2 - Gastrointestinal hemorrhage, unspecified (2) Anemia Status: Acute Code(s): D64.9 - Anemia, unspecified - Plan 11/02/17- Patient sitting up in bed. Reports no nausea or vomiting. States small BM yesterday with no noted bleeding. Discussed INR test and need for EGD/ Colon if stable prior to discharge per Dr. Chaudhary. Pt verbalized understanding. Patient states she would like to have EGD and Colonoscopy on Monday11/06/17. Consent forms on chart. Labs 11/02/17- Total Bili 12.3 AST 84 ALT 21 ALP 107 11/03/17-Patient laying in bed resting comfortably. No BM today denies any bleeding noted. Denies any nausea or vomiting .Plan for EGD and colonoscopy on 11/06/2017. Labs reviewed today WBC count 6.8 hemoglobin 8.7 hematocrit 25.1 platelet count 121 INR 2.1 total bilirubin 13.1 AST 94 ALT 21 alk phos 117 albumin 2.2. 11/04/2017 patient noted with alcoholic hepatitis, current PT/INR 2.2, hemoglobin stable at 8.8, platelet count increased to 126, bilirubin 14, AST 92 , ALT normal at 23. Patient noted gradual improvement. Patient is tolerating food this morning without nausea and vomiting. Encourage patient to be up in chair and increased mobility today. Plan Diet manager cardiac cath labs with special attention hemoglobin and PT/INR Recheck INR in a.m. consider FFP if needed before procedure, Medications trend how, Aldactone, Creon, PPI Discussed with patient EGD for Monday a.m. consent N.p.o. at midnight on 11/06/2017 Avoid alcohol Further recommendations to follow after EGD patient has been seen by myself and Dr. Chaudhary, note is written on his behalf <Yvonne Richards - Last Filed: 11/04/17 12:07> (1) Acute GI bleeding Status: Acute Code(s): K92.2 - Gastrointestinal hemorrhage, unspecified (2) Anemia Status: Acute Code(s): D64.9 - Anemia, unspecified - Plan Patient seen and examined Agree with above Continue with current supportive care Monitor labs EGD on Monday <Cade Chaudhary - Last Filed: 11/04/17 22:58>
--- NOTE | 2017-11-04 12:38 | P.PN ---
Subjective Interval history: no complains tolerating po well states brown stools- no hematochezia or melena Physical Exam Vital signs: Vital Signs 11/03/17 16:00 11/03/17 20:00 11/04/17 00:00 Temperature 98.4 F 98.2 F 97.9 F Pulse Rate 72 69 75 Respiratory Rate 17 15 16 Blood Pressure 90/60 L 102/56 L 109/68 Pulse Oximetry 95 95 98 11/04/17 04:00 11/04/17 08:00 11/04/17 12:00 Temperature 98.2 F 98.6 F 98.5 F Pulse Rate 71 64 71 Respiratory Rate 18 18 18 Blood Pressure 104/60 104/60 97/51 L Pulse Oximetry 95 95 94 L Intake & Output 11/03/17 11/04/17 11/04/17 18:59 06:59 18:59 Intake Total 700 / 700 420 / 420 Output Total 2200 / 2200 750 / 750 Balance -1500 / -1500 -330 / -330 Weight 55.8 kg Intake: IV 340 / 340 NS Inj 1,000 ML @ 50 mls/hr IV. 340 / 340 CONT .[facility] Rx#:[id number] Oral 360 / 360 420 / 420 Output: Urine 2200 / 2200 750 / 750 Other: # Bowel Movements 0 Narrative: awake and alert, oriented x 3 + icterisia neck supple lungs- no rales, no wheezes regular rhythm abdomen- soft, mild fluid wave, no guarding, extremities no edema neuro exam- unremarkable up and ambulating Results - Labs CBC & Chem 7: 11/04/17 04:42 11/04/17 04:42 Laboratory Results - last 24 hr 11/04/17 11/04/17 11/04/17 04:42 04:42 04:42 WBC 6.3 RBC 2.37 L Hgb 8.8 L Hct 25.5 L MCV 107.9 H MCH 37.2 H MCHC 34.4 RDW 25.4 H Plt Count 126 L MPV 7.9 Prelim Diff (Auto) Slide review pending Neut % (Auto) 65.0 Lymph % (Auto) 18.3 [place] % (Auto) 15.2 H Eos % (Auto) 1.0 Baso % (Auto) 0.5 Neut # (Auto) 4.1 Lymph # (Auto) 1.2 [place] # (Auto) 1.0 H Eos # (Auto) 0.1 Baso # (Auto) 0.0 WBC Differential . Diff Scan Auto diff confirmed Differential Comment . Platelet Estimate Low L Platelet Morphology Normal Dimorphic RBCs Present H PT 21.8 H INR 2.2 Sodium 139 Potassium 3.8 Chloride 103 Carbon Dioxide 24.8 Anion Gap 11 BUN 8 Creatinine 0.58 Estimated GFR Greater than 89 Random Glucose 80 Calcium 8.1 L Total Bilirubin 14.0 H AST 92 H ALT 23 Alkaline Phosphatase 115 Total Protein 6.8 Albumin 2.1 L Assessment and Plan - Assessment (1) Acute GI bleeding Code(s): K92.2 - Gastrointestinal hemorrhage, unspecified Status: Acute (2) Anemia Code(s): D64.9 - Anemia, unspecified Status: Acute - Plan 52-year-old white female with a history of alcoholic cirrhosis, hepatitis C presents with GI bleed and acute blood loss anemia. INR is 2.1 status post transfusion of platelets and plasma 10/31 Goal of INR is less than 1.5 in order to obtain EGD and colonoscopy. Vitamin K is being provided today. For now continue to monitor CBC. Transfuse again if needed, no acute need for transfusion this morning. Patient may have chronic hypnotherapeutic INR due to her liver disease. GI bleed History of cirrhosis Ascites on exam- soft not tense Acute blood loss anemia -Suspected upper GI bleed- H and H stable -Continue Protonix- po 40 mg bid -GI has been consulted. Appreciate recommendations. Plan for EGD colonoscopy when INR is within normal. -Vitamin K administration -S/P Ciprofloxacin course 11/02 -Patient transfused 2 units packed red blood cells on 10/27/2017 -on Lasix and Aldactone -tolerating PO diet. Unable to do paracentesis as INR cont to be elevated -Monitor INR 2.2 - monitor abdominal girth- abdomen soft, nont tense - plan for endoscopy- Monday per GI Anxiety -E-FORE Prescription Drug Monitoring Database has been queried and verified prior to prescribing the controlled substance. -Ativan 0.5 mg as needed History of alcoholism- stable no DTs -Continue CIWA protocol -Monitor for delirium tremens Hypokalemia recurrent - now - improved - start KCL 10 meq po daily - monitor periodically- on Lasix + Aldactone Acute liver failure likely due to chronic alcohol abuse and hep C -Avoid alcohol -Follow LFTs -Not a good candidate for steroids at this point. MELD 25 DVT prophylaxis SCDs Patient up and ambulating Code Status: Full Code Discussed Condition With: Patient, nursing Discharge Planning: Plan to DC home when clinically improved. Pending GI procedure.
[2017-11-04] MEDS: Gabapentin 300 MG Capsule PO SCH (20:27)
[2017-11-05] MEDS: LORazepam 0.5 MG Tablet PO PRN ×3 (05:06→22:19)
[2017-11-05] MEDS: Pentoxifylline 400 MG Controlled Release Tablet PO SCH ×3 (09:10→18:40)
[2017-11-05] MEDS: Furosemide 20 MG Tablet PO SCH (09:11)
[2017-11-05] MEDS: Spironolactone 50 MG Tablet PO SCH (09:12)
[2017-11-05] MEDS: Lipase/Protease/Amylase 24/76/120 DR Capsule PO SCH ×3 (09:15→18:40)
--- NOTE | 2017-11-05 09:28 | P.PN ---
Subjective Interval history: awake and alert no complains states brown stools last evening- formed no abdominal pain Physical Exam Vital signs: Vital Signs 11/04/17 12:00 11/04/17 16:00 11/04/17 20:00 Temperature 98.5 F 98.1 F 97.9 F Pulse Rate 65 81 77 Respiratory Rate 18 20 18 Blood Pressure 97/51 L 172/96 H 98/54 L Pulse Oximetry 94 L 98 94 L 11/04/17 23:54 11/05/17 00:00 11/05/17 04:00 Temperature 98 F 98.1 F Pulse Rate 75 80 79 Respiratory Rate 20 20 Blood Pressure 104/55 L 119/62 Pulse Oximetry 96 94 L 11/05/17 04:01 11/05/17 08:00 Temperature 98.1 F Pulse Rate 73 74 Respiratory Rate 16 Blood Pressure 106/58 L Pulse Oximetry 96 Intake & Output 11/04/17 11/05/17 11/05/17 18:59 06:59 18:59 Intake Total 480 / 480 Balance 480 / 480 Intake: Oral 480 / 480 Other: # Voids 2 Date of Last Bowel Movement 11/04/17 11/04/17 # Bowel Movements 1 Narrative: awake and alert, oriented x 3 + icterisia neck supple lungs- no rales, no wheezes regular rhythm abdomen- soft, mild fluid wave, no guarding, extremities no edema neuro exam- unremarkable up and ambulating Results - Labs CBC & Chem 7: 11/04/17 04:42 11/04/17 04:42 Assessment and Plan - Assessment (1) Acute GI bleeding Code(s): K92.2 - Gastrointestinal hemorrhage, unspecified Status: Acute (2) Anemia Code(s): D64.9 - Anemia, unspecified Status: Acute - Plan 52-year-old white female with a history of alcoholic cirrhosis, hepatitis C presents with GI bleed and acute blood loss anemia. INR is 2.1 status post transfusion of platelets and plasma 10/31 Goal of INR is less than 1.5 in order to obtain EGD and colonoscopy. Vitamin K is being provided today. For now continue to monitor CBC. Transfuse again if needed, no acute need for transfusion this morning. Patient may have chronic hypnotherapeutic INR due to her liver disease. GI bleed History of cirrhosis Ascites on exam- soft not tense Acute blood loss anemia -Suspected upper GI bleed- H and H stable -Continue Protonix- po 40 mg bid -S/P Ciprofloxacin course 11/02 -Patient transfused 2 units packed red blood cells on 10/27/2017 -on Lasix and Aldactone -tolerating PO diet. Unable to do paracentesis as INR cont to be elevated - monitor abdominal girth- abdomen soft, nont tense - plan for endoscopy- Monday per GI- check INR now - FFP if needed prior to procedure -GI has been consulted. Appreciate recommendations. Plan for EGD colonoscopy - Monday Anxiety -E-FORCSE Prescription Drug Monitoring Database has been queried and verified prior to prescribing the controlled substance. -Ativan 0.5 mg as needed History of alcoholism- stable no DTs -Continue CIWA protocol -Monitor for delirium tremens Hypokalemia recurrent - now - improved - start KCL 10 meq po daily - monitor periodically- on Lasix + Aldactone Acute liver failure likely due to chronic alcohol abuse and hep C -Avoid alcohol -Follow LFTs -Not a good candidate for steroids at this point. MELD 25 DVT prophylaxis SCDs Patient up and ambulating Code Status: Full Code Discussed Condition With: Patient, nursing Discharge Planning: Plan to DC home when clinically improved. Pending GI procedure.
--- NOTE | 2017-11-05 14:00 | P.PNGI ---
Subjective Interval history: Patient resting in the bed eating solid food now but does note some bloating, no acute abdominal pain hemoglobin currently stable at 8.7, PT/INR 2.2 essentially unchanged <Yvonne Richards - Last Filed: 11/05/17 14:06> Physical Exam Vital signs: Vital Signs 11/04/17 16:00 11/04/17 20:00 11/04/17 23:54 Temperature 98.1 F 97.9 F Pulse Rate 81 77 75 Respiratory Rate 20 18 Blood Pressure 172/96 H 98/54 L Pulse Oximetry 98 94 L 11/05/17 00:00 11/05/17 04:00 11/05/17 04:01 Temperature 98 F 98.1 F Pulse Rate 80 79 73 Respiratory Rate 20 20 Blood Pressure 104/55 L 119/62 Pulse Oximetry 96 94 L 11/05/17 08:00 11/05/17 12:00 Temperature 98.1 F 98.2 F Pulse Rate 67 79 Respiratory Rate 16 16 Blood Pressure 106/58 L 104/58 L Pulse Oximetry 96 96 Intake & Output 11/04/17 11/05/17 11/05/17 18:59 06:59 18:59 Intake Total 480 / 480 Balance 480 / 480 Intake: Oral 480 / 480 Other: # Voids 2 Date of Last Bowel Movement 11/04/17 11/04/17 11/04/17 # Bowel Movements 1 - Constitutional mild distress, thin, chronically ill appearing - Routine HEENT Exam Head: Present: normocephalic - Routine Respiratory Exam Present: accessory muscle use (No obvious shortness of breath) - Routine Cardiovascular Exam Present: S1, S2 - Routine Abdominal Exam Present: distended (Mild, soft, no obvious abdominal pain) <Yvonne Richards - Last Filed: 11/05/17 14:06> Vital signs: Vital Signs 11/04/17 20:00 11/04/17 23:54 11/05/17 00:00 Temperature 97.9 F 98 F Pulse Rate 77 75 80 Respiratory Rate 18 20 Blood Pressure 98/54 L 104/55 L Pulse Oximetry 94 L 96 11/05/17 04:00 11/05/17 04:01 11/05/17 08:00 Temperature 98.1 F 98.1 F Pulse Rate 79 73 67 Respiratory Rate 20 16 Blood Pressure 119/62 106/58 L Pulse Oximetry 94 L 96 11/05/17 12:00 11/05/17 16:00 Temperature 98.2 F 97.9 F Pulse Rate 72 77 Respiratory Rate 16 16 Blood Pressure 104/58 L 98/52 L Pulse Oximetry 96 96 Intake & Output 11/04/17 11/05/17 11/05/17 18:59 06:59 18:59 Intake Total 480 / 480 Balance 480 / 480 Intake: Oral 480 / 480 Other: # Voids 2 Date of Last Bowel Movement 11/04/17 11/04/17 11/04/17 # Bowel Movements 1 <Cade Chaudhary - Last Filed: 11/05/17 17:39> Results - Labs CBC & Chem 7: 11/04/17 04:42 11/04/17 04:42 <Yvonne Richards - Last Filed: 11/05/17 14:06> - Labs CBC & Chem 7: 11/04/17 04:42 11/04/17 04:42 Laboratory Results - last 24 hr 11/05/17 13:24 PT 19.7 H INR 1.9 <Cade Chaudhary - Last Filed: 11/05/17 17:39> Assessment and Plan (1) Acute GI bleeding Status: Acute Code(s): K92.2 - Gastrointestinal hemorrhage, unspecified (2) Anemia Status: Acute Code(s): D64.9 - Anemia, unspecified - Plan 11/03/17-Patient laying in bed resting comfortably. No BM today denies any bleeding noted. Denies any nausea or vomiting .Plan for EGD and colonoscopy on 11/06/2017. Labs reviewed today WBC count 6.8 hemoglobin 8.7 hematocrit 25.1 platelet count 121 INR 2.1 total bilirubin 13.1 AST 94 ALT 21 alk phos 117 albumin 2.2. 11/04/2017 patient noted with alcoholic hepatitis, current PT/INR 2.2, hemoglobin stable at 8.8, platelet count increased to 126, bilirubin 14, AST 92 , ALT normal at 23. Patient noted gradual improvement. Patient is tolerating food this morning without nausea and vomiting. Encourage patient to be up in chair and increased mobility today. 11/05/2017 patient is resting in the bed still appears mildly weak and fatigued denies any nausea or vomiting but does have some mild abdominal bloating bowel sounds are positive loose BM 1 yesterday but otherwise no obvious bleeding current hemoglobin 8.7,. Encourage patient to eat slowly take small bites and maintain her hydration. Discussed EGD in a.m. INR remains 2.2, alcohol abstinence. Will give FFP 2 units tonight at 0100. Plan Diet ,cardiac, encouraged slow eating and chew thoroughly Consent for EGD Monday N.p.o. at midnight FFP 2 units to began at a 100 on 11/06/2017 PPI, Creon, trental, spironolactone Encourage some sitting up in chair and mobility today Monitor labs Further recommendations to follow after EGD Patient was seen per myself and Dr. Chaudhary, note was written on his behalf <Yvonne Richards - Last Filed: 11/05/17 14:06> (1) Acute GI bleeding Status: Acute Code(s): K92.2 - Gastrointestinal hemorrhage, unspecified (2) Anemia Status: Acute Code(s): D64.9 - Anemia, unspecified - Plan Patient seen and examined Agree with above Continue with current supportive care Monitor labs <Cade Chaudhary - Last Filed: 11/05/17 17:39>
[2017-11-05 14:16] LABS: INR 1.9 Ratio; Prothrombin Time 19.7 sec (9.8-11.6)
[2017-11-05] MEDS ORDERED: Sodium Chlor 0.9% Inj 250 ML IV.SIG SCH (15:00)
[2017-11-05] MEDS: Gabapentin 300 MG Capsule PO SCH (20:27)
[2017-11-06] MEDS: LORazepam 0.5 MG Tablet PO PRN ×2 (07:05→17:34)
[2017-11-06 07:15] LABS: Baso % (Auto) 0.7 % (0.0-2.0); Eos # (Auto) 0.1 th/mm3 (0.0-0.4); Eos % (Auto) 1.2 % (0.0-4.0); Hematocrit 22.6 % (35.0-46.0); Lymph # (Auto) 1.2 th/mm3 (1.0-4.8); Lymph % (Auto) 17.4 % (9.0-44.0); Mean Corpuscular HGB Conc 35.2 % (32.0-36.0); Mean Corpuscular Hemoglobin 37.2 pg (27.0-34.0); Mean Corpuscular Volume 105.7 fL (80.0-100.0); Mean Platelet Volume 8.1 fL (7.0-11.0); Mono # (Auto) 0.7 th/mm3 (0.0-0.9); Mono % (Auto) 10.9 % (0.0-8.0); Neut # (Auto) 4.6 th/mm3 (1.8-7.7); Neut % (Auto) 69.8 % (16.0-70.0); Platelet Count 128 th/mm3 (150-450); Red Blood Count 2.14 mil/mm3 (4.00-5.30); Red Cell Distribution Width 24.3 % (11.6-17.2); White Blood Count 6.7 th/mm3 (4.0-11.0)
[2017-11-06 07:33] LABS: INR 1.8 Ratio; Prothrombin Time 18.1 sec (9.8-11.6)
[2017-11-06] MEDS: Pentoxifylline 400 MG Controlled Release Tablet PO SCH ×3 (08:05→18:40)
--- NOTE | 2017-11-06 08:30 | P.PN ---
Subjective Interval history: looking forward to EGD this am no reported bleeding no pain no nausea Physical Exam Vital signs: Vital Signs 11/05/17 12:00 11/05/17 16:00 11/05/17 20:00 Temperature 98.2 F 97.9 F Pulse Rate 72 77 76 Respiratory Rate 16 16 Blood Pressure 104/58 L 98/52 L Pulse Oximetry 96 96 11/05/17 20:32 11/05/17 23:54 11/06/17 01:37 Temperature 98.2 F 98.6 F Pulse Rate 79 75 81 Respiratory Rate 18 16 Blood Pressure 105/55 L 91/52 L Pulse Oximetry 96 95 11/06/17 01:54 11/06/17 03:45 11/06/17 03:59 Temperature 98.5 F 98.6 F Pulse Rate 86 73 72 Respiratory Rate 16 16 Blood Pressure 90/55 L 113/58 L Pulse Oximetry 94 L 94 L 11/06/17 04:44 11/06/17 05:00 11/06/17 06:45 Temperature 98 F 98.0 F 98 F Pulse Rate 73 71 79 Respiratory Rate 16 16 16 Blood Pressure 112/59 L 118/56 L 106/56 L Pulse Oximetry 92 L 94 L 94 L Intake & Output 11/05/17 11/06/17 11/06/17 18:59 06:59 18:59 Intake Total 480 / 480 611 / 611 Output Total 600 / 600 Balance -120 / -120 611 / 611 Intake: Oral 480 / 480 Intake (Blood Product) Amt 611 / 611 Plasma Thawed 5 Day Cp2d Unit 331 / 331 [id number] Plasma Thawed 5 Day Cp2d Unit 280 / 280 [id number] Output: Urine 600 / 600 Other: Date of Last Bowel Movement 11/04/17 # Bowel Movements 0 Narrative: awake and alert, oriented x 3 + icterisia neck supple lungs- no rales, no wheezes regular rhythm abdomen- soft, mild fluid wave, no guarding, extremities no edema neuro exam- unremarkable Results - Labs CBC & Chem 7: 11/06/17 06:15 11/04/17 04:42 Laboratory Results - last 24 hr 11/05/17 11/06/17 11/06/17 13:24 06:15 06:15 WBC 6.7 RBC 2.14 L Hgb 8.0 L Hct 22.6 L MCV 105.7 H MCH 37.2 H MCHC 35.2 RDW 24.3 H Plt Count 128 L MPV 8.1 Prelim Diff (Auto) Slide review pending Neut % (Auto) 69.8 Lymph % (Auto) 17.4 [place] % (Auto) 10.9 H Eos % (Auto) 1.2 Baso % (Auto) 0.7 Neut # (Auto) 4.6 Lymph # (Auto) 1.2 [place] # (Auto) 0.7 Eos # (Auto) 0.1 Baso # (Auto) 0.0 Differential Comment . PT 19.7 H 18.1 H INR 1.9 1.8 Blood Bank Comment 11/06/17 Unknown WBC RBC Hgb Hct MCV MCH MCHC RDW Plt Count MPV Prelim Diff (Auto) Neut % (Auto) Lymph % (Auto) [place] % (Auto) Eos % (Auto) Baso % (Auto) Neut # (Auto) Lymph # (Auto) [place] # (Auto) Eos # (Auto) Baso # (Auto) Differential Comment PT INR Blood Bank Comment Assessment and Plan - Assessment (1) Acute GI bleeding Code(s): K92.2 - Gastrointestinal hemorrhage, unspecified Status: Acute (2) Anemia Code(s): D64.9 - Anemia, unspecified Status: Acute - Plan 52-year-old white female with a history of alcoholic cirrhosis, hepatitis C presents with GI bleed and acute blood loss anemia. INR is 2.1 status post transfusion of platelets and plasma 10/31 Goal of INR is less than 1.5 in order to obtain EGD and colonoscopy. Vitamin K is being provided today. For now continue to monitor CBC. Transfuse again if needed, no acute need for transfusion this morning. Patient may have chronic hypnotherapeutic INR due to her liver disease. GI bleed History of cirrhosis Ascites on exam- soft not tense Acute blood loss anemia -Suspected upper GI bleed- H and H stable -Continue Protonix- po 40 mg bid -GI has been consulted. Appreciate recommendations. Plan for EGD colonoscopy when INR is within normal. -Vitamin K administration -S/P Ciprofloxacin course 11/02 -Patient transfused 2 units packed red blood cells on 10/27/2017 -on Lasix and Aldactone -tolerating PO diet. Unable to do paracentesis as INR cont to be elevated - INR down - monitor abdominal girth- abdomen soft, nont tense - plan for endoscopy- Monday per GI Anxiety -E-FORCSE Prescription Drug Monitoring Database has been queried and verified prior to prescribing the controlled substance. -Ativan 0.5 mg as needed History of alcoholism- stable no DTs -Continue CIWA protocol -Monitor for delirium tremens Hypokalemia recurrent - now - improved - start KCL 10 meq po daily - monitor periodically- on Lasix + Aldactone Acute liver failure likely due to chronic alcohol abuse and hep C -Avoid alcohol -Follow LFTs -Not a good candidate for steroids at this point. MELD 25 DVT prophylaxis SCDs Patient up and ambulating Code Status: Full Code Discussed Condition With: Patient, nursing Discharge Planning: disposition - home . Pending GI procedure.
[2017-11-06 08:34] LABS: Target Cells 1+
[2017-11-06 08:35] LABS: Rouleaux Present
[2017-11-06 08:36] LABS: Dimorphic RBC Present; Platelet Morphology Normal (Normal)
[2017-11-06] MEDS ORDERED: Sodium Chlor 0.9% Inj 500 ML IV.CONT ONE (09:45)
[2017-11-06] MEDS ORDERED: Chlorhexidine Gluconate 2% 1 Pack (2 Cloths) TOPICAL ONE (09:45)
[2017-11-06] MEDS ORDERED: Metoprolol Tartrate 25 MG Tablet PO ONE (09:45)
--- NOTE | 2017-11-06 10:00 | GIPROC ---
[facility] [address] [facility]. [facility], [address] EGD PROCEDURE REPORT EXAM DATE: 11/06/2017 PATIENT NAME: Debbie Ortiz MR #: [id number] BIRTHDATE: 1965 ATTENDING: Sj Garcia MD ORDER #: [id number] NEURO OPHTHALMOLOGIST: Cristino Conde Pena, Gabriela, and Safia Saxena STATUS: inpatient INDICATIONS: The patient is a 52 yr old female here for an EGD due to acute post hemorrhagic anemia and hematemesis PROCEDURE PERFORMED: EGD w/ ablation MEDICATIONS: Per Anesthesia and None. TOPICAL ANESTHETIC: CONSENT: The patient understands the risks and benefits of the procedure and understands that these risks include, but are not limited to: sedation, allergic reaction, infection, perforation and/or bleeding. Alternative means of evaluation and treatment include, among others: physical exam, x-rays, and/or surgical intervention. The patient elects to proceed with this endoscopic procedure. medical equipment was checked for proper function. Hand hygiene and appropriate measures for infection prevention was taken. After the risks, benefits and alternatives of the procedure were thoroughly explained, Informed consent was verified, confirmed and timeout was successfully executed by the treatment team. The patient was anesthetized with topical anesthesia and the Pentax EG-[id number] endoscope was introduced through the mouth and advanced to the second portion of the duodenum. Retroflexed views revealed no abnormalities The gastroscope was then slowly withdrawn and removed. ESOPHAGUS: There was LA Class A esophagitis noted. There was a single small varix in the distal esophagus. The varices were not bleeding. There was evidence of prior scarring. Dieulofy"s lesion. APC ablation done. STOMACH: Severe portal hypertensive gastropathy was found in the gastric fundus and gastric body. DUODENUM: The duodenal mucosa appeared normal in the bulb and second portion of the duodenum. ADVERSE EVENTS: There were no complications. IMPRESSIONS: 1. There was LA Class A esophagitis noted 2. Dieulofy"s lesion. APC ablation done 3. Portal hypertensive gastropathy was found in the gastric fundus and gastric body 4. Retroflexed views revealed no abnormalities RECOMMENDATIONS: 1. Anti-reflux regimen 2. Continue PPI 3. Avoid NSAIDS PATIENT CONDITION: stable DISPOSITION: Inpatient REPEAT EXAM: Return 6 months EGD Sj Garcia MD eSigned: Sj Garcia MD 11/06/2017 10:00 AM cc: PATIENT NAME: Debbie Ortiz MR#: [id number]
[2017-11-06] MEDS: Furosemide 20 MG Tablet PO SCH (10:58)
[2017-11-06] MEDS: Spironolactone 50 MG Tablet PO SCH (10:59)
[2017-11-06] MEDS: Lipase/Protease/Amylase 24/76/120 DR Capsule PO SCH ×3 (11:02→18:40)
--- NOTE | 2017-11-06 14:13 | P.DCO ---
- Home Health Nursing Order: Medical education, Signs/symptoms of disease process - [employer] Order: To evaluate: Living conditions/environment, Support services - Case Management Consult Yes - Certification I have seen patient Debbie Ortiz on 11/06/17. My clinical findings support the need for the requested home health care services because: Need for psychosocial assistance I certify that my clinical findings support that this patient is homebound because: Need for psychosocial assistance
--- NOTE | 2017-11-06 18:43 | P.PN ---
Subjective Interval history: No new pulmonary Issues. Off O2 . No cough or SOB at rest. Physical Exam Vital signs: Vital Signs 11/05/17 20:00 11/05/17 20:32 11/05/17 23:54 Temperature 98.2 F Pulse Rate 76 79 75 Respiratory Rate 18 Blood Pressure 105/55 L Pulse Oximetry 96 11/06/17 01:37 11/06/17 01:54 11/06/17 03:45 Temperature 98.6 F 98.5 F 98.6 F Pulse Rate 81 86 73 Respiratory Rate 16 16 16 Blood Pressure 91/52 L 90/55 L 113/58 L Pulse Oximetry 95 94 L 94 L 11/06/17 03:59 11/06/17 04:44 11/06/17 05:00 Temperature 98 F 98.0 F Pulse Rate 72 73 71 Respiratory Rate 16 16 Blood Pressure 112/59 L 118/56 L Pulse Oximetry 92 L 94 L 11/06/17 06:45 11/06/17 08:00 11/06/17 10:05 Temperature 98 F 98.2 F 98.4 F Pulse Rate 79 74 71 Respiratory Rate 16 20 18 Blood Pressure 106/56 L 122/57 L 104/53 L Pulse Oximetry 94 L 94 L 11/06/17 12:00 11/06/17 16:00 Temperature 98.0 F 97.8 F Pulse Rate 74 71 Respiratory Rate 18 16 Blood Pressure 109/55 L 113/57 L Pulse Oximetry 96 98 Intake & Output 11/05/17 11/06/17 11/06/17 18:59 06:59 18:59 Intake Total 480 / 480 611 / 611 300 / 300 Output Total 600 / 600 Balance -120 / -120 611 / 611 300 / 300 Intake: IV 0 / 0 NS Inj 250 ML @ 15 mls/hr IV. 0 / 0 SIG ONCE ERIN Rx#:[id number] Oral 480 / 480 Anesthesia Amount 300 / 300 Intake (Blood Product) Amt 611 / 611 Plasma Thawed 5 Day Cp2d Unit 331 / 331 [id number] Plasma Thawed 5 Day Cp2d Unit 280 / 280 [id number] Output: Urine 600 / 600 Other: Date of Last Bowel Movement 11/04/17 11/04/17 # Bowel Movements 0 Narrative: awake and alert, oriented x 3 Mild icterus and is pale neck supple. throat clear. lungs- no rales, no wheezes regular rhythm No Murmur. abdomen- soft, mild fluid wave, no guarding, extremities no edema neuro exam- No gross deficits. Results - Labs CBC & Chem 7: 11/06/17 06:15 11/04/17 04:42 Laboratory Results - last 24 hr 11/06/17 11/06/17 11/06/17 06:15 06:15 Unknown WBC 6.7 RBC 2.14 L Hgb 8.0 L Hct 22.6 L MCV 105.7 H MCH 37.2 H MCHC 35.2 RDW 24.3 H Plt Count 128 L MPV 8.1 Prelim Diff (Auto) Slide review pending Neut % (Auto) 69.8 Lymph % (Auto) 17.4 [place] % (Auto) 10.9 H Eos % (Auto) 1.2 Baso % (Auto) 0.7 Neut # (Auto) 4.6 Lymph # (Auto) 1.2 [place] # (Auto) 0.7 Eos # (Auto) 0.1 Baso # (Auto) 0.0 WBC Differential . Diff Scan Auto diff confirmed Differential Comment . Platelet Estimate Low L Platelet Morphology Normal Dimorphic RBCs Present H Target Cells 1+ H Rouleaux Present H PT 18.1 H INR 1.8 Blood Bank Comment Assessment and Plan - Assessment (1) Pulmonary infiltrate Code(s): R91.8 - Other nonspecific abnormal finding of lung field Status: Acute (2) Pneumonia Code(s): J18.9 - Pneumonia, unspecified organism Status: Acute (3) Acute GI bleeding Code(s): K92.2 - Gastrointestinal hemorrhage, unspecified Status: Acute (4) Anemia Code(s): D64.9 - Anemia, unspecified Status: Acute (5) Hepatitis C Code(s): B19.20 - Unspecified viral hepatitis C without hepatic coma Status: Acute - Plan 1. IS at bedside q3h. 2. D/C antibiotic 3. Symbicort 160/4.5 mcg, 2 puffs bid. 4. nebs qid , duoneb 5. D/C O2 6. Cont lasix 20 mg daily 7. Home per Dr rahman
[2017-11-06] MEDS: Gabapentin 300 MG Capsule PO SCH (21:00)
[2017-11-07] MEDS: LORazepam 0.5 MG Tablet PO PRN ×2 (04:34→12:16)
[2017-11-07] MEDS: Pentoxifylline 400 MG Controlled Release Tablet PO SCH ×2 (09:29→12:12)
[2017-11-07] MEDS: Lipase/Protease/Amylase 24/76/120 DR Capsule PO SCH ×2 (09:29→12:12)
[2017-11-07] MEDS: Furosemide 20 MG Tablet PO SCH (09:30)
[2017-11-07] MEDS: Spironolactone 50 MG Tablet PO SCH (09:30)
[2017-11-07 10:39] LABS: Hematocrit 25.4 % (35.0-46.0); Hemoglobin 8.7 gm/dL (11.6-15.3); Mean Corpuscular HGB Conc 34.3 % (32.0-36.0); Mean Corpuscular Hemoglobin 37.1 pg (27.0-34.0); Mean Corpuscular Volume 108.2 fL (80.0-100.0); Mean Platelet Volume 8.7 fL (7.0-11.0); Platelet Count 133 th/mm3 (150-450); Red Blood Count 2.35 mil/mm3 (4.00-5.30); Red Cell Distribution Width 23.9 % (11.6-17.2); White Blood Count 7.4 th/mm3 (4.0-11.0)
--- NOTE | 2017-11-07 10:56 | P.PNIM ---
Subjective Interval history: f/u; GI bleed in no acute distress. has mild nausea earlier which has resolved. no other complaints. Physical Exam Vital signs: Vital Signs 11/06/17 12:00 11/06/17 16:00 11/06/17 19:51 Temperature 98.0 F 97.8 F Pulse Rate 74 71 85 Respiratory Rate 18 16 Blood Pressure 109/55 L 113/57 L Pulse Oximetry 96 98 11/06/17 20:00 11/07/17 00:00 11/07/17 00:32 Temperature 97.8 F 99.2 F Pulse Rate 81 78 76 Respiratory Rate 20 18 Blood Pressure 99/54 L 99/54 L Pulse Oximetry 97 96 11/07/17 04:00 11/07/17 04:11 11/07/17 08:00 Temperature 97.3 F L 97.8 F Pulse Rate 95 H 78 79 Respiratory Rate 17 12 Blood Pressure 111/64 100/55 L Pulse Oximetry 100 97 Intake & Output 11/06/17 11/07/17 11/07/17 18:59 06:59 18:59 Intake Total 300 / 300 240 / 240 Output Total 650 / 650 Balance 300 / 300 -410 / -410 Weight 52.7 kg Intake: IV 0 / 0 NS Inj 250 ML @ 15 mls/hr IV. 0 / 0 SIG ONCE ERIN Rx#:[id number] Oral 240 / 240 Anesthesia Amount 300 / 300 Output: Urine 650 / 650 Other: Date of Last Bowel Movement 11/04/17 11/04/17 - Constitutional no acute distress - Routine Respiratory Exam Present: CTA bilaterally - Routine Cardiovascular Exam Present: RRR - Routine Abdominal Exam Present: soft, distended (mildly distended.) - Routine Extremities Exam Comments: no pedal edema. - Routine Neurological Exam Present: alert, oriented X3 Results - Labs CBC & Chem 7: 11/07/17 10:05 11/04/17 04:42 Laboratory Results - last 24 hr 11/07/17 10:05 WBC 7.4 RBC 2.35 L Hgb 8.7 L Hct 25.4 L MCV 108.2 H MCH 37.1 H MCHC 34.3 RDW 23.9 H Plt Count 133 L MPV 8.7 - Procedures EGD. Assessment and Plan - Assessment (1) Acute GI bleeding Code(s): K92.2 - Gastrointestinal hemorrhage, unspecified Status: Acute (2) Anemia Code(s): D64.9 - Anemia, unspecified Status: Acute - Plan 52-year-old white female with a history of alcoholic cirrhosis, hepatitis C presents with GI bleed and acute blood loss anemia. GI bleed History of cirrhosis Ascites on exam- soft not tense Acute blood loss anemia -Suspected upper GI bleed- H and H stable -Continue Protonix- po 40 mg bid -GI has been consulted. Appreciate recommendations. s/p EGD with LA Class A esophagitis, Dieulofy"s lesion. APC ablation done, Portal hypertensive gastropathy was found in the gastric fundus and gastric body along with small esophageal varix. -S/P Ciprofloxacin course 11/02 -Patient transfused 2 units packed red blood cells on 10/27/2017 -on Lasix and Aldactone -tolerating PO diet. Anxiety -E-FORCSE Prescription Drug Monitoring Database has been queried and verified prior to prescribing the controlled substance. -Ativan 0.5 mg as needed History of alcoholism- stable no DTs -Continue CIWA protocol -Monitor for delirium tremens Hypokalemia recurrent - now - improved - start KCL 10 meq po daily Acute liver failure likely due to chronic alcohol abuse and hep C -Avoid alcohol -Follow LFTs -Not a good candidate for steroids at this point. MELD 25 DVT prophylaxis SCDs Discussed Condition With: the patient and . Discharge Planning: home with [facility] today. f/u; pcp and GI. see med list. E-Foarsce was reviewed.
--- NOTE | 2017-11-07 11:10 | P.DS ---
Date of admission: 10/27/17 16:40 Primary care physician: Marco Antonio Aranda DO Brief History from admission: 52-year-old white female with a history of hepatitis C, alcoholic cirrhosis presents with a four-day history of worsening abdominal girth and swelling along with epigastric abdominal pain. She noted black tarry stools yesterday evening and describes her stool as loose and watery. She also reports multiple episodes of nonbilious and nonbloody emesis along with symptoms of nausea. She reports she was drinking 3-4 alcoholic drinks on a daily basis but stopped about 4 days ago when she started having increased abdominal pain. She currently is not taking any medications. She denies taking aspirin and over-the -counter NSAIDs. Of note, she had EGD back in 2013 which showed esophagitis and gastritis. She denies any unusual food intake. DS: Diagnosis - Discharge Diagnosis (1) Acute GI bleeding Status: Acute (2) Anemia Status: Acute DS: Medications - Discharge Medications Prescriptions: furosemide 20 mg PO DAILY 30 Days #30 tab lelriw-tkvmvjqr-cfjqquw [Creon] 2 cap PO TID 30 Days #180 cap pantoprazole 40 mg PO BID 30 Days #60 tab pentoxifylline 400 mg PO TID 30 Days #90 tab spironolactone 50 mg PO DAILY 30 Days #30 tab DS: Summary Hospital Course: patient was admitted with GI bleed. she was seen by GI and underwent EGD which revealed sLA Class A esophagitis, Dieulofy"s lesion. APC ablation done, Portal hypertensive gastropathy was found in the gastric fundus and gastric body along with small esophageal varix. she was transfused with PRBC and H/H improved and remained stable. she was cleared for discharge by GI. she was advised to stop drinking. - Time Spent with Patient Total time spent providing and/or coordinating discharge services: Less than 30 minutes - Quality: VTE Deep Vein Thrombosis/Pulmonary Embolism Present on Admission: No Exam Vital signs: Vital Signs 11/06/17 12:00 11/06/17 16:00 11/06/17 19:51 Temperature 98.0 F 97.8 F Pulse Rate 74 71 85 Respiratory Rate 18 16 Blood Pressure 109/55 L 113/57 L Pulse Oximetry 96 98 11/06/17 20:00 11/07/17 00:00 11/07/17 00:32 Temperature 97.8 F 99.2 F Pulse Rate 81 78 76 Respiratory Rate 20 18 Blood Pressure 99/54 L 99/54 L Pulse Oximetry 97 96 11/07/17 04:00 11/07/17 04:11 11/07/17 08:00 Temperature 97.3 F L 97.8 F Pulse Rate 95 H 78 79 Respiratory Rate 17 12 Blood Pressure 111/64 100/55 L Pulse Oximetry 100 97 Intake & Output 11/06/17 11/07/17 11/07/17 18:59 06:59 18:59 Intake Total 300 / 300 240 / 240 Output Total 650 / 650 Balance 300 / 300 -410 / -410 Weight 52.7 kg Intake: IV 0 / 0 NS Inj 250 ML @ 15 mls/hr IV. 0 / 0 SIG ONCE ERIN Rx#:[id number] Oral 240 / 240 Anesthesia Amount 300 / 300 Output: Urine 650 / 650 Other: Date of Last Bowel Movement 11/04/17 11/04/17 - Constitutional no acute distress - Routine Respiratory Exam Present: CTA bilaterally - Routine Cardiovascular Exam Present: RRR - Routine Abdominal Exam Present: soft, distended (mildly distended.) - Routine Extremities Exam Comments: no pedal edema. - Routine Neurological Exam Present: alert, oriented X3 Results Procedures completed during hospitalization: EGD. Labs on day of discharge: Labs from last 24 hours 11/07/17 10:05 WBC 7.4 RBC 2.35 L Hgb 8.7 L Hct 25.4 L MCV 108.2 H MCH 37.1 H MCHC 34.3 RDW 23.9 H Plt Count 133 L MPV 8.7 - Impressions ITS Impressions Chest CT 10/30/17 00:00 CONCLUSION: 1. Perihilar and upper lobe groundglass opacity which is nonspecific but could represent some mild inflammatory changes or mild edema. 2. Linear atelectasis or minimal consolidation at the left lung base with trace pleural fluid. 3. No suspicious lung mass or adenopathy identified. 4. Liver cirrhosis and mild to moderate ascites. Chest X-Ray 11/02/17 00:00 CONCLUSION: Patchy infiltrates. Discharge Plan - Discharge Disposition Patient Disposition: W/Home Health Service - Discharge Condition Condition: Fair - Discharge Order Discharge Orders: Discharge Order (Routine); Ordered 11/07/17 Ordered By: Quan Orlando - Discharge Details Anticipated Discharge Date: 10/27/17 - Physicians Team Primary Care Provider: Marco Antonio Aranda Attending Provider: Quan Orlando Other Providers: Solitario Mccray MD ; Marco Antonio Talley MD
--- NOTE | 2017-11-07 14:00 | P.PNGI ---
Subjective Interval history: Patient is dozing in the bed seems to be feeling somewhat better today still appears mildly weak and but denies any nausea vomiting or abdominal pain. Continues with some abdominal distention <Yvonne Richards - Last Filed: 11/07/17 13:54> Physical Exam Vital signs: Vital Signs 11/06/17 16:00 11/06/17 19:51 11/06/17 20:00 Temperature 97.8 F 97.8 F Pulse Rate 71 85 81 Respiratory Rate 16 20 Blood Pressure 113/57 L 99/54 L Pulse Oximetry 98 97 11/07/17 00:00 11/07/17 00:32 11/07/17 04:00 Temperature 99.2 F 97.3 F L Pulse Rate 78 76 95 H Respiratory Rate 18 17 Blood Pressure 99/54 L 111/64 Pulse Oximetry 96 100 11/07/17 04:11 11/07/17 08:00 Temperature 97.8 F Pulse Rate 78 79 Respiratory Rate 12 Blood Pressure 100/55 L Pulse Oximetry 97 Intake & Output 11/06/17 11/07/17 11/07/17 18:59 06:59 18:59 Intake Total 300 / 300 240 / 240 Output Total 650 / 650 Balance 300 / 300 -410 / -410 Weight 52.7 kg Intake: IV 0 / 0 NS Inj 250 ML @ 15 mls/hr IV. 0 / 0 SIG ONCE ERIN Rx#:[id number] Oral 240 / 240 Anesthesia Amount 300 / 300 Output: Urine 650 / 650 Other: Date of Last Bowel Movement 11/04/17 11/04/17 - Constitutional mild distress, thin, cachectic, cooperative - Routine HEENT Exam Head: Present: normocephalic ENT: Present: mucous membranes moist - Routine Respiratory Exam Present: accessory muscle use - Routine Cardiovascular Exam Present: S1, S2 - Routine Abdominal Exam Present: distended (Mild with some tympany but no abdominal pain, taut) - Routine Neurological Exam Present: alert <Yvonne Richards - Last Filed: 11/07/17 13:54> Vital signs: Vital Signs 11/06/17 19:51 11/06/17 20:00 11/07/17 00:00 Temperature 97.8 F 99.2 F Pulse Rate 85 81 78 Respiratory Rate 20 18 Blood Pressure 99/54 L 99/54 L Pulse Oximetry 97 96 11/07/17 00:32 11/07/17 04:00 11/07/17 04:11 Temperature 97.3 F L Pulse Rate 76 95 H 78 Respiratory Rate 17 Blood Pressure 111/64 Pulse Oximetry 100 11/07/17 08:00 11/07/17 12:00 Temperature 97.8 F 98.4 F Pulse Rate 79 80 Respiratory Rate 12 18 Blood Pressure 100/55 L 92/55 L Pulse Oximetry 97 95 Intake & Output 11/06/17 11/07/17 11/07/17 18:59 06:59 18:59 Intake Total 300 / 300 240 / 240 Output Total 650 / 650 Balance 300 / 300 -410 / -410 Weight 52.7 kg Intake: IV 0 / 0 NS Inj 250 ML @ 15 mls/hr IV. 0 / 0 SIG ONCE ERIN Rx#:[id number] Oral 240 / 240 Anesthesia Amount 300 / 300 Output: Urine 650 / 650 Other: Date of Last Bowel Movement 11/04/17 11/04/17 <Sj Garcia - Last Filed: 11/07/17 17:51> Results - Labs CBC & Chem 7: 11/07/17 10:05 11/04/17 04:42 Laboratory Results - last 24 hr 11/07/17 10:05 WBC 7.4 RBC 2.35 L Hgb 8.7 L Hct 25.4 L MCV 108.2 H MCH 37.1 H MCHC 34.3 RDW 23.9 H Plt Count 133 L MPV 8.7 - Procedures EGD. <Yvonne Richards - Last Filed: 11/07/17 13:54> - Labs CBC & Chem 7: 11/07/17 10:05 11/04/17 04:42 Laboratory Results - last 24 hr 11/07/17 10:05 WBC 7.4 RBC 2.35 L Hgb 8.7 L Hct 25.4 L MCV 108.2 H MCH 37.1 H MCHC 34.3 RDW 23.9 H Plt Count 133 L MPV 8.7 <Sj Garcia - Last Filed: 11/07/17 17:51> Assessment and Plan (1) Acute GI bleeding Status: Acute Code(s): K92.2 - Gastrointestinal hemorrhage, unspecified (2) Anemia Status: Acute Code(s): D64.9 - Anemia, unspecified - Plan 11/03/17-Patient laying in bed resting comfortably. No BM today denies any bleeding noted. Denies any nausea or vomiting .Plan for EGD and colonoscopy on 11/06/2017. Labs reviewed today WBC count 6.8 hemoglobin 8.7 hematocrit 25.1 platelet count 121 INR 2.1 total bilirubin 13.1 AST 94 ALT 21 alk phos 117 albumin 2.2. 11/04/2017 patient noted with alcoholic hepatitis, current PT/INR 2.2, hemoglobin stable at 8.8, platelet count increased to 126, bilirubin 14, AST 92 , ALT normal at 23. Patient noted gradual improvement. Patient is tolerating food this morning without nausea and vomiting. Encourage patient to be up in chair and increased mobility today. 11/05/2017 patient is resting in the bed still appears mildly weak and fatigued denies any nausea or vomiting but does have some mild abdominal bloating bowel sounds are positive loose BM 1 yesterday but otherwise no obvious bleeding current hemoglobin 8.7,. Encourage patient to eat slowly take small bites and maintain her hydration. Discussed EGD in a.m. INR remains 2.2, alcohol abstinence. Will give FFP 2 units tonight at 0100. 11/07/2017 patient is status post EGD with ablation performed on 11/06/2017 findings include LA class a esophagitis varix distal esophagus, severe portal hypertension and gastropathy of the fundus and body. Patient will need repeat EGD in 6 months. Last hemoglobin check 8. Patient denies any obvious melena stools nausea or vomiting or abdominal pain, mild distention noted Alcoholic hepatitis with GI bleed, esophageal varix patient will need follow-up in the office outpatient basis when she is stable to go home discussed with patient. Hemoglobin 8.7 today which is gradually improved. No encephalopathy noted Plan Diet ,cardiac, Antireflux regimen Avoid NSAIDs PPI, Creon, trental, spironolactone Monitor labs with special attention to hemoglobin, Monitor labs Further recommendations to follow after EGD Patient was seen per myself and Dr. Garcia, note was written on his behalf <Yvonne Richards - Last Filed: 11/07/17 13:54> (1) Acute GI bleeding Status: Acute Code(s): K92.2 - Gastrointestinal hemorrhage, unspecified (2) Anemia Status: Acute Code(s): D64.9 - Anemia, unspecified - Plan Seen and examined , doing well being dced home today. [facility] [facility] [place]. Tamra <Sj Garcia - Last Filed: 11/07/17 17:51>
[2017-11-07 14:44] VITALS: BP 92/55; PULSE 80; RESP 18; TEMP 98.4; O2SAT 95
== END 2017-11-07 16:01 | disposition home health service (06) ==
LOC: NEPC 14:51 → NEDA 16:40 → N04 17:50
PROVIDERS: ADMIT Internal Medicine; ATTEND Internal Medicine
PROC: PANENDO (2017-11-06 09:17)

== ENCOUNTER 2017-11-25 13:19 | Inpatient (IN) ==
--- NOTE | 2017-11-25 13:54 | ED ---
HPI General Chief Complaint: Altered Mental Status Stated Complaint: AMS Time Seen by Provider: 11/25/17 13:35 Source: patient Mode of arrival: ambulatory Limitations: altered mental status History of Present Illness HPI narrative: 52-year-old female presents with her son with concern of confusion and altered mental status over the past 2 days. She has a history of having to get her abdomen drained and her son is concerned that she is having issues with her liver again. He states she was recently in the hospital and they could not do a scope because her abdomen was not drained enough. He states that she was doing better but then she started to get confused again. The patient states she stopped drinking alcohol and does not know why she is not better. She denies specific complaints but is a poor historian. Onset (ago): day(s) Timing confirmed by: family member Associated symptoms: Reports denies other symptoms Related Data Home Medications Medication Instructions Recorded Confirmed gabapentin 600 mg PO HS 10/25/17 10/27/17 hydrocodone-acetaminophen 1 tab PO Q4H PRN 10/25/17 10/27/17 lorazepam [Ativan] 0.5 mg PO PRN 10/27/17 10/27/17 Previous Rx's Medication Instructions Recorded furosemide 20 mg PO DAILY 30 Days #30 tab 11/07/17 qhrsak-jviuiqvy-sqngshj [Creon] 2 cap PO TID 30 Days #180 cap 11/07/17 pantoprazole 40 mg PO BID 30 Days #60 tab 11/07/17 pentoxifylline 400 mg PO TID 30 Days #90 tab 11/07/17 potassium chloride [Klor-Con 10] 10 meq PO EVERY OTHER DAY 30 Days 11/07/17 #15 tab spironolactone 50 mg PO DAILY 30 Days #30 tab 11/07/17 Allergies Allergy/AdvReac Type Severity Reaction Status Date / Time penicillin G Allergy Mild Rash Verified 11/25/17 13:33 Review of Systems ROS: all other systems reviewed are negative [facility] Medical History Medical History Cirrhosis of liver (Acute) History of abdominal paracentesis (Acute) Pancreatitis (Acute) Weight loss (Acute) Surgical History Surgical History History of total right hip replacement (Acute) Family History Family History Mother Heart disease Social History Social History Substance History: Active Abuse Second Hand Smoke Exposure: Yes Smoking Status: Current every day smoker Tobacco Type: Cigarettes How Often Do You Have a Drink Containing Alcohol: 2 to 4 times a month Recent Travel in [facility] within the Last 8 Weeks: No Recent Out of Country Travel within the Last 8 Weeks: No Exam Narrative Exam Narrative: GENERAL: 52 y/o female in no apparent distress SKIN: Focused skin assessment warm/dry. HEAD: Atraumatic. Normocephalic. EYES: Pupils equal and round. scleral icterus. No injection or drainage. ENT: No nasal bleeding or discharge. Mucous membranes pink and moist. NECK: Trachea midline. No JVD. CARDIOVASCULAR: Regular rate and rhythm. RESPIRATORY: No accessory muscle use. Clear to auscultation. Breath sounds equal bilaterally. GASTROINTESTINAL: Abdomen soft, non-tender MUSCULOSKELETAL: No obvious deformities. No clubbing. No cyanosis. NEUROLOGICAL: Awake and alert to name. Motor grossly within normal limits. Normal speech. Course Reevaluation(s) Reevaluation #1: Patient has acute hepatic encephalopathy and hypokalemia. Potassium replaced and lactulose given. Patient son updated and agree to admission Consultations Consultation #1: dr fiore agrees to admit Initial Documented Vital Signs Temperature 98.3 F 11/25/17 13:27 Pulse Rate 103 H 11/25/17 13:27 Respiratory Rate 14 11/25/17 13:27 Blood Pressure 156/83 H 11/25/17 13:27 Pulse Oximetry 100 11/25/17 13:27 Last Documented Vital Signs Temperature 98.3 F 11/25/17 13:27 Pulse Rate 88 11/25/17 13:33 Respiratory Rate 18 11/25/17 13:33 Blood Pressure 132/74 11/25/17 13:33 Pulse Oximetry 100 11/25/17 13:59 Medical Decision Making MDM Narrative Medical decision making narrative: Will check blood work, urinalysis and reevaluate. On review of patient's home medications she is not on lactulose for likely hepatic encephalopathy Medical Screen Exam Complete: Yes Emergency Medical Condition: Yes Differential Diagnosis Differential Diagnosis: Hepatic encephalopathy, hyponatremia, UTI Lab Data Lab results reviewed: Yes I reviewed the patient's lab results. Result diagrams: 11/25/17 13:57 11/25/17 13:57 Lab Results 11/25/17 11/25/17 11/25/17 Range/Units 13:57 13:57 13:57 WBC 9.5 (4.0-11.0) th/mm3 RBC 2.43 L (4.00-5.30) mil/mm3 Hgb 9.2 L (11.6-15.3) gm/dL Hct 25.5 L (35.0-46.0) % MCV 105.0 H (80.0-100.0) fL MCH 38.1 H (27.0-34.0) pg MCHC 36.3 H (32.0-36.0) % RDW 18.8 H (11.6-17.2) % Plt Count 104 L (150-450) th/mm3 MPV 9.3 (7.0-11.0) fL Prelim Diff (Auto) Slide review pending Neut % (Auto) 71.1 H (16.0-70.0) % Lymph % (Auto) 20.2 (9.0-44.0) % [place] % (Auto) 7.6 (0.0-8.0) % Eos % (Auto) 1.0 (0.0-4.0) % Baso % (Auto) 0.1 (0.0-2.0) % Neut # (Auto) 6.7 (1.8-7.7) th/mm3 Lymph # (Auto) 1.9 (1.0-4.8) th/mm3 [place] # (Auto) 0.7 (0.0-0.9) th/mm3 Eos # (Auto) 0.1 (0.0-0.4) th/mm3 Baso # (Auto) 0.0 (0.0-0.2) th/mm3 WBC Differential . Diff Scan Auto diff confirmed Differential Comment . Platelet Estimate Low L (Normal) Platelet Morphology Normal (Normal) Acanthocytes (Spur) 1+ H (None) PT 21.1 H (9.8-11.6) sec INR 2.1 Ratio Sodium 131 L (136-145) meq/L Potassium 2.8 L* (3.5-5.1) meq/L Chloride 91 L (98-107) meq/L Carbon Dioxide 27.7 (21.0-32.0) meq/L Anion Gap 12 (5-15) meq/L BUN 16 (7-18) mg/dL Creatinine 1.10 H (0.50-1.00) mg/dL Estimated GFR 52 L (>89) mL/min Random Glucose 201 H (74-106) mg/dL Calcium 8.3 L (8.5-10.1) mg/dL Total Bilirubin 16.7 H (0.2-1.0) mg/dL AST 80 H (15-37) U/L ALT 20 (10-53) U/L Alkaline Phosphatase 148 H (45-117) U/L Ammonia (11-32) mcmol/L Total Protein 8.4 H (6.4-8.2) g/dL Albumin 2.4 L (3.4-5.0) g/dL Serum Alcohol Less than 3 (0-5) mg/dL 11/25/17 Range/Units 13:57 WBC (4.0-11.0) th/mm3 RBC (4.00-5.30) mil/mm3 Hgb (11.6-15.3) gm/dL Hct (35.0-46.0) % MCV (80.0-100.0) fL MCH (27.0-34.0) pg MCHC (32.0-36.0) % RDW (11.6-17.2) % Plt Count (150-450) th/mm3 MPV (7.0-11.0) fL Prelim Diff (Auto) Neut % (Auto) (16.0-70.0) % Lymph % (Auto) (9.0-44.0) % [place] % (Auto) (0.0-8.0) % Eos % (Auto) (0.0-4.0) % Baso % (Auto) (0.0-2.0) % Neut # (Auto) (1.8-7.7) th/mm3 Lymph # (Auto) (1.0-4.8) th/mm3 [place] # (Auto) (0.0-0.9) th/mm3 Eos # (Auto) (0.0-0.4) th/mm3 Baso # (Auto) (0.0-0.2) th/mm3 WBC Differential Diff Scan Differential Comment Platelet Estimate (Normal) Platelet Morphology (Normal) Acanthocytes (Spur) (None) PT (9.8-11.6) sec INR Ratio Sodium (136-145) meq/L Potassium (3.5-5.1) meq/L Chloride (98-107) meq/L Carbon Dioxide (21.0-32.0) meq/L Anion Gap (5-15) meq/L BUN (7-18) mg/dL Creatinine (0.50-1.00) mg/dL Estimated GFR (>89) mL/min Random Glucose (74-106) mg/dL Calcium (8.5-10.1) mg/dL Total Bilirubin (0.2-1.0) mg/dL AST (15-37) U/L ALT (10-53) U/L Alkaline Phosphatase (45-117) U/L Ammonia 93 H (11-32) mcmol/L Total Protein (6.4-8.2) g/dL Albumin (3.4-5.0) g/dL Serum Alcohol (0-5) mg/dL Discharge Plan Discharge Disposition Patient Disposition: 30 Still Patient Discharge Details Diagnosis: Acute hepatic encephalopathy, Acute hypokalemia Physicians Team ED Provider: Jennifer Urbina Primary Care Provider: Marco Antonio Aranda Rxs /Orders / Referrals /Forms Prescriptions: No Action gabapentin 600 mg Tablet 600 mg PO HS RF: 0 hydrocodone-acetaminophen 10-325 mg Tablet 1 tab PO Q4H PRN (Reason: Pain) RF: 0 lorazepam [Ativan] 0.5 mg Tablet 0.5 mg PO PRN RF: 0 pentoxifylline 400 mg Tablet Extended Release 400 mg PO TID 30 Days Qty: 90 RF: 0 pantoprazole 40 mg Tablet,Delayed Release (Dr/Ec) 40 mg PO BID 30 Days Qty: 60 RF: 0 furosemide 20 mg Tablet 20 mg PO DAILY 30 Days Qty: 30 RF: 0 spironolactone 50 mg Tablet 50 mg PO DAILY 30 Days Qty: 30 RF: 0 yegybr-vchpmsaa-heutiim [Creon] 24,000-76,000 -120,000 unit Capsule,Delayed Release(Dr/Ec) 2 cap PO TID 30 Days Qty: 180 RF: 0 potassium chloride [Klor-Con 10] 10 mEq Tablet Extended Release 10 meq PO EVERY OTHER DAY 30 Days Qty: 15 RF: 0 Status ED Status: Admitted Patient
[2017-11-25 14:11] LABS: Baso % (Auto) 0.1 % (0.0-2.0); Eos # (Auto) 0.1 th/mm3 (0.0-0.4); Hematocrit 25.5 % (35.0-46.0); Hemoglobin 9.2 gm/dL (11.6-15.3); Lymph # (Auto) 1.9 th/mm3 (1.0-4.8); Lymph % (Auto) 20.2 % (9.0-44.0); Mean Corpuscular Hemoglobin 38.1 pg (27.0-34.0); Mean Platelet Volume 9.3 fL (7.0-11.0); Mono # (Auto) 0.7 th/mm3 (0.0-0.9); Mono % (Auto) 7.6 % (0.0-8.0); Neut # (Auto) 6.7 th/mm3 (1.8-7.7); Neut % (Auto) 71.1 % (16.0-70.0); Platelet Count 104 th/mm3 (150-450); Red Blood Count 2.43 mil/mm3 (4.00-5.30); Red Cell Distribution Width 18.8 % (11.6-17.2); White Blood Count 9.5 th/mm3 (4.0-11.0)
[2017-11-25 14:26] LABS: INR 2.1 Ratio
[2017-11-25 14:28] LABS: Prothrombin Time 21.1 sec (9.8-11.6)
[2017-11-25 14:34] LABS: Alanine Aminotransferase 20 U/L (10-53); Albumin 2.4 g/dL (3.4-5.0); Alkaline Phosphatase 148 U/L (45-117); Anion Gap 12 meq/L (5-15); Aspartate Aminotransferase 80 U/L (15-37); Blood Urea Nitrogen 16 mg/dL (7-18); Calcium 8.3 mg/dL (8.5-10.1); Carbon Dioxide 27.7 meq/L (21.0-32.0); Chloride 91 meq/L (98-107); Glomerular Filtration Rate 52 mL/min (>89); Glucose,Random 201 mg/dL (74-106); Sodium 131 meq/L (136-145); Total Protein 8.4 g/dL (6.4-8.2)
[2017-11-25 14:39] LABS: Potassium 2.8 meq/L (3.5-5.1)
[2017-11-25] MEDS ORDERED: Potassium Chloride 25 MEQ Effervescent Tablet PO ONE (14:40)
[2017-11-25 14:43] LABS: Mean Corpuscular HGB Conc 36.3 % (32.0-36.0)
[2017-11-25 14:45] LABS: Acanthocytes 1+; Platelet Morphology Normal (Normal)
[2017-11-25] MEDS ORDERED: Bisacodyl 10 MG Supp RECTAL PRN (15:39)
--- NOTE | 2017-11-25 15:39 | P.HPIM ---
History of Present Illness Primary Care Physician: Marco Antonio Aranda DO History of Present Illness: 52 year old female with history of liver cirrhosis and chronic pancreatitis presenting with altered mental status, nausea, and general malaise. Her son reportedly brought her in earlier but he is no longer present and overall the patient is a poor historian and has to frequently ask me to repeat my questions because she forgets what I asked.The patient reports she came in because she was feeling "all sorts of out of whack and discombobulated. " She has had a decreased appetite, nausea, and some abdominal discomfort the past few days. She endorses some diarrhea and had one episode of nonbloody, nonbilious emesis today. She also complains of blurry vision. She cannot tell me what medications she takes but has a few with her in her bag. She does not have a venue coordinator. She denies chest pain, shortness of breath, cough, palpitations, edema, headache, fever, or chills. PMH: liver cirrhosis, chronic pancreatitis, esophagitis, portal hypertensive gastropathy Surgical hx: hip replacement, history of paracentesis Family hx: mother had heart disease Social hx: lives alone with her dog, states she hasn't had a drink since she was last hospitalized which was on 10/27, history of heavy alcohol use, smokes 1PPD, denies drug use - Diagnosis (1) Hepatic encephalopathy Inpatient Certification: I certify that the inpatient services were ordered in accordance with Medicare regulations governing the order. This includes certification that hospital inpatient services are reasonable and necessary and in the case of services not specified as inpatient-only under 42 CFR 419.22(n), that they are appropriately provided as inpatient services in accordance to with the 2-midnight benchmark under 43 CFR 412.3(e) Estimated Total Length of Stay (Days): 3 Plans for Post Hospital Care: Not yet determined Review of Systems All other systems reviewed negative except as stated in HPI, other (Altered mental status) PMFSH - History History Provided By: Patient - Medical History Medical History: Medical History (Last Reviewed 11/25/17 @ 16:04 by Verna Dunne MD) Cirrhosis of liver History of abdominal paracentesis Pancreatitis Weight loss - Surgical History Surgical History: Surgical History (Last Reviewed 11/25/17 @ 16:04 by Verna Dunne MD) History of total right hip replacement - Family History Family History: Family History (Last Reviewed 11/25/17 @ 16:04 by Verna Dunne MD) Mother Heart disease - Social History I have reviewed the patient's Social History: Yes - Tobacco History Second Hand Smoke Exposure: Yes Tobacco Use In Past 30 Days: Yes Smoking Status: Current every day smoker Tobacco Type: Cigarettes - Alcohol History How Often Do You Have a Drink Containing Alcohol: 2 to 4 times a month - Substance Use History Substance History: Active Abuse - Substance Use Type Alcohol Status: Early Remission Route Used: By Mouth Reason for Use: Calm Down - Travel History Recent Travel in the [place] Within the Last 8 Weeks: No Recent Travel Out of the Country Within the Last 8 Weeks: No - Immunization History Tetanus Immunization: Unsure Medications and Allergies Active Medications: Active Medications Sodium Chloride (Ns Flush) 2 ml IV.FLUSH PRN PRN PRN Reason: FLUSH AFTER USING IV ACCESS Allergies Allergy/AdvReac Type Severity Reaction Status Date / Time penicillin G Allergy Mild Rash Verified 11/25/17 13:33 Home Medications Medication Instructions Recorded Confirmed Type gabapentin 600 mg PO HS 10/25/17 10/27/17 History hydrocodone-acetaminophen 1 tab PO Q4H PRN 10/25/17 10/27/17 History lorazepam [Ativan] 0.5 mg PO PRN 10/27/17 10/27/17 History Exam Vital signs: Vital Signs 11/25/17 13:27 11/25/17 13:33 11/25/17 13:59 Temperature 98.3 F Pulse Rate 103 H 88 Respiratory Rate 14 18 Blood Pressure 156/83 H 132/74 Pulse Oximetry 100 100 100 Intake & Output 11/24/17 11/25/17 11/25/17 18:59 06:59 18:59 Weight 47.627 kg Narrative: GENERAL: Chronically ill appearing female resting in bed in no acute distress. SKIN: Warm and dry. Diffuse jaundice. Multiple stigmata of liver disease including spider telangiectasias, palmar erythema, and some mild abdominal caput medusae. HEENT: AT/NC. Pupils equal and round. +scleral icterus. MMM. NECK: Supple no tender LAD or JVD. HEART: RRR no m/r/g. LUNGS: CTAB without wheezes or crackles. ABDOMEN: Distended abdomen and mild diffuse tenderness. EXTREMITIES: No LE edema. 2+ pedal pulses. NEURO: Awake but confused. +asterixis. Results - Labs CBC & Chem 7: 11/25/17 13:57 11/25/17 13:57 Labs: Short CBC 11/25/17 Range/Units 13:57 WBC 9.5 (4.0-11.0) th/mm3 Hgb 9.2 L (11.6-15.3) gm/dL Hct 25.5 L (35.0-46.0) % Plt Count 104 L (150-450) th/mm3 BMP 11/25/17 13:57 Sodium 131 L Potassium 2.8 L* Chloride 91 L Carbon Dioxide 27.7 BUN 16 Creatinine 1.10 H Calcium 8.3 L Liver Function 11/25/17 Range/Units 13:57 Total Bilirubin 16.7 H (0.2-1.0) mg/dL AST 80 H (15-37) U/L ALT 20 (10-53) U/L Alkaline Phosphatase 148 H (45-117) U/L Albumin 2.4 L (3.4-5.0) g/dL Caprini VTE Risk Assessment Caprini VTE Risk Assessment: No/Low Risk (score <= 1) VTE Pharmacological Exception Reason: Coagulopathy,INR elevated, End Stage Liver Disease Caprini Risk Assessment Model: Point Value = 1 Point Value = 2 Point Value = 3 Point Value = 5 Age 41-60 Minor surgery BMI > 25 kg/m2 Swollen legs Varicose veins or History of unexplained or recurrent spontaneous Oral contraceptives or hormone replacement Sepsis (< 1 month) Serious lung disease, including pneumonia (< 1 month) Abnormal pulmonary function Acute myocardial infarction Congestive heart failure (< 1 month) History of inflammatory bowel disease Medical patient at bed rest Age 61-74 Arthroscopic surgery Major open surgery (> 45 min) Laparoscopic surgery (> 45 min) Malignancy Confined to bed (> 72 hours) Immobilizing plaster cast Central venous access Age >= 75 History of VTE Family history of VTE Factor V Leiden Prothrombin [id number] Lupus anticoagulant Anticardiolipin antibodies Elevated serum homocysteine Heparin-induced thrombocytopenia Other congenital or acquired thrombophilia Stroke (< 1 month) Elective arthroplasty Hip, pelvis, or leg fracture Acute spinal cord injury (< 1 month) Prophylaxis Regimen: Total Risk Factor Score Risk Level Prophylaxis Regimen 0-1 Low Early ambulation 2 Moderate Order ONE of the following: *Sequential Compression Device (SCD) *Heparin 5000 units SQ BID 3-4 Higher Order ONE of the following medications: *Heparin 5000 units SQ TID *Enoxaparin/Lovenox 40 mg SQ daily (WT < 150 kg, CrCl > 30 mL/min) *Enoxaparin/Lovenox 30 mg SQ daily (WT < 150 kg, CrCl > 10-29 mL/min) *Enoxaparin/Lovenox 30 mg SQ BID (WT < 150 kg, CrCl > 30 mL/min) AND/OR *Sequential Compression Device (SCD) 5 or more Highest Order ONE of the following medications: *Heparin 5000 units SQ TID (Preferred with Epidurals) *Enoxaparin/Lovenox 40 mg SQ daily (WT < 150 kg, CrCl > 30 mL/min) *Enoxaparin/Lovenox 30 mg SQ daily (WT < 150 kg, CrCl > 10-29 mL/min) *Enoxaparin/Lovenox 30 mg SQ BID (WT < 150 kg, CrCl > 30 mL/min) AND *Sequential Compression Device (SCD) Assessment and Plan - Assessment (1) Hepatic encephalopathy Code(s): K72.90 - Hepatic failure, unspecified without coma Status: Acute - Plan 52-year-old female with history of liver cirrhosis and chronic pancreatitis admitted for hepatic encephalopathy. 1. Hepatic encephalopathy Ammonia elevated at 93 AST 80, ALT 20, total bilirubin 16.7 INR elevated 2.1 Meld score 29 with 19.6 estimated 3-month mortality Start lactulose and rifaximin Continue home spironolactone, Lasix, and pentoxifylline Avoid hepatotoxic agents Consider SBP if patient develops fever but as of now she is afebrile, no leukocytosis, and only minimal abdominal tenderness. Will obtain ultrasound of the abdomen to assess for drainable ascites 2. Hypokalemia Potassium 2.8 on admission Given 50 mEq KCl in the ED Providing 20 mEq KCl in IV fluids Continue to monitor, recheck at 1999 3. Hyponatremia Sodium 131 Providing normal saline at 84 mL/h Continue to monitor 4. ARACELIS Creatinine 1.10, baseline typically around 0.5-0.6 Possibly secondary to decreased PO intake but also consider hepatorenal syndrome IV fluids Continue to closely monitor 5. Chronic pancreatitis Resume home Creon 6. History of esophagitis Continue home PPI DVT prophylaxis: Chemical anticoagulation contraindicated given hepatic coagulopathy with INR 2.1 Code Status: FULL
[2017-11-25] MEDS: Lipase/Protease/Amylase 24/76/120 DR Capsule PO SCH (17:23)
[2017-11-25] MEDS: Pentoxifylline 400 MG Controlled Release Tablet PO SCH (17:23)
--- NOTE | 2017-11-25 17:50 | US ---
EXAM DATE: 11/25/2017 12:00 AM EDT AGE/SEX: 52 years / Female INDICATIONS: Ascites. CLINICAL DATA: This is the patient's initial encounter. Patient reports that signs and symptoms have been present for 1 day and indicates a pain score of 2/10. MEDICAL/SURGICAL HISTORY: Cirrhosis. Pancreatitis. . Right hip replacement. COMPARISON: [facility] [place]EL[place]/O CONTRAST, 10/25/2017. . FINDINGS: Trace free fluid is seen adjacent to liver. No drainable free fluid seen in the abdomen. Diffuse nodularity of the liver capsule indicating cirrhosis. Splenomegaly noted. CONCLUSION: Trace free fluid in the right upper quadrant. No other evidence of ascites. Electronically signed by: Den Murphy MD 11/25/2017 5:48 PM EDT
[2017-11-25] MEDS ORDERED: Mag Sulf 1 gm/100 ml Premix 100 ML IV.SIG ONE (21:05)
[2017-11-25] MEDS: rifAXIMin 550 MG Tablet PO SCH (21:32)
[2017-11-25] MEDS: Gabapentin 300 MG Capsule PO SCH (21:34)
[2017-11-25] MEDS ORDERED: LORazepam 0.5 MG Tablet PO PRN (21:48)
[2017-11-25] MEDS ORDERED: LORazepam 0.5 MG Tablet PO ONE (21:52)
[2017-11-26 07:42] LABS: Baso % (Auto) 0.5 % (0.0-2.0); Eos # (Auto) 0.1 th/mm3 (0.0-0.4); Eos % (Auto) 1.8 % (0.0-4.0); Hemoglobin 8.4 gm/dL (11.6-15.3); Lymph # (Auto) 1.8 th/mm3 (1.0-4.8); Lymph % (Auto) 23.2 % (9.0-44.0); Mean Corpuscular Hemoglobin 38.5 pg (27.0-34.0); Mean Platelet Volume 7.9 fL (7.0-11.0); Mono % (Auto) 12.4 % (0.0-8.0); Neut # (Auto) 4.8 th/mm3 (1.8-7.7); Neut % (Auto) 62.1 % (16.0-70.0); Platelet Count 107 th/mm3 (150-450); Red Blood Count 2.19 mil/mm3 (4.00-5.30); Red Cell Distribution Width 17.9 % (11.6-17.2); White Blood Count 7.8 th/mm3 (4.0-11.0)
[2017-11-26 07:57] LABS: Mean Corpuscular HGB Conc 36.7 % (32.0-36.0)
[2017-11-26] MEDS: Pentoxifylline 400 MG Controlled Release Tablet PO SCH ×3 (08:14→17:14)
[2017-11-26] MEDS: Furosemide 20 MG Tablet PO SCH ×2 (08:14→08:59)
[2017-11-26] MEDS: Lipase/Protease/Amylase 24/76/120 DR Capsule PO SCH ×3 (08:15→17:14)
[2017-11-26] MEDS: rifAXIMin 550 MG Tablet PO SCH ×2 (08:15→21:23)
[2017-11-26] MEDS: Spironolactone 50 MG Tablet PO SCH (08:15)
[2017-11-26 08:31] LABS: Alanine Aminotransferase 18 U/L (10-53); Albumin 2.1 g/dL (3.4-5.0); Alkaline Phosphatase 125 U/L (45-117); Anion Gap 10 meq/L (5-15); Aspartate Aminotransferase 72 U/L (15-37); Blood Urea Nitrogen 10 mg/dL (7-18); Calcium 8.2 mg/dL (8.5-10.1); Carbon Dioxide 25.8 meq/L (21.0-32.0); Chloride 102 meq/L (98-107); Glomerular Filtration Rate 68 mL/min (>89); Glucose,Random 101 mg/dL (74-106); Potassium 3.5 meq/L (3.5-5.1); Sodium 138 meq/L (136-145); Total Protein 7.6 g/dL (6.4-8.2)
[2017-11-26 09:05] LABS: Acanthocytes 1+
--- NOTE | 2017-11-26 11:31 | P.PN ---
Subjective Interval history: Follow-up visit liver cirrhosis, hepatic encephalopathy, hypokalemia, hyponatremia, acute kidney injury. Patient seen and examined today. Jaundice noted. Patient is awake and alert. Remembers that she is at [facility] otherwise continues to be slightly confused. Denies pain and discomfort. Denies SOB/ dyspnea. Denies chest pain, palpitations. Denies fevers, chills, n/ v/d. Denies dysuria. Physical Exam Vital signs: Vital Signs 11/25/17 13:27 11/25/17 13:33 11/25/17 13:59 Temperature 98.3 F Pulse Rate 103 H 88 Respiratory Rate 14 18 Blood Pressure 156/83 H 132/74 Pulse Oximetry 100 100 100 11/25/17 16:00 11/25/17 20:00 11/26/17 00:00 Temperature 98.9 F 98.7 F 98.5 F Pulse Rate 81 84 81 Respiratory Rate 16 16 17 Blood Pressure 117/58 L 122/66 118/61 Pulse Oximetry 98 99 98 11/26/17 04:00 11/26/17 07:46 11/26/17 08:00 Temperature 98.6 F 98.4 F Pulse Rate 85 81 Respiratory Rate 16 16 18 Blood Pressure 120/64 108/57 L Pulse Oximetry 99 98 Intake & Output 11/25/17 11/26/17 11/26/17 18:59 06:59 18:59 Intake Total 1180 / 1180 Balance 1180 / 1180 Weight 47.627 kg 47.8 kg Intake: IV 1100 / 1100 NS + KCl 20 mEq Inj 1,000 ML @ 1000 / 1000 84 mls/hr IV.CONT .[id number] [facility] Rx#:[id number] Magnesium Sulfate 1 gm/D5W 100 100 / 100 ml Premix 100 ML @ 100 mls/hr IV.SIG ONCE ONE Rx#:[id number] Oral 80 / 80 Other: Date of Last Bowel Movement 11/22/17 11/22/17 # Bowel Movements 1 Narrative: GENERAL: Chronically ill appearing female resting in bed in no acute distress. SKIN: Warm and dry. Diffuse jaundice. Multiple stigmata of liver disease including spider telangiectasias, palmar erythema, and some mild abdominal caput medusae. HEENT: AT/NC. Pupils equal and round. +scleral icterus. MMM. NECK: Supple. HEART: RRR murmur 2/6. LUNGS: CTAB without wheezes or crackles. ABDOMEN: Distended abdomen and mild diffuse tenderness. EXTREMITIES: No LE edema. 2+ pedal pulses. NEURO: Awake and alert but confused. +asterixis. Slow speech. Moves all extemities weakly. Results - Labs CBC & Chem 7: 11/26/17 07:17 11/26/17 07:17 Laboratory Results - last 24 hr 11/25/17 11/25/17 11/25/17 13:57 13:57 13:57 WBC 9.5 RBC 2.43 L Hgb 9.2 L Hct 25.5 L MCV 105.0 H MCH 38.1 H MCHC 36.3 H RDW 18.8 H Plt Count 104 L MPV 9.3 Prelim Diff (Auto) Slide review pending Neut % (Auto) 71.1 H Lymph % (Auto) 20.2 Pratt % (Auto) 7.6 Eos % (Auto) 1.0 Baso % (Auto) 0.1 Neut # (Auto) 6.7 Lymph # (Auto) 1.9 Pratt # (Auto) 0.7 Eos # (Auto) 0.1 Baso # (Auto) 0.0 WBC Differential . Diff Scan Auto diff confirmed Differential Comment . Platelet Estimate Low L Platelet Morphology Normal RBC Morphology Acanthocytes (Spur) 1+ H Keratocytes PT 21.1 H INR 2.1 Sodium 131 L Potassium 2.8 L* Chloride 91 L Carbon Dioxide 27.7 Anion Gap 12 BUN 16 Creatinine 1.10 H Estimated GFR 52 L Random Glucose 201 H Calcium 8.3 L Magnesium Total Bilirubin 16.7 H AST 80 H ALT 20 Alkaline Phosphatase 148 H Ammonia Total Protein 8.4 H Albumin 2.4 L Serum Alcohol Less than 3 11/25/17 11/25/17 11/25/17 13:57 13:57 19:40 WBC RBC Hgb Hct MCV MCH MCHC RDW Plt Count MPV Prelim Diff (Auto) Neut % (Auto) Lymph % (Auto) Pratt % (Auto) Eos % (Auto) Baso % (Auto) Neut # (Auto) Lymph # (Auto) Pratt # (Auto) Eos # (Auto) Baso # (Auto) WBC Differential Diff Scan Differential Comment Platelet Estimate Platelet Morphology RBC Morphology Acanthocytes (Spur) Keratocytes PT INR Sodium Potassium 2.9 L* Chloride Carbon Dioxide Anion Gap BUN Creatinine Estimated GFR Random Glucose Calcium Magnesium 1.9 Total Bilirubin AST ALT Alkaline Phosphatase Ammonia 93 H Total Protein Albumin Serum Alcohol 11/26/17 11/26/17 11/26/17 07:17 07:17 07:17 WBC 7.8 RBC 2.19 L Hgb 8.4 L Hct 23.0 L MCV 105.0 H MCH 38.5 H MCHC 36.7 H RDW 17.9 H Plt Count 107 L MPV 7.9 Prelim Diff (Auto) Slide review pending Neut % (Auto) 62.1 Lymph % (Auto) 23.2 Pratt % (Auto) 12.4 H Eos % (Auto) 1.8 Baso % (Auto) 0.5 Neut # (Auto) 4.8 Lymph # (Auto) 1.8 Pratt # (Auto) 1.0 H Eos # (Auto) 0.1 Baso # (Auto) 0.0 WBC Differential . Diff Scan Auto diff confirmed Differential Comment . Platelet Estimate Platelet Morphology RBC Morphology Acanthocytes (Spur) 1+ H Keratocytes Occ H PT INR Sodium 138 Potassium 3.5 Chloride 102 D Carbon Dioxide 25.8 Anion Gap 10 BUN 10 Creatinine 0.88 Estimated GFR 68 L Random Glucose 101 D Calcium 8.2 L Magnesium Total Bilirubin 14.5 H AST 72 H ALT 18 Alkaline Phosphatase 125 H Ammonia 42 H Total Protein 7.6 D Albumin 2.1 L Serum Alcohol - Imaging Impressions Abdomen Ultrasound 11/25/17 00:00 CONCLUSION: Trace free fluid in the right upper quadrant. No other evidence of ascites. Assessment and Plan - Assessment (1) Hepatic encephalopathy Code(s): K72.90 - Hepatic failure, unspecified without coma Status: Acute - Plan 52-year-old female with history of liver cirrhosis and chronic pancreatitis admitted for hepatic encephalopathy. Hepatic encephalopathy Ammonia elevated at 93 initially, improved -->42 AST 80, ALT 20, total bilirubin 16.7 -->14.5 INR elevated 2.1 Meld score 29 with 19.6 estimated 3-month mortality Continue lactulose and rifaximin Continue home spironolactone, Lasix, and pentoxifylline Avoid hepatotoxic agents Consider SBP if patient develops fever but as of now she is afebrile, no leukocytosis, and only minimal abdominal tenderness. -Ultrasound of the abdomen trace free fluid in the right upper quadrant. No other evidence of ascites. Hypokalemia Providing 20 mEq KCl in IV fluids -Potassium supplements PO Continue to monitor Hyponatremia Sodium 131 ->138 Normal saline at 84 mL/h, will decrease to 50ml/hr. DC marlene if cont to improve. Continue to monitor ARACELIS baseline around 0.5-0.6 Creatinine 1.10 --> 0.88 Possibly secondary to decreased PO intake but also consider hepatorenal syndrome IV fluids, may DC marlene if patient cont to improve Chronic pancreatitis Resume home Creon History of esophagitis Continue home PPI DVT prop SCDs, avoid chemical prophylaxis secondary to liver dysfunction Code Status: Full code Discussed Condition With: Patient, nursing Discharge Planning: Plan to DC SNF when clinically improved
[2017-11-26] MEDS: Gabapentin 300 MG Capsule PO SCH (21:23)
[2017-11-26] MEDS ORDERED: LORazepam 0.5 MG Tablet PO ONE (21:52)
[2017-11-27 07:56] LABS: INR 2.3 Ratio
[2017-11-27 07:57] LABS: Baso % (Auto) 0.2 % (0.0-2.0); Eos # (Auto) 0.1 th/mm3 (0.0-0.4); Eos % (Auto) 1.8 % (0.0-4.0); Hematocrit 23.1 % (35.0-46.0); Hemoglobin 8.3 gm/dL (11.6-15.3); Lymph # (Auto) 1.6 th/mm3 (1.0-4.8); Lymph % (Auto) 20.7 % (9.0-44.0); Mean Corpuscular Hemoglobin 38.4 pg (27.0-34.0); Mean Corpuscular Volume 106.6 fL (80.0-100.0); Mean Platelet Volume 7.6 fL (7.0-11.0); Mono # (Auto) 0.9 th/mm3 (0.0-0.9); Mono % (Auto) 12.4 % (0.0-8.0); Neut % (Auto) 64.9 % (16.0-70.0); Platelet Count 101 th/mm3 (150-450); Red Blood Count 2.17 mil/mm3 (4.00-5.30); Red Cell Distribution Width 17.7 % (11.6-17.2); White Blood Count 7.6 th/mm3 (4.0-11.0)
[2017-11-27 08:11] LABS: Alanine Aminotransferase 16 U/L (10-53); Albumin 1.9 g/dL (3.4-5.0); Anion Gap 8 meq/L (5-15); Aspartate Aminotransferase 56 U/L (15-37); Blood Urea Nitrogen 8 mg/dL (7-18); Calcium 8.1 mg/dL (8.5-10.1); Carbon Dioxide 24.6 meq/L (21.0-32.0); Chloride 107 meq/L (98-107); Glomerular Filtration Rate 83 mL/min (>89); Glucose,Random 96 mg/dL (74-106); Potassium 3.7 meq/L (3.5-5.1); Sodium 140 meq/L (136-145)
[2017-11-27 08:13] LABS: Alkaline Phosphatase 121 U/L (45-117); Total Protein 7.2 g/dL (6.4-8.2)
[2017-11-27 08:49] LABS: Acanthocytes 1+
[2017-11-27 08:51] LABS: Rouleaux Present
[2017-11-27 08:52] LABS: Platelet Morphology Normal (Normal)
[2017-11-27] MEDS: rifAXIMin 550 MG Tablet PO SCH ×2 (09:23→20:18)
[2017-11-27] MEDS: Spironolactone 50 MG Tablet PO SCH (09:24)
[2017-11-27] MEDS: Furosemide 20 MG Tablet PO SCH (09:24)
[2017-11-27] MEDS: Lipase/Protease/Amylase 24/76/120 DR Capsule PO SCH ×3 (09:24→18:16)
[2017-11-27] MEDS: Pentoxifylline 400 MG Controlled Release Tablet PO SCH ×3 (09:24→18:16)
--- NOTE | 2017-11-27 11:39 | P.CONPAL ---
Consult Service: Palliative Care Requesting Physician: Lux Pacheco Reason for Consult: a. To assist with evaluation and management of symptoms including: Altered mental status, abdominal pain, decreased appetite b. To assist medical decision maker(s) with: better understanding of current medical conditions; weighing benefits/burdens of medical treatment options; making medical treatment decisions. Primary Care Provider: Marco Antonio Aranda DO History of Present Illness History of Present Illness: This is a 52-year-old female with recurrent visits to the ED for a variety of gastrointestinal concerns who presents with altered mental status, confusion, nausea, decreased appetite, abdominal pain. Her son brought her in and was concerned that she was having liver problems again. She has a very long history of heavy alcohol abuse with the predicted sequelae of alcoholic pancreatitis, hepatomegaly, alcoholic hepatitis, cirrhosis, GI bleed and chronic ascites. Patient states that she had stopped drinking alcohol and cannot understand why she is not better. Clinical findings on admission * Vital signs blood pressure 156/83, respiratory rate 14, oxygen saturation 100% , pulse rate 103, temperature 98.3. * White blood cells 9.5, hemoglobin 9.2, hematocrit 25.5, platelets 104, PT 21.1 , INR 2.1 (not on Coumadin), sodium 131, potassium 2.8, BUN 16, creatinine 1.10 , random glucose 201, total bilirubin 16.7, AST 80, ALT 20, alk phos 148, albumin 2.4, total protein 8.4, serum alcohol less than 3, ammonia 93 This is a middle-aged female, lying in bed in no acute distress. She is easily arousable. She is seen to be jaundiced, slightly slow to answer, but answers appropriately. She has difficulty grasping why her liver is failing because she "has not had anything to drink" in a month. Reviewed the pathology of liver failure and the multiple functions of the liver to explain her symptoms. She appeared to have some difficulty grasping some of the concepts and appears to have some decreased insight. She was oriented to person face purpose and time but had difficulty with the more global concepts of liver failure. She states that all she wants is "to go home and be with her dog". Her confusion is mild, intermittent, improving with reduced ammonia, will worsen with medication noncompliance, which is likely due to hepatic encephalopathy. She complains of abdominal tenderness, generalized, worse in the upper quadrants, worsening tenderness to palpation, mild to moderate in severity with no relieving factors. She states she has minimal appetite and is only able to eat a few bites feeling full, likely secondary to ascites and gastric compression. Appetite decrease is mild to moderate, associated with muscle wasting, continuous, worsening with progression of liver disease. Past medical history Hepatomegaly Alcoholic pancreatitis with pseudocyst Gastritis Esophagitis Pancreatic cysts GI bleed Anxiety Cirrhosis Alcoholic hepatitis Scoliosis Depression Migraines Portal hypertensive gastropathy Surgical history Endoscopy GJ tube placement 2013 for weight gain ORIF right hip fracture Paracentesis Social history Chronic tobacco use History of alcoholism History of opiate use Family history diabetes hypertension melanoma . 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 She states at home she is generally sedentary and not able to be very active. She is able to get up to the bedside commode but would remain a high fall risk due to her general weakness and confusion. . Review of Systems Patient is confused and ROS may be unreliable. A 12 part ROS taken as best as possible from medical record and available family. Constitutional: Reports fatigue, Reports weight loss Gastrointestinal: Reports abdominal pain Neurologic: Reports confusion Psychiatric: Reports anxiety, Reports confusion PMFSH - History History Provided By: Patient - Medical History Medical History: Medical History (Last Reviewed 11/28/17 @ 15:21 by Debra Lacey) Cirrhosis of liver History of abdominal paracentesis Pancreatitis Weight loss - Surgical History Surgical History: Surgical History (Last Reviewed 11/30/17 @ 08:27 by Angelica Bob) History of total right hip replacement - Family History Family History: Family History (Last Reviewed 11/30/17 @ 08:27 by Angelica Bob) Mother Heart disease - Tobacco History Second Hand Smoke Exposure: Yes Tobacco Use In Past 30 Days: Yes Smoking Status: Current every day smoker Tobacco Type: Cigarettes - Alcohol History How Often Do You Have a Drink Containing Alcohol: Unable to Obtain - Substance Use History Substance History: Past History - Substance Use Type Alcohol Status: Active Route Used: By Mouth Frequency: 2 Reason for Use: Socialization - Travel History Recent Travel in the [place] Within the Last 8 Weeks: No Recent Travel Out of the Country Within the Last 8 Weeks: No - Immunization History Tetanus Immunization: Unsure Medications and Allergies Active Medications: Active Medications Al Hydroxide/Mg Hydroxide (Milk Of [place] Liq) 30 ml PO Q12H PRN PRN Reason: Mild Constipation Lipase/Protease/Amylase (Herber Mcdonald 24/76/120) 2 cap PO TID [facility] Last Admin: 11/27/17 09:24 Dose: 2 cap Bisacodyl (Dulcolax Supp) 10 mg RECTAL DAILY PRN PRN Reason: SEVERE CONSITIPATION Furosemide (Lasix) 20 mg PO DAILY [facility] Last Admin: 11/27/17 09:24 Dose: Not Given Gabapentin (Neurontin) 600 mg PO HS [facility] Last Admin: 11/26/17 21:23 Dose: 600 mg Potassium Chloride/Sodium Chloride (Ns + Kcl 20 Meq Inj) 1,000 mls @ 50 mls/hr IV.CONT .Q20H [facility] Last Admin: 11/27/17 03:10 Dose: 84 mls/hr Lactulose (Lactulose Liq) 30 ml PO Q8H [facility] Last Admin: 11/27/17 06:13 Dose: 30 ml Olanzapine (Zyprexa Zydis Odt) 5 mg PO DAILY [facility] Last Admin: 11/27/17 09:25 Dose: 5 mg Ondansetron HCl (Zofran Inj) 4 mg IV.PUSH Q6H PRN PRN Reason: NAUSEA OR VOMITING Last Admin: 11/26/17 06:16 Dose: 4 mg Pantoprazole Sodium (Protonix) 40 mg PO BID [facility] Last Admin: 11/27/17 09:24 Dose: 40 mg Pentoxifylline (Trental Sr) 400 mg PO TID [facility] Last Admin: 11/27/17 09:24 Dose: 400 mg Potassium Chloride (K-Dur) 20 meq PO DAILY [facility] Last Admin: 11/27/17 09:24 Dose: 20 meq Rifaximin (Xifaxan) 550 mg PO Q12HR [facility] Last Admin: 11/27/17 09:23 Dose: 550 mg Sennosides (Senokot) 17.2 mg PO Q12H PRN PRN Reason: Moderate Constipation Sodium Chloride (Ns Flush) 2 ml IV.FLUSH PRN PRN PRN Reason: FLUSH AFTER USING IV ACCESS Spironolactone (Aldactone) 50 mg PO DAILY [facility] Last Admin: 11/27/17 09:24 Dose: Not Given Allergies Allergy/AdvReac Type Severity Reaction Status Date / Time penicillin G Allergy Mild Rash Verified 11/25/17 13:33 Home Medications Medication Instructions Recorded Confirmed Type gabapentin 600 mg PO HS 10/25/17 11/25/17 History lorazepam [Ativan] 0.5 mg PO PRN 10/27/17 11/25/17 History Advance Directives Living Will: No Healthcare Surrogate: No Health Care Surrogate Name and Number: Mayo Younger Power of Government Teacher: No Physical Exam Vital Signs: Vital Signs - 24 hr 11/26/17 12:00 11/26/17 16:00 11/26/17 20:00 Temperature 98.9 F 98.9 F 97.8 F Pulse Rate 85 84 97 H Respiratory Rate 18 18 16 Blood Pressure 113/58 L 127/57 L 93/50 L Pulse Oximetry 97 99 98 11/27/17 00:00 11/27/17 03:57 11/27/17 08:00 Temperature 98 F 98 F 98.6 F Pulse Rate 91 H 95 H 68 Respiratory Rate 17 16 20 Blood Pressure 102/58 L 101/54 L 93/54 L Pulse Oximetry 97 97 94 L I&O: Intake & Output 11/25/17 11/26/17 11/27/17 11/28/17 06:59 06:59 06:59 06:59 Intake Total 1180 / 1180 2280 / 2280 Balance 1180 / 1180 2280 / 2280 Weight 105 lb 6.095 oz 105 lb 6.095 oz Physical Exam: CONSTITUTIONAL/GENERAL: This is an adequately nourished patient, in no apparent distress. TUBES/LINES/DRAINS: PIV SKIN: Positive jaundice, no rashes, or lesions. Ecchymoses on upper extremities. No wounds seen anteriorly. Skin temperature appropriate. Not diaphoretic. HEAD: Atraumatic. Normocephalic. EYES: Pupils equal and round and reactive. Extraocular motions intact. Mild scleral icterus. No injection or drainage. Fundi not examined. ENT: Hearing grossly normal. Nose without bleeding or purulent drainage. Throat without visible erythema, exudates, masses, or lesions. NECK: Trachea midline. Supple, nontender. No palpable thyroid enlargement or nodularity. CARDIOVASCULAR: Regular rate and rhythm with 2/6 systolic ejection murmurs, no gallops, or rubs. No JVD. Peripheral pulses symmetric. RESPIRATORY/CHEST: Symmetric, unlabored respirations. Clear to auscultation. Breath sounds equal bilaterally. No wheezes, rales, or rhonchi. GASTROINTESTINAL: Abdomen soft, tender to palpation in all quadrants, mildly distended. No guarding. Bowel sounds present. GENITOURINARY: Without palpable bladder distension. MUSCULOSKELETAL: Extremities without clubbing, cyanosis, or edema. No joint tenderness or effusion noted. No calf tenderness. No mottling or clubbing. LYMPHATICS: No palpable cervical or supraclavicular adenopathy. NEUROLOGICAL: Awake and alert. Motor and sensory grossly within normal limits. Follows commands. Cognitively slow, moves all extremities. PSYCHIATRIC: No obvious anxiety/depression. no apparent hallucinations or other psychotic thought process. . Diagnostic Tests Laboratory: Laboratory Results - last 72 hr 11/25/17 11/25/17 11/25/17 13:57 13:57 13:57 WBC 9.5 RBC 2.43 L Hgb 9.2 L Hct 25.5 L MCV 105.0 H MCH 38.1 H MCHC 36.3 H RDW 18.8 H Plt Count 104 L MPV 9.3 Prelim Diff (Auto) Slide review pending Neut % (Auto) 71.1 H Lymph % (Auto) 20.2 [place] % (Auto) 7.6 Eos % (Auto) 1.0 Baso % (Auto) 0.1 Neut # (Auto) 6.7 Lymph # (Auto) 1.9 [place] # (Auto) 0.7 Eos # (Auto) 0.1 Baso # (Auto) 0.0 WBC Differential . Diff Scan Auto diff confirmed Differential Comment . Platelet Estimate Low L Platelet Morphology Normal RBC Morphology Acanthocytes (Spur) 1+ H Rouleaux Keratocytes PT 21.1 H INR 2.1 Sodium 131 L Potassium 2.8 L* Chloride 91 L Carbon Dioxide 27.7 Anion Gap 12 BUN 16 Creatinine 1.10 H Estimated GFR 52 L Random Glucose 201 H Calcium 8.3 L Magnesium Total Bilirubin 16.7 H AST 80 H ALT 20 Alkaline Phosphatase 148 H Ammonia Total Protein 8.4 H Albumin 2.4 L Serum Alcohol Less than 3 11/25/17 11/25/17 11/25/17 13:57 13:57 19:40 WBC RBC Hgb Hct MCV MCH MCHC RDW Plt Count MPV Prelim Diff (Auto) Neut % (Auto) Lymph % (Auto) [place] % (Auto) Eos % (Auto) Baso % (Auto) Neut # (Auto) Lymph # (Auto) [place] # (Auto) Eos # (Auto) Baso # (Auto) WBC Differential Diff Scan Differential Comment Platelet Estimate Platelet Morphology RBC Morphology Acanthocytes (Spur) Rouleaux Keratocytes PT INR Sodium Potassium 2.9 L* Chloride Carbon Dioxide Anion Gap BUN Creatinine Estimated GFR Random Glucose Calcium Magnesium 1.9 Total Bilirubin AST ALT Alkaline Phosphatase Ammonia 93 H Total Protein Albumin Serum Alcohol 11/26/17 11/26/17 11/26/17 07:17 07:17 07:17 WBC 7.8 RBC 2.19 L Hgb 8.4 L Hct 23.0 L MCV 105.0 H MCH 38.5 H MCHC 36.7 H RDW 17.9 H Plt Count 107 L MPV 7.9 Prelim Diff (Auto) Slide review pending Neut % (Auto) 62.1 Lymph % (Auto) 23.2 [place] % (Auto) 12.4 H Eos % (Auto) 1.8 Baso % (Auto) 0.5 Neut # (Auto) 4.8 Lymph # (Auto) 1.8 [place] # (Auto) 1.0 H Eos # (Auto) 0.1 Baso # (Auto) 0.0 WBC Differential . Diff Scan Auto diff confirmed Differential Comment . Platelet Estimate Platelet Morphology RBC Morphology Acanthocytes (Spur) 1+ H Rouleaux Keratocytes Occ H PT INR Sodium 138 Potassium 3.5 Chloride 102 D Carbon Dioxide 25.8 Anion Gap 10 BUN 10 Creatinine 0.88 Estimated GFR 68 L Random Glucose 101 D Calcium 8.2 L Magnesium Total Bilirubin 14.5 H AST 72 H ALT 18 Alkaline Phosphatase 125 H Ammonia 42 H Total Protein 7.6 D Albumin 2.1 L Serum Alcohol 11/27/17 11/27/17 11/27/17 07:24 07:24 07:24 WBC 7.6 RBC 2.17 L Hgb 8.3 L Hct 23.1 L MCV 106.6 H MCH 38.4 H MCHC 36.0 RDW 17.7 H Plt Count 101 L MPV 7.6 Prelim Diff (Auto) Slide review pending Neut % (Auto) 64.9 Lymph % (Auto) 20.7 [place] % (Auto) 12.4 H Eos % (Auto) 1.8 Baso % (Auto) 0.2 Neut # (Auto) 5.0 Lymph # (Auto) 1.6 [place] # (Auto) 0.9 Eos # (Auto) 0.1 Baso # (Auto) 0.0 WBC Differential . Diff Scan Auto diff confirmed Differential Comment . Platelet Estimate Low L Platelet Morphology Normal RBC Morphology Acanthocytes (Spur) 1+ H Rouleaux Present H Keratocytes Occ H PT 23.0 H INR 2.3 Sodium 140 Potassium 3.7 Chloride 107 Carbon Dioxide 24.6 Anion Gap 8 BUN 8 Creatinine 0.74 Estimated GFR 83 L Random Glucose 96 Calcium 8.1 L Magnesium Total Bilirubin 12.9 H AST 56 H ALT 16 Alkaline Phosphatase 121 H Ammonia Total Protein 7.2 Albumin 1.9 L Serum Alcohol 11/27/17 07:24 WBC RBC Hgb Hct MCV MCH MCHC RDW Plt Count MPV Prelim Diff (Auto) Neut % (Auto) Lymph % (Auto) [place] % (Auto) Eos % (Auto) Baso % (Auto) Neut # (Auto) Lymph # (Auto) [place] # (Auto) Eos # (Auto) Baso # (Auto) WBC Differential Diff Scan Differential Comment Platelet Estimate Platelet Morphology RBC Morphology Acanthocytes (Spur) Rouleaux Keratocytes PT INR Sodium Potassium Chloride Carbon Dioxide Anion Gap BUN Creatinine Estimated GFR Random Glucose Calcium Magnesium Total Bilirubin AST ALT Alkaline Phosphatase Ammonia 28 Total Protein Albumin Serum Alcohol Result Diagrams: 11/29/17 11:05 11/29/17 11:05 Imaging: Abdomen Ultrasound 11/25/17 00:00 CONCLUSION: Trace free fluid in the right upper quadrant. No other evidence of ascites. Patient/Family Conference Present at Family Conference: No family at bedside. Discussed the below listed items, palliative care purpose and focus, past medical, social, psychosocial, surgical history with patient who was able to provide a fair history. Plan to meet with family on Monday for further update. . Family Conference Location: Bedside Issues Discussed: * Palliative care role, purpose, approach * Additional medical, psychosocial, and spiritual history * Patients general health, functional status, and cognitive changes in the months leading up to the current hospitalization * Patient/family understanding of the current medical problems * Patient/family understanding of prognosis * Patients goals of care as best understood from advance directives and/or conversations and/or values * Current medical treatment options and benefits/burdens of those options * Likely scenarios comparing ongoing aggressive care with a transition to comfort measures only * Questions answered to the best of my ability * Palliative care contact information provided Assessment and Plan - Disease Oriented Problem List (1) Hyperbilirubinemia (2) Chronic abdominal pain (3) Cirrhosis of liver with ascites (4) Acute GI bleeding (5) Anemia (6) Hepatic encephalopathy Pertinent Non-Medical Issues: Psychosocial: She was born in [place] and moved to [place] when she was about 13. 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 She is and has 2 children a son Braeden Levy and a daughter Macie Ortiz. 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 Legal: Healthcare surrogate on chart listing her mother as primary and her daughter as secondary. Ethical issues impacting care: None noted. . Important Contacts: Mother: Annmarie Younger Son: Braeden Levy . Prognosis: She has severe hepatic disease now approaching failure. She has hepatic encephalopathy and is now confused. Transaminases are elevated with bilirubin at 12.9, ammonia elevated at 93 on admission, now down to 28 with both lactulose and rifaximin, with a meld score of 25 showing a 19.6% estimated 3- month mortality. She quit drinking alcohol 1 month ago on her last admission continues to smoke cigarettes daily. She is now requiring paracentesis intermittently, is having a decreasing appetite with a BMI of 17.5. She is auto -anticoagulated with an INR of 2.1. She has already had gastrointestinal bleeding in the past and is at risk for recurrent episodes. She has had multiple admissions and was seen in [place] 1 month ago. She is at risk for continued complications, decline and readmissions. . Code Status: Full Code Plan: PLAN: Legal decision maker: Goals: CODE STATUS: SYMPTOMS: * Altered mental status: Mental status is clearing as ammonia is reduced back into the normal range. While she appears to have limited insight, she is oriented x4. * Decreased appetite: She states she has only a couple of bites before becoming "full". She does note that she has lost weight in her arms and legs but that her belly got bigger. She previously required a GJ tube to gain weight. Her body mass index maintenance at 17.5. Recommend dietary consultation caloric requirements. * Abdominal pain: Multifactorial to include chronic pancreatitis, ascites, hepatitis. She is currently receiving gabapentin 600 mg p.o. nightly and ibuprofen 400 mg every 8 hours as needed for pain and has received 1 dose so far. SUMMARY This is a 52-year-old female with liver failure, jaundice, some ascites, alcoholic hepatitis, hyperammonemia, hyperbilirubinemia admitted with altered mental status. Mental status is improving with reduction in ammonia but she overall has failure to thrive with early satiety, weight loss and chronic abdominal pain. She has not drank alcohol in a month but continues to smoke 1 pack/day of cigarettes. She will need outpatient follow-up with GI. Her meld score today is 25 predicting in 19.6% mortality rate in the next 3 months. She would be hospice appropriate if goals were consistent. Palliative care will continue to follow the patient during hospital course as condition evolves, to assist patient/decision-maker with understanding of their medical conditions, weighing benefits/burdens of treatment options, for clarification of goals of treatment. Additionally will assist with any symptoms of palliative concern. . Appreciation Thank you for the opportunity to participate in the care of Debbie Ortiz. Attestation Attestation: To help prompt me to consider important information that might be impacting today's encounter and assessment, information from prior notes written by myself or my colleagues may have been "brought forward" into today's note. My signature on this note, however, is an attestation that I personally performed the exam, history, and/or decision-making noted today, and, unless otherwise indicated, the interactions with patient, family, and staff as well as the review of records all occurred today. I also attest that the listed assessment and stated plan reflect my best clinical judgment today based on the combination of historical information, prior notes, and today's exam/ interactions. When time spent is documented, it refers only to time spent today by the signer, or if indicated, combined time spent today by collaborating physician/nurse practitioner. .
--- NOTE | 2017-11-27 12:15 | P.PNIM ---
Subjective Interval history: Follow-up visit altered mental status, liver cirrhosis, hepatic encephalopathy, hypokalemia, hyponatremia, acute kidney injury. Patient seen and examined, lying in Bed,. patient complaints of anxiety and wanted to have her own ativan, . patient stated she was taking 0.5 mg ativan at home 4 x day. Discussed to patient the side effect of altered mental status, suggested to lower down the dose, patient agreed. Patient denies nay abdominal pain, nausea or vomiting. Denies any chest pain or SOB. Patent denies any fever or chills. Physical Exam Vital signs: Vital Signs 11/26/17 12:00 11/26/17 16:00 11/26/17 20:00 Temperature 98.9 F 98.9 F 97.8 F Pulse Rate 85 84 97 H Respiratory Rate 18 18 16 Blood Pressure 113/58 L 127/57 L 93/50 L Pulse Oximetry 97 99 98 11/27/17 00:00 11/27/17 03:57 11/27/17 08:00 Temperature 98 F 98 F 98.6 F Pulse Rate 91 H 95 H 68 Respiratory Rate 17 16 20 Blood Pressure 102/58 L 101/54 L 93/54 L Pulse Oximetry 97 97 94 L Intake & Output 11/26/17 11/27/17 11/27/17 18:59 06:59 18:59 Intake Total 1000 / 1000 1280 / 1280 Balance 1000 / 1000 1280 / 1280 Weight 47.8 kg Intake: IV 1000 / 1000 1000 / 1000 NS + KCl 20 mEq Inj 1,000 ML @ 1000 / 1000 1000 / 1000 50 mls/hr IV.CONT .Q20H [facility] Rx# :[id number] Oral 280 / 280 Other: Date of Last Bowel Movement 11/26/17 # Bowel Movements 3 Narrative: GENERAL: Thin-looking female in no apparent distress SKIN: Warm and dry. Diffuse jaundice, Multiple stigmata of liver disease including spider telangiectasias, palmar erythema, and some mild abdominal caput medusae. HEAD: Atraumatic. Normocephalic. EYES: Pupils equal and round. No injection or drainage. Jaundiced sclera ENT: No nasal bleeding or discharge. Mucous membranes pink and moist. NECK: Trachea midline. No JVD. CARDIOVASCULAR: Regular rate and rhythm. RESPIRATORY: No accessory muscle use. Clear to auscultation. Breath sounds equal bilaterally. GASTROINTESTINAL: Abdomen flat soft, mild tenderness on palpation on after upper abdominal area , nondistended. Hepatic margins palpable and splenic margins not palpable. MUSCULOSKELETAL: Extremities without clubbing, cyanosis, or edema. No obvious deformities. NEUROLOGICAL: Awake and alert. No obvious cranial nerve deficits. Generalized weakness, moving all 4 extremities. Normal speech. PSYCHIATRIC: flat mood and affect; insight and judgment unreliable, with confusion Results - Labs CBC & Chem 7: 11/27/17 07:24 11/27/17 07:24 Laboratory Results - last 24 hr 11/27/17 11/27/17 11/27/17 07:24 07:24 07:24 WBC 7.6 RBC 2.17 L Hgb 8.3 L Hct 23.1 L MCV 106.6 H MCH 38.4 H MCHC 36.0 RDW 17.7 H Plt Count 101 L MPV 7.6 Prelim Diff (Auto) Slide review pending Neut % (Auto) 64.9 Lymph % (Auto) 20.7 [place] % (Auto) 12.4 H Eos % (Auto) 1.8 Baso % (Auto) 0.2 Neut # (Auto) 5.0 Lymph # (Auto) 1.6 [place] # (Auto) 0.9 Eos # (Auto) 0.1 Baso # (Auto) 0.0 WBC Differential . Diff Scan Auto diff confirmed Differential Comment . Platelet Estimate Low L Platelet Morphology Normal Acanthocytes (Spur) 1+ H Rouleaux Present H Keratocytes Occ H PT 23.0 H INR 2.3 Sodium 140 Potassium 3.7 Chloride 107 Carbon Dioxide 24.6 Anion Gap 8 BUN 8 Creatinine 0.74 Estimated GFR 83 L Random Glucose 96 Calcium 8.1 L Total Bilirubin 12.9 H AST 56 H ALT 16 Alkaline Phosphatase 121 H Ammonia Total Protein 7.2 Albumin 1.9 L 11/27/17 07:24 WBC RBC Hgb Hct MCV MCH MCHC RDW Plt Count MPV Prelim Diff (Auto) Neut % (Auto) Lymph % (Auto) [place] % (Auto) Eos % (Auto) Baso % (Auto) Neut # (Auto) Lymph # (Auto) [place] # (Auto) Eos # (Auto) Baso # (Auto) WBC Differential Diff Scan Differential Comment Platelet Estimate Platelet Morphology Acanthocytes (Spur) Rouleaux Keratocytes PT INR Sodium Potassium Chloride Carbon Dioxide Anion Gap BUN Creatinine Estimated GFR Random Glucose Calcium Total Bilirubin AST ALT Alkaline Phosphatase Ammonia 28 Total Protein Albumin Assessment and Plan - Assessment (1) Hepatic encephalopathy Code(s): K72.90 - Hepatic failure, unspecified without coma Status: Acute - Plan 52-year-old female with history of liver cirrhosis and chronic pancreatitis admitted for hepatic encephalopathy. Hepatic encephalopathy Ammonia elevated at 93 initially, improved -->28 improving AST 56, ALT 16, total bilirubin 16.7 -->12.9 INR elevated 2.3 Meld score 29 with 19.6 estimated 3-month mortality Continue lactulose and rifaximin Continue home spironolactone, Lasix, and pentoxifylline Avoid hepatotoxic agents Consider SBP if patient develops fever but as of now she is afebrile, no leukocytosis, and only minimal abdominal tenderness. -Ultrasound of the abdomen trace free fluid in the right upper quadrant. No other evidence of ascites. -monitor liver function and ammonia level Hypokalemia improving -s/p 20 mEq KCl in IV fluids -continue Potassium supplements PO Continue to monitor BMP Hyponatremia -improving Sodium 131 ->140 s/p Normal saline at 84 mL/h, will decrease to 50ml/hr. Continue to monitor ARACELIS baseline around 0.5-0.6 Creatinine 1.10 --> 0.75 Possibly secondary to decreased PO intake but also consider hepatorenal syndrome s/p IV fluids -monitor BMP Chronic pancreatitis Resume home Creon History of esophagitis Continue home PPI Anxiety -restart lower dose ativan prn -monitor mental status DVT prop SCDs, avoid chemical prophylaxis secondary to liver dysfunction Code Status: full code Discussed Condition With: patient and nurse
--- NOTE | 2017-11-27 14:22 | P.DCO ---
- Diagnosis (1) Acute hepatic encephalopathy Status: Acute - Physical Therapy Order: Evaluate and treat - Home Health Nursing Order: Medical education, Signs/symptoms of disease process, Medication education-adverse effect, Nursing assessment with vital signs - Case Management Consult Yes - Certification I have seen patient Debbie Ortiz on 11/27/17. My clinical findings support the need for the requested home health care services because: Limited mobility due to disease progression, Medication compliance is questionable I certify that my clinical findings support that this patient is homebound because: Unsteady gait/balance, Unsafe to leave home unassisted
[2017-11-27] MEDS: Ibuprofen 400 MG Tablet PO PRN (16:15)
[2017-11-27] MEDS: LORazepam 0.5 MG Tablet PO PRN (20:18)
[2017-11-27] MEDS: Gabapentin 300 MG Capsule PO SCH (20:18)
[2017-11-28] MEDS: Ibuprofen 400 MG Tablet PO PRN ×2 (06:49→17:41)
[2017-11-28] MEDS: LORazepam 0.5 MG Tablet PO PRN ×3 (06:53→22:38)
[2017-11-28 07:23] LABS: INR 2.2 Ratio; Prothrombin Time 22.5 sec (9.8-11.6)
[2017-11-28 07:54] LABS: Albumin 1.9 g/dL (3.4-5.0); Anion Gap 8 meq/L (5-15); Aspartate Aminotransferase 50 U/L (15-37); Blood Urea Nitrogen 10 mg/dL (7-18); Calcium 8.3 mg/dL (8.5-10.1); Carbon Dioxide 24.1 meq/L (21.0-32.0); Chloride 104 meq/L (98-107); Glomerular Filtration Rate Greater Than 89 mL/min (>89); Glucose,Random 85 mg/dL (74-106); Potassium 4.3 meq/L (3.5-5.1); Sodium 136 meq/L (136-145)
[2017-11-28 07:59] LABS: Alanine Aminotransferase 15 U/L (10-53); Alkaline Phosphatase 111 U/L (45-117)
[2017-11-28 09:08] LABS: Baso % (Auto) 0.3 % (0.0-2.0); Eos # (Auto) 0.2 th/mm3 (0.0-0.4); Eos % (Auto) 1.9 % (0.0-4.0); Hematocrit 23.4 % (35.0-46.0); Hemoglobin 7.9 gm/dL (11.6-15.3); Lymph # (Auto) 1.5 th/mm3 (1.0-4.8); Lymph % (Auto) 17.1 % (9.0-44.0); Mean Corpuscular HGB Conc 33.9 % (32.0-36.0); Mean Corpuscular Hemoglobin 36.7 pg (27.0-34.0); Mean Corpuscular Volume 108.2 fL (80.0-100.0); Mean Platelet Volume 8.3 fL (7.0-11.0); Mono % (Auto) 11.7 % (0.0-8.0); Neut # (Auto) 6.2 th/mm3 (1.8-7.7); Platelet Count 95 th/mm3 (150-450); Red Blood Count 2.16 mil/mm3 (4.00-5.30)
[2017-11-28] MEDS: Spironolactone 50 MG Tablet PO SCH ×2 (09:39→13:36)
[2017-11-28] MEDS: Furosemide 20 MG Tablet PO SCH ×2 (09:40→13:35)
[2017-11-28] MEDS: Lipase/Protease/Amylase 24/76/120 DR Capsule PO SCH ×3 (09:41→17:41)
[2017-11-28 09:42] LABS: Acanthocytes 1+
[2017-11-28 09:43] LABS: Platelet Morphology Clumped (Normal)
[2017-11-28] MEDS: Pentoxifylline 400 MG Controlled Release Tablet PO SCH ×3 (09:43→17:41)
[2017-11-28] MEDS: rifAXIMin 550 MG Tablet PO SCH ×2 (09:44→22:39)
[2017-11-28] MEDS ORDERED: Spironolactone 50 MG Tablet PO SCH (09:45)
--- NOTE | 2017-11-28 10:40 | P.PNIM ---
Subjective Interval history: Follow-up visit altered mental status, liver cirrhosis, hepatic encephalopathy, hypokalemia, hyponatremia, acute kidney injury. Patient seen and examined, sitting in the bed, eating breakfast, nurse at bedside. Patient stated wants to go home, discuss about her home medication that we are not giving. Discussed the patient the effect of those medications with sedation and affect her liver, patient verbalized understanding. Patient denies any pain at this time no abdominal pain, denies any nausea or vomiting, denies any headache or dizziness, denies any chest pain or shortness of breath. Patient denies any diarrhea or constipation. Patient denies any fever or chills. Nurse reported patient's blood pressure in the morning was low and was unable to give the medications due to low blood pressure. Discussed to change the times. Physical Exam Vital signs: Vital Signs 11/27/17 12:00 11/27/17 16:00 11/27/17 20:00 Temperature 98.2 F 98.8 F 97.3 F L Pulse Rate 86 89 94 H Respiratory Rate 18 18 Blood Pressure 108/65 105/51 L 98/53 L Pulse Oximetry 98 97 94 L 11/28/17 00:00 11/28/17 04:00 11/28/17 07:58 Temperature 97.8 F 97.7 F Pulse Rate 87 71 Respiratory Rate 18 16 Blood Pressure 97/56 L 93/56 L Pulse Oximetry 94 L 97 11/28/17 08:00 11/28/17 09:38 Temperature 98.2 F Pulse Rate 72 Respiratory Rate 18 Blood Pressure 89/51 L 96/66 L Pulse Oximetry 96 Intake & Output 11/27/17 11/28/17 11/28/17 18:59 06:59 18:59 Intake Total 800 / 800 360 / 360 Balance 800 / 800 360 / 360 Weight 47.8 kg Intake: IV 800 / 800 NS + KCl 20 mEq Inj 1,000 ML @ 800 / 800 50 mls/hr IV.CONT .Q20H [facility] Rx# :[id number] Oral 360 / 360 Other: # Voids 3 2 # Bowel Movements 2 2 Narrative: GENERAL: Thin-looking female in no apparent distress SKIN: Warm and dry. Diffuse jaundice, Multiple stigmata of liver disease including spider telangiectasias, palmar erythema, and some mild abdominal caput medusae. HEAD: Atraumatic. Normocephalic. EYES: Pupils equal and round. No injection or drainage. Jaundiced sclera ENT: No nasal bleeding or discharge. Mucous membranes pink and moist. NECK: Trachea midline. No JVD. CARDIOVASCULAR: Regular rate and rhythm. RESPIRATORY: No accessory muscle use. Clear to auscultation. Breath sounds equal bilaterally. GASTROINTESTINAL: Abdomen soft, mild tenderness on palpation on after upper abdominal area , nondistended. Hepatic margins palpable and splenic margins not palpable. MUSCULOSKELETAL: Extremities without clubbing, cyanosis, or edema. No obvious deformities. NEUROLOGICAL: Awake and alert. No obvious cranial nerve deficits. Generalized weakness, moving all 4 extremities. Normal speech. PSYCHIATRIC: flat mood and affect; insight and judgment unreliable. Results - Labs CBC & Chem 7: 11/28/17 08:45 11/28/17 06:53 Laboratory Results - last 24 hr 11/28/17 11/28/17 11/28/17 06:53 06:53 06:53 WBC RBC Hgb Hct MCV MCH MCHC RDW Plt Count MPV Prelim Diff (Auto) Neut % (Auto) Lymph % (Auto) [place] % (Auto) Eos % (Auto) Baso % (Auto) Neut # (Auto) Lymph # (Auto) [place] # (Auto) Eos # (Auto) Baso # (Auto) WBC Differential Diff Scan Differential Comment Platelet Estimate Platelet Morphology Acanthocytes (Spur) PT 22.5 H INR 2.2 Sodium 136 Potassium 4.3 Chloride 104 Carbon Dioxide 24.1 Anion Gap 8 BUN 10 Creatinine 0.67 Estimated GFR Greater than 89 Random Glucose 85 Calcium 8.3 L Total Bilirubin 12.3 H Direct Bilirubin 8.1 H Indirect Bilirubin 4.2 H AST 50 H ALT 15 Alkaline Phosphatase 111 Ammonia 36 H Total Protein 7.0 Albumin 1.9 L 11/28/17 08:45 WBC 9.0 RBC 2.16 L Hgb 7.9 L Hct 23.4 L MCV 108.2 H MCH 36.7 H MCHC 33.9 RDW 17.0 Plt Count 95 L MPV 8.3 Prelim Diff (Auto) Slide review pending Neut % (Auto) 69.0 Lymph % (Auto) 17.1 [place] % (Auto) 11.7 H Eos % (Auto) 1.9 Baso % (Auto) 0.3 Neut # (Auto) 6.2 Lymph # (Auto) 1.5 [place] # (Auto) 1.0 H Eos # (Auto) 0.2 Baso # (Auto) 0.0 WBC Differential . Diff Scan Auto diff confirmed Differential Comment . Platelet Estimate Low L Platelet Morphology Clumped H Acanthocytes (Spur) 1+ H PT INR Sodium Potassium Chloride Carbon Dioxide Anion Gap BUN Creatinine Estimated GFR Random Glucose Calcium Total Bilirubin Direct Bilirubin Indirect Bilirubin AST ALT Alkaline Phosphatase Ammonia Total Protein Albumin Assessment and Plan - Assessment (1) Acute hepatic encephalopathy Code(s): K72.00 - Acute and subacute hepatic failure without coma Status: Acute (2) Hepatic encephalopathy Code(s): K72.90 - Hepatic failure, unspecified without coma Status: Acute - Plan This is a 52-year-old female with history of liver cirrhosis and chronic pancreatitis admitted for hepatic encephalopathy. Hepatic encephalopathy Ammonia elevated at 93 initially, improved -->28 improving AST 50, ALT 15, total bilirubin 16.7 -->12.3 INR elevated 2.2 Meld score 29 with 19.6 estimated 3-month mortality Continue lactulose and rifaximin Continue home pentoxifylline, rescheduled spironolactone and Lasix due to low BP in the morning Avoid hepatotoxic agents -Ultrasound of the abdomen trace free fluid in the right upper quadrant. No other evidence of ascites. -monitor liver function -ammonia level elevated today, verified and discussed with nurse to make sure that patient was taking her lactulose, found unused one at the bedside. This will be a concern after discharge whether patient will be compliant with medications. Hypokalemia improved -s/p 20 mEq KCl in IV fluids -continue Potassium supplements PO Continue to monitor BMP Hyponatremia -improving Sodium 131 ->140 s/p Normal saline at 84 mL/h, will decrease to 50ml/hr. Continue to monitor ARACELIS baseline around 0.5-0.6 Creatinine 1.10 --> 0.75 Possibly secondary to decreased PO intake but also consider hepatorenal syndrome s/p IV fluids -monitor BMP Chronic pancreatitis Resume home Creon History of esophagitis Continue home PPI Anxiety -restart lower dose ativan prn -monitor mental status Acute on Chronic Anemia -check Iron Profile, Ferritin and Vit B 12 -start on Iron supplements -monitor CBC DVT prop SCDs, avoid chemical prophylaxis secondary to liver dysfunction Code Status: full code Discussed Condition With: patient, nuirse and social media marketing analyst Discharge Planning: [employer] to assist with HHC for patients compliance with medication treatment
[2017-11-28] MEDS: Ferrous Sulfate 325 MG Tablet PO SCH ×2 (13:33→17:41)
[2017-11-28] MEDS: Gabapentin 300 MG Capsule PO SCH (22:40)
[2017-11-29] MEDS: LORazepam 0.5 MG Tablet PO PRN ×3 (06:19→22:30)
[2017-11-29] MEDS: Ibuprofen 400 MG Tablet PO PRN (06:19)
[2017-11-29] MEDS: Lipase/Protease/Amylase 24/76/120 DR Capsule PO SCH ×3 (09:37→18:26)
[2017-11-29] MEDS: Furosemide 20 MG Tablet PO SCH (09:37)
[2017-11-29] MEDS: rifAXIMin 550 MG Tablet PO SCH ×2 (09:37→20:07)
[2017-11-29] MEDS: Pentoxifylline 400 MG Controlled Release Tablet PO SCH ×3 (09:37→18:26)
[2017-11-29] MEDS: Spironolactone 50 MG Tablet PO SCH (09:38)
[2017-11-29 09:47] LABS: % Iron Saturation 89.3 % (20-50)
--- NOTE | 2017-11-29 11:40 | P.PNIM ---
Subjective Interval history: Follow-up visit altered mental status, liver cirrhosis, hepatic encephalopathy, hypokalemia, hyponatremia, acute kidney injury. Nurse reported patient defecating on herself, and on the floor in the room. Nurse reported stool was formed, does not look like diarrhea. Patient seen and examined sitting on the chair by the window, wanted to go out and smoke. Patient stated her son is coming to pick her up and wanted to smoke outside before she can go home. Patient denies any pain or shortness of breath, denies any headache or dizziness , denies any fever or chills. Discussed with the patient about incontinence and stool patient stated she did not make it to the bathroom. However the commode is located at her bedside. The nurse also reported that patient does not want to take her morning medications earlier, and wanted to have her purse [place], although the person sitting beside her. Patient wanted her medications inside her purse which I believe that a nurse have locked up her home medications. This will be a concern when she goes home to go back to her speech previous medications that causes her to have lethargy and altered mental status. And compliance in taking her medication regimen. Discussed with social insurance adviser to assist with placement/SNF/rehab. Physical Exam Vital signs: Vital Signs 11/28/17 12:00 11/28/17 13:36 11/28/17 15:17 Temperature 98.5 F 98.1 F Pulse Rate 95 H 95 H Respiratory Rate 18 18 Blood Pressure 99/54 L 116/59 L 93/52 L Pulse Oximetry 96 98 11/28/17 20:00 11/29/17 00:00 11/29/17 04:00 Temperature 97.9 F 97.8 F 97.9 F Pulse Rate 100 H 97 H 93 H Respiratory Rate 20 20 17 Blood Pressure 105/52 L 98/56 L Pulse Oximetry 97 96 98 11/29/17 08:00 Temperature 97.8 F Pulse Rate 94 H Respiratory Rate 18 Blood Pressure 111/54 L Pulse Oximetry 98 Intake & Output 11/28/17 11/29/17 11/29/17 18:59 06:59 18:59 Intake Total 240 / 240 Balance 240 / 240 Weight 47.8 kg Intake: Oral 240 / 240 Other: # Voids 3 2 Date of Last Bowel Movement 11/28/17 11/29/17 # Bowel Movements 3 1 Narrative: GENERAL: Chronically ill appearing female, in no apparent distress SKIN: Warm and dry. Diffuse jaundice, Multiple stigmata of liver disease including spider telangiectasias, palmar erythema, and some mild abdominal caput medusae. HEAD: Atraumatic. Normocephalic. EYES: Pupils equal and round. No injection or drainage. Jaundiced sclera ENT: No nasal bleeding or discharge. Mucous membranes pink and moist. NECK: Trachea midline. No JVD. CARDIOVASCULAR: Regular rate and rhythm. RESPIRATORY: No accessory muscle use. Clear to auscultation. Breath sounds equal bilaterally. GASTROINTESTINAL: Abdomen soft, nontender, nondistended. Hepatic margins palpable and splenic margins not palpable. MUSCULOSKELETAL: Extremities without clubbing, cyanosis, or edema. No obvious deformities. NEUROLOGICAL: Awake and alert. No obvious cranial nerve deficits. Generalized weakness, moving all 4 extremities. Normal speech. PSYCHIATRIC: flat mood and affect; insight and judgment unreliable. Results - Labs CBC & Chem 7: 11/28/17 08:45 11/28/17 06:53 Laboratory Results - last 24 hr 11/29/17 08:09 Iron 100 TIBC 112 L % Saturation 89.3 H Ferritin 285 H Vitamin B12 1726 H Assessment and Plan - Assessment (1) Acute hepatic encephalopathy Code(s): K72.00 - Acute and subacute hepatic failure without coma Status: Acute (2) Hepatic encephalopathy Code(s): K72.90 - Hepatic failure, unspecified without coma Status: Acute - Plan This is a 52-year-old female with history of liver cirrhosis and chronic pancreatitis admitted for hepatic encephalopathy. Hepatic encephalopathy/altered mental status Ammonia elevated at 93 initially, improved -->28 improving AST 50, ALT 15, total bilirubin 16.7 -->12.3 INR elevated 2.2 Meld score 29 with 19.6 estimated 3-month mortality Continue lactulose and rifaximin Continue home pentoxifylline, rescheduled spironolactone and Lasix due to low BP in the morning Avoid hepatotoxic agents -Ultrasound of the abdomen trace free fluid in the right upper quadrant. No other evidence of ascites. -monitor liver function -ammonia level elevated on 11/28, nurse reported unused lactulose at the bedside. This will be a concern after discharge whether patient will be compliant with medications. -Psych consulted for medical decision making capability, considering patient insisting to go home, wanting to smoke, refusing her medications, defecating on herself. Hypokalemia improved -s/p 20 mEq KCl in IV fluids -continue Potassium supplements PO Continue to monitor BMP Hyponatremia -improving Sodium 131 ->140 s/p Normal saline at 84 mL/h, will decrease to 50ml/hr. Continue to monitor ARACELIS baseline around 0.5-0.6 Creatinine 1.10 --> 0.75 Possibly secondary to decreased PO intake but also consider hepatorenal syndrome s/p IV fluids -monitor BMP Chronic pancreatitis Resume home Creon History of esophagitis Continue home PPI Anxiety -restart lower dose ativan prn -monitor mental status Acute on Chronic Anemia -TIBC 112, ferritin 285, vitamin B12 1726 -start on Iron supplements -monitor CBC Tobacco dependence Patient requesting to go out to smoke, education given -Start on nicotine patch DVT prop SCDs, avoid chemical prophylaxis secondary to liver dysfunction Code Status: Full code Discussed Condition With: Patient, nurse, social insurance adviser Discharge Planning: public services librarian consulted to assist patient patient in placement to SNF/rehab. Patient was in [facility] previously.
[2017-11-29 11:44] LABS: Baso % (Auto) 0.3 % (0.0-2.0); Eos # (Auto) 0.1 th/mm3 (0.0-0.4); Eos % (Auto) 0.9 % (0.0-4.0); Hematocrit 25.7 % (35.0-46.0); Hemoglobin 8.7 gm/dL (11.6-15.3); Lymph # (Auto) 1.7 th/mm3 (1.0-4.8); Lymph % (Auto) 13.9 % (9.0-44.0); Mean Corpuscular HGB Conc 33.9 % (32.0-36.0); Mean Corpuscular Hemoglobin 37.2 pg (27.0-34.0); Mean Corpuscular Volume 109.9 fL (80.0-100.0); Mean Platelet Volume 8.5 fL (7.0-11.0); Mono # (Auto) 1.4 th/mm3 (0.0-0.9); Mono % (Auto) 11.5 % (0.0-8.0); Neut % (Auto) 73.4 % (16.0-70.0); Platelet Count 107 th/mm3 (150-450); Red Blood Count 2.34 mil/mm3 (4.00-5.30); Red Cell Distribution Width 17.5 % (11.6-17.2); White Blood Count 12.3 th/mm3 (4.0-11.0)
[2017-11-29 12:12] LABS: Alanine Aminotransferase 21 U/L (10-53); Albumin 2.6 g/dL (3.4-5.0); Alkaline Phosphatase 146 U/L (45-117); Anion Gap 7 meq/L (5-15); Aspartate Aminotransferase 67 U/L (15-37); Blood Urea Nitrogen 13 mg/dL (7-18); Calcium 8.3 mg/dL (8.5-10.1); Carbon Dioxide 23.5 meq/L (21.0-32.0); Chloride 104 meq/L (98-107); Glomerular Filtration Rate 54 mL/min (>89); Glucose,Random 98 mg/dL (74-106); Sodium 134 meq/L (136-145); Total Protein 8.3 g/dL (6.4-8.2)
[2017-11-29 13:13] LABS: Platelet Morphology Normal (Normal)
[2017-11-29 13:14] LABS: Acanthocytes 1+
[2017-11-29] MEDS: Ferrous Sulfate 325 MG Tablet PO SCH ×2 (14:02→18:26)
--- NOTE | 2017-11-29 15:17 | P.DS ---
Date of admission: 11/25/17 15:24 Primary care physician: Marco Antonio Aranda DO Attending physician on discharge: Genaro Lynn Anticipated date of discharge: 11/29/17 Brief History from admission: 52 year old female with history of liver cirrhosis and chronic pancreatitis presenting with altered mental status, nausea, and general malaise. Her son reportedly brought her in earlier but he is no longer present and overall the patient is a poor historian and has to frequently ask me to repeat my questions because she forgets what I asked.The patient reports she came in because she was feeling "all sorts of out of whack and discombobulated. " She has had a decreased appetite, nausea, and some abdominal discomfort the past few days. She endorses some diarrhea and had one episode of nonbloody, nonbilious emesis today. She also complains of blurry vision. She cannot tell me what medications she takes but has a few with her in her bag. 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 She denies chest pain, shortness of breath, cough, palpitations, edema, headache, fever, or chills. PMH: liver cirrhosis, chronic pancreatitis, esophagitis, portal hypertensive gastropathy Surgical hx: hip replacement, history of paracentesis Family hx: mother had heart disease Social hx: lives alone with her dog, states she hasn't had a drink since she was last hospitalized which was on 10/27, history of heavy alcohol use, smokes 1PPD, denies drug use Patient update on day of discharge: Follow-up visit altered mental status, liver cirrhosis, hepatic encephalopathy, hypokalemia, hyponatremia, acute kidney injury. Nurse reported patient defecating on herself, and on the floor in the room. Nurse reported stool was formed, does not look like diarrhea. Patient seen and examined sitting on the chair by the window, wanted to go out and smoke. Patient stated her son is coming to pick her up and wanted to smoke outside before she can go home. Patient denies any pain or shortness of breath, denies any headache or dizziness , denies any fever or chills. Discussed with the patient about incontinence and stool patient stated she did not make it to the bathroom. However the commode is located at her bedside. The nurse also reported that patient does not want to take her morning medications earlier, and wanted to have her purse Russell, although the person sitting beside her. Patient wanted her medications inside her purse which I believe that a nurse have locked up her home medications. This will be a concern when she goes home to go back to her speech previous medications that causes her to have lethargy and altered mental status. And compliance in taking her medication regimen. Discussed with social media marketing specialist to assist with placement/SNF/reha DS: Diagnosis - Discharge Diagnosis (1) Acute hepatic encephalopathy Status: Acute (2) Hepatic encephalopathy Status: Acute (3) Cirrhosis of liver with ascites Status: Acute (4) Anemia Status: Acute (5) Acute hypokalemia Status: Acute DS: Medications - Discharge Medications Prescriptions: lactulose 30 ml PO Q8H 14 Days #1260 ml nicotine 1 patch TRANSDERMAL DAILY 7 Days #7 ea potassium chloride 20 meq PO DAILY 30 Days #30 tab rifaximin [Xifaxan] 550 mg PO Q12HR 30 Days #60 tab DS: Summary Hospital Course: This is a 52-year-old female with history of liver cirrhosis and chronic pancreatitis admitted for hepatic encephalopathy, altered mental status. Patient also found to have hypokalemia and hyponatremia which were replaced,, acute kidney injury which is now at baseline. Patient's ammonia level has improved from 93 and today is back to normal range at 15. Patient has to continue with lactulose, rifaximin, spironolactone, and Lasix. There is a question whether the patient will be compliant on the medication treatment. The plan is to discharge patient at SNF/rehab to make sure he she get her medication treatment. Patient is to avoid sedative medication such as her prescription narcotics. It was discontinued patient denies any pain during hospitalization. Patient just wanted to smoke so was given a nitro patch. However if patient continues to smoke the Nitropatch should be discontinued. - Time Spent with Patient Total time spent providing and/or coordinating discharge services: Greater than 30 minutes - Quality: VTE Deep Vein Thrombosis/Pulmonary Embolism Present on Admission: No Exam Vital signs: Vital Signs 11/28/17 15:17 11/28/17 20:00 11/29/17 00:00 Temperature 98.1 F 97.9 F 97.8 F Pulse Rate 95 H 100 H 97 H Respiratory Rate 18 20 20 Blood Pressure 93/52 L 105/52 L Pulse Oximetry 98 97 96 11/29/17 04:00 11/29/17 08:00 Temperature 97.9 F 97.8 F Pulse Rate 93 H 94 H Respiratory Rate 17 18 Blood Pressure 98/56 L 111/54 L Pulse Oximetry 98 98 Intake & Output 11/28/17 11/29/17 11/29/17 18:59 06:59 18:59 Intake Total 240 / 240 Balance 240 / 240 Weight 47.8 kg Intake: Oral 240 / 240 Other: # Voids 3 2 Date of Last Bowel Movement 11/28/17 11/29/17 # Bowel Movements 3 1 Narrative: GENERAL: Chronically ill appearing female, in no apparent distress SKIN: Warm and dry. Diffuse jaundice, Multiple stigmata of liver disease including spider telangiectasias, palmar erythema, and some mild abdominal caput medusae. HEAD: Atraumatic. Normocephalic. EYES: Pupils equal and round. No injection or drainage. Jaundiced sclera ENT: No nasal bleeding or discharge. Mucous membranes pink and moist. NECK: Trachea midline. No JVD. CARDIOVASCULAR: Regular rate and rhythm. RESPIRATORY: No accessory muscle use. Clear to auscultation. Breath sounds equal bilaterally. GASTROINTESTINAL: Abdomen soft, nontender, nondistended. Hepatic margins palpable and splenic margins not palpable. MUSCULOSKELETAL: Extremities without clubbing, cyanosis, or edema. No obvious deformities. NEUROLOGICAL: Awake and alert. No obvious cranial nerve deficits. Generalized weakness, moving all 4 extremities. Normal speech. PSYCHIATRIC: flat mood and affect; insight and judgment unreliable. Results Procedures completed during hospitalization: N/A Labs on day of discharge: Labs from last 24 hours 11/29/17 11/29/17 11/29/17 11:05 11:05 11:05 WBC 12.3 H RBC 2.34 L Hgb 8.7 L Hct 25.7 L MCV 109.9 H MCH 37.2 H MCHC 33.9 RDW 17.5 H Plt Count 107 L MPV 8.5 Prelim Diff (Auto) Slide review pending Neut % (Auto) 73.4 H Lymph % (Auto) 13.9 [place] % (Auto) 11.5 H Eos % (Auto) 0.9 Baso % (Auto) 0.3 Neut # (Auto) 9.0 H Lymph # (Auto) 1.7 [place]bert # (Auto) 1.4 H Eos # (Auto) 0.1 Baso # (Auto) 0.0 WBC Differential . Diff Scan Auto diff confirmed Differential Comment . Platelet Estimate Low L Platelet Morphology Normal Basophilic Stippling Faint H Acanthocytes (Spur) 1+ H Sodium 134 L Potassium 4.0 Chloride 104 Carbon Dioxide 23.5 Anion Gap 7 BUN 13 Creatinine 1.07 H Estimated GFR 54 L Random Glucose 98 Calcium 8.3 L Iron TIBC % Saturation Ferritin Total Bilirubin 13.2 H AST 67 H ALT 21 Alkaline Phosphatase 146 H Ammonia 15 Total Protein 8.3 H D Albumin 2.6 L D Vitamin B12 11/29/17 08:09 WBC RBC Hgb Hct MCV MCH MCHC RDW Plt Count MPV Prelim Diff (Auto) Neut % (Auto) Lymph % (Auto) Elbert % (Auto) Eos % (Auto) Baso % (Auto) Neut # (Auto) Lymph # (Auto) Elbert # (Auto) Eos # (Auto) Baso # (Auto) WBC Differential Diff Scan Differential Comment Platelet Estimate Platelet Morphology Basophilic Stippling Acanthocytes (Spur) Sodium Potassium Chloride Carbon Dioxide Anion Gap BUN Creatinine Estimated GFR Random Glucose Calcium Iron 100 TIBC 112 L % Saturation 89.3 H Ferritin 285 H Total Bilirubin AST ALT Alkaline Phosphatase Ammonia Total Protein Albumin Vitamin B12 1726 H - Impressions ITS Impressions Abdomen Ultrasound 11/25/17 00:00 CONCLUSION: Trace free fluid in the right upper quadrant. No other evidence of ascites. Discharge Plan - Discharge Disposition Patient Disposition: Discharge to SNF - Discharge Condition Condition: Fair - Discharge Order Discharge Orders: Discharge Order (Routine); Ordered 11/29/17 Ordered By: Usha Jensen - Discharge Details Anticipated Discharge Date: 11/29/17 Discharge Comment: when bed available in SNF - Physicians Team Primary Care Provider: Marco Antonio Aranda Attending Provider: Genaro Lynn Other Providers: Elisa Cade MD ; Wally Carrillo MD
[2017-11-29] MEDS: Gabapentin 300 MG Capsule PO SCH (20:07)
[2017-11-30] MEDS: Ibuprofen 400 MG Tablet PO PRN (03:58)
[2017-11-30] MEDS: LORazepam 0.5 MG Tablet PO PRN ×3 (06:35→23:11)
[2017-11-30] MEDS: Spironolactone 50 MG Tablet PO SCH (08:20)
[2017-11-30] MEDS: Furosemide 20 MG Tablet PO SCH (08:20)
[2017-11-30] MEDS: Lipase/Protease/Amylase 24/76/120 DR Capsule PO SCH ×3 (08:21→17:10)
[2017-11-30] MEDS: Pentoxifylline 400 MG Controlled Release Tablet PO SCH ×3 (08:22→17:10)
[2017-11-30] MEDS: rifAXIMin 550 MG Tablet PO SCH ×2 (08:22→20:44)
--- NOTE | 2017-11-30 09:48 | P.PNIM ---
Subjective Interval history: Follow-up visit altered mental status, liver cirrhosis, hepatic encephalopathy, hypokalemia, hyponatremia, acute kidney injury. Patient seen and examined laying in bed, more appropriate, alert and oriented today, smiling, and more positive. Patient complains of right hip pain, states that she is getting a patch before but complain that right hip is hurting him for from laying on it. Patient denies any falling or hitting right hip recently. Patient states that she is going back and forth to the chair and to the bed last night. Patient denies any headache or dizziness, denies any pain, chest pain or shortness of breath. Patient denies any abdominal pain, nausea or vomiting, denies any diarrhea or constipation. Patient states that eating well patient denies any fever or chills. Discussed placement, patient was not able to discharge due to placement issues. Stated that his her grandfather was in [facility] and wanted to go there however she picked [facility] as her check and second choice. Physical Exam Vital signs: Vital Signs 11/29/17 12:00 11/29/17 16:00 11/29/17 20:00 Temperature 97.6 F 98.1 F 98.3 F Pulse Rate 90 117 H 117 H Respiratory Rate 17 18 16 Blood Pressure 99/55 L 114/58 L 92/55 L Pulse Oximetry 98 98 96 11/30/17 00:00 11/30/17 03:56 11/30/17 08:00 Temperature 98.3 F 98.2 F 98.1 F Pulse Rate 112 H 107 H 93 H Respiratory Rate 18 16 20 Blood Pressure 102/52 L 92/50 L 102/52 L Pulse Oximetry 96 97 100 Intake & Output 11/29/17 11/30/17 11/30/17 18:59 06:59 18:59 Intake Total 760 / 760 Balance 760 / 760 Weight 52.1 kg Intake: Oral 760 / 760 Other: # Voids 8 2 Date of Last Bowel Movement 11/29/17 11/30/17 11/30/17 # Bowel Movements 6 2 Narrative: GENERAL: Chronically ill appearing female, in no apparent distress SKIN: Warm and dry. Diffuse jaundice, Multiple stigmata of liver disease including spider telangiectasias, palmar erythema, and some mild abdominal caput medusae. HEAD: Atraumatic. Normocephalic. EYES: Pupils equal and round. No injection or drainage. Jaundiced sclera ENT: No nasal bleeding or discharge. Mucous membranes pink and moist. NECK: Trachea midline. No JVD. CARDIOVASCULAR: Regular rate and rhythm. RESPIRATORY: No accessory muscle use. Clear to auscultation. Breath sounds equal bilaterally. GASTROINTESTINAL: Abdomen round soft, nontender, nondistended. Hepatic margins palpable and splenic margins not palpable. MUSCULOSKELETAL: Extremities without clubbing, cyanosis. No obvious deformities. Right hip redness, ecchymosis, edema NEUROLOGICAL: Awake and alert. No obvious cranial nerve deficits. Generalized weakness, moving all 4 extremities. Normal speech. PSYCHIATRIC: Appropriate mood and affect; insight and judgment unreliable. Results - Labs CBC & Chem 7: 11/29/17 11:05 11/29/17 11:05 Laboratory Results - last 24 hr 11/29/17 11/29/17 11/29/17 08:09 11:05 11:05 WBC 12.3 H RBC 2.34 L Hgb 8.7 L Hct 25.7 L MCV 109.9 H MCH 37.2 H MCHC 33.9 RDW 17.5 H Plt Count 107 L MPV 8.5 Prelim Diff (Auto) Slide review pending Neut % (Auto) 73.4 H Lymph % (Auto) 13.9 [place] % (Auto) 11.5 H Eos % (Auto) 0.9 Baso % (Auto) 0.3 Neut # (Auto) 9.0 H Lymph # (Auto) 1.7 [place] # (Auto) 1.4 H Eos # (Auto) 0.1 Baso # (Auto) 0.0 WBC Differential . Diff Scan Auto diff confirmed Differential Comment . Platelet Estimate Low L Platelet Morphology Normal Basophilic Stippling Faint H Acanthocytes (Spur) 1+ H Sodium Potassium Chloride Carbon Dioxide Anion Gap BUN Creatinine Estimated GFR Random Glucose Calcium Iron 100 TIBC 112 L % Saturation 89.3 H Ferritin 285 H Total Bilirubin AST ALT Alkaline Phosphatase Ammonia 15 Total Protein Albumin Vitamin B12 1726 H 11/29/17 11:05 WBC RBC Hgb Hct MCV MCH MCHC RDW Plt Count MPV Prelim Diff (Auto) Neut % (Auto) Lymph % (Auto) [place] % (Auto) Eos % (Auto) Baso % (Auto) Neut # (Auto) Lymph # (Auto) [place] # (Auto) Eos # (Auto) Baso # (Auto) WBC Differential Diff Scan Differential Comment Platelet Estimate Platelet Morphology Basophilic Stippling Acanthocytes (Spur) Sodium 134 L Potassium 4.0 Chloride 104 Carbon Dioxide 23.5 Anion Gap 7 BUN 13 Creatinine 1.07 H Estimated GFR 54 L Random Glucose 98 Calcium 8.3 L Iron TIBC % Saturation Ferritin Total Bilirubin 13.2 H AST 67 H ALT 21 Alkaline Phosphatase 146 H Ammonia Total Protein 8.3 H D Albumin 2.6 L D Vitamin B12 - Procedures N/A Assessment and Plan - Assessment (1) Acute hepatic encephalopathy Code(s): K72.00 - Acute and subacute hepatic failure without coma Status: Acute (2) Hepatic encephalopathy Code(s): K72.90 - Hepatic failure, unspecified without coma Status: Acute (3) Cirrhosis of liver with ascites Code(s): K74.60 - Unspecified cirrhosis of liver; R18.8 - Other ascites Status : Acute (4) Anemia Code(s): D64.9 - Anemia, unspecified Status: Acute (5) Acute hypokalemia Code(s): E87.6 - Hypokalemia Status: Acute - Plan This is a 52-year-old female with history of liver cirrhosis and chronic pancreatitis admitted for hepatic encephalopathy. Hepatic encephalopathy/altered mental status Ammonia elevated at 93 initially, improved -->28 improving AST 50, ALT 15, total bilirubin 16.7 -->12.3 INR elevated 2.2 Meld score 29 with 19.6 estimated 3-month mortality Continue lactulose and rifaximin Continue home pentoxifylline, rescheduled spironolactone and Lasix due to low BP in the morning Avoid hepatotoxic agents -Ultrasound of the abdomen trace free fluid in the right upper quadrant. No other evidence of ascites. -monitor liver function -ammonia level elevated on 11/28, nurse reported unused lactulose at the bedside. This will be a concern after discharge whether patient will be compliant with medications. -Psych consulted for medical decision making capability, considering patient insisting to go home, wanting to smoke, refusing her medications, defecating on herself. Hypokalemia improved -s/p 20 mEq KCl in IV fluids -continue Potassium supplements PO Continue to monitor BMP Hyponatremia -improving Sodium 131 ->140 s/p Normal saline at 84 mL/h, will decrease to 50ml/hr. Continue to monitor ARACELIS baseline around 0.5-0.6 Creatinine 1.10 --> 0.75 Possibly secondary to decreased PO intake but also consider hepatorenal syndrome s/p IV fluids -monitor BMP HX Chronic pancreatitis/ esophagitis Resume home Creon Continue home PPI Anxiety -restart lower dose ativan prn -monitor mental status Acute on Chronic Anemia -TIBC 112, ferritin 285, vitamin B12 1726 -start on Iron supplements -monitor CBC Tobacco dependence Patient requesting to go out to smoke, education given -Start on nicotine patch Osteoarthritis/history of right hip replacement Slight edema, redness, ecchymosis Start low-dose NSAIDs to decrease inflammation -May have ice pack -May have lidocaine patch/avoid redness and ecchymosis area DVT prop SCDs, avoid chemical prophylaxis secondary to liver dysfunction Patient unable to discharge yesterday due to SNF placement issues, will continue to see until patient discharge. Code Status: Full code Discussed Condition With: Patient, nurse, social work supervisor Discharge Planning: client services coordinator consulted to assist patient patient in placement to SNF/rehab. Patient was in [place] manner previously. (3) Cirrhosis of liver with ascites Qualifiers: Hepatic cirrhosis type: unspecified hepatic cirrhosis Qualified Code(s): K74.60 - Unspecified cirrhosis of liver; R18.8 - Other ascites
[2017-11-30] MEDS: Lidocaine 5% Patch T-DERMAL SCH (10:37)
--- NOTE | 2017-11-30 12:39 | P.PNPAL ---
Reason for Visit Reason for visit: a. To assist with evaluation and management of symptoms including: Altered mental status, right hip pain b. To assist medical decision maker(s) with: better understanding of current medical conditions; weighing benefits/burdens of medical treatment options; making medical treatment decisions. Subjective Subjective/Interval History: Patient seen today for follow-up of symptom management of altered mental status , right hip pain and goals of care. Patient remains intermittently confused regarding current versus remote events but is oriented to self, place, purpose and time. She has limited insight regarding her disease process and does not understand the degree of failure her liver has currently sustained. Her memory is poor, she forgets to take medications and per my discussion with her daughter, was forgetting to go into the bathroom for her elimination needs but was simply incontinent of both bowel and bladder where ever she was. She is calm and cooperative but does not appear to have the capacity to care for herself. Her altered mental status is mild to moderate, intermittent, improved with ammonia detox events, worsens with medication noncompliance. She states her right hip is bruised and swollen, examination reveals soft puffiness about the right hip with diffuse ecchymosis, not seen on first evaluation. She denies any falls and states that this is due to to her extremely uncomfortable bed. She states she slept poorly due to the beds discomfort and had to alternate between the bed and the couch in her room all night. A Lidoderm patch has been ordered for this. The right hip pain is moderate, constant, worsens with activity and pressure, improves with rest. . Family/Friend Interactions: Spoke with her daughter Macie and her son, Braeden Levy, and reviewed clinical status, meld score, cognitive status, past medical social and surgical history as well as the below listed items. Reviewed palliative care purpose and focus as well as discharge plans for the patient. She does not appear to have full capacity to make decisions due to her intermittent confusion and decision making would fall to her daughter Macie, the alternate healthcare surrogate. Macie is cooperating with her brother Braeden and revealed today that she also has a brother, Bubba Doan, currently in the [facility] assisted that she would like to include in the discussion if he were able to be reached. We discussed care after hospital discharge and included a discussion of hospice services and after extensive discussion, it was Macie's opinion that this was a reasonable option to provide her mother better medical care and comfort but wished to speak with her brothers prior to proceeding. We also discussed CODE STATUS and the possible sequelae and they wish to discuss this also prior to making any firm decisions. Palliative care contact information has been provided further questions or concerns and offer extended to supply the #2 patient's mother if she also has questions, as she is a nurse with better understanding of medical issues, and the primary healthcare surrogate. Advance Directives Health Care Surrogate Name and Number: Mayo Younger Objective Vital Signs: Vital Signs 11/29/17 12:00 11/29/17 16:00 11/29/17 20:00 Temperature 97.6 F 98.1 F 98.3 F Pulse Rate 90 117 H 117 H Respiratory Rate 17 18 16 Blood Pressure 99/55 L 114/58 L 92/55 L Pulse Oximetry 98 98 96 11/30/17 00:00 11/30/17 03:56 11/30/17 08:00 Temperature 98.3 F 98.2 F 98.1 F Pulse Rate 112 H 107 H 93 H Respiratory Rate 18 16 20 Blood Pressure 102/52 L 92/50 L 102/52 L Pulse Oximetry 96 97 100 Intake & Output 11/29/17 11/30/17 11/30/17 18:59 06:59 18:59 Intake Total 760 / 760 Balance 760 / 760 Weight 114 lb 13.773 oz Intake: Oral 760 / 760 Other: # Voids 8 2 Date of Last Bowel Movement 11/29/17 11/30/17 11/30/17 # Bowel Movements 6 2 Physical Exam: CONSTITUTIONAL/GENERAL: This is an adequately nourished patient, in no apparent distress. TUBES/LINES/DRAINS: PIV SKIN: Positive jaundice, no rashes, or lesions. Ecchymoses on upper extremities and right hip. No wounds seen anteriorly. Skin temperature appropriate. Not diaphoretic. CARDIOVASCULAR: Regular rate and rhythm with 2/6 systolic ejection murmurs, no gallops, or rubs. No JVD. Peripheral pulses symmetric. RESPIRATORY/CHEST: Symmetric, unlabored respirations. Clear to auscultation. Breath sounds equal bilaterally. No wheezes, rales, or rhonchi. GASTROINTESTINAL: Abdomen soft, tender to palpation in all quadrants, mildly distended. No guarding. Bowel sounds present. GENITOURINARY: Without palpable bladder distension. MUSCULOSKELETAL: Extremities without clubbing, cyanosis, or edema. Right hip with swelling and ecchymosis over the right hip joint posterior to the healed incision. NEUROLOGICAL: Awake and alert. Ambulatory in the hallway with PT. Cognitively slow, frequently forgetful, moves all extremities. PSYCHIATRIC: No obvious anxiety/depression. no apparent hallucinations or other psychotic thought process. . Diagnostic Tests Laboratory: Laboratory Results - last 72 hr 11/28/17 11/28/17 11/28/17 06:53 06:53 06:53 WBC RBC Hgb Hct MCV MCH MCHC RDW Plt Count MPV Prelim Diff (Auto) Neut % (Auto) Lymph % (Auto) [place] % (Auto) Eos % (Auto) Baso % (Auto) Neut # (Auto) Lymph # (Auto) [place] # (Auto) Eos # (Auto) Baso # (Auto) WBC Differential Diff Scan Differential Comment Platelet Estimate Platelet Morphology Basophilic Stippling Acanthocytes (Spur) PT 22.5 H INR 2.2 Sodium 136 Potassium 4.3 Chloride 104 Carbon Dioxide 24.1 Anion Gap 8 BUN 10 Creatinine 0.67 Estimated GFR Greater than 89 Random Glucose 85 Calcium 8.3 L Iron TIBC % Saturation Ferritin Total Bilirubin 12.3 H Direct Bilirubin 8.1 H Indirect Bilirubin 4.2 H AST 50 H ALT 15 Alkaline Phosphatase 111 Ammonia 36 H Total Protein 7.0 Albumin 1.9 L Vitamin B12 11/28/17 11/29/17 11/29/17 08:45 08:09 11:05 WBC 9.0 12.3 H RBC 2.16 L 2.34 L Hgb 7.9 L 8.7 L Hct 23.4 L 25.7 L MCV 108.2 H 109.9 H MCH 36.7 H 37.2 H MCHC 33.9 33.9 RDW 17.0 17.5 H Plt Count 95 L 107 L MPV 8.3 8.5 Prelim Diff (Auto) Slide review pending Slide review pending Neut % (Auto) 69.0 73.4 H Lymph % (Auto) 17.1 13.9 Pick[place] % (Auto) 11.7 H 11.5 H Eos % (Auto) 1.9 0.9 Baso % (Auto) 0.3 0.3 Neut # (Auto) 6.2 9.0 H Lymph # (Auto) 1.5 1.7 Pickens # (Auto) 1.0 H 1.4 H Eos # (Auto) 0.2 0.1 Baso # (Auto) 0.0 0.0 WBC Differential . . Diff Scan Auto diff confirmed Auto diff confirmed Differential Comment . . Platelet Estimate Low L Low L Platelet Morphology Clumped H Normal Basophilic Stippling Faint H Acanthocytes (Spur) 1+ H 1+ H PT INR Sodium Potassium Chloride Carbon Dioxide Anion Gap BUN Creatinine Estimated GFR Random Glucose Calcium Iron 100 TIBC 112 L % Saturation 89.3 H Ferritin 285 H Total Bilirubin Direct Bilirubin Indirect Bilirubin AST ALT Alkaline Phosphatase Ammonia Total Protein Albumin Vitamin B12 1726 H 11/29/17 11/29/17 11:05 11:05 WBC RBC Hgb Hct MCV MCH MCHC RDW Plt Count MPV Prelim Diff (Auto) Neut % (Auto) Lymph % (Auto) [place] % (Auto) Eos % (Auto) Baso % (Auto) Neut # (Auto) Lymph # (Auto) [place] # (Auto) Eos # (Auto) Baso # (Auto) WBC Differential Diff Scan Differential Comment Platelet Estimate Platelet Morphology Basophilic Stippling Acanthocytes (Spur) PT INR Sodium 134 L Potassium 4.0 Chloride 104 Carbon Dioxide 23.5 Anion Gap 7 BUN 13 Creatinine 1.07 H Estimated GFR 54 L Random Glucose 98 Calcium 8.3 L Iron TIBC % Saturation Ferritin Total Bilirubin 13.2 H Direct Bilirubin Indirect Bilirubin AST 67 H ALT 21 Alkaline Phosphatase 146 H Ammonia 15 Total Protein 8.3 H D Albumin 2.6 L D Vitamin B12 Result Diagrams: 11/29/17 11:05 11/29/17 11:05 Assessment and Plan - Disease Oriented Problem List (1) Hyperbilirubinemia (2) Chronic abdominal pain (3) Cirrhosis of liver with ascites (4) Acute GI bleeding (5) Anemia (6) Hepatic encephalopathy Pertinent Non-Medical Issues: Psychosocial: She was born in [place] and moved to [place] when she was about 13. She attended [employer] [employer] [place]. She is and has 2 children a son Braeden Levy and a daughter Macie Ortiz. 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 Legal: Healthcare surrogate on chart listing her mother as primary and her daughter as secondary. Ethical issues impacting care: None noted. . Important Contacts: Mother: Annmarie Younger Son: Braeden Levy Daughter: Macie Ortiz Son: Bubba Doan, currently in [facility]. . Prognosis: She has severe hepatic disease now approaching failure. She has hepatic encephalopathy and is now confused. Transaminases are elevated with bilirubin at 12.9, ammonia elevated at 93 on admission, now down to 28 with both lactulose and rifaximin, with a meld score of 25 showing a 19.6% estimated 3- month mortality. She quit drinking alcohol 1 month ago on her last admission continues to smoke cigarettes daily. She is now requiring paracentesis intermittently, is having a decreasing appetite with a BMI of 17.5. She is auto -anticoagulated with an INR of 2.1. She has already had gastrointestinal bleeding in the past and is at risk for recurrent episodes. She has had multiple admissions and was seen in [place] 1 month ago. She is at risk for continued complications, decline and readmissions. . Code Status: Full Code Plan: PLAN: Legal decision maker: Patient is not capacitated for decision-making at this time and it is not certain whether she will ever regain capacity. She had previously completed a healthcare surrogate naming her mother Annmarie as the primary and her daughter Macie as the secondary. Her mother is currently in the hospital recovering from open heart surgery and not available. Her daughter Macie is currently participating with both of her brothers in making decisions. Goals: To be determined, family considering CODE STATUS and hospice. CODE STATUS: FULL CODE SYMPTOMS: * Altered mental status: Mental status is clearing as ammonia is reduced back into the normal range. While she appears to have limited insight, she is oriented x4, forgetful, intermittently confused between current and remote memory. Has been missing doses of lactulose left at bedside. Recommend medication monitoring with administration to make sure all medications are taken. This will be a continued problem at discharge and as she was not competent to care for herself at home previously, she will likely benefit from group home facility placement. * Right hip pain: Right hip shows swelling and ecchymosis, states it is from a very uncomfortable bed, Lidoderm patch applied. Painful with ambulation. Monitor effectiveness of Lidoderm. Palliative care will continue to follow the patient during hospital course as condition evolves, to assist patient/decision-maker with understanding of their medical conditions, weighing benefits/burdens of treatment options, for clarification of goals of treatment. Additionally will assist with any symptoms of palliative concern. . Attestation Attestation: To help prompt me to consider important information that might be impacting today's encounter and assessment, information from prior notes written by myself or my colleagues may have been "brought forward" into today's note. My signature on this note, however, is an attestation that I personally performed the exam, history, and/or decision-making noted today, and, unless otherwise indicated, the interactions with patient, family, and staff as well as the review of records all occurred today. I also attest that the listed assessment and stated plan reflect my best clinical judgment today based on the combination of historical information, prior notes, and today's exam/ interactions. When time spent is documented, it refers only to time spent today by the signer, or if indicated, combined time spent today by collaborating physician/nurse practitioner. .
[2017-11-30] MEDS: Ferrous Sulfate 325 MG Tablet PO SCH ×2 (12:50→17:10)
--- NOTE | 2017-11-30 14:53 | P.CONPSY ---
Provisional Diagnosis Admission Date: November 25, 2017 15:24 [place] I.: Delirium due to hepatic encephalopathy History of Present Illness Service: Medicine Primary Care Provider: Marco Antonio Aranda DO History of Present Illness: The patient is a 52 year-old white woman, domiciled alone, single, mother of 3 daughters, unemployed, supported by [facility], she denies any previous psychiatric history, denies previous psychiatric hospitalizations, denies previous suicide attempts, with medical history of liver cirrhosis and chronic pancreatitis, alcohol use disorder in sustained remission presenting with altered mental status, nausea, and general malaise. The patient has been quite confused, disorganized, poor historian. She has severe hepatic chronic disease now approaching failure. She has hepatic encephalopathy and is now confused. Transaminases are elevated with bilirubin at 12.9, ammonia elevated at 93 on admission, now down to 28. She is now requiring paracentesis intermittently, is having a decreasing appetite with a BMI of 17.5. She is auto-anticoagulated with an INR of 2.1. Consulted to psychiatry to address decision-making capacity. The patient has been refusing to go to a longterm. On psychiatric evaluation today the patient is calm, cooperative, and pleasant. The patient reports to be in a better mood. She says that she has been confused and not thinking clear, but today is doing much better. The patient reports that the reason she is here is because she has hepatic failure I am very delicate. She says that even though she prefers to go back home from here , she will cooperate with the team and will do whatever is needed and is better for her I just need to consult with my daughter Macie. He clarifies that her daughter actually would be the one taking decisions for her in the case she cannot. She denies suicidal enemas ideation, she denies visual and auditory hallucinations. At this moment the patient is fully oriented x3, logical, coherent and relevant PPH: No previous psychiatric history, no previous suicidal attempts, no previous psychiatric hospitalizations PMH: liver cirrhosis, chronic pancreatitis, esophagitis, portal hypertensive gastropathy Surgical hx: hip replacement, history of paracentesis Family hx: mother had heart disease Social hx: lives alone with her dog, states she hasn't had a drink since she was last hospitalized which was on 10/27, history of heavy alcohol use, smokes 1PPD, denies drug use . PMFSH - History History Provided By: Patient - Medical History Medical History: Medical History (Last Reviewed 11/28/17 @ 15:21 by Debra Lacey) Cirrhosis of liver History of abdominal paracentesis Pancreatitis Weight loss - Surgical History Surgical History: Surgical History (Last Reviewed 11/30/17 @ 08:27 by Angelica Bob) History of total right hip replacement - Family History Family History: Family History (Last Reviewed 11/30/17 @ 08:27 by Angelica Bob) Mother Heart disease - Tobacco History Second Hand Smoke Exposure: Yes Tobacco Use In Past 30 Days: Yes Smoking Status: Current every day smoker Tobacco Type: Cigarettes - Alcohol History How Often Do You Have a Drink Containing Alcohol: Unable to Obtain - Substance Use History Substance History: Past History - Substance Use Type Alcohol Status: Active Route Used: By Mouth Frequency: 2 Reason for Use: Socialization - Travel History Recent Travel in the [facility] Within the Last 8 Weeks: No Recent Travel Out of the Country Within the Last 8 Weeks: No - Immunization History Tetanus Immunization: Unsure Medications and Allergies Active Medications: Active Medications Al Hydroxide/Mg Hydroxide (Milk Of Magnesia Liq) 30 ml PO Q12H PRN PRN Reason: Mild Constipation Lipase/Protease/Amylase (Herber Mcdonald 24/76/120) 2 cap PO TID [facility] Last Admin: 11/30/17 12:50 Dose: 2 cap Bisacodyl (Dulcolax Supp) 10 mg RECTAL DAILY PRN PRN Reason: SEVERE CONSITIPATION Ferrous Sulfate (Ferosul) 325 mg PO BID@1200,1700 [facility] Last Admin: 11/30/17 12:50 Dose: 325 mg Furosemide (Lasix) 20 mg PO DAILY [facility] Last Admin: 11/30/17 08:20 Dose: Not Given Gabapentin (Neurontin) 300 mg PO HS [facility] Last Admin: 11/29/17 20:07 Dose: 300 mg Ibuprofen (Motrin) 400 mg PO Q8H PRN PRN Reason: PAIN 1-10 AND/OR FEVER >101F Last Admin: 11/30/17 03:58 Dose: 400 mg Lactulose (Lactulose Liq) 30 ml PO Q8H [facility] Last Admin: 11/30/17 06:35 Dose: 30 ml Lidocaine HCl (Lidoderm 5% Patch.12 Hr) 1 patch T-DERMAL DAILY [facility] Last Admin: 11/30/17 10:37 Dose: 1 patch Lorazepam (Ativan) 0.5 mg PO Q8H PRN PRN Reason: ANXIETY Last Admin: 11/30/17 06:35 Dose: 0.5 mg Nicotine (Habitrol 21 Mg Patch.24 Hr) 1 patch T-DERMAL DAILY [facility] Last Admin: 11/30/17 08:22 Dose: 1 patch Olanzapine (Zyprexa Zydis Odt) 5 mg PO DAILY [facility] Last Admin: 11/30/17 08:22 Dose: 5 mg Ondansetron HCl (Zofran Odt) 4 mg PO Q6H PRN PRN Reason: NAUSEA Last Admin: 11/29/17 18:40 Dose: 4 mg Pantoprazole Sodium (Protonix) 40 mg PO BID [facility] Last Admin: 11/30/17 08:22 Dose: 40 mg Patch Removal (Remove Old Patch) 1 each T-DERMAL HS [facility] Last Admin: 11/29/17 20:07 Dose: 1 each Patch Removal (Remove Old Patch) 1 each T-DERMAL [facility] Pentoxifylline (Trental Sr) 400 mg PO TID [facility] Last Admin: 11/30/17 12:50 Dose: 400 mg Potassium Chloride (K-Dur) 20 meq PO DAILY [facility] Last Admin: 11/30/17 08:22 Dose: 20 meq Rifaximin (Xifaxan) 550 mg PO Q12HR [facility] Last Admin: 11/30/17 08:22 Dose: 550 mg Sennosides (Senokot) 17.2 mg PO Q12H PRN PRN Reason: Moderate Constipation Sodium Chloride (Ns Flush) 2 ml IV.FLUSH PRN PRN PRN Reason: FLUSH AFTER USING IV ACCESS Spironolactone (Aldactone) 50 mg PO DAILY [facility] Last Admin: 11/30/17 08:20 Dose: Not Given Allergies Allergy/AdvReac Type Severity Reaction Status Date / Time penicillin G Allergy Mild Rash Verified 11/25/17 13:33 Home Medications Medication Instructions Recorded Confirmed Type gabapentin 600 mg PO HS 10/25/17 11/25/17 History lorazepam [Ativan] 0.5 mg PO PRN 10/27/17 11/25/17 History Exam Vital signs: Vital Signs 11/29/17 16:00 11/29/17 20:00 11/30/17 00:00 Temperature 98.1 F 98.3 F 98.3 F Pulse Rate 117 H 117 H 112 H Respiratory Rate 18 16 18 Blood Pressure 114/58 L 92/55 L 102/52 L Pulse Oximetry 98 96 96 11/30/17 03:56 11/30/17 08:00 11/30/17 12:00 Temperature 98.2 F 98.1 F 98.4 F Pulse Rate 107 H 93 H 104 H Respiratory Rate 16 20 20 Blood Pressure 92/50 L 102/52 L 105/56 L Pulse Oximetry 97 100 97 Intake & Output 11/29/17 11/30/17 11/30/17 18:59 06:59 18:59 Intake Total 760 / 760 Balance 760 / 760 Weight 52.1 kg Intake: Oral 760 / 760 Other: # Voids 8 2 Date of Last Bowel Movement 11/29/17 11/30/17 11/30/17 # Bowel Movements 6 2 Mental Status Examination Appearance: Appropriate Consciousness: Alert Orientation: x4 Motor Activity: Normal gait Speech: Unremarkable Language: Adequate Fund of Knowledge: Adequate Attention and Concentration: Adequate Memory: Unremarkable Mood: Appropriate Affect: Appropriate Thought Process & Associations: Intact Thought Content: Appropriate Hallucination Type: None Delusion Type: None Suicidal Ideation: No Suicidal Plan: No Suicidal Intention: No Homicidal Ideation: No Homicidal Plan: No Homicidal Intention: No Insight: Adequate Judgment: Adequate Assessment and Plan - Assessment (1) Delirium Code(s): R41.0 - Disorientation, unspecified Status: Acute - Plan Plan: Estimated LOS: [] days On psychiatric evaluation today the patient is calm, cooperative, logical, coherent and relevant. As per chart review the patient has been confused, delirious, incoherent and illogical during the hospitalization, but today she presents oriented x3, able to express a quite fair understanding and appreciation of medical conditions. She is at times confused, but usually redirectable. The patient says she will prefer to be discharged back home, but she is open to follow medical recommendations as long as they are discussed with her daughter actually. I do not have any reason at this moment to the private this patient from her decision-making, especially since the patient is agreeing to follow medical recommendations and seems to be at baseline. I understand that the patient has a hepatic condition that could lead to delirium and fluctuating level of consciousness and confusion, but at this moment the patient does have decision-making capacity. She does not meet criteria for involuntary psychiatric admission. Consult appreciated Justification for Continued Inpatient Stay: No admission indicated
[2017-11-30] MEDS: Gabapentin 300 MG Capsule PO SCH (20:44)
[2017-12-01] MEDS: Lidocaine 5% Patch T-DERMAL SCH (09:28)
[2017-12-01] MEDS: Lipase/Protease/Amylase 24/76/120 DR Capsule PO SCH ×3 (09:28→17:24)
[2017-12-01] MEDS: rifAXIMin 550 MG Tablet PO SCH ×2 (09:29→21:43)
[2017-12-01] MEDS: Furosemide 20 MG Tablet PO SCH (09:29)
[2017-12-01] MEDS: Spironolactone 50 MG Tablet PO SCH (09:30)
[2017-12-01] MEDS: Pentoxifylline 400 MG Controlled Release Tablet PO SCH ×3 (09:30→17:23)
[2017-12-01] MEDS: LORazepam 0.5 MG Tablet PO PRN ×2 (09:30→17:23)
--- NOTE | 2017-12-01 11:08 | P.PNIM ---
Subjective Interval history: Follow-up visit altered mental status, liver cirrhosis, hepatic encephalopathy, hypokalemia, hyponatremia, acute kidney injury. Patient seen and examined laying in bed laying on her left side. patient complained of right hip pain, states that she had a history of right hip surgery couple of years ago. Right hip with edema and ecchymosis patient denies any fall or trauma on the right hip. Patient able to ambulate in the room. Patient states that she usually have fentanyl patch at home, states that it works for her. Patient denies any headache or dizziness, denies any chest pain or shortness of breath, denies any diarrhea or constipation. Patient stated had a bowel movement today. Patient denies any fever or chills. Physical Exam Vital signs: Vital Signs 11/30/17 12:00 11/30/17 16:00 11/30/17 20:00 Temperature 98.4 F 99.8 F H 98.1 F Pulse Rate 104 H 101 H 108 H Respiratory Rate 20 20 18 Blood Pressure 105/56 L 98/51 L 97/52 L Pulse Oximetry 97 98 97 12/01/17 00:00 12/01/17 04:00 12/01/17 08:00 Temperature 97.9 F 97.3 F L 97.9 F Pulse Rate 105 H 90 100 H Respiratory Rate 19 18 20 Blood Pressure 92/55 L 93/50 L 93/51 L Pulse Oximetry 98 97 97 Intake & Output 11/30/17 12/01/17 12/01/17 18:59 06:59 18:59 Other: # Voids 2 Date of Last Bowel Movement 11/30/17 11/30/17 11/30/17 # Bowel Movements 2 Narrative: GENERAL: Chronically ill appearing female, in no apparent distress SKIN: Warm and dry. Diffuse jaundice, Multiple stigmata of liver disease including spider telangiectasias, palmar erythema, and some mild abdominal caput medusae. HEAD: Atraumatic. Normocephalic. EYES: Pupils equal and round. No injection or drainage. Jaundiced sclera ENT: No nasal bleeding or discharge. Mucous membranes pink and moist. NECK: Trachea midline. No JVD. CARDIOVASCULAR: Regular rate and rhythm. RESPIRATORY: No accessory muscle use. Clear to auscultation. Breath sounds equal bilaterally. GASTROINTESTINAL: Abdomen round soft, nontender, nondistended. Hepatic margins palpable and splenic margins not palpable. MUSCULOSKELETAL: Extremities without clubbing, cyanosis. No obvious deformities. Right hip redness, ecchymosis, edema NEUROLOGICAL: Awake and alert. No obvious cranial nerve deficits. Generalized weakness, moving all 4 extremities. Normal speech. PSYCHIATRIC: Appropriate mood and affect; insight and judgment unreliable. Results - Labs CBC & Chem 7: 11/29/17 11:05 11/29/17 11:05 - Procedures N/A Assessment and Plan - Assessment (1) Acute hepatic encephalopathy Code(s): K72.00 - Acute and subacute hepatic failure without coma Status: Acute (2) Hepatic encephalopathy Code(s): K72.90 - Hepatic failure, unspecified without coma Status: Acute (3) Cirrhosis of liver with ascites Code(s): K74.60 - Unspecified cirrhosis of liver; R18.8 - Other ascites Status : Acute (4) Anemia Code(s): D64.9 - Anemia, unspecified Status: Acute (5) Acute hypokalemia Code(s): E87.6 - Hypokalemia Status: Acute - Plan This is a 52-year-old female with history of liver cirrhosis and chronic pancreatitis admitted for hepatic encephalopathy. Hepatic encephalopathy/altered mental status Ammonia elevated at 93 initially, improved -->28 improving AST 50, ALT 15, total bilirubin 16.7 -->12.3 INR elevated 2.2 Meld score 29 with 19.6 estimated 3-month mortality Continue lactulose and rifaximin Continue home pentoxifylline, rescheduled spironolactone and Lasix due to low BP in the morning Avoid hepatotoxic agents -Ultrasound of the abdomen trace free fluid in the right upper quadrant. No other evidence of ascites. -monitor liver function -ammonia level elevated on 11/28, nurse reported unused lactulose at the bedside. This will be a concern after discharge whether patient will be compliant with medications. -Psych consulted for medical decision making capability, considering patient insisting to go home, wanting to smoke, refusing her medications, defecating on herself. Hypokalemia improved -s/p 20 mEq KCl in IV fluids -continue Potassium supplements PO Continue to monitor BMP Hyponatremia -improving Sodium 131 ->140 s/p Normal saline at 84 mL/h, will decrease to 50ml/hr. Continue to monitor -Encourage increase fluid intake ARACELIS baseline around 0.5-0.6 Creatinine 1.10 --> 0.75 Possibly secondary to decreased PO intake but also consider hepatorenal syndrome s/p IV fluids -monitor BMP HX Chronic pancreatitis/ esophagitis Resume home Creon Continue home PPI Anxiety -restart lower dose ativan prn, hold for sedation -monitor mental status Acute on Chronic Anemia -TIBC 112, ferritin 285, vitamin B12 1726 -start on Iron supplements -monitor CBC Tobacco dependence Patient requesting to go out to smoke, education given -Start on nicotine patch Osteoarthritis/history of right hip replacement Slight edema, redness, ecchymosis Start low-dose NSAIDs to decrease inflammation -May have ice pack -May have lidocaine patch/avoid redness and ecchymosis area -Obtain right hip x-ray to rule out acute process/fracture/dislocation DVT prop SCDs, avoid chemical prophylaxis secondary to liver dysfunction Patient unable to discharge yesterday due to SNF placement issues, will continue to see until patient discharged. Code Status: Full code Discussed Condition With: Patient, nurse, social service coordinator, GWEN Lr Discharge Planning: student services advisor consulted to assist patient patient in placement to SNF/rehab. Patient was in [place] manner previously. (3) Cirrhosis of liver with ascites Qualifiers: Hepatic cirrhosis type: unspecified hepatic cirrhosis Qualified Code(s): K74.60 - Unspecified cirrhosis of liver; R18.8 - Other ascites
[2017-12-01 12:37] LABS: Baso # (Auto) 0.1 th/mm3 (0.0-0.2); Baso % (Auto) 0.6 % (0.0-2.0); Eos # (Auto) 0.2 th/mm3 (0.0-0.4); Eos % (Auto) 1.5 % (0.0-4.0); Hematocrit 23.4 % (35.0-46.0); Hemoglobin 7.9 gm/dL (11.6-15.3); Lymph # (Auto) 1.6 th/mm3 (1.0-4.8); Lymph % (Auto) 14.1 % (9.0-44.0); Mean Corpuscular HGB Conc 33.6 % (32.0-36.0); Mean Corpuscular Hemoglobin 37.1 pg (27.0-34.0); Mean Corpuscular Volume 110.5 fL (80.0-100.0); Mean Platelet Volume 8.1 fL (7.0-11.0); Mono # (Auto) 1.4 th/mm3 (0.0-0.9); Mono % (Auto) 12.9 % (0.0-8.0); Neut # (Auto) 7.9 th/mm3 (1.8-7.7); Neut % (Auto) 70.9 % (16.0-70.0); Platelet Count 121 th/mm3 (150-450); Red Blood Count 2.12 mil/mm3 (4.00-5.30); Red Cell Distribution Width 18.9 % (11.6-17.2); White Blood Count 11.2 th/mm3 (4.0-11.0)
[2017-12-01 12:49] LABS: Alanine Aminotransferase 18 U/L (10-53); Albumin 2.1 g/dL (3.4-5.0); Anion Gap 7 meq/L (5-15); Aspartate Aminotransferase 60 U/L (15-37); Blood Urea Nitrogen 12 mg/dL (7-18); Calcium 8.5 mg/dL (8.5-10.1); Carbon Dioxide 22.2 meq/L (21.0-32.0); Chloride 106 meq/L (98-107); Glomerular Filtration Rate 67 mL/min (>89); Glucose,Random 97 mg/dL (74-106); Potassium 4.6 meq/L (3.5-5.1); Sodium 135 meq/L (136-145)
[2017-12-01 12:53] LABS: Alkaline Phosphatase 129 U/L (45-117); Total Protein 7.3 g/dL (6.4-8.2)
[2017-12-01 13:26] LABS: Acanthocytes 1+
[2017-12-01] MEDS: Ferrous Sulfate 325 MG Tablet PO SCH ×2 (13:28→16:10)
--- NOTE | 2017-12-01 15:00 | P.PNPAL ---
Reason for Visit Reason for visit: a. To assist with evaluation and management of symptoms including: Altered mental status, right hip pain b. To assist medical decision maker(s) with: better understanding of current medical conditions; weighing benefits/burdens of medical treatment options; making medical treatment decisions. Subjective Subjective/Interval History: Patient seen today for follow-up of symptom management of altered mental status , right hip pain and goals of care. Patient remains intermittently confused regarding current versus remote events but is oriented to self, place, purpose and time. She does not understand why she still has liver disease when "she quit drinking a month ago". She has very poor insight into her disease. When her daughter visited 2 days ago, patient had soiled herself and was playing in her own feces. When evaluated by psychiatry yesterday, she was assessed as capable of making her own decisions. Patient reiterated that to me today stating that the psychiatrist told her "she was in her right mind and could make her own decisions". She stated if she was not discharged today she would be walking out of the hospital under her own power because she did not have any shampoo or conditioner. She is curled up in bed complaining of pain in her right hip. Evaluation shows a Lidoderm patch over the bruised area seen yesterday. There is mild swelling and it is tender to light palpation around the hip joint, pain is moderate, constant, worsening with pressure or movement, minimal improvement with Lidoderm or Advil. Discussed this with Usha Jensen APRN, who has requested a hip x-ray. The patient denies any falls but is frequently confused. . Family/Friend Interactions: Spoke with her daughter via telephone and advised her of the psychiatrist opinion and the referral sent to [facility], who is the only longterm in the area with both a locked unit and accepting of her insurance. Per my discussion with the continuous pillowcase cutter, if [facility] refuses her, her options are severely limited. Also discussed hospice with the daughter, Macie, who is the patient's healthcare surrogate. Given her mother's poor prognosis from severe liver disease, she is desirous of her mother's comfort and wishes and information consult with [facility]. Consult was issued and called to admissions. She states she will bring shampoo and conditioner in for her mother, however states that her mother has refused a shower every day that she is come to visit and to her knowledge has not taken a shower in a very long time , even at home. She states her mother's hygiene is poor and that all of her clothes are crusted with dried feces requiring multiple launderings to remove. She states that her mother is frequently unaware that she is incontinent. . Advance Directives Health Care Surrogate Name and Number: Mayo Younger Objective Vital Signs: Vital Signs 11/30/17 16:00 11/30/17 20:00 12/01/17 00:00 Temperature 99.8 F H 98.1 F 97.9 F Pulse Rate 101 H 108 H 105 H Respiratory Rate 20 18 19 Blood Pressure 98/51 L 97/52 L 92/55 L Pulse Oximetry 98 97 98 12/01/17 04:00 12/01/17 08:00 12/01/17 12:00 Temperature 97.3 F L 97.9 F 98.1 F Pulse Rate 90 100 H 99 H Respiratory Rate 18 20 20 Blood Pressure 93/50 L 93/51 L 103/63 Pulse Oximetry 97 97 99 Intake & Output 11/30/17 12/01/17 12/01/17 18:59 06:59 18:59 Other: # Voids 2 Date of Last Bowel Movement 11/30/17 11/30/17 11/30/17 # Bowel Movements 2 Physical Exam: CONSTITUTIONAL/GENERAL: This is an adequately nourished patient, in no apparent distress. TUBES/LINES/DRAINS: PIV SKIN: Positive jaundice, no rashes, or lesions. Ecchymoses on upper extremities and right hip. No wounds seen anteriorly. Skin temperature appropriate. Not diaphoretic. CARDIOVASCULAR: Regular rate and rhythm with 2/6 systolic ejection murmurs, no gallops, or rubs. No JVD. Peripheral pulses symmetric. RESPIRATORY/CHEST: Symmetric, unlabored respirations. Clear to auscultation. Breath sounds equal bilaterally. No wheezes, rales, or rhonchi. GASTROINTESTINAL: Abdomen soft, tender to palpation in all quadrants, mildly distended. No guarding. Bowel sounds present. GENITOURINARY: Without palpable bladder distension. MUSCULOSKELETAL: Extremities without clubbing, cyanosis, or edema. Right hip with swelling and ecchymosis over the right hip joint posterior to the healed incision. NEUROLOGICAL: Awake and alert. Curled up in bed. Cognitively slow, frequently forgetful, moves all extremities. PSYCHIATRIC: Flat affect, mildly agitated. . Diagnostic Tests Laboratory: Laboratory Results - last 72 hr 11/29/17 11/29/17 11/29/17 08:09 11:05 11:05 WBC 12.3 H RBC 2.34 L Hgb 8.7 L Hct 25.7 L MCV 109.9 H MCH 37.2 H MCHC 33.9 RDW 17.5 H Plt Count 107 L MPV 8.5 Prelim Diff (Auto) Slide review pending Neut % (Auto) 73.4 H Lymph % (Auto) 13.9 Major % (Auto) 11.5 H Eos % (Auto) 0.9 Baso % (Auto) 0.3 Neut # (Auto) 9.0 H Lymph # (Auto) 1.7 Major # (Auto) 1.4 H Eos # (Auto) 0.1 Baso # (Auto) 0.0 WBC Differential . Diff Scan Auto diff confirmed Differential Comment . Platelet Estimate Low L Platelet Morphology Normal Basophilic Stippling Faint H Acanthocytes (Spur) 1+ H Keratocytes Sodium Potassium Chloride Carbon Dioxide Anion Gap BUN Creatinine Estimated GFR Random Glucose Calcium Iron 100 TIBC 112 L % Saturation 89.3 H Ferritin 285 H Total Bilirubin AST ALT Alkaline Phosphatase Ammonia 15 Total Protein Albumin Vitamin B12 1726 H Beta HCG, Quant 11/29/17 12/01/17 12/01/17 11:05 11:56 11:56 WBC 11.2 H RBC 2.12 L Hgb 7.9 L Hct 23.4 L MCV 110.5 H MCH 37.1 H MCHC 33.6 RDW 18.9 H Plt Count 121 L MPV 8.1 Prelim Diff (Auto) Slide review pending Neut % (Auto) 70.9 H Lymph % (Auto) 14.1 Major % (Auto) 12.9 H Eos % (Auto) 1.5 Baso % (Auto) 0.6 Neut # (Auto) 7.9 H Lymph # (Auto) 1.6 Major # (Auto) 1.4 H Eos # (Auto) 0.2 Baso # (Auto) 0.1 WBC Differential . Diff Scan Auto diff confirmed Differential Comment . Platelet Estimate Platelet Morphology Basophilic Stippling Acanthocytes (Spur) 1+ H Keratocytes Occ H Sodium 134 L 135 L Potassium 4.0 4.6 Chloride 104 106 Carbon Dioxide 23.5 22.2 Anion Gap 7 7 BUN 13 12 Creatinine 1.07 H 0.89 Estimated GFR 54 L 67 L Random Glucose 98 97 Calcium 8.3 L 8.5 Iron TIBC % Saturation Ferritin Total Bilirubin 13.2 H 12.1 H AST 67 H 60 H ALT 21 18 Alkaline Phosphatase 146 H 129 H Ammonia Total Protein 8.3 H D 7.3 D Albumin 2.6 L D 2.1 L Vitamin B12 Beta HCG, Quant Less than 1 Result Diagrams: 12/01/17 11:56 12/01/17 11:56 Assessment and Plan - Disease Oriented Problem List (1) Hyperbilirubinemia (2) Chronic abdominal pain (3) Cirrhosis of liver with ascites (4) Acute GI bleeding (5) Anemia (6) Hepatic encephalopathy Pertinent Non-Medical Issues: Psychosocial: She was born in [place] and moved to [place] when she was about 13. 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 She is and has 2 children a son Braeden Levy and a daughter Macie Ortiz. 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 Legal: Healthcare surrogate on chart listing her mother as primary and her daughter as secondary. Ethical issues impacting care: None noted. . Important Contacts: Mother: Annmarie Younger Son: Braeden Levy Daughter: Macie Ortiz Son: Bubba Doan, currently in [facility]. . Prognosis: She has severe hepatic disease now approaching failure. She has hepatic encephalopathy and is now confused. Transaminases are elevated with bilirubin at 12.9, ammonia elevated at 93 on admission, now down to 28 with both lactulose and rifaximin, with a meld score of 25 showing a 19.6% estimated 3- month mortality. She quit drinking alcohol 1 month ago on her last admission continues to smoke cigarettes daily. She is now requiring paracentesis intermittently, is having a decreasing appetite with a BMI of 17.5. She is auto -anticoagulated with an INR of 2.1. She has already had gastrointestinal bleeding in the past and is at risk for recurrent episodes. She has had multiple admissions and was seen in [place] 1 month ago. She is at risk for continued complications, decline and readmissions. . Code Status: Full Code Plan: PLAN: Legal decision maker: Patient is capacitated for decision-making per psychiatry at this time however it is not certain whether she will continued to be capacitated due to her hepatic encephalopathy, medication noncompliance and hyperammonemia. She had previously completed a healthcare surrogate naming her mother Annmarie as the primary and her daughter Macie as the secondary. Her mother is currently in the hospital recovering from open heart surgery and not available. Her daughter Macie is currently participating with both of her brothers in making decisions. Goals: To be determined, family considering CODE STATUS and hospice. CODE STATUS: FULL CODE SYMPTOMS: * Altered mental status: Mental status is clearing as ammonia is reduced back into the normal range. While she appears to have limited insight, she is oriented x4, forgetful, intermittently confused between current and remote memory. Has been missing doses of lactulose left at bedside. Recommend medication monitoring with administration to make sure all medications are taken. This will be a continued problem at discharge and as she was not competent to care for herself at home previously, she will likely benefit from detention facility placement. * Right hip pain: Right hip shows swelling and ecchymosis, states it is from a very uncomfortable bed, Lidoderm patch applied. Painful with ambulation. Lidoderm and Advil minimally effective. Hip x-ray pending. Palliative care will continue to follow the patient during hospital course as condition evolves, to assist patient/decision-maker with understanding of their medical conditions, weighing benefits/burdens of treatment options, for clarification of goals of treatment. Additionally will assist with any symptoms of palliative concern. . Attestation Attestation: To help prompt me to consider important information that might be impacting today's encounter and assessment, information from prior notes written by myself or my colleagues may have been "brought forward" into today's note. My signature on this note, however, is an attestation that I personally performed the exam, history, and/or decision-making noted today, and, unless otherwise indicated, the interactions with patient, family, and staff as well as the review of records all occurred today. I also attest that the listed assessment and stated plan reflect my best clinical judgment today based on the combination of historical information, prior notes, and today's exam/ interactions. When time spent is documented, it refers only to time spent today by the signer, or if indicated, combined time spent today by collaborating physician/nurse practitioner. .
--- NOTE | 2017-12-01 15:31 | XR ---
EXAM DATE: 12/01/2017 12:00 AM EDT AGE/SEX: 52 years / Female INDICATIONS: Right hip pain, no injury. CLINICAL DATA: This is the patient's initial encounter. Patient reports that signs and symptoms have been present for 1 day and indicates a pain score of 10/10. MEDICAL/SURGICAL HISTORY: Cirrhosis. Pancreatitis. . Right [place]. [place] [facility] [place]/25/2017. . FINDINGS: Antegrade intramedullary shawn and trochanteric nail fixation hardware is seen. No acute fracture or di slocation. Bone density is normal. CONCLUSION: No evidence of recent bony injury. Electronically signed by: Bruce Lang MD 12/01/2017 3:30 PM EDT
[2017-12-01] MEDS: Ibuprofen 400 MG Tablet PO PRN (16:08)
[2017-12-01] MEDS: Gabapentin 300 MG Capsule PO SCH (21:43)
[2017-12-02] MEDS: LORazepam 0.5 MG Tablet PO PRN ×3 (01:25→20:00)
[2017-12-02] MEDS: Ibuprofen 400 MG Tablet PO PRN ×3 (01:25→20:01)
[2017-12-02] MEDS: Lidocaine 5% Patch T-DERMAL SCH (09:23)
[2017-12-02] MEDS: Spironolactone 50 MG Tablet PO SCH (09:25)
[2017-12-02] MEDS: Lipase/Protease/Amylase 24/76/120 DR Capsule PO SCH ×3 (09:25→17:45)
[2017-12-02] MEDS: Furosemide 20 MG Tablet PO SCH (09:25)
[2017-12-02] MEDS: Pentoxifylline 400 MG Controlled Release Tablet PO SCH ×3 (09:25→17:46)
[2017-12-02] MEDS: rifAXIMin 550 MG Tablet PO SCH ×2 (09:26→20:01)
--- NOTE | 2017-12-02 10:20 | P.PNIM ---
Subjective Interval history: Follow-up visit right hip pain, altered mental status, liver cirrhosis, hepatic encephalopathy, hypokalemia, hyponatremia, acute kidney injury. Patient seen and examined, laying in bed on his right side, stated right hip pain is better today. Patient asking want to go home, requesting to go home today. Patient stated her mother was here and she will take her. When asked how old is her mother she said 61 when I asked how old she is she said 52. Patient denies any headache or dizziness, denies any pain, chest pain, shortness of breath. Patient denies any abdominal pain, nausea, vomiting, diarrhea or constipation. Patient denies any fever or chills. Discussed with patient waiting placement for nursing and rehab facility. Was accepted in [facility] just waiting for a bed to be available. Physical Exam Vital signs: Vital Signs 12/01/17 12:00 12/01/17 16:00 12/01/17 20:00 Temperature 98.1 F 98.9 F 98.1 F Pulse Rate 99 H 95 H 101 H Respiratory Rate 20 18 17 Blood Pressure 103/63 97/51 L 105/54 L Pulse Oximetry 99 99 94 L 12/02/17 00:00 12/02/17 04:00 12/02/17 08:00 Temperature 98.5 F 97.6 F 98 F Pulse Rate 91 H 90 94 H Respiratory Rate 20 15 20 Blood Pressure 94/55 L 117/52 L 99/51 L Pulse Oximetry 100 97 97 Intake & Output 12/01/17 12/02/17 12/02/17 18:59 06:59 18:59 Intake Total 500 / 500 221 / 221 Output Total 100 / 100 Balance 400 / 400 221 / 221 Weight 52.1 kg Intake: Oral 500 / 500 221 / 221 Output: Urine 100 / 100 Other: Date of Last Bowel Movement 11/30/17 12/01/17 Narrative: GENERAL: Chronically ill appearing female, in no apparent distress SKIN: Warm and dry. Diffuse jaundice, Multiple stigmata of liver disease including spider telangiectasias, palmar erythema, and some mild abdominal caput medusae. HEAD: Atraumatic. Normocephalic. EYES: Pupils equal and round. No injection or drainage. Jaundiced sclera ENT: No nasal bleeding or discharge. Mucous membranes pink and moist. NECK: Trachea midline. No JVD. CARDIOVASCULAR: Regular rate and rhythm. RESPIRATORY: No accessory muscle use. Clear to auscultation. Breath sounds equal bilaterally. GASTROINTESTINAL: Abdomen round soft, nontender, nondistended. Hepatic margins palpable and splenic margins not palpable. MUSCULOSKELETAL: Extremities without clubbing, cyanosis. No obvious deformities. Right hip redness, ecchymosis, edema. Ambulating without difficulty. NEUROLOGICAL: Awake and alert. No obvious cranial nerve deficits. Generalized weakness, moving all 4 extremities. Ambulatory. Normal speech. PSYCHIATRIC: Appropriate mood and affect; insight and judgment unreliable. Results - Labs CBC & Chem 7: 12/01/17 11:56 12/01/17 11:56 Laboratory Results - last 24 hr 12/01/17 12/01/17 11:56 11:56 WBC 11.2 H RBC 2.12 L Hgb 7.9 L Hct 23.4 L MCV 110.5 H MCH 37.1 H MCHC 33.6 RDW 18.9 H Plt Count 121 L MPV 8.1 Prelim Diff (Auto) Slide review pending Neut % (Auto) 70.9 H Lymph % (Auto) 14.1 Irwin % (Auto) 12.9 H Eos % (Auto) 1.5 Baso % (Auto) 0.6 Neut # (Auto) 7.9 H Lymph # (Auto) 1.6 Irwin # (Auto) 1.4 H Eos # (Auto) 0.2 Baso # (Auto) 0.1 WBC Differential . Diff Scan Auto diff confirmed Differential Comment . Acanthocytes (Spur) 1+ H Keratocytes Occ H Sodium 135 L Potassium 4.6 Chloride 106 Carbon Dioxide 22.2 Anion Gap 7 BUN 12 Creatinine 0.89 Estimated GFR 67 L Random Glucose 97 Calcium 8.5 Total Bilirubin 12.1 H AST 60 H ALT 18 Alkaline Phosphatase 129 H Total Protein 7.3 D Albumin 2.1 L Beta HCG, Quant Less than 1 - Imaging Impressions Hip X-Ray 12/01/17 00:00 CONCLUSION: No evidence of recent bony injury. - Procedures N/A Assessment and Plan - Assessment (1) Acute hepatic encephalopathy Code(s): K72.00 - Acute and subacute hepatic failure without coma Status: Acute (2) Hepatic encephalopathy Code(s): K72.90 - Hepatic failure, unspecified without coma Status: Acute (3) Cirrhosis of liver with ascites Code(s): K74.60 - Unspecified cirrhosis of liver; R18.8 - Other ascites Status : Acute (4) Anemia Code(s): D64.9 - Anemia, unspecified Status: Acute (5) Acute hypokalemia Code(s): E87.6 - Hypokalemia Status: Acute - Plan This is a 52-year-old female with history of liver cirrhosis and chronic pancreatitis admitted for hepatic encephalopathy. Hepatic encephalopathy/altered mental status Ammonia elevated at 93 initially, improved -->28 improving AST 60, ALT 18, total bilirubin 16.7 -->12.1 INR elevated 2.2 Meld score 29 with 19.6 estimated 3-month mortality Continue lactulose and rifaximin Continue home pentoxifylline, rescheduled spironolactone and Lasix due to low BP in the morning Avoid hepatotoxic agents -Ultrasound of the abdomen trace free fluid in the right upper quadrant. No other evidence of ascites. -monitor liver function -ammonia level elevated on 11/28, nurse reported unused lactulose at the bedside. This will be a concern after discharge whether patient will be compliant with medications. -Psych consulted for medical decision making capability, considering patient insisting to go home, wanting to smoke, refusing her medications, defecating on herself. Psych cleared the patient -Palliative care appreciate consultation ARACELIS/ Hypokalemia/ Hyponatremia improving, creatinine 0.89, back to baseline/ K4.6/NA 135 -s/p IV fluid normal saline and 20 mEq KCl in IV fluids -continue Potassium supplements PO Continue to monitor BMP, replace as needed HX Chronic pancreatitis/ esophagitis Resume home Creon Continue home PPI Anxiety -restart lower dose ativan prn, hold for sedation -monitor mental status Acute on Chronic Anemia -TIBC 112, ferritin 285, vitamin B12 1726 -start on Iron supplements -monitor CBC Tobacco dependence Patient requesting to go out to smoke, education given -Start on nicotine patch Osteoarthritis/history of right hip replacement Slight edema, redness, ecchymosis Start low-dose NSAIDs to decrease inflammation -May have ice pack -May have lidocaine patch/avoid redness and ecchymosis area Right hip x-ray: No fracture DVT prop SCDs, avoid chemical prophylaxis secondary to liver dysfunction Patient clear for discharge, awaiting for SNF placement issues, will continue to see until patient discharged. Code Status: Full code Discussed Condition With: Patient, nurse and administrator social welfare Discharge Planning: marine services technician consulted to assist patient patient in placement to SNF/rehab. Patient denied at [facility]. Accepted at [facility], awaiting for bed to be available. (3) Cirrhosis of liver with ascites Qualifiers: Hepatic cirrhosis type: unspecified hepatic cirrhosis Qualified Code(s): K74.60 - Unspecified cirrhosis of liver; R18.8 - Other ascites
[2017-12-02] MEDS: Ferrous Sulfate 325 MG Tablet PO SCH ×2 (12:19→17:50)
[2017-12-02] MEDS: Gabapentin 300 MG Capsule PO SCH (20:01)
[2017-12-03] MEDS: LORazepam 0.5 MG Tablet PO PRN ×3 (04:07→20:10)
[2017-12-03] MEDS: Ibuprofen 400 MG Tablet PO PRN ×3 (04:07→20:10)
[2017-12-03] MEDS: Lidocaine 5% Patch T-DERMAL SCH (09:09)
[2017-12-03] MEDS: Pentoxifylline 400 MG Controlled Release Tablet PO SCH ×3 (09:13→17:12)
[2017-12-03] MEDS: Lipase/Protease/Amylase 24/76/120 DR Capsule PO SCH ×3 (09:13→17:12)
[2017-12-03] MEDS: Furosemide 20 MG Tablet PO SCH (09:14)
[2017-12-03] MEDS: rifAXIMin 550 MG Tablet PO SCH ×2 (09:14→20:10)
[2017-12-03] MEDS: Spironolactone 50 MG Tablet PO SCH (09:14)
--- NOTE | 2017-12-03 09:40 | P.PNIM ---
Subjective Interval history: Follow-up visit right hip pain, altered mental status, liver cirrhosis, hepatic encephalopathy, hypokalemia, hyponatremia, acute kidney injury.. Patient seen and examined, sitting in the chair making her coffee. Patient awake alert and more oriented with some confusions, stated he wanted to go home stated he had not she had an apartment and her mother live close by patient stated that her mother is 61 however she did realize she is 52 and she said her mother is 61. She said that her mother is in the other hospital having a surgery for a bypass , states that she needed 3 bypass but they only did one bypass. She also talked about her son had a baby, when asked about his son coming here he says she said he will not come because she just had a baby. Patient stated she was seeing Dr. Tarango for pain management, she is seeing Dr. Toño Gutierrez, and she is seeing more Dr. French which is across the street from her. Patient states that she will follow-up with her doctors when she goes home. This is discussed acceptance from [facility], just awaiting for the bed to be available, patient verbalized understanding. Physical Exam Vital signs: Vital Signs 12/02/17 12:00 12/02/17 16:00 12/02/17 20:00 Temperature 98.2 F 98.3 F 97.8 F Pulse Rate 104 H 109 H 101 H Respiratory Rate 18 18 16 Blood Pressure 109/64 91/54 L 99/48 L Pulse Oximetry 97 97 95 12/03/17 00:00 Temperature 98.2 F Pulse Rate 97 H Respiratory Rate 18 Blood Pressure 92/52 L Pulse Oximetry 97 Intake & Output 12/02/17 12/03/17 12/03/17 18:59 06:59 18:59 Intake Total 240 / 240 Output Total 400 / 400 Balance -160 / -160 Weight 52.1 kg Intake: Oral 240 / 240 Output: Urine 400 / 400 Other: # Voids 2 Date of Last Bowel Movement 12/01/17 12/02/17 # Bowel Movements 3 1 Narrative: GENERAL: Chronically ill appearing female, in no apparent distress SKIN: Warm and dry. Diffuse jaundice, Multiple stigmata of liver disease including spider telangiectasias, palmar erythema, and some mild abdominal caput medusae. HEAD: Atraumatic. Normocephalic. EYES: Pupils equal and round. No injection or drainage. Jaundiced sclera ENT: No nasal bleeding or discharge. Mucous membranes pink and moist. NECK: Trachea midline. No JVD. CARDIOVASCULAR: Regular rate and rhythm. RESPIRATORY: No accessory muscle use. Clear to auscultation. Breath sounds equal bilaterally. GASTROINTESTINAL: Abdomen round soft, nontender, nondistended. Hepatic margins palpable and splenic margins not palpable. MUSCULOSKELETAL: Extremities without clubbing, cyanosis. No obvious deformities. Right hip redness, ecchymosis, edema. Ambulating without difficulty. NEUROLOGICAL: Awake and alert. No obvious cranial nerve deficits. Generalized weakness, moving all 4 extremities. Ambulatory. Normal speech. PSYCHIATRIC: Flat mood and affect; insight and judgment unreliable. Results - Labs CBC & Chem 7: 12/01/17 11:56 12/01/17 11:56 - Procedures N/A Assessment and Plan - Assessment (1) Acute hepatic encephalopathy Code(s): K72.00 - Acute and subacute hepatic failure without coma Status: Acute (2) Hepatic encephalopathy Code(s): K72.90 - Hepatic failure, unspecified without coma Status: Acute (3) Cirrhosis of liver with ascites Code(s): K74.60 - Unspecified cirrhosis of liver; R18.8 - Other ascites Status : Acute (4) Anemia Code(s): D64.9 - Anemia, unspecified Status: Acute (5) Acute hypokalemia Code(s): E87.6 - Hypokalemia Status: Acute - Plan This is a 52-year-old female with history of liver cirrhosis and chronic pancreatitis admitted for hepatic encephalopathy. Hepatic encephalopathy/altered mental status Ammonia elevated at 93 initially, improved -->28 improving AST 60, ALT 18, total bilirubin 16.7 -->12.1 INR elevated 2.2 Meld score 29 with 19.6 estimated 3-month mortality Continue lactulose and rifaximin Continue home pentoxifylline, rescheduled spironolactone and Lasix due to low BP in the mornings Avoid hepatotoxic agents -Ultrasound of the abdomen trace free fluid in the right upper quadrant. No other evidence of ascites. -monitor liver function -ammonia level elevated on 11/28, nurse reported unused lactulose at the bedside. This will be a concern after discharge whether patient will be compliant with medications. Patient states that she did not take her lactulose last night and this morning to -Psych consulted for medical decision making capability, considering patient insisting to go home, wanting to smoke, refusing her medications, defecating on herself. Psych cleared the patient -Palliative care appreciate consultation ARACELIS/ Hypokalemia/ Hyponatremia improving, creatinine 0.89, back to baseline/ K4.6/NA 135 -s/p IV fluid normal saline and 20 mEq KCl in IV fluids -continue Potassium supplements PO Continue to monitor BMP, replace as needed HX Chronic pancreatitis/ esophagitis Resume home Creon Continue home PPI Anxiety -Improving -restart lower dose ativan prn, hold for sedation -monitor mental status Acute on Chronic Anemia -TIBC 112, ferritin 285, vitamin B12 1726 -start on Iron supplements -monitor CBC, encourage p.o. intake Tobacco dependence Patient requesting to go out to smoke, education given -Start on nicotine patch, monitor response Osteoarthritis/history of right hip replacement Slight edema, redness, ecchymosis Start low-dose NSAIDs if needed to decrease inflammation -May have ice pack -May have lidocaine patch/avoid redness and ecchymosis area Right hip x-ray: No fracture DVT prop SCDs, avoid chemical prophylaxis secondary to liver dysfunction Patient clear for discharge, awaiting for SNF placement issues, will continue to see until patient discharged. Patient was accepted to [facility], awaiting for bed to be available Code Status: Full code Discussed Condition With: Patient, nurse and psychiatric social worker Discharge Planning: student services advisor consulted to assist patient patient in placement to SNF/rehab. Patient denied at [facility]. Accepted at [facility], awaiting for bed to be available. (3) Cirrhosis of liver with ascites Qualifiers: Hepatic cirrhosis type: unspecified hepatic cirrhosis Qualified Code(s): K74.60 - Unspecified cirrhosis of liver; R18.8 - Other ascites
[2017-12-03] MEDS: Ferrous Sulfate 325 MG Tablet PO SCH ×2 (12:02→19:29)
[2017-12-03] MEDS: Gabapentin 300 MG Capsule PO SCH (20:10)
[2017-12-04] MEDS: LORazepam 0.5 MG Tablet PO PRN ×3 (04:23→20:54)
[2017-12-04] MEDS: Ibuprofen 400 MG Tablet PO PRN ×3 (04:23→20:54)
[2017-12-04] MEDS: Lipase/Protease/Amylase 24/76/120 DR Capsule PO SCH ×3 (09:09→17:26)
[2017-12-04] MEDS: rifAXIMin 550 MG Tablet PO SCH ×2 (09:09→20:54)
[2017-12-04] MEDS: Furosemide 20 MG Tablet PO SCH (09:09)
[2017-12-04] MEDS: Lidocaine 5% Patch T-DERMAL SCH (09:09)
[2017-12-04] MEDS: Spironolactone 50 MG Tablet PO SCH (09:09)
[2017-12-04] MEDS: Pentoxifylline 400 MG Controlled Release Tablet PO SCH ×3 (09:09→17:26)
[2017-12-04] MEDS: Ferrous Sulfate 325 MG Tablet PO SCH ×2 (12:20→17:26)
--- NOTE | 2017-12-04 12:28 | P.PNIM ---
Subjective Interval history: Follow-up visit right hip pain, altered mental status, liver cirrhosis, hepatic encephalopathy, hypokalemia, hyponatremia, acute kidney injury. Patient laying in bed, states that she is feeling better no abdominal pain and stated ready to go home. Patient denies any headache or dizziness, denies any pain, chest pain , or shortness of breath. Patient denies any abdominal pain, nausea, vomiting, diarrhea or constipation. Patient denies any fever or chills. Patient states that she is walking up to the bathroom without a problem. Nurse reported no acute concerns. Physical Exam Vital signs: Vital Signs 12/03/17 16:00 12/03/17 20:00 12/04/17 00:00 Temperature 98.1 F 97.9 F 97.7 F Pulse Rate 95 H 93 H 90 Respiratory Rate 18 18 18 Blood Pressure 96/49 L 93/52 L 96/55 L Pulse Oximetry 97 96 97 12/04/17 04:00 Temperature 98.0 F Pulse Rate 94 H Respiratory Rate 20 Blood Pressure 95/60 L Pulse Oximetry 98 Intake & Output 12/03/17 12/04/17 12/04/17 18:59 06:59 18:59 Intake Total 600 / 600 Balance 600 / 600 Weight 52.2 kg Intake: Oral 600 / 600 Other: # Voids 2 2 Date of Last Bowel Movement 12/03/17 12/04/17 # Bowel Movements 1 Narrative: GENERAL: Chronically ill appearing female, in no apparent distress SKIN: Warm and dry. Diffuse jaundice, Multiple stigmata of liver disease including spider telangiectasias, and some mild abdominal caput medusae. HEAD: Atraumatic. Normocephalic. EYES: Pupils equal and round. No injection or drainage. Jaundiced sclera ENT: No nasal bleeding or discharge. Mucous membranes pink and moist. NECK: Trachea midline. No JVD. CARDIOVASCULAR: Regular rate and rhythm. RESPIRATORY: No accessory muscle use. Clear to auscultation. Breath sounds equal bilaterally. GASTROINTESTINAL: Abdomen round, soft, nontender, nondistended. Hepatic margins palpable and splenic margins not palpable. MUSCULOSKELETAL: Extremities without clubbing, cyanosis. No obvious deformities. Right hip redness, ecchymosis, edema. Ambulating without difficulty. NEUROLOGICAL: Awake and alert. No obvious cranial nerve deficits. Generalized weakness, moving all 4 extremities. Ambulatory. Normal speech. PSYCHIATRIC: Flat mood and affect; insight and judgment unreliable. Results - Labs CBC & Chem 7: 12/01/17 11:56 12/01/17 11:56 - Procedures N/A Assessment and Plan - Assessment (1) Acute hepatic encephalopathy Code(s): K72.00 - Acute and subacute hepatic failure without coma Status: Acute (2) Hepatic encephalopathy Code(s): K72.90 - Hepatic failure, unspecified without coma Status: Acute (3) Cirrhosis of liver with ascites Code(s): K74.60 - Unspecified cirrhosis of liver; R18.8 - Other ascites Status : Acute (4) Anemia Code(s): D64.9 - Anemia, unspecified Status: Acute (5) Acute hypokalemia Code(s): E87.6 - Hypokalemia Status: Acute - Plan This is a 52-year-old female with history of liver cirrhosis and chronic pancreatitis admitted for hepatic encephalopathy. Hepatic encephalopathy/altered mental status Ammonia elevated at 93 initially, improved -->28 improving AST 60, ALT 18, total bilirubin 16.7 -->12.1 INR elevated 2.2 Meld score 29 with 19.6 estimated 3-month mortality Continue lactulose and rifaximin Continue home pentoxifylline, rescheduled spironolactone and Lasix due to low BP in the mornings Avoid hepatotoxic agents -Ultrasound of the abdomen trace free fluid in the right upper quadrant. No other evidence of ascites. -monitor liver function -ammonia level elevated on 11/28, nurse reported unused lactulose at the bedside. This will be a concern after discharge whether patient will be compliant with medications. Patient states that she did not take her lactulose last night and this morning to -Psych consulted for medical decision making capability, considering patient insisting to go home, wanting to smoke, refusing her medications, defecating on herself. Psych cleared the patient -Palliative care appreciate consultation ARACELIS/ Hypokalemia/ Hyponatremia improving, creatinine 0.89, back to baseline/ K4.6/NA 135 -s/p IV fluid normal saline and 20 mEq KCl in IV fluids -continue Potassium supplements PO Continue to monitor BMP, replace as needed HX Chronic pancreatitis/ esophagitis Resume home Creon Continue home PPI Anxiety -Improving -restart lower dose ativan prn, hold for sedation -monitor mental status Acute on Chronic Anemia -TIBC 112, ferritin 285, vitamin B12 1726 -start on Iron supplements -monitor CBC, encourage p.o. intake Tobacco dependence Patient requesting to go out to smoke, education given -Start on nicotine patch, monitor response Osteoarthritis/history of right hip replacement Slight edema, redness, ecchymosis Start low-dose NSAIDs if needed to decrease inflammation -May have ice pack -May have lidocaine patch/avoid redness and ecchymosis area -Right hip x-ray: No fracture -no complaints of pain today DVT prop SCDs, avoid chemical prophylaxis secondary to liver dysfunction Patient clear for discharge, awaiting for SNF placement issues, will continue to see until patient discharged. Patient was accepted to [facility], awaiting for bed to be available Code Status: Full code Discussed Condition With: Patient, nurse and social studies teacher Discharge Planning: patient services rep consulted to assist patient patient in placement to SNF/rehab. Patient denied at [facility]. Accepted at [facility], awaiting for bed to be available. (3) Cirrhosis of liver with ascites Qualifiers: Hepatic cirrhosis type: unspecified hepatic cirrhosis Qualified Code(s): K74.60 - Unspecified cirrhosis of liver; R18.8 - Other ascites
--- NOTE | 2017-12-04 16:20 | P.PNPSY ---
Subjective Remarks: The patient was seen today for psychiatric reevaluation, she was reconsulted to psychiatry to reevaluate her decision-making capacity. The patient has been requesting to leave the hospital AMA. On my psychiatric evaluation the patient is found talking by phone, she is calm, cooperative, stating that she needs to go home because her grandson was born yesterday and is very sick. When I asked her she is going to be the one taking care of her son she says no, then she says that she needs to go because she has to do several phone calls to her bank. I asked the patient what is the reason she is in the hospital, and her answer is "because I was a little fragile". She is oriented x3 at the moment, but the patient is unable to express even a fair understanding or appreciation of current medical condition, alternative for discharge plan and even a rational recent for her choice. As per nurses the patient has being at times confused, fluctuating level of consciousness, at times quite disorganized and illogical. Mental Status Examination Appearance: Appropriate Consciousness: Alert Orientation: Person, Place, Date/Time Motor Activity: Normal gait Speech: Unremarkable Language: Adequate Fund of Knowledge: Inadequate Attention and Concentration: Adequate Memory: Unremarkable Mood: Appropriate Affect: Labile Thought Process & Associations: Disorganized Thought Content: Appropriate Hallucination Type: None Delusion Type: Bizarre Suicidal Ideation: No Suicidal Plan: No Suicidal Intention: No Homicidal Ideation: No Homicidal Plan: No Homicidal Intention: No Insight: Poor Judgment: Poor Assessment and Plan - Assessment (1) Delirium Code(s): R41.0 - Disorientation, unspecified Status: Acute - Plan Plan: At the moment of the psychiatric evaluation the patient does not seem to have even a fair understanding or appreciation of current medical situation. The patient is oriented x3, but unable to express a rational explanation for her recent to leave the hospital. The patient seems to be disconnected and in a pervasive/maladaptive denial of medical situation. She has being confused and having fluctuating level of consciousness. At this moment the patient does not have decision-making capacity to leave AMA. Will order Ativan 2 mg IM/IV every 8 hours as needed severe agitation. Continue current psychotropic regimen Justification for Continued Inpatient Stay: No admission in psychiatry is indicated
[2017-12-04] MEDS: Gabapentin 300 MG Capsule PO SCH (20:54)
[2017-12-05] MEDS: rifAXIMin 550 MG Tablet PO SCH ×2 (08:17→21:55)
[2017-12-05] MEDS: Lipase/Protease/Amylase 24/76/120 DR Capsule PO SCH ×3 (08:17→17:18)
[2017-12-05] MEDS: Pentoxifylline 400 MG Controlled Release Tablet PO SCH ×3 (08:17→17:18)
[2017-12-05] MEDS: Spironolactone 50 MG Tablet PO SCH (08:17)
[2017-12-05] MEDS: Furosemide 20 MG Tablet PO SCH (08:17)
[2017-12-05] MEDS: Lidocaine 5% Patch T-DERMAL SCH (08:18)
[2017-12-05 09:24] LABS: Albumin 1.9 g/dL (3.4-5.0); Anion Gap 9 meq/L (5-15); Aspartate Aminotransferase 58 U/L (15-37); Blood Urea Nitrogen 17 mg/dL (7-18); Calcium 8.1 mg/dL (8.5-10.1); Carbon Dioxide 20.5 meq/L (21.0-32.0); Chloride 104 meq/L (98-107); Glomerular Filtration Rate 51 mL/min (>89); Glucose,Random 113 mg/dL (74-106); Potassium 4.4 meq/L (3.5-5.1); Sodium 133 meq/L (136-145)
[2017-12-05 09:25] LABS: Alanine Aminotransferase 19 U/L (10-53)
[2017-12-05 09:27] LABS: Alkaline Phosphatase 123 U/L (45-117); Total Protein 7.3 g/dL (6.4-8.2)
--- NOTE | 2017-12-05 10:26 | P.PN ---
Subjective Interval history: Follow-up for hepatic encephalopathy, liver cirrhosis. The patient is seen lying in bed, eating breakfast. She is oriented to [facility], [facility], and states the date is December 06, 2019. She again requesting to be discharged home. She states she will take whatever medication she needs to take at home. After explaining the importance of taking her lactulose, she is still not able to repeat back to me which medications are important to take immediately after the conversation. She denies any medical complaints including no headache, lightheadedness, abdominal pain, nausea/vomiting, diarrhea, or urinary complaints. Physical Exam Vital signs: Vital Signs 12/04/17 12:00 12/04/17 16:00 12/04/17 20:00 Temperature 97.7 F 98.2 F 98.7 F Pulse Rate 103 H 94 H 89 Respiratory Rate 18 18 18 Blood Pressure 116/58 L 107/52 L 101/55 L Pulse Oximetry 100 98 97 12/05/17 08:00 Temperature 98.3 F Pulse Rate 87 Respiratory Rate 17 Blood Pressure 86/54 L Pulse Oximetry 95 Intake & Output 12/04/17 12/05/17 12/05/17 18:59 06:59 18:59 Intake Total 1120 / 1120 Balance 1120 / 1120 Weight 52.1 kg Intake: Oral 1120 / 1120 Other: # Voids 2 2 Date of Last Bowel Movement 12/04/17 12/04/17 # Bowel Movements 1 Narrative: GENERAL: Chronically ill appearing female, in NAD. SKIN: Warm and dry. Diffuse jaundice, Multiple stigmata of liver disease including spider telangiectasias, and some mild abdominal caput medusae. HEENT: Atraumatic. Normocephalic. Pupils equal and round. +Scleral icterus. Mucous membranes pink and moist. CARDIOVASCULAR: Regular rate and rhythm. No murmur appreciated. RESPIRATORY: No accessory muscle use. Clear to auscultation. Breath sounds equal bilaterally. GASTROINTESTINAL: Abdomen round, soft, nontender, nondistended. MUSCULOSKELETAL: Extremities without clubbing, cyanosis. No obvious deformities. Ambulating without difficulty. NEUROLOGICAL: Awake and alert. No obvious cranial nerve deficits. Generalized weakness, moving all 4 extremities. Ambulatory. Normal speech. PSYCHIATRIC: Flat mood and affect; insight and judgment limited. Results - Labs CBC & Chem 7: 12/01/17 11:56 12/05/17 08:42 Laboratory Results - last 24 hr 12/05/17 12/05/17 08:42 08:44 Sodium 133 L Potassium 4.4 Chloride 104 Carbon Dioxide 20.5 L Anion Gap 9 BUN 17 Creatinine 1.12 H Estimated GFR 51 L Random Glucose 113 H Calcium 8.1 L Total Bilirubin 11.0 H AST 58 H ALT 19 Alkaline Phosphatase 123 H Ammonia 26 Total Protein 7.3 Albumin 1.9 L - Imaging Abdomen Ultrasound 11/25/17 00:00 CONCLUSION: Trace free fluid in the right upper quadrant. No other evidence of ascites. Hip X-Ray 12/01/17 00:00 CONCLUSION: No evidence of recent bony injury. - Procedures N/A Assessment and Plan - Assessment (1) Acute hepatic encephalopathy Code(s): K72.00 - Acute and subacute hepatic failure without coma Status: Acute (2) Hepatic encephalopathy Code(s): K72.90 - Hepatic failure, unspecified without coma Status: Acute (3) Cirrhosis of liver with ascites Code(s): K74.60 - Unspecified cirrhosis of liver; R18.8 - Other ascites Status : Acute (4) Anemia Code(s): D64.9 - Anemia, unspecified Status: Acute (5) Acute hypokalemia Code(s): E87.6 - Hypokalemia Status: Acute - Plan 52-year-old female with history of liver cirrhosis and chronic pancreatitis admitted for hepatic encephalopathy. Hepatic encephalopathy/altered mental status Ammonia elevated at 93 initially, improved -->26 improving AST 60, ALT 18, total bilirubin 16.7 -->12.1 INR elevated 2.2 Meld score 29 with 19.6 estimated 3-month mortality Continue lactulose and rifaximin Continue home pentoxifylline, rescheduled spironolactone and Lasix due to low BP in the mornings Avoid hepatotoxic agents -Ultrasound abdomen trace free fluid in the right upper quadrant. No other evidence of ascites. -Patient intermittently noncompliant with taking lactulose. This will be a major concern after discharge whether patient will be compliant with medications. -Psych consulted for medical decision making capability, considering patient insisting to go home, wanting to smoke, refusing her medications, defecating on herself. Psych agrees patient lacks capacity for medical decision making at this time -Palliative care consultation appreciated ARACELIS/ Hypokalemia/ Hyponatremia improving, creatinine 0.89, back to baseline/ K4.6/NA 135 -s/p IV fluid normal saline and 20 mEq KCl in IV fluids -continue Potassium supplements PO Continue to monitor BMP, replace as needed HX Chronic pancreatitis/ esophagitis Resume home Creon Continue home PPI Anxiety -Improving -restart lower dose ativan prn, hold for sedation -monitor mental status Acute on Chronic Anemia -TIBC 112, ferritin 285, vitamin B12 1726 -start on Iron supplements -monitor CBC, encourage p.o. intake Tobacco dependence Patient requesting to go out to smoke, education given -Start on nicotine patch, monitor response Osteoarthritis/history of right hip replacement Slight edema, redness, ecchymosis Start low-dose NSAIDs if needed to decrease inflammation -May have ice pack -May have lidocaine patch/avoid redness and ecchymosis area -Right hip x-ray: No fracture -no complaints of pain today DVT prop SCDs, avoid chemical prophylaxis secondary to liver dysfunction Discharge Planning: Patient medically stable for discharge, awaiting for SNF placement issues, will continue to see until patient discharged. Patient was accepted to [facility], awaiting for available bed. (3) Cirrhosis of liver with ascites Qualifiers: Hepatic cirrhosis type: unspecified hepatic cirrhosis Qualified Code(s): K74.60 - Unspecified cirrhosis of liver; R18.8 - Other ascites
[2017-12-05] MEDS: LORazepam 0.5 MG Tablet PO PRN ×2 (12:21→21:55)
[2017-12-05] MEDS: Ibuprofen 400 MG Tablet PO PRN ×2 (12:22→21:56)
[2017-12-05] MEDS: Ferrous Sulfate 325 MG Tablet PO SCH ×2 (12:24→16:31)
[2017-12-05 12:28] LABS: Baso % (Auto) 0.4 % (0.0-2.0); Eos # (Auto) 0.1 th/mm3 (0.0-0.4); Eos % (Auto) 1.7 % (0.0-4.0); Hematocrit 25.3 % (35.0-46.0); Hemoglobin 8.7 gm/dL (11.6-15.3); Lymph # (Auto) 1.1 th/mm3 (1.0-4.8); Lymph % (Auto) 17.2 % (9.0-44.0); Mean Corpuscular HGB Conc 34.5 % (32.0-36.0); Mean Corpuscular Hemoglobin 38.6 pg (27.0-34.0); Mean Corpuscular Volume 111.7 fL (80.0-100.0); Mono # (Auto) 0.9 th/mm3 (0.0-0.9); Mono % (Auto) 13.3 % (0.0-8.0); Neut # (Auto) 4.3 th/mm3 (1.8-7.7); Neut % (Auto) 67.4 % (16.0-70.0); Red Blood Count 2.26 mil/mm3 (4.00-5.30); Red Cell Distribution Width 18.6 % (11.6-17.2); White Blood Count 6.4 th/mm3 (4.0-11.0)
[2017-12-05 12:30] LABS: Acanthocytes 2+
[2017-12-05 12:33] LABS: Platelet Count 121 th/mm3 (150-450)
[2017-12-05 12:34] LABS: Platelet Morphology Clumped (Normal)
[2017-12-05] MEDS: Gabapentin 300 MG Capsule PO SCH (21:56)
[2017-12-06] MEDS: Ibuprofen 400 MG Tablet PO PRN (06:23)
[2017-12-06] MEDS: LORazepam 0.5 MG Tablet PO PRN ×2 (06:24→14:41)
[2017-12-06] MEDS: Lipase/Protease/Amylase 24/76/120 DR Capsule PO SCH ×3 (10:19→18:10)
[2017-12-06] MEDS: Pentoxifylline 400 MG Controlled Release Tablet PO SCH ×3 (10:20→18:11)
[2017-12-06] MEDS: Spironolactone 50 MG Tablet PO SCH (10:20)
[2017-12-06] MEDS: rifAXIMin 550 MG Tablet PO SCH ×2 (10:21→21:56)
[2017-12-06] MEDS: Furosemide 20 MG Tablet PO SCH (10:21)
[2017-12-06] MEDS: Lidocaine 5% Patch T-DERMAL SCH (10:22)
--- NOTE | 2017-12-06 12:19 | P.PN ---
Subjective Interval history: Follow-up for hepatic encephalopathy, liver cirrhosis. Patient is seen lying in bed, eating breakfast. She wants to go home. She denies any medical complaints including no abdominal pain, nausea/vomiting, or diarrhea. States she had 2 bowel movements yesterday, none so far today. She is tolerating oral intake. She is oriented to self, [facility], and eventually is able to tell me the date after prompting. Physical Exam Vital signs: Vital Signs 12/05/17 16:00 12/05/17 20:00 12/06/17 08:00 Temperature 98.5 F 97.7 F 98.1 F Pulse Rate 85 110 H 95 H Respiratory Rate 17 18 18 Blood Pressure 100/52 L 105/57 L 103/51 L Pulse Oximetry 93 L 96 97 Intake & Output 12/05/17 12/06/17 12/06/17 18:59 06:59 18:59 Intake Total 1779 Balance 1779 Intake: Oral 1779 Other: # Voids 3 # Incontinent Voids 4 # Urine Diapers 4 Date of Last Bowel Movement 12/04/17 12/04/17 # Incontinent Bowel Movements 2 Narrative: GENERAL: Chronically ill appearing female, in NAD. SKIN: Warm and dry. Diffuse jaundice, Multiple stigmata of liver disease including spider telangiectasias, and some mild abdominal caput medusae. HEENT: Atraumatic. Normocephalic. Pupils equal and round. +Scleral icterus. Mucous membranes pink and moist. CARDIOVASCULAR: Regular rate and rhythm. No murmur appreciated. RESPIRATORY: No accessory muscle use. Clear to auscultation. Breath sounds equal bilaterally. GASTROINTESTINAL: Abdomen round, soft, nontender, nondistended. MUSCULOSKELETAL: Extremities without clubbing, cyanosis. No obvious deformities. Ambulating without difficulty. NEUROLOGICAL: Awake and alert. No obvious cranial nerve deficits. Generalized weakness, moving all 4 extremities. Ambulatory. Normal speech. PSYCHIATRIC: Flat mood and affect; insight and judgment limited. Results - Labs CBC & Chem 7: 12/05/17 11:11 12/05/17 08:42 Laboratory Results - last 24 hr 12/05/17 11:11 WBC 6.4 RBC 2.26 L Hgb 8.7 L Hct 25.3 L MCV 111.7 H MCH 38.6 H MCHC 34.5 RDW 18.6 H Plt Count 121 L MPV 9.0 Prelim Diff (Auto) Slide review pending Neut % (Auto) 67.4 Lymph % (Auto) 17.2 [place] % (Auto) 13.3 H Eos % (Auto) 1.7 Baso % (Auto) 0.4 Neut # (Auto) 4.3 Lymph # (Auto) 1.1 [place] # (Auto) 0.9 Eos # (Auto) 0.1 Baso # (Auto) 0.0 WBC Differential . Diff Scan Auto diff confirmed Differential Comment . Platelet Estimate Low L Platelet Morphology Clumped H Acanthocytes (Spur) 2+ H Keratocytes Occ H - Procedures N/A Assessment and Plan - Assessment (1) Acute hepatic encephalopathy Code(s): K72.00 - Acute and subacute hepatic failure without coma Status: Acute (2) Hepatic encephalopathy Code(s): K72.90 - Hepatic failure, unspecified without coma Status: Acute (3) Cirrhosis of liver with ascites Code(s): K74.60 - Unspecified cirrhosis of liver; R18.8 - Other ascites Status : Acute (4) Anemia Code(s): D64.9 - Anemia, unspecified Status: Acute (5) Acute hypokalemia Code(s): E87.6 - Hypokalemia Status: Acute - Plan 52-year-old female with history of liver cirrhosis and chronic pancreatitis admitted for hepatic encephalopathy. Hepatic encephalopathy/altered mental status Ammonia elevated at 93 initially, improved -->26 improving AST 60, ALT 18, total bilirubin 16.7 -->12.1 INR elevated 2.2 Meld score 29 with 19.6 estimated 3-month mortality Continue lactulose and rifaximin Continue home pentoxifylline, rescheduled spironolactone and Lasix due to low BP in the mornings Avoid hepatotoxic agents -Ultrasound abdomen trace free fluid in the right upper quadrant. No other evidence of ascites. -Patient intermittently noncompliant with taking lactulose. This will be a major concern after discharge whether patient will be compliant with medications. -Psych consulted for medical decision making capability, considering patient insisting to go home, wanting to smoke, refusing her medications, defecating on herself. Psych agrees patient lacks capacity for medical decision making at this time -Palliative care consultation appreciated ARACELIS/ Hypokalemia/ Hyponatremia improving, creatinine 0.89, back to baseline/ K4.6/NA 135 -s/p IV fluid normal saline and 20 mEq KCl in IV fluids -continue Potassium supplements PO Continue to monitor BMP, replace as needed HX Chronic pancreatitis/ esophagitis Resume home Creon Continue home PPI Anxiety -Improving -restart lower dose ativan prn, hold for sedation -monitor mental status Acute on Chronic Anemia -TIBC 112, ferritin 285, vitamin B12 1726 -start on Iron supplements -monitor CBC, encourage p.o. intake Tobacco dependence Patient requesting to go out to smoke, education given -Start on nicotine patch, monitor response Osteoarthritis/history of right hip replacement Slight edema, redness, ecchymosis Give low-dose NSAIDs prn to decrease inflammation -May have ice pack -May have lidocaine patch/avoid redness and ecchymosis area -Right hip x-ray: No fracture -no complaints of pain today DVT prop SCDs, avoid chemical prophylaxis secondary to coagulopathy Discharge Planning: Patient medically stable for discharge, awaiting for SNF placement issues, will continue to see until patient discharged. Patient was accepted to [facility], awaiting for available bed. (3) Cirrhosis of liver with ascites Qualifiers: Hepatic cirrhosis type: unspecified hepatic cirrhosis Qualified Code(s): K74.60 - Unspecified cirrhosis of liver; R18.8 - Other ascites
[2017-12-06] MEDS: Ferrous Sulfate 325 MG Tablet PO SCH ×2 (12:30→18:17)
--- NOTE | 2017-12-06 16:50 | P.PNPAL ---
Reason for Visit Reason for visit: a. To assist with evaluation and management of symptoms including: Altered mental status, right hip pain b. To assist medical decision maker(s) with: better understanding of current medical conditions; weighing benefits/burdens of medical treatment options; making medical treatment decisions. Subjective Subjective/Interval History: This is a 52-year-old female with recurrent visits to the ED for a variety of gastrointestinal concerns who presents with altered mental status, confusion, nausea, decreased appetite, abdominal pain. Her son brought her in and was concerned that she was having liver problems again. She has a very long history of heavy alcohol abuse with the predicted sequelae of alcoholic pancreatitis, hepatomegaly, alcoholic hepatitis, cirrhosis, GI bleed and chronic ascites. Patient seen today for follow-up of symptom management of altered mental status , right hip pain and goals of care. Patient is seen today curled up in bed with 2 hospital gowns on over top of her clothes. She is asking to go home. She has been confused throughout hospitalization, likely secondary to hepatic encephalopathy. With supervised administration of medication her ammonia level has decreased and remained stable , but not significantly improved her encephalopathy. Per my prior discussions with family, she was not taking her medications at home, other than narcotics, and she would frequently forget which meds she had or had not taken and would overuse the narcotics. Mentation appears to fluctuate. She will sometimes know that she is in [place] and sometimes thinks she is at home. She has minimal insight into her disease and cannot comprehend that her liver is permanently damaged because she "quit drinking a month ago" and does not grasp her current medical condition clearly. Family states that she had frequently been incontinent at home and unaware that she was incontinent. She asked "they cannot keep me here can they? If I walk out the door will they bring me back?" I advised her that the doctors were still trying to make her feel better and that her discharge was being worked on but might be a few more days. Called 911 earlier to ask the police to take her home. She does state that her hip pain is improving but that she still has pain when lying on her right side, which is how she is currently positioned. She states that she has a doctor's appointment tomorrow with Dr. Toño Tarango, who she states is her pain management doctor. She complains that the nurses are not bringing her her "ibuprofens and fentanyls". I did remind her that she needs to tell her nurse when she needs pain medication because it is not scheduled. She describes her right hip pain as tenderness, 7/10, associated with pressure and movement, relieved by pain medication. . . Family/Friend Interactions: Spoke with her daughter, Macie, and updated her on clinical condition and efforts to place her in a SNF. All questions answered at this time. . Advance Directives Health Care Surrogate Name and Number: Mayo Younger Objective Vital Signs: Vital Signs 12/05/17 16:00 12/05/17 20:00 12/06/17 08:00 Temperature 98.5 F 97.7 F 98.1 F Pulse Rate 85 110 H 95 H Respiratory Rate 17 18 18 Blood Pressure 100/52 L 105/57 L 103/51 L Pulse Oximetry 93 L 96 97 12/06/17 12:00 Temperature 97.8 F Pulse Rate 68 Respiratory Rate 15 Blood Pressure 117/60 Pulse Oximetry 96 Intake & Output 12/05/17 12/06/17 12/06/17 18:59 06:59 18:59 Intake Total 1779 Balance 1779 Intake: Oral 1779 Other: # Voids 3 # Incontinent Voids 4 # Urine Diapers 4 Date of Last Bowel Movement 12/04/17 12/04/17 # Incontinent Bowel Movements 2 Physical Exam: CONSTITUTIONAL/GENERAL: This is a cachectic female patient, in no apparent distress. TUBES/LINES/DRAINS: PIV SKIN: Positive jaundice, no rashes, or lesions. Ecchymoses on upper extremities and right hip. No wounds seen anteriorly. Skin temperature appropriate. Not diaphoretic. CARDIOVASCULAR: Regular rate and rhythm with 2/6 systolic ejection murmurs, no gallops, or rubs. No JVD. Peripheral pulses symmetric. RESPIRATORY/CHEST: Symmetric, unlabored respirations. Clear to auscultation. Breath sounds equal bilaterally. No wheezes, rales, or rhonchi. GASTROINTESTINAL: Abdomen soft, tender to palpation in all quadrants, mildly distended. No guarding. Bowel sounds present. GENITOURINARY: Without palpable bladder distension. MUSCULOSKELETAL: Extremities without clubbing, cyanosis, or edema. Right hip with swelling and ecchymosis over the right hip joint posterior to the healed incision. NEUROLOGICAL: Awake, confused, moving all extremities. PSYCHIATRIC: Flat affect, calm. . Diagnostic Tests Laboratory: Laboratory Results - last 72 hr 12/05/17 12/05/17 12/05/17 08:42 08:44 11:11 WBC 6.4 RBC 2.26 L Hgb 8.7 L Hct 25.3 L MCV 111.7 H MCH 38.6 H MCHC 34.5 RDW 18.6 H Plt Count 121 L MPV 9.0 Prelim Diff (Auto) Slide review pending Neut % (Auto) 67.4 Lymph % (Auto) 17.2 [place] % (Auto) 13.3 H Eos % (Auto) 1.7 Baso % (Auto) 0.4 Neut # (Auto) 4.3 Lymph # (Auto) 1.1 [place] # (Auto) 0.9 Eos # (Auto) 0.1 Baso # (Auto) 0.0 WBC Differential . Diff Scan Auto diff confirmed Differential Comment . Platelet Estimate Low L Platelet Morphology Clumped H Acanthocytes (Spur) 2+ H Keratocytes Occ H Sodium 133 L Potassium 4.4 Chloride 104 Carbon Dioxide 20.5 L Anion Gap 9 BUN 17 Creatinine 1.12 H Estimated GFR 51 L Random Glucose 113 H Calcium 8.1 L Total Bilirubin 11.0 H AST 58 H ALT 19 Alkaline Phosphatase 123 H Ammonia 26 Total Protein 7.3 Albumin 1.9 L Result Diagrams: 12/05/17 11:11 12/05/17 08:42 Imaging: Abdomen Ultrasound 11/25/17 00:00 CONCLUSION: Trace free fluid in the right upper quadrant. No other evidence of ascites. Hip X-Ray 12/01/17 00:00 CONCLUSION: No evidence of recent bony injury. Assessment and Plan - Disease Oriented Problem List (1) Hyperbilirubinemia (2) Chronic abdominal pain (3) Cirrhosis of liver with ascites (4) Acute GI bleeding (5) Anemia (6) Hepatic encephalopathy (7) Pain Pertinent Non-Medical Issues: Psychosocial: She was born in [place] and moved to [place] when she was about 13. She attended [facility] for court reporting. She is and has 2 children a son Braeden Levy and a daughter Macie Ortiz. Spiritual: Organizational Psychologist available. Legal: Healthcare surrogate on chart listing her mother as primary and her daughter as secondary. Ethical issues impacting care: None noted. . Important Contacts: Mother: Annmarie Younger Son: Braeden Levy Daughter: Macie Ortiz Son: Bubba Doan, currently in [facility]. . Prognosis: She has severe hepatic disease now approaching failure. She has hepatic encephalopathy and is now confused. Transaminases are elevated with bilirubin at 12.9, ammonia elevated at 93 on admission, now down to 28 with both lactulose and rifaximin, with a meld score of 25 showing a 19.6% estimated 3- month mortality. She quit drinking alcohol 1 month ago on her last admission continues to smoke cigarettes daily. She is now requiring paracentesis intermittently, is having a decreasing appetite with a BMI of 17.5. She is auto -anticoagulated with an INR of 2.1. She has already had gastrointestinal bleeding in the past and is at risk for recurrent episodes. She has had multiple admissions and was seen in [place] 1 month ago. She is at risk for continued complications, decline and readmissions. . Code Status: Full Code Plan: PLAN: Legal decision maker: Patient is capacitated for decision-making per psychiatry at this time however it is not certain whether she will continued to be capacitated due to her hepatic encephalopathy, medication noncompliance and hyperammonemia. She had previously completed a healthcare surrogate naming her mother Annmarie as the primary and her daughter Macie as the secondary. Her mother is currently in the hospital recovering from open heart surgery and not available. Her daughter Macie is currently participating with both of her brothers in making decisions. Goals: To be determined, family considering CODE STATUS and hospice. CODE STATUS: FULL CODE SYMPTOMS: * Altered mental status: Mental status remains altered, although ammonia is reduced back into the normal range. While she appears to have limited insight, she is oriented x 2, forgetful, intermittently confused between current and remote memory. Has been missing doses of lactulose left at bedside. Recommend medication monitoring with administration to make sure all medications are taken. This will be a continued problem at discharge and as she was not competent to care for herself at home previously, she will likely benefit from senior living facility placement. * Right hip pain: Right hip shows improving swelling and ecchymosis, states it is from a very uncomfortable bed, Lidoderm patch applied. Less painful with ambulation. Lidoderm and Advil minimally effective. Hip x-ray negative. Palliative care will continue to follow the patient during hospital course as condition evolves, to assist patient/decision-maker with understanding of their medical conditions, weighing benefits/burdens of treatment options, for clarification of goals of treatment. Additionally will assist with any symptoms of palliative concern. . Attestation Attestation: To help prompt me to consider important information that might be impacting today's encounter and assessment, information from prior notes written by myself or my colleagues may have been "brought forward" into today's note. My signature on this note, however, is an attestation that I personally performed the exam, history, and/or decision-making noted today, and, unless otherwise indicated, the interactions with patient, family, and staff as well as the review of records all occurred today. I also attest that the listed assessment and stated plan reflect my best clinical judgment today based on the combination of historical information, prior notes, and today's exam/ interactions. When time spent is documented, it refers only to time spent today by the signer, or if indicated, combined time spent today by collaborating physician/nurse practitioner. .
[2017-12-06] MEDS: Gabapentin 300 MG Capsule PO SCH (21:56)
[2017-12-07] MEDS: LORazepam 0.5 MG Tablet PO PRN ×2 (03:18→13:38)
[2017-12-07] MEDS: rifAXIMin 550 MG Tablet PO SCH ×2 (08:35→21:32)
[2017-12-07] MEDS: Spironolactone 50 MG Tablet PO SCH (08:35)
[2017-12-07] MEDS: Pentoxifylline 400 MG Controlled Release Tablet PO SCH ×3 (08:35→17:31)
[2017-12-07] MEDS: Lidocaine 5% Patch T-DERMAL SCH (08:36)
[2017-12-07] MEDS: Lipase/Protease/Amylase 24/76/120 DR Capsule PO SCH ×3 (08:36→17:31)
[2017-12-07] MEDS: Furosemide 20 MG Tablet PO SCH (08:36)
--- NOTE | 2017-12-07 09:50 | P.PN ---
Subjective Interval history: Follow-up for hepatic encephalopathy, liver cirrhosis. Patient seen lying in bed. She is oriented to self, , and November. She reports a bowel movement this morning. Denies any abdominal pain, nausea or vomiting. She is tolerating oral intake. She initially is requesting her patch which she believes is her Ativan. She states she wants her Ativan to calm her nerves. She has no other medical complaints at this time. Physical Exam Vital signs: Vital Signs 12/06/17 12:00 12/06/17 16:00 12/06/17 20:00 Temperature 97.8 F 97.4 F L 98 F Pulse Rate 68 103 H 102 H Respiratory Rate 15 18 16 Blood Pressure 117/60 97/52 L 94/50 L Pulse Oximetry 96 97 97 12/07/17 00:00 12/07/17 04:00 12/07/17 08:00 Temperature 97.9 F 98.1 F 98.1 F Pulse Rate 96 H 94 H 99 H Respiratory Rate 16 16 16 Blood Pressure 92/55 L 102/57 L 96/51 L Pulse Oximetry 95 96 95 Intake & Output 12/06/17 12/07/17 12/07/17 18:59 06:59 18:59 Intake Total 1200 / 1200 Balance 1200 / 1200 Intake: Oral 1200 / 1200 Other: # Voids 5 1 Date of Last Bowel Movement 12/06/17 12/06/17 # Bowel Movements 2 Narrative: GENERAL: Chronically ill appearing female, in NAD. SKIN: Warm and dry. Diffuse jaundice, Multiple stigmata of liver disease including spider telangiectasias, and some mild abdominal caput medusae. HEENT: Atraumatic. Normocephalic. Pupils equal and round. +Scleral icterus. Mucous membranes pink and moist. CARDIOVASCULAR: Regular rate and rhythm. No murmur appreciated. RESPIRATORY: No accessory muscle use. Clear to auscultation. Breath sounds equal bilaterally. GASTROINTESTINAL: Abdomen round, soft, nontender, nondistended. MUSCULOSKELETAL: Extremities without clubbing, cyanosis. No obvious deformities. Ambulating without difficulty. NEUROLOGICAL: Awake and alert. No obvious cranial nerve deficits. Generalized weakness, moving all 4 extremities. Normal speech. PSYCHIATRIC: Flat mood and affect; insight and judgment limited. Results - Labs CBC & Chem 7: 12/05/17 11:11 12/05/17 08:42 - Procedures N/A Assessment and Plan - Assessment (1) Acute hepatic encephalopathy Code(s): K72.00 - Acute and subacute hepatic failure without coma Status: Acute (2) Hepatic encephalopathy Code(s): K72.90 - Hepatic failure, unspecified without coma Status: Acute (3) Cirrhosis of liver with ascites Code(s): K74.60 - Unspecified cirrhosis of liver; R18.8 - Other ascites Status : Acute (4) Anemia Code(s): D64.9 - Anemia, unspecified Status: Acute (5) Acute hypokalemia Code(s): E87.6 - Hypokalemia Status: Acute - Plan 52-year-old female with history of liver cirrhosis and chronic pancreatitis admitted for hepatic encephalopathy. Hepatic encephalopathy/altered mental status Ammonia elevated at 93 initially, improved -->26 improving AST 60, ALT 18, total bilirubin 16.7 -->12.1 INR elevated 2.2 Meld score 29 with 19.6 estimated 3-month mortality Continue lactulose and rifaximin Continue home pentoxifylline, rescheduled spironolactone and Lasix due to low BP in the mornings Avoid hepatotoxic agents -Ultrasound abdomen trace free fluid in the right upper quadrant. No other evidence of ascites. -Patient intermittently noncompliant with taking lactulose. This will be a major concern after discharge whether patient will be compliant with medications. -Psych consulted for medical decision making capability, considering patient insisting to go home, wanting to smoke, refusing her medications, defecating on herself. Psych agrees patient lacks capacity for medical decision making at this time -Palliative care consultation appreciated ARACELIS/ Hypokalemia/ Hyponatremia improving, creatinine 0.89, back to baseline/ K4.6/NA 135 -s/p IV fluid normal saline and 20 mEq KCl in IV fluids -continue Potassium supplements PO Continue to monitor BMP, replace as needed HX Chronic pancreatitis/ esophagitis Resume home Creon Continue home PPI Anxiety -Improving -restart lower dose ativan prn, hold for sedation -monitor mental status Acute on Chronic Anemia -TIBC 112, ferritin 285, vitamin B12 1726 -start on Iron supplements -monitor CBC, encourage p.o. intake Tobacco dependence Patient requesting to go out to smoke, education given -Start on nicotine patch, monitor response Osteoarthritis/history of right hip replacement Slight edema, redness, ecchymosis Give low-dose NSAIDs prn to decrease inflammation -May have ice pack -May have lidocaine patch/avoid redness and ecchymosis area -Right hip x-ray: No fracture -no complaints of pain today, symptoms improved DVT prop SCDs, avoid chemical prophylaxis secondary to coagulopathy Discharge Planning: Patient medically stable for discharge, awaiting for SNF placement issues, will continue to see until patient discharged. Patient was accepted to [facility], awaiting for available bed. (3) Cirrhosis of liver with ascites Qualifiers: Hepatic cirrhosis type: unspecified hepatic cirrhosis Qualified Code(s): K74.60 - Unspecified cirrhosis of liver; R18.8 - Other ascites
[2017-12-07] MEDS: Ferrous Sulfate 325 MG Tablet PO SCH ×2 (13:31→17:31)
[2017-12-07] MEDS: Gabapentin 300 MG Capsule PO SCH (21:32)
[2017-12-08] MEDS: Lipase/Protease/Amylase 24/76/120 DR Capsule PO SCH ×3 (09:53→18:12)
[2017-12-08] MEDS: Spironolactone 50 MG Tablet PO SCH (09:53)
[2017-12-08] MEDS: rifAXIMin 550 MG Tablet PO SCH ×2 (09:53→20:43)
[2017-12-08] MEDS: LORazepam 0.5 MG Tablet PO PRN ×2 (09:54→18:12)
[2017-12-08] MEDS: Furosemide 20 MG Tablet PO SCH (09:54)
[2017-12-08] MEDS: Pentoxifylline 400 MG Controlled Release Tablet PO SCH ×3 (09:54→18:12)
[2017-12-08] MEDS: Lidocaine 5% Patch T-DERMAL SCH (09:55)
--- NOTE | 2017-12-08 09:56 | P.PN ---
Subjective Interval history: Follow-up hepatic encephalopathy December 08, 2017-patient seen and examined, no acute event overnight oriented x3. Afebrile. States, she would like to be discharged. Physical Exam Vital signs: Vital Signs 12/07/17 12:00 12/07/17 16:00 12/07/17 20:00 Temperature 98.1 F 98.9 F 98.3 F Pulse Rate 100 H 101 H 104 H Respiratory Rate 20 16 18 Blood Pressure 104/58 L 97/52 L 93/52 L Pulse Oximetry 100 99 97 12/08/17 00:00 Temperature 98.3 F Pulse Rate 92 H Respiratory Rate 16 Blood Pressure 99/53 L Pulse Oximetry 97 Intake & Output 12/07/17 12/08/17 12/08/17 18:59 06:59 18:59 Other: # Voids 2 Date of Last Bowel Movement 12/06/17 Narrative: GENERAL: in NAD. SKIN: Warm and dry. Diffuse jaundice, Multiple stigmata of liver disease including spider telangiectasias, and some mild abdominal caput medusae. HEENT: Atraumatic. Normocephalic. Pupils equal and round. +Scleral icterus. Mucous membranes pink and moist. CARDIOVASCULAR: Regular rate and rhythm. No murmur appreciated. RESPIRATORY: No accessory muscle use. Clear to auscultation. Breath sounds equal bilaterally. GASTROINTESTINAL: Abdomen round, soft, nontender, nondistended. MUSCULOSKELETAL: Extremities without clubbing, cyanosis. No obvious deformities. Ambulating without difficulty. NEUROLOGICAL: Awake and alert. No obvious cranial nerve deficits. Generalized weakness, moving all 4 extremities. Normal speech. PSYCHIATRIC: Flat mood and affect; insight and judgment limited. Results - Labs CBC & Chem 7: 12/05/17 11:11 12/05/17 08:42 - Procedures N/A Assessment and Plan - Assessment (1) Acute hepatic encephalopathy Code(s): K72.00 - Acute and subacute hepatic failure without coma Status: Acute (2) Hepatic encephalopathy Code(s): K72.90 - Hepatic failure, unspecified without coma Status: Acute (3) Cirrhosis of liver with ascites Code(s): K74.60 - Unspecified cirrhosis of liver; R18.8 - Other ascites Status : Acute (4) Anemia Code(s): D64.9 - Anemia, unspecified Status: Acute (5) Acute hypokalemia Code(s): E87.6 - Hypokalemia Status: Acute - Plan 52-year-old female with Hepatic encephalopathy/altered mental status Ammonia improved -->26 Meld score 29 with 19.6 estimated 3-month mortality Continue lactulose and rifaximin Continue home pentoxifylline, rescheduled spironolactone and Lasix due to low BP in the mornings Avoid hepatotoxic agents -Psych consulted for medical decision making capability. Psych agrees patient lacks capacity for medical decision making at this time -Palliative care consultation appreciated ARACELIS/ Hypokalemia/ Hyponatremia improving -continue Potassium supplements PO Continue to monitor BMP, replace as needed HX Chronic pancreatitis/ esophagitis Continue home Creon Continue home PPI Anxiety -Improving -Continue Ativan prn, hold for sedation -monitor mental status Acute on Chronic Anemia -TIBC 112, ferritin 285, vitamin B12 1726 -on Iron supplements Tobacco dependence Patient requesting to go out to smoke, education given -on nicotine patch, monitor response Osteoarthritis/history of right hip replacement -symptoms improved DVT prop SCDs, avoid chemical prophylaxis secondary to coagulopathy (3) Cirrhosis of liver with ascites Qualifiers: Hepatic cirrhosis type: unspecified hepatic cirrhosis Qualified Code(s): K74.60 - Unspecified cirrhosis of liver; R18.8 - Other ascites
[2017-12-08] MEDS: Ferrous Sulfate 325 MG Tablet PO SCH ×2 (12:30→18:12)
[2017-12-08] MEDS: Ibuprofen 400 MG Tablet PO PRN (19:49)
[2017-12-08] MEDS: Gabapentin 300 MG Capsule PO SCH (20:43)
[2017-12-09] MEDS: LORazepam 0.5 MG Tablet PO PRN ×2 (02:15→12:01)
[2017-12-09] MEDS: Lipase/Protease/Amylase 24/76/120 DR Capsule PO SCH ×3 (09:32→17:43)
[2017-12-09] MEDS: rifAXIMin 550 MG Tablet PO SCH ×2 (09:32→21:29)
[2017-12-09] MEDS: Lidocaine 5% Patch T-DERMAL SCH (09:33)
[2017-12-09] MEDS: Pentoxifylline 400 MG Controlled Release Tablet PO SCH ×3 (09:33→17:43)
[2017-12-09] MEDS: Spironolactone 50 MG Tablet PO SCH (09:33)
[2017-12-09] MEDS: Furosemide 20 MG Tablet PO SCH (09:33)
--- NOTE | 2017-12-09 11:39 | P.PN ---
Subjective Interval history: Follow-up hepatic encephalopathy December 08, 2017-patient seen and examined, no acute event overnight oriented x3. Afebrile. States, she would like to be discharged. December 09, 2017-patient seen and examined, complains of abdominal distention and pain mostly overnight Physical Exam Vital signs: Vital Signs 12/08/17 12:00 12/08/17 16:00 12/08/17 20:00 Temperature 98.8 F 98.2 F 97.8 F Pulse Rate 97 H 109 H 98 H Respiratory Rate 20 20 16 Blood Pressure 104/51 L 97/54 L 91/53 L Pulse Oximetry 97 96 97 12/09/17 00:16 12/09/17 02:15 12/09/17 04:00 Temperature 98.0 F 98.9 F Pulse Rate 94 H 100 H Respiratory Rate 18 16 Blood Pressure 88/50 L 99/58 L 101/59 L Pulse Oximetry 95 97 12/09/17 07:47 Temperature 98.4 F Pulse Rate 95 H Respiratory Rate 18 Blood Pressure 87/54 L Pulse Oximetry 100 Intake & Output 12/08/17 12/09/17 12/09/17 18:59 06:59 18:59 Intake Total 460 / 460 600 / 600 Balance 460 / 460 600 / 600 Weight 52 kg Intake: Oral 460 / 460 600 / 600 Other: # Voids 4 2 Date of Last Bowel Movement 12/06/17 12/06/17 # Bowel Movements 1 # Incontinent Bowel Movements 1 Narrative: GENERAL: in NAD. SKIN: Warm and dry. Diffuse jaundice, Multiple stigmata of liver disease including spider telangiectasias, and some mild abdominal caput medusae. HEENT: Atraumatic. Normocephalic. Pupils equal and round. +Scleral icterus. Mucous membranes pink and moist. CARDIOVASCULAR: Regular rate and rhythm. No murmur appreciated. RESPIRATORY: No accessory muscle use. Clear to auscultation. Breath sounds equal bilaterally. GASTROINTESTINAL: Abdomen round, soft, nontender, mildly distended.+BS MUSCULOSKELETAL: Extremities without clubbing, cyanosis. No obvious deformities. Ambulating without difficulty. NEUROLOGICAL: Awake and alert. No obvious cranial nerve deficits. Generalized weakness, moving all 4 extremities. Normal speech. PSYCHIATRIC: Flat mood and affect; insight and judgment limited. Results - Labs CBC & Chem 7: 12/05/17 11:11 12/05/17 08:42 - Procedures N/A Assessment and Plan - Assessment (1) Acute hepatic encephalopathy Code(s): K72.00 - Acute and subacute hepatic failure without coma Status: Acute (2) Hepatic encephalopathy Code(s): K72.90 - Hepatic failure, unspecified without coma Status: Acute (3) Cirrhosis of liver with ascites Code(s): K74.60 - Unspecified cirrhosis of liver; R18.8 - Other ascites Status : Acute (4) Anemia Code(s): D64.9 - Anemia, unspecified Status: Acute (5) Acute hypokalemia Code(s): E87.6 - Hypokalemia Status: Acute - Plan 52-year-old female with Hepatic encephalopathy/altered mental status-Resolved Ammonia improved -->26 Meld score 29 with 19.6 estimated 3-month mortality Continue lactulose and rifaximin Continue home pentoxifylline, spironolactone and Lasix Avoid hepatotoxic agents -Psych consulted for medical decision making capability. Psych agrees patient lacks capacity for medical decision making at this time -Palliative care consultation appreciated -Check abdominal ultrasound December 09, 2017 due to abdominal discomfort for an distention ARACELIS/ Hypokalemia/ Hyponatremia improving -continue Potassium supplements PO Continue to monitor BMP, replace as needed HX Chronic pancreatitis/ esophagitis Continue home Creon Continue home PPI Anxiety -Improving -Continue Ativan prn, hold for sedation Acute on Chronic Anemia -TIBC 112, ferritin 285, vitamin B12 1726 -on Iron supplements Tobacco dependence -on nicotine patch Osteoarthritis/history of right hip replacement -symptoms improved DVT prop SCDs, avoid chemical prophylaxis secondary to coagulopathy (3) Cirrhosis of liver with ascites Qualifiers: Hepatic cirrhosis type: unspecified hepatic cirrhosis Qualified Code(s): K74.60 - Unspecified cirrhosis of liver; R18.8 - Other ascites
[2017-12-09] MEDS: Ferrous Sulfate 325 MG Tablet PO SCH ×2 (13:05→17:43)
--- NOTE | 2017-12-09 18:33 | US ---
EXAM DATE: 12/09/2017 6:24 PM EDT AGE/SEX: 52 years / Female INDICATIONS: Right upper quadrant pain. CLINICAL DATA: This is the patient's initial encounter. Patient reports that signs and symptoms have been present for 2 weeks and indicates a pain score of 10/10. MEDICAL/SURGICAL HISTORY: Cirrhosis. Pancreatitis. . Total Right hip replacement. [place] [facility] [place]. . MEASUREMENTS: Liver:__ 18.1 cm. Common Bile Duct:___ Nonvisualized. Right Kidney:___9.3 x 5.1 x 4.6 cm. Left Kidney:___9.1 x 4.1 x 4.8 cm. Spleen:___14.0 cm. FINDINGS: Liver: The liver is enlarged, echogenic and nodular in contour with cirrhosis. No focal mass is note d. No biliary ductal dilatation is noted. There is hepatopedal flow within the portal vein. Portal Vein: Hepatopedal flow seen in portal vein. Common Duct: No intraluminal mass or stone visualized. Gallbladder: The wall of the gallbladder is mildly thickened. No gallstones or sonographic Subramanian's s ign is noted. Ascites is noted adjacent to the gallbladder wall. Pancreas: Not well visualized. Right Kidney: Increased echotexture. No mass or hydronephrosis. Left Kidney: Increased echotexture. No mass or hydronephrosis. Ascites: Moderate amount of ascites is noted. Pleural Effusion: None Spleen: Mild splenomegaly is noted. Aorta: Non aneurysmal. IVC: Within normal limits Other: None. CONCLUSION: 1. Enlarged, echogenic nodular liver consistent with cirrhosis. 2. Ascites. 3. Gallbladder wall thickening without cholelithiasis or sonographic Subramanian's sign. If there is stro ng clinical concern for cholecystitis, a hepatobiliary scan may be helpful to rule out cystic duct ob struction. 4. Poor visualization of the pancreas and distal common bile duct due to shadowing bowel gas. 5. Mild splenomegaly. 6. Echogenic kidneys without hydronephrosis or solid mass noted. Electronically signed by: Ham Méndez MD 12/09/2017 6:32 PM EDT
[2017-12-09] MEDS: Gabapentin 300 MG Capsule PO SCH (21:29)
[2017-12-09] MEDS: Ibuprofen 400 MG Tablet PO PRN (21:29)
[2017-12-10] MEDS: Lipase/Protease/Amylase 24/76/120 DR Capsule PO SCH ×3 (08:58→17:01)
[2017-12-10] MEDS: rifAXIMin 550 MG Tablet PO SCH ×2 (08:58→22:11)
[2017-12-10] MEDS: Furosemide 20 MG Tablet PO SCH (08:58)
[2017-12-10] MEDS: Pentoxifylline 400 MG Controlled Release Tablet PO SCH ×3 (08:59→17:00)
[2017-12-10] MEDS: Spironolactone 50 MG Tablet PO SCH (08:59)
[2017-12-10] MEDS: Lidocaine 5% Patch T-DERMAL SCH (08:59)
[2017-12-10] MEDS: Ibuprofen 400 MG Tablet PO PRN ×2 (09:22→22:11)
[2017-12-10] MEDS: LORazepam 0.5 MG Tablet PO PRN ×2 (09:23→17:00)
--- NOTE | 2017-12-10 11:09 | P.PN ---
Subjective Interval history: Follow-up hepatic encephalopathy December 08, 2017-patient seen and examined, no acute event overnight oriented x3. Afebrile. States, she would like to be discharged. December 09, 2017-patient seen and examined, complains of abdominal distention and pain mostly overnight December 10, 2017-patient seen and examined, still with abdominal distention and pain, however taking p.o. without any nausea or vomiting. Physical Exam Vital signs: Vital Signs 12/09/17 12:00 12/09/17 15:43 12/09/17 20:00 Temperature 98.8 F 98.4 F 98 F Pulse Rate 104 H 95 H 93 H Respiratory Rate 18 18 18 Blood Pressure 99/55 L 97/54 L 104/54 L Pulse Oximetry 97 100 98 12/10/17 00:00 12/10/17 04:00 12/10/17 08:00 Temperature 98 F 98 F 98.3 F Pulse Rate 99 H 93 H 103 H Respiratory Rate 18 18 18 Blood Pressure 94/53 L 100/50 L 100/55 L Pulse Oximetry 96 96 95 Intake & Output 12/09/17 12/10/17 12/10/17 18:59 06:59 18:59 Other: # Voids 2 # Incontinent Voids 1 Date of Last Bowel Movement 12/09/17 # Bowel Movements 1 Narrative: GENERAL: in NAD. SKIN: Warm and dry. Diffuse jaundice, Multiple stigmata of liver disease including spider telangiectasias, and some mild abdominal caput medusae. HEENT: Atraumatic. Normocephalic. Pupils equal and round. +Scleral icterus. Mucous membranes pink and moist. CARDIOVASCULAR: Regular rate and rhythm. No murmur appreciated. RESPIRATORY: No accessory muscle use. Clear to auscultation. Breath sounds equal bilaterally. GASTROINTESTINAL: Abdomen round, soft, nontender, mildly distended.+BS MUSCULOSKELETAL: Extremities without clubbing, cyanosis. No obvious deformities. Ambulating without difficulty. NEUROLOGICAL: Awake and alert. No obvious cranial nerve deficits. Generalized weakness, moving all 4 extremities. Normal speech. PSYCHIATRIC: Flat mood and affect; insight and judgment limited. Results - Labs CBC & Chem 7: 12/05/17 11:11 12/05/17 08:42 - Imaging Impressions Abdomen Ultrasound 12/09/17 00:00 CONCLUSION: 1. Enlarged, echogenic nodular liver consistent with cirrhosis. 2. Ascites. 3. Gallbladder wall thickening without cholelithiasis or sonographic Subramanian's sign. If there is strong clinical concern for cholecystitis, a hepatobiliary scan may be helpful to rule out cystic duct obstruction. 4. Poor visualization of the pancreas and distal common bile duct due to shadowing bowel gas. 5. Mild splenomegaly. 6. Echogenic kidneys without hydronephrosis or solid mass noted. - Procedures N/A Assessment and Plan - Assessment (1) Acute hepatic encephalopathy Code(s): K72.00 - Acute and subacute hepatic failure without coma Status: Acute (2) Hepatic encephalopathy Code(s): K72.90 - Hepatic failure, unspecified without coma Status: Acute (3) Cirrhosis of liver with ascites Code(s): K74.60 - Unspecified cirrhosis of liver; R18.8 - Other ascites Status : Acute (4) Anemia Code(s): D64.9 - Anemia, unspecified Status: Acute (5) Acute hypokalemia Code(s): E87.6 - Hypokalemia Status: Acute - Plan 52-year-old female with Hepatic encephalopathy/altered mental status-Resolved Ammonia improved -->26 Meld score 29 with 19.6 estimated 3-month mortality Continue lactulose and rifaximin Continue home pentoxifylline, spironolactone and Lasix Avoid hepatotoxic agents -Psych consulted for medical decision making capability. Psych agrees patient lacks capacity for medical decision making at this time -Palliative care consultation appreciated -Abdominal ultrasound December 09, 2017 report noted and discussed with patient today ARACELIS/ Hypokalemia/ Hyponatremia improving -continue Potassium supplements PO Continue to monitor BMP, replace as needed HX Chronic pancreatitis/ esophagitis Continue home Creon Continue home PPI Anxiety -Improving -Continue Ativan prn, hold for sedation Acute on Chronic Anemia -TIBC 112, ferritin 285, vitamin B12 1726 -on Iron supplements Tobacco dependence -on nicotine patch Osteoarthritis/history of right hip replacement -symptoms improved DVT prop SCDs, avoid chemical prophylaxis secondary to coagulopathy (3) Cirrhosis of liver with ascites Qualifiers: Hepatic cirrhosis type: unspecified hepatic cirrhosis Qualified Code(s): K74.60 - Unspecified cirrhosis of liver; R18.8 - Other ascites
[2017-12-10] MEDS: Ferrous Sulfate 325 MG Tablet PO SCH ×2 (12:52→16:43)
[2017-12-10] MEDS: Gabapentin 300 MG Capsule PO SCH (22:11)
[2017-12-11] MEDS: Lidocaine 5% Patch T-DERMAL SCH (08:41)
[2017-12-11] MEDS: rifAXIMin 550 MG Tablet PO SCH ×2 (08:42→20:21)
[2017-12-11] MEDS: Spironolactone 50 MG Tablet PO SCH (08:42)
[2017-12-11] MEDS: Furosemide 20 MG Tablet PO SCH (08:42)
[2017-12-11] MEDS: Pentoxifylline 400 MG Controlled Release Tablet PO SCH ×3 (08:42→18:02)
[2017-12-11] MEDS: Lipase/Protease/Amylase 24/76/120 DR Capsule PO SCH ×3 (08:42→18:02)
--- NOTE | 2017-12-11 09:22 | P.PN ---
Subjective Interval history: Follow-up hepatic encephalopathy December 08, 2017-patient seen and examined, no acute event overnight oriented x3. Afebrile. States, she would like to be discharged. December 09, 2017-patient seen and examined, complains of abdominal distention and pain mostly overnight December 10, 2017-patient seen and examined, still with abdominal distention and pain, however taking p.o. without any nausea or vomiting. December 11, 2017-patient seen and examined, states she would like to be discharged because she has a lot of bills to take care of. Apparently patient called 911 on the staff yesterday December 10, 2017 Physical Exam Vital signs: Vital Signs 12/10/17 12:00 12/10/17 16:00 12/10/17 20:00 Temperature 97.4 F L 98.1 F 98.8 F Pulse Rate 98 H 101 H 105 H Respiratory Rate 18 18 18 Blood Pressure 100/54 L 101/54 L 93/54 L Pulse Oximetry 99 95 99 12/11/17 00:00 12/11/17 04:00 12/11/17 07:31 Temperature 97.8 F 98.2 F Pulse Rate 102 H 92 H Respiratory Rate 18 18 16 Blood Pressure 96/54 L 95/51 L Pulse Oximetry 96 97 Intake & Output 12/10/17 12/11/17 12/11/17 18:59 06:59 18:59 Intake Total 1100 / 1100 Balance 1100 / 1100 Intake: Oral 1100 / 1100 Other: # Voids 3 # Incontinent Voids 1 1 Date of Last Bowel Movement 12/09/17 12/10/17 # Bowel Movements 1 # Incontinent Bowel Movements 1 Narrative: GENERAL: in NAD. SKIN: Warm and dry. Diffuse jaundice, Multiple stigmata of liver disease including spider telangiectasias, and some mild abdominal caput medusae. HEENT: Atraumatic. Normocephalic. Pupils equal and round. +Scleral icterus. Mucous membranes pink and moist. CARDIOVASCULAR: Regular rate and rhythm. No murmur appreciated. RESPIRATORY: No accessory muscle use. Clear to auscultation. Breath sounds equal bilaterally. GASTROINTESTINAL: Abdomen round, soft, nontender, mildly distended.+BS MUSCULOSKELETAL: Extremities without clubbing, cyanosis. No obvious deformities. Ambulating without difficulty. NEUROLOGICAL: Awake and alert. No obvious cranial nerve deficits. Generalized weakness, moving all 4 extremities. Normal speech. PSYCHIATRIC: Flat mood and affect; insight and judgment limited/poor. Results - Labs CBC & Chem 7: 12/05/17 11:11 12/05/17 08:42 - Procedures N/A Assessment and Plan - Assessment (1) Acute hepatic encephalopathy Code(s): K72.00 - Acute and subacute hepatic failure without coma Status: Acute (2) Hepatic encephalopathy Code(s): K72.90 - Hepatic failure, unspecified without coma Status: Acute (3) Cirrhosis of liver with ascites Code(s): K74.60 - Unspecified cirrhosis of liver; R18.8 - Other ascites Status : Acute (4) Anemia Code(s): D64.9 - Anemia, unspecified Status: Acute (5) Acute hypokalemia Code(s): E87.6 - Hypokalemia Status: Acute - Plan 52-year-old female with Hepatic encephalopathy/altered mental status-Resolved Ammonia improved -->26 Meld score 29 with 19.6 estimated 3-month mortality Continue lactulose and rifaximin Continue home pentoxifylline, spironolactone and Lasix Avoid hepatotoxic agents -Psych consulted for medical decision making capability. Psych agrees patient lacks capacity for medical decision making at this time -Palliative care consultation appreciated -Abdominal ultrasound December 09, 2017 report noted and discussed with patient today ARACELIS/ Hypokalemia/ Hyponatremia improving -continue Potassium supplements PO Continue to monitor BMP, replace as needed HX Chronic pancreatitis/ esophagitis Continue home Creon Continue home PPI Anxiety -Improving -Continue Ativan prn, hold for sedation Acute on Chronic Anemia -TIBC 112, ferritin 285, vitamin B12 1726 -on Iron supplements Tobacco dependence -on nicotine patch Osteoarthritis/history of right hip replacement -symptoms improved DVT prop SCDs, avoid chemical prophylaxis secondary to coagulopathy Continue current treatment as of December 11, 2017 (3) Cirrhosis of liver with ascites Qualifiers: Hepatic cirrhosis type: unspecified hepatic cirrhosis Qualified Code(s): K74.60 - Unspecified cirrhosis of liver; R18.8 - Other ascites
[2017-12-11 10:10] VITALS: RESP 18
[2017-12-11] MEDS: LORazepam 0.5 MG Tablet PO PRN (13:57)
[2017-12-11] MEDS: Ibuprofen 400 MG Tablet PO PRN ×2 (13:58→21:56)
[2017-12-11] MEDS: Ferrous Sulfate 325 MG Tablet PO SCH ×2 (13:58→18:02)
[2017-12-11 17:12] VITALS: O2SAT 96
[2017-12-11] MEDS: Gabapentin 300 MG Capsule PO SCH (20:21)
[2017-12-12 00:23] VITALS: BP 90/47; PULSE 102; TEMP 97.8
--- NOTE | 2017-12-12 04:46 | P.AMA ---
AMA Note - Diagnosis (1) Acute hepatic encephalopathy (2) Hepatic encephalopathy (3) Cirrhosis of liver with ascites (4) Anemia (5) Acute hypokalemia AMA Statement: Patient Debbie Ortiz has decided to leave the hospital against medical advice. She escaped from the hospital without any staff noticing. It is unclear if she had capacity to make this decision. Police and family were called and alerted to attempt to relocate the patient. Discharge Disposition: Against Medical Advice Patient Condition on Discharge: Fair
== END 2017-12-12 02:00 | disposition left against medical advice (07) ==
LOC: NEPC 13:19 → NEDA 15:24 → N05 16:49
PROVIDERS: ADMIT Hospitalist; ATTEND Hospitalist

== ENCOUNTER 2018-01-28 19:54 | Inpatient (IN) ==
[2018-01-28] MEDS ORDERED: Morphine Inj 4 MG/ML Vial IV.PUSH ONE (20:07)
--- NOTE | 2018-01-28 20:18 | ED ---
HPI General Chief Complaint: Abdominal Pain Stated Complaint: abd pain Time Seen by Provider: 01/28/18 19:56 Source: patient and EMS Mode of arrival: EMS Limitations: no limitations History of Present Illness HPI narrative: Patient is a 52-year-old female presenting to emergency department for evaluation of abdominal pain. Patient states it has been getting progressively worse. She states her primary doctor, Dr. Aranda told her she had 4-6 months to live on Monday. She reports that she was started on Spironolactone at that time. Patient has not started taking this medication yet. Patient states she is unable to get out of bed on her own because of the abdominal bloating. She states that she feels short of breath, her legs are swollen. She denies any chest pain, headache, fever, chills. Patient reports a history of alcoholic cirrhosis. Symptom onset was gradual, symptoms are significant. Patient states her pain is a 9 out of 10, pressure-like, constant. MD complaint: Reports abdominal pain Onset (ago): week(s) Pain Consistency: constant Location: Reports diffuse Severity: severe Severity scale (1-10): 9 Quality: Reports aching Radiation: Reports none Migration to: Reports no migration Relieving factors: nothing Exacerbating factors: nothing Context: Reports history of similar episodes Related Data Home Medications Medication Instructions Recorded Confirmed fentanyl 1 patch TRANSDERMAL Q72H 01/28/18 01/28/18 hydrocodone-acetaminophen 1 tab PO Q4-6H PRN 01/28/18 01/28/18 metoprolol tartrate 25 mg PO BID 01/28/18 01/28/18 spironolactone 25 mg PO DAILY 01/28/18 01/28/18 Allergies Allergy/AdvReac Type Severity Reaction Status Date / Time penicillin G Allergy Mild Rash Verified 01/28/18 19:59 Review of Systems ROS: all other systems reviewed are negative PMFSH History History Provided By: Patient and Medical Record Medical History Medical History Cirrhosis of liver (Acute) History of abdominal paracentesis (Acute) Pancreatitis (Acute) Weight loss (Acute) Surgical History Surgical History History of total right hip replacement (Acute) Family History Family History Mother Heart disease Social History Social History Substance History: No History of Abuse Second Hand Smoke Exposure: Yes Smoking Status: Heavy tobacco smoker Tobacco Type: Cigarettes How Often Do You Have a Drink Containing Alcohol: Monthly or less Exam Narrative Exam Narrative: GENERAL: Well-developed, well-nourished, chronically ill- appearing female. Appears uncomfortable. SKIN: Focused skin assessment warm/dry. Jaundiced HEAD: Atraumatic. Normocephalic. EYES: Pupils equal and round. Positive scleral icterus. No injection or drainage. ENT: No nasal bleeding or discharge. Mucous membranes pink and moist. NECK: Trachea midline. No JVD. CARDIOVASCULAR: Regular rate and rhythm. No murmur appreciated. RESPIRATORY: No accessory muscle use. Diminished GASTROINTESTINAL: Abdomen significantly distended, firm, tender. Venous distention to the abdomen. MUSCULOSKELETAL: No obvious deformities. No clubbing. No cyanosis. No edema. NEUROLOGICAL: Awake and alert. No obvious cranial nerve deficits. Motor grossly within normal limits. Normal speech. PSYCHIATRIC: Appropriate mood and affect; insight and judgment normal. Procedures Paracentesis Time Out Performed: Yes Indication: Ascites Procedure: therapeutic paracentesis Location: RLQ Local anesthetic used: lidocaine 1% Amount of anesthesia used (mL): 5 Bed Used: yes, Ascites confirmed and location marked (bedside US by Dr. Hayden) Preparation: 11 blade used to make darius in skin Amount of fluid obtained (mL): 8,000 Fluid: clear Needle Gauge Used: 18 Post Procedure Exam: awake, alert, normal BP, normal HR, normal SpO2 and other ( Pt feels better, breathing easier) Patient Tolerated Procedure: well and other (No signs of acute surgical abdomen or airway compromise. ) Complications: none Course Initial Documented Vital Signs Temperature 98.8 F 01/28/18 20:00 Pulse Rate 79 01/28/18 20:00 Respiratory Rate 22 01/28/18 20:00 Blood Pressure 121/68 01/28/18 20:00 Pulse Oximetry 99 01/28/18 20:00 Last Documented Vital Signs Temperature 98.7 F 01/30/18 04:00 Pulse Rate 80 01/30/18 04:00 Respiratory Rate 17 01/30/18 04:00 Blood Pressure 81/47 L 01/30/18 04:00 Pulse Oximetry 100 01/30/18 04:00 Medical Decision Making JESSICA Attestation JESSICA supervised visit: Yes Attestation: I, Dr. Plascencia, have reviewed the advance practice practitioner's documentation and am in agreement, met with the patient face to face, made the diagnosis, and the medical decision making was done by me. *My assessment and Findings: Cirrhosis with ascites, uncomfortable moderate distress. Therapeutic paracentesis to alleviate discomfort and distress. MDM Narrative Medical decision making narrative: Patient is a chronically ill-appearing 52- year-old female presenting with increasing abdominal pain and jaundice. Labs and imaging ordered and pending. Morphine will be given for pain. Pt given spironolactone. Na+125 Lactic acid 2.8 hgb stable when compared to prior Ammonia 70, lactulose ordered. UA with reflex culture pending. Pt has no urinary complaints, will defer abx until culture results. CT shows significant ascites, Bedside paracentesis performed by my attending physician. Dr. Hayden was present for the procedure and performed the procedure himself. Pt remained hemodynamically stable. Admit accepted by Dr. De Luna after speaking with Dr. Hayden. Admit orders placed. Medical Screen Exam Complete: Yes Emergency Medical Condition: Yes Differential Diagnosis Differential Diagnosis: Metabolic abnormality versus ascites versus arrhythmia versus coagulopathy versus other Medical Records Medical records reviewed: Yes I reviewed the patient's medical records. Lab Data Lab results reviewed: Yes I reviewed the patient's lab results. Result diagrams: 01/29/18 21:24 01/29/18 06:45 Lab Results 01/28/18 01/28/18 01/28/18 Range/Units 20:30 20:30 20:30 WBC 5.6 (4.0-11.0) th/mm3 RBC 2.45 L (4.00-5.30) mil/mm3 Hgb 8.9 L (11.6-15.3) gm/dL Hct 24.8 L (35.0-46.0) % MCV 101.2 H (80.0-100.0) fL MCH 36.2 H (27.0-34.0) pg MCHC 35.7 (32.0-36.0) % RDW 17.9 H (11.6-17.2) % Plt Count 164 (150-450) th/mm3 MPV 7.8 (7.0-11.0) fL Prelim Diff (Auto) Slide review pending Neut % (Auto) 81.5 H (16.0-70.0) % Lymph % (Auto) 10.5 (9.0-44.0) % [place] % (Auto) 5.2 (0.0-8.0) % Eos % (Auto) 2.1 (0.0-4.0) % Baso % (Auto) 0.7 (0.0-2.0) % Neut # (Auto) 4.6 (1.8-7.7) th/mm3 Lymph # (Auto) 0.6 L (1.0-4.8) th/mm3 [place] # (Auto) 0.3 (0.0-0.9) th/mm3 Eos # (Auto) 0.1 (0.0-0.4) th/mm3 Baso # (Auto) 0.0 (0.0-0.2) th/mm3 WBC Differential . Diff Scan Auto diff confirmed Seg Neuts % (Manual) (16-70) % Band Neuts % (Manual) (0-6) % Lymphocytes % (Manual) (9-44) % Monocytes % (Manual) (0-8) % Abs Neuts (Manual) (1.8-7.7) th/mm3 Differential Comment . Platelet Estimate (Normal) Platelet Morphology (Normal) Acanthocytes (Spur) Occ H (None) PT 23.2 H (9.8-11.6) sec INR 2.3 Ratio APTT 39.7 H (23.4-31.7) sec Sodium 125 L (136-145) meq/L Potassium 4.1 (3.5-5.1) meq/L Chloride 99 (98-107) meq/L Carbon Dioxide 16.9 L (21.0-32.0) meq/L Anion Gap 9 (5-15) meq/L BUN 16 (7-18) mg/dL Creatinine 0.90 (0.50-1.00) mg/dL Estimated GFR 66 L (>89) mL/min Random Glucose 116 H (74-106) mg/dL Lactic Acid (0.4-2.0) mmol/L Calcium 7.9 L (8.5-10.1) mg/dL Calcium Adj for Albumin (8.5-10.1) mg/dL Magnesium 2.0 (1.5-2.5) mg/dL Total Bilirubin 12.9 H (0.2-1.0) mg/dL AST 68 H (15-37) U/L ALT 21 (10-53) U/L Alkaline Phosphatase 193 H (45-117) U/L Ammonia (11-32) mcmol/L B-Natriuretic Peptide (0-100) pg/mL Total Protein 7.4 (6.4-8.2) g/dL Albumin 1.1 L (3.4-5.0) g/dL Lipase 105 (73-393) U/L Vitamin B12 (193-986) pg/mL Folate (3.1-17.5) ng/mL Urine Color (Yellw/Straw) Urine Clarity (Clear) Urine pH (5.0-8.5) Ur Specific [place] (1.002-1.035) Urine Protein (Neg-Trace) mg/dL Urine Glucose (UA) (Negative) mg/dL Urine Ketones (Negative) mg/dL Urine Occult Blood (Negative) Urine Nitrate (Negative) Urine Bilirubin (Negative) Urine Ictotest (Negative) Urine Urobilinogen (Less than 2) mg/dL Ur Leukocyte Esterase (Negative) Urine RBC (0-3) /hpf Urine WBC (0-5) /hpf Urine WBC Clumps (None) Ur Squamous Epith Cells (0-5) /hpf Urine Bacteria (None) /hpf Urine Mucus (Occasional) /lpf Micro UA Comment Ur Microscopic Review Urine Culture Comments Blood Type Antibody Screen MTS Gel Crossmatch 01/28/18 01/28/18 01/28/18 Range/Units 20:30 20:30 20:30 WBC (4.0-11.0) th/mm3 RBC (4.00-5.30) mil/mm3 Hgb (11.6-15.3) gm/dL Hct (35.0-46.0) % MCV (80.0-100.0) fL MCH (27.0-34.0) pg MCHC (32.0-36.0) % RDW (11.6-17.2) % Plt Count (150-450) th/mm3 MPV (7.0-11.0) fL Prelim Diff (Auto) Neut % (Auto) (16.0-70.0) % Lymph % (Auto) (9.0-44.0) % [place] % (Auto) (0.0-8.0) % Eos % (Auto) (0.0-4.0) % Baso % (Auto) (0.0-2.0) % Neut # (Auto) (1.8-7.7) th/mm3 Lymph # (Auto) (1.0-4.8) th/mm3 [place] # (Auto) (0.0-0.9) th/mm3 Eos # (Auto) (0.0-0.4) th/mm3 Baso # (Auto) (0.0-0.2) th/mm3 WBC Differential Diff Scan Seg Neuts % (Manual) (16-70) % Band Neuts % (Manual) (0-6) % Lymphocytes % (Manual) (9-44) % Monocytes % (Manual) (0-8) % Abs Neuts (Manual) (1.8-7.7) th/mm3 Differential Comment Platelet Estimate (Normal) Platelet Morphology (Normal) Acanthocytes (Spur) (None) PT (9.8-11.6) sec INR Ratio APTT (23.4-31.7) sec Sodium (136-145) meq/L Potassium (3.5-5.1) meq/L Chloride (98-107) meq/L Carbon Dioxide (21.0-32.0) meq/L Anion Gap (5-15) meq/L BUN (7-18) mg/dL Creatinine (0.50-1.00) mg/dL Estimated GFR (>89) mL/min Random Glucose (74-106) mg/dL Lactic Acid 2.8 H (0.4-2.0) mmol/L Calcium (8.5-10.1) mg/dL Calcium Adj for Albumin (8.5-10.1) mg/dL Magnesium (1.5-2.5) mg/dL Total Bilirubin (0.2-1.0) mg/dL AST (15-37) U/L ALT (10-53) U/L Alkaline Phosphatase (45-117) U/L Ammonia 70 H (11-32) mcmol/L B-Natriuretic Peptide 119 H (0-100) pg/mL Total Protein (6.4-8.2) g/dL Albumin (3.4-5.0) g/dL Lipase (73-393) U/L Vitamin B12 (193-986) pg/mL Folate (3.1-17.5) ng/mL Urine Color (Yellw/Straw) Urine Clarity (Clear) Urine pH (5.0-8.5) Ur Specific [place] (1.002-1.035) Urine Protein (Neg-Trace) mg/dL Urine Glucose (UA) (Negative) mg/dL Urine Ketones (Negative) mg/dL Urine Occult Blood (Negative) Urine Nitrate (Negative) Urine Bilirubin (Negative) Urine Ictotest (Negative) Urine Urobilinogen (Less than 2) mg/dL Ur Leukocyte Esterase (Negative) Urine RBC (0-3) /hpf Urine WBC (0-5) /hpf Urine WBC Clumps (None) Ur Squamous Epith Cells (0-5) /hpf Urine Bacteria (None) /hpf Urine Mucus (Occasional) /lpf Micro UA Comment Ur Microscopic Review Urine Culture Comments Blood Type Antibody Screen MTS Gel Crossmatch 01/28/18 01/29/18 01/29/18 Range/Units 21:30 06:45 06:45 WBC 9.5 D (4.0-11.0) th/mm3 RBC 1.60 L (4.00-5.30) mil/mm3 Hgb 5.7 L* D (11.6-15.3) gm/dL Hct 16.6 L* (35.0-46.0) % MCV 103.2 H (80.0-100.0) fL MCH 35.6 H (27.0-34.0) pg MCHC 34.5 (32.0-36.0) % RDW 17.3 H (11.6-17.2) % Plt Count 110 L D (150-450) th/mm3 MPV 7.4 (7.0-11.0) fL Prelim Diff (Auto) Slide review pending Neut % (Auto) 81.3 H (16.0-70.0) % Lymph % (Auto) 9.2 (9.0-44.0) % [place] % (Auto) 8.4 H (0.0-8.0) % Eos % (Auto) 0.8 (0.0-4.0) % Baso % (Auto) 0.3 (0.0-2.0) % Neut # (Auto) 7.7 (1.8-7.7) th/mm3 Lymph # (Auto) 0.9 L (1.0-4.8) th/mm3 [place] # (Auto) 0.8 (0.0-0.9) th/mm3 Eos # (Auto) 0.1 (0.0-0.4) th/mm3 Baso # (Auto) 0.0 (0.0-0.2) th/mm3 WBC Differential Manual diff final Diff Scan Seg Neuts % (Manual) 74 H (16-70) % Band Neuts % (Manual) 15 H (0-6) % Lymphocytes % (Manual) 9 (9-44) % Monocytes % (Manual) 2 (0-8) % Abs Neuts (Manual) 8.5 H (1.8-7.7) th/mm3 Differential Comment . Platelet Estimate Low L (Normal) Platelet Morphology Normal (Normal) Acanthocytes (Spur) 1+ H (None) PT 27.0 H (9.8-11.6) sec INR 2.7 Ratio APTT (23.4-31.7) sec Sodium (136-145) meq/L Potassium (3.5-5.1) meq/L Chloride (98-107) meq/L Carbon Dioxide (21.0-32.0) meq/L Anion Gap (5-15) meq/L BUN (7-18) mg/dL Creatinine (0.50-1.00) mg/dL Estimated GFR (>89) mL/min Random Glucose (74-106) mg/dL Lactic Acid (0.4-2.0) mmol/L Calcium (8.5-10.1) mg/dL Calcium Adj for Albumin (8.5-10.1) mg/dL Magnesium (1.5-2.5) mg/dL Total Bilirubin (0.2-1.0) mg/dL AST (15-37) U/L ALT (10-53) U/L Alkaline Phosphatase (45-117) U/L Ammonia (11-32) mcmol/L B-Natriuretic Peptide (0-100) pg/mL Total Protein (6.4-8.2) g/dL Albumin (3.4-5.0) g/dL Lipase (73-393) U/L Vitamin B12 (193-986) pg/mL Folate (3.1-17.5) ng/mL Urine Color [place] (Yellw/Straw) Urine Clarity Cloudy H (Clear) Urine pH 5.0 (5.0-8.5) Ur Specific [place] 1.021 (1.002-1.035) Urine Protein 30 H (Neg-Trace) mg/dL Urine Glucose (UA) Negative (Negative) mg/dL Urine Ketones Negative (Negative) mg/dL Urine Occult Blood Negative (Negative) Urine Nitrate Negative (Negative) Urine Bilirubin Moderate H (Negative) Urine Ictotest Positive H (Negative) Urine Urobilinogen 1.0 (Less than 2) mg/dL Ur Leukocyte Esterase Negative (Negative) Urine RBC 1 (0-3) /hpf Urine WBC 7 H (0-5) /hpf Urine WBC Clumps Rare H (None) Ur Squamous Epith Cells 10 (0-5) /hpf Urine Bacteria Many H (None) /hpf Urine Mucus Many H (Occasional) /lpf Micro UA Comment Culture indicated Ur Microscopic Review Not Reportable Urine Culture Comments Culture indicated Blood Type Antibody Screen MTS Gel Crossmatch 01/29/18 01/29/18 01/29/18 Range/Units 06:45 09:43 11:39 WBC (4.0-11.0) th/mm3 RBC (4.00-5.30) mil/mm3 Hgb 5.9 L* (11.6-15.3) gm/dL Hct 17.6 L* (35.0-46.0) % MCV (80.0-100.0) fL MCH (27.0-34.0) pg MCHC (32.0-36.0) % RDW (11.6-17.2) % Plt Count (150-450) th/mm3 MPV (7.0-11.0) fL Prelim Diff (Auto) Neut % (Auto) (16.0-70.0) % Lymph % (Auto) (9.0-44.0) % [place] % (Auto) (0.0-8.0) % Eos % (Auto) (0.0-4.0) % Baso % (Auto) (0.0-2.0) % Neut # (Auto) (1.8-7.7) th/mm3 Lymph # (Auto) (1.0-4.8) th/mm3 [place] # (Auto) (0.0-0.9) th/mm3 Eos # (Auto) (0.0-0.4) th/mm3 Baso # (Auto) (0.0-0.2) th/mm3 WBC Differential Diff Scan Seg Neuts % (Manual) (16-70) % Band Neuts % (Manual) (0-6) % Lymphocytes % (Manual) (9-44) % Monocytes % (Manual) (0-8) % Abs Neuts (Manual) (1.8-7.7) th/mm3 Differential Comment Platelet Estimate (Normal) Platelet Morphology (Normal) Acanthocytes (Spur) (None) PT (9.8-11.6) sec INR Ratio APTT (23.4-31.7) sec Sodium 132 L (136-145) meq/L Potassium 4.1 (3.5-5.1) meq/L Chloride 102 (98-107) meq/L Carbon Dioxide 21.6 (21.0-32.0) meq/L Anion Gap 8 (5-15) meq/L BUN 18 (7-18) mg/dL Creatinine 0.98 (0.50-1.00) mg/dL Estimated GFR 60 L (>89) mL/min Random Glucose 113 H (74-106) mg/dL Lactic Acid (0.4-2.0) mmol/L Calcium 7.0 L* D (8.5-10.1) mg/dL Calcium Adj for Albumin 9.2 (8.5-10.1) mg/dL Magnesium (1.5-2.5) mg/dL Total Bilirubin 10.3 H (0.2-1.0) mg/dL AST 46 H (15-37) U/L ALT 12 (10-53) U/L Alkaline Phosphatase 123 H (45-117) U/L Ammonia (11-32) mcmol/L B-Natriuretic Peptide (0-100) pg/mL Total Protein 5.3 L D (6.4-8.2) g/dL Albumin 1.2 L (3.4-5.0) g/dL Lipase (73-393) U/L Vitamin B12 (193-986) pg/mL Folate (3.1-17.5) ng/mL Urine Color (Yellw/Straw) Urine Clarity (Clear) Urine pH (5.0-8.5) Ur Specific [place] (1.002-1.035) Urine Protein (Neg-Trace) mg/dL Urine Glucose (UA) (Negative) mg/dL Urine Ketones (Negative) mg/dL Urine Occult Blood (Negative) Urine Nitrate (Negative) Urine Bilirubin (Negative) Urine Ictotest (Negative) Urine Urobilinogen (Less than 2) mg/dL Ur Leukocyte Esterase (Negative) Urine RBC (0-3) /hpf Urine WBC (0-5) /hpf Urine WBC Clumps (None) Ur Squamous Epith Cells (0-5) /hpf Urine Bacteria (None) /hpf Urine Mucus (Occasional) /lpf Micro UA Comment Ur Microscopic Review Urine Culture Comments Blood Type O Positive Antibody Screen Negative MTS Gel Crossmatch See Detail 01/29/18 01/30/18 Range/Units 21:24 03:14 WBC 10.7 (4.0-11.0) th/mm3 RBC 2.31 L (4.00-5.30) mil/mm3 Hgb 8.0 L D (11.6-15.3) gm/dL Hct 22.7 L (35.0-46.0) % MCV 98.4 D (80.0-100.0) fL MCH 34.4 H (27.0-34.0) pg MCHC 35.0 (32.0-36.0) % RDW 17.2 (11.6-17.2) % Plt Count 98 L (150-450) th/mm3 MPV 7.8 (7.0-11.0) fL Prelim Diff (Auto) Neut % (Auto) (16.0-70.0) % Lymph % (Auto) (9.0-44.0) % [place] % (Auto) (0.0-8.0) % Eos % (Auto) (0.0-4.0) % Baso % (Auto) (0.0-2.0) % Neut # (Auto) (1.8-7.7) th/mm3 Lymph # (Auto) (1.0-4.8) th/mm3 [place] # (Auto) (0.0-0.9) th/mm3 Eos # (Auto) (0.0-0.4) th/mm3 Baso # (Auto) (0.0-0.2) th/mm3 WBC Differential Diff Scan Seg Neuts % (Manual) (16-70) % Band Neuts % (Manual) (0-6) % Lymphocytes % (Manual) (9-44) % Monocytes % (Manual) (0-8) % Abs Neuts (Manual) (1.8-7.7) th/mm3 Differential Comment Platelet Estimate (Normal) Platelet Morphology (Normal) Acanthocytes (Spur) (None) PT (9.8-11.6) sec INR Ratio APTT (23.4-31.7) sec Sodium (136-145) meq/L Potassium (3.5-5.1) meq/L Chloride (98-107) meq/L Carbon Dioxide (21.0-32.0) meq/L Anion Gap (5-15) meq/L BUN (7-18) mg/dL Creatinine (0.50-1.00) mg/dL Estimated GFR (>89) mL/min Random Glucose (74-106) mg/dL Lactic Acid (0.4-2.0) mmol/L Calcium (8.5-10.1) mg/dL Calcium Adj for Albumin (8.5-10.1) mg/dL Magnesium (1.5-2.5) mg/dL Total Bilirubin (0.2-1.0) mg/dL AST (15-37) U/L ALT (10-53) U/L Alkaline Phosphatase (45-117) U/L Ammonia (11-32) mcmol/L B-Natriuretic Peptide (0-100) pg/mL Total Protein (6.4-8.2) g/dL Albumin (3.4-5.0) g/dL Lipase (73-393) U/L Vitamin B12 Greater than 2000 H (193-986) pg/mL Folate 6.8 (3.1-17.5) ng/mL Urine Color (Yellw/Straw) Urine Clarity (Clear) Urine pH (5.0-8.5) Ur Specific [place] (1.002-1.035) Urine Protein (Neg-Trace) mg/dL Urine Glucose (UA) (Negative) mg/dL Urine Ketones (Negative) mg/dL Urine Occult Blood (Negative) Urine Nitrate (Negative) Urine Bilirubin (Negative) Urine Ictotest (Negative) Urine Urobilinogen (Less than 2) mg/dL Ur Leukocyte Esterase (Negative) Urine RBC (0-3) /hpf Urine WBC (0-5) /hpf Urine WBC Clumps (None) Ur Squamous Epith Cells (0-5) /hpf Urine Bacteria (None) /hpf Urine Mucus (Occasional) /lpf Micro UA Comment Ur Microscopic Review Urine Culture Comments Blood Type Antibody Screen MTS Gel Crossmatch Imaging Data Radiologist's impression: Abdomen/Pelvis CT 01/28/18 20:07 CONCLUSION: 1. No significant change in approximate 1 cm nodule left lower lobe, however there is now hazy opacity involving right middle lobe and lingula not present previously may represent pulmonary edema with a small right pleural effusion. Questionable right middle lobe nodule. 2. Cirrhosis with extensive ascites and overall degree of ascites has significantly progressed since the prior exam. Chest X-Ray 01/28/18 21:37 CONCLUSION: The lungs are clear. Submaximal inspiration. Abdomen/Pelvis CT 01/29/18 00:00 CONCLUSION: 1. No evidence of retroperitoneal hematoma. 2. Large amount of ascites. 3. Diffuse anasarca. 4. Small nodular liver suggesting cirrhosis. 5. Splenomegaly. 6. Gastric fold thickening involving the fundus and body suggesting acute gastritis. Clinical correlation is recommended. 7. Stable 13 mm noncalcified pulmonary nodule within left lower lobe. Line tiny bilateral pleural effusions and posterior pleural thickening. 8. Scattered groundglass densities within the right middle lobe. 9. Tiny faint calcification within the upper pole the right kidney consistent with nonobstructing calculus. 10. Stable 12 mm right upper pole renal cyst. 11. Degenerative changes and scoliosis of the thoracolumbar spine. Discharge Plan Discharge Disposition Patient Disposition: ED Admit(ED Internal Use Only) Discharge Condition Condition: Stable Discharge Order Discharge Orders: ED Use Only Admit Order (Routine); Ordered 01/28/18 Ordered By: Nieves Mcdaniel Discharge Details Diagnosis: Pulmonary infiltrate, Cirrhosis of liver with ascites, Hyponatremia, Acidosis, lactic, Hyperammonemia Physicians Team ED Provider: Nikolay Hayden ED Midlevel Provider: Nieves Mcdaniel Primary Care Provider: Marco Antonio Aranda Attending Provider: Elaina Vail Other Providers: Nirav Schneider Status ED Status: Left Department Discharge Information Discharge Date/Time: 01/29/18 01:05
[2018-01-28 20:52] LABS: Baso % (Auto) 0.7 % (0.0-2.0); Eos # (Auto) 0.1 th/mm3 (0.0-0.4); Eos % (Auto) 2.1 % (0.0-4.0); Hematocrit 24.8 % (35.0-46.0); Hemoglobin 8.9 gm/dL (11.6-15.3); Lymph # (Auto) 0.6 th/mm3 (1.0-4.8); Lymph % (Auto) 10.5 % (9.0-44.0); Mean Corpuscular HGB Conc 35.7 % (32.0-36.0); Mean Corpuscular Hemoglobin 36.2 pg (27.0-34.0); Mean Corpuscular Volume 101.2 fL (80.0-100.0); Mean Platelet Volume 7.8 fL (7.0-11.0); Mono # (Auto) 0.3 th/mm3 (0.0-0.9); Mono % (Auto) 5.2 % (0.0-8.0); Neut # (Auto) 4.6 th/mm3 (1.8-7.7); Neut % (Auto) 81.5 % (16.0-70.0); Platelet Count 164 th/mm3 (150-450); Red Blood Count 2.45 mil/mm3 (4.00-5.30); Red Cell Distribution Width 17.9 % (11.6-17.2); White Blood Count 5.6 th/mm3 (4.0-11.0)
--- NOTE | 2018-01-28 21:00 | CT ---
EXAM DATE: 01/28/2018 8:52 PM EST AGE/SEX: 52 years / Female INDICATIONS: Abdomen pain with distention. CLINICAL DATA: This is the patient's initial encounter. Patient reports that signs and symptoms have been present for 1 week and indicates a pain score of 7/10. MEDICAL/SURGICAL HISTORY: Cirrhosis. Pancreatitis. Alcohol abuse . Right hip replacement RADIATION DOSE: 11.56 CTDI (mGy) COMPARISON: [facility] [place] A[place] & [place]ELVIS W/O CONTRAST, 10/25/2017. . TECHNIQUE: Multiple contiguous axial images were obtained through the abdomen. Images were obtained using multiple row detector helical technique. Using automated exposure control and adjustment of the mA and/or kV according to patient size, radiation dose was kept as low as reasonably achievable to o btain optimal diagnostic quality images. DICOM format image data is available electronically for rev iew and comparison. FINDINGS: Abdomen CT: The spleen, kidneys, adrenals are unremarkable. 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 There is no evidence for any appreciable pathological adenopathy, or bowel obstruct ion. The liver appears cirrhotic and there is extensive ascites throughout the abdomen and pelvis. Th ere is a small right pleural effusion. Approximate 1 cm left lower lobe nodule is seen with hazy opac ity involving the visualized right middle lobe and lingula and questionable tiny right middle lobe no dule measures 5 mm. Slight right lung base atelectasis and/or infiltrate is seen. Diffuse anasarca is seen. Pelvic CT: There is no evidence for mass, abscess formation, or any significant adenopathy within the pelvis. CONCLUSION: 1. No significant change in approximate 1 cm nodule left lower lobe, however there is now hazy opaci ty involving right middle lobe and lingula not present previously may represent pulmonary edema with a small right pleural effusion. Questionable right middle lobe nodule. 2. Cirrhosis with extensive ascites and overall degree of ascites has significantly progressed since the prior exam. Electronically signed by: Anthony Roberson MD Board Certified Radiologist 01/28/2018 8:58 PM EST
[2018-01-28 21:07] LABS: Activated Partial Thrombo Time 39.7 sec (23.4-31.7); INR 2.3 Ratio; Prothrombin Time 23.2 sec (9.8-11.6)
[2018-01-28 21:09] LABS: Alanine Aminotransferase 21 U/L (10-53); Albumin 1.1 g/dL (3.4-5.0); Anion Gap 9 meq/L (5-15); Aspartate Aminotransferase 68 U/L (15-37); Blood Urea Nitrogen 16 mg/dL (7-18); Calcium 7.9 mg/dL (8.5-10.1); Carbon Dioxide 16.9 meq/L (21.0-32.0); Chloride 99 meq/L (98-107); Glomerular Filtration Rate 66 mL/min (>89); Glucose,Random 116 mg/dL (74-106); Lipase 105 U/L (73-393); Potassium 4.1 meq/L (3.5-5.1); Sodium 125 meq/L (136-145)
[2018-01-28 21:12] LABS: Alkaline Phosphatase 193 U/L (45-117); Total Protein 7.4 g/dL (6.4-8.2)
[2018-01-28 21:25] LABS: Acanthocytes Occ
[2018-01-28 22:34] LABS: Bacteria,Urine Many /hpf; Bilirubin,Urine Moderate (Negative); Clarity,Urine Cloudy (Clear); Color,Urine Amber (Yellw/Straw); Glucose,Urine (UA) Negative (Negative); Leukocyte Esterase,Urine Negative (Negative); Mucus,Urine Many /lpf (Occasional); Nitrite,Urine Negative (Negative); Specific Gravity,Urine 1.021 (1.002-1.035); Squamous Epithelial Cell,Urine 10 /hpf (0-5)
[2018-01-28] MEDS ORDERED: Bisacodyl 10 MG Supp RECTAL PRN (22:37)
[2018-01-28 22:40] LABS: Ictotest,Urine Positive (Negative)
--- NOTE | 2018-01-28 23:07 | P.HPIM ---
History of Present Illness Primary Care Physician: Marco Antonio Aranda DO History of Present Illness: This is a 52-year-old female with a PMH of Cirrhosis/ESLD, h/o Alcohol Abuse and Recurrent Ascites who presented to the ER w/ c/o abdominal pain and worsening distention. Previous admit 11/25/17 for hepatic encephalopathy/ ascites, estimated 3-month mortality based on Meld score, ultimately LEFT AMA on 12/12/17 after eloping. States she has been following w/ her PCP, Dr. Aranda, who gave her 4-6 months to live. Now w/ worsening abdominal distention. On arrival, BP 121/68, HR 79, O2 sat 99% on 2L NC, Afebrile. CBC essentially at baseline. INR 2.3. Lactic Acid 2.8. Ammonia 70. UA mild bacteriuria. CXR negative. CT Abdomen/Pelvis no significant change, small right pleural effusion, pulmonary edema, extensive ascites significantly progressed from prior exam. S/p Paracentesis in ER w/ 8L removal. - Diagnosis (1) Ascites (2) End-stage liver disease (3) Coagulopathy Review of Systems PAST FAMILY HISTORY: Reviewed. No h/o DM or CAD All other systems reviewed negative except as stated in HPI PMFSH - History History Provided By: Patient, Medical Record - Medical History Medical History: Medical History (Last Reviewed 01/28/18 @ 20:15 by GWEN Carlin) Cirrhosis of liver History of abdominal paracentesis Pancreatitis Weight loss - Surgical History Surgical History: Surgical History (Last Reviewed 01/28/18 @ 20:15 by GWEN Carlin) History of total right hip replacement - Family History Family History: Family History (Last Reviewed 01/28/18 @ 20:15 by GWEN Carlin) Mother Heart disease - Tobacco History Second Hand Smoke Exposure: Yes Smoking Status: Former smoker Tobacco Type: Cigarettes - Alcohol History How Often Do You Have a Drink Containing Alcohol: Monthly or less - Substance Use History Substance History: Past History - Immunization History Tetanus Immunization: Unsure Medications and Allergies Active Medications: Active Medications Al Hydroxide/Mg Hydroxide (Milk Of Magnesia Liq) 30 ml PO Q12H PRN PRN Reason: Mild Constipation Bisacodyl (Dulcolax Supp) 10 mg RECTAL DAILY PRN PRN Reason: SEVERE CONSITIPATION Furosemide (Lasix) 40 mg PO DAILY [facility] Lactulose (Lactulose Liq) 30 ml PO TID ERIN Ondansetron HCl (Zofran Inj) 4 mg IV.PUSH Q6H PRN PRN Reason: NAUSEA OR VOMITING Propranolol HCl (Inderal) 10 mg PO BID [facility] Senna/Docusate Sodium (Isabella-Colace) 1 tab PO BID [facility] Sennosides (Senokot) 17.2 mg PO Q12H PRN PRN Reason: Moderate Constipation Sodium Chloride (Ns Flush) 2 ml IV.FLUSH PRN PRN PRN Reason: FLUSH AFTER USING IV ACCESS Sodium Chloride (Ns Flush) 2 ml IV.FLUSH BID ERIN Sodium Chloride (Ns Flush) 2 ml IV.FLUSH PRN PRN PRN Reason: FLUSH AFTER USING IV ACCESS Spironolactone (Aldactone) 100 mg PO DAILY [facility] Allergies Allergy/AdvReac Type Severity Reaction Status Date / Time penicillin G Allergy Mild Rash Verified 01/28/18 19:59 Home Medications Medication Instructions Recorded Confirmed Type fentanyl 1 patch TRANSDERMAL Q72H 01/28/18 01/28/18 History hydrocodone-acetaminophen 1 tab PO Q4-6H PRN 01/28/18 01/28/18 History metoprolol tartrate 25 mg PO BID 01/28/18 01/28/18 History spironolactone 25 mg PO DAILY 01/28/18 01/28/18 History Exam Vital signs: Vital Signs 01/28/18 20:00 01/28/18 20:06 01/28/18 20:07 Temperature 98.8 F Pulse Rate 79 Respiratory Rate 22 19 Blood Pressure 121/68 Pulse Oximetry 99 97 01/28/18 21:25 Temperature Pulse Rate Respiratory Rate Blood Pressure Pulse Oximetry 91 L Intake & Output 01/28/18 01/28/18 01/29/18 06:59 18:59 06:59 Weight 74.843 kg Narrative: PE: GENERAL: Middle-aged, chronically ill-appearing female in no acute distress. SKIN: Focused skin assessment warm and dry. Jaundice. HEENT: PERRLA, EOMI. No scleral icterus or conjunctival pallor. No lid lag or facial droop. CARDIOVASCULAR: Regular rate and rhythm. No obvious murmurs to auscultation. No chest tenderness to palpation. RESPIRATORY: No obvious rhonchi or wheezing. Clear to auscultation. Breath sounds equal bilaterally. GASTROINTESTINAL: Abdomen soft, non-tender. Extensive distention due to ascites. BS normal. +caput medusae MUSCULOSKELETAL: Extremities without clubbing, cyanosis, or edema. No obvious deformities. NEUROLOGICAL: Awake, alert and oriented x4. No focal neurologic deficits. Moving both upper and lower extremities spontaneously. PSYCHIATRIC: Appropriate mood and affect. Insight and judgment normal. Results - Labs CBC & Chem 7: 01/28/18 20:30 01/28/18 20:30 Labs: Short CBC 01/28/18 Range/Units 20:30 WBC 5.6 (4.0-11.0) th/mm3 Hgb 8.9 L (11.6-15.3) gm/dL Hct 24.8 L (35.0-46.0) % Plt Count 164 (150-450) th/mm3 BMP 01/28/18 20:30 Sodium 125 L Potassium 4.1 Chloride 99 Carbon Dioxide 16.9 L BUN 16 Creatinine 0.90 Calcium 7.9 L Liver Function 01/28/18 Range/Units 20:30 Total Bilirubin 12.9 H (0.2-1.0) mg/dL AST 68 H (15-37) U/L ALT 21 (10-53) U/L Alkaline Phosphatase 193 H (45-117) U/L Albumin 1.1 L (3.4-5.0) g/dL Urine 01/28/18 Range/Units 21:30 Urine Color Ashly (Yellw/Straw) Urine Clarity Cloudy H (Clear) Urine pH 5.0 (5.0-8.5) Ur Specific [place] 1.021 (1.002-1.035) Urine Protein 30 H (Neg-Trace) mg/dL Urine Glucose (UA) Negative (Negative) mg/dL - Imaging Impressions Abdomen/Pelvis CT 01/28/18 20:07 CONCLUSION: 1. No significant change in approximate 1 cm nodule left lower lobe, however there is now hazy opacity involving right middle lobe and lingula not present previously may represent pulmonary edema with a small right pleural effusion. Questionable right middle lobe nodule. 2. Cirrhosis with extensive ascites and overall degree of ascites has significantly progressed since the prior exam. Caprini VTE Risk Assessment Caprini VTE Risk Assessment: No/Low Risk (score <= 1) VTE Pharmacological Exception Reason: End Stage Liver Disease Caprini Risk Assessment Model: Point Value = 1 Point Value = 2 Point Value = 3 Point Value = 5 Age 41-60 Minor surgery BMI > 25 kg/m2 Swollen legs Varicose veins or History of unexplained or recurrent spontaneous Oral contraceptives or hormone replacement Sepsis (< 1 month) Serious lung disease, including pneumonia (< 1 month) Abnormal pulmonary function Acute myocardial infarction Congestive heart failure (< 1 month) History of inflammatory bowel disease Medical patient at bed rest Age 61-74 Arthroscopic surgery Major open surgery (> 45 min) Laparoscopic surgery (> 45 min) Malignancy Confined to bed (> 72 hours) Immobilizing plaster cast Central venous access Age >= 75 History of VTE Family history of VTE Factor V Leiden Prothrombin [id number] Lupus anticoagulant Anticardiolipin antibodies Elevated serum homocysteine Heparin-induced thrombocytopenia Other congenital or acquired thrombophilia Stroke (< 1 month) Elective arthroplasty Hip, pelvis, or leg fracture Acute spinal cord injury (< 1 month) Prophylaxis Regimen: Total Risk Factor Score Risk Level Prophylaxis Regimen 0-1 Low Early ambulation 2 Moderate Order ONE of the following: *Sequential Compression Device (SCD) *Heparin 5000 units SQ BID 3-4 Higher Order ONE of the following medications: *Heparin 5000 units SQ TID *Enoxaparin/Lovenox 40 mg SQ daily (WT < 150 kg, CrCl > 30 mL/min) *Enoxaparin/Lovenox 30 mg SQ daily (WT < 150 kg, CrCl > 10-29 mL/min) *Enoxaparin/Lovenox 30 mg SQ BID (WT < 150 kg, CrCl > 30 mL/min) AND/OR *Sequential Compression Device (SCD) 5 or more Highest Order ONE of the following medications: *Heparin 5000 units SQ TID (Preferred with Epidurals) *Enoxaparin/Lovenox 40 mg SQ daily (WT < 150 kg, CrCl > 30 mL/min) *Enoxaparin/Lovenox 30 mg SQ daily (WT < 150 kg, CrCl > 10-29 mL/min) *Enoxaparin/Lovenox 30 mg SQ BID (WT < 150 kg, CrCl > 30 mL/min) AND *Sequential Compression Device (SCD) Assessment and Plan - Assessment (1) Ascites Code(s): R18.8 - Other ascites Status: Acute (2) End-stage liver disease Code(s): K72.90 - Hepatic failure, unspecified without coma Status: Acute (3) Coagulopathy Code(s): D68.9 - Coagulation defect, unspecified Status: Acute - Plan A/P: 1. Ascites: Recurrent. Secondary to ESLD. S/p Paracentesis in ER w/ 8L removed, monitor closely for hypotension from 3rd spacing, monitor I/O, continue diuresis. 2. ESLD: Pt seems to be in denial regarding the severity of her liver disease , states "I'll do anything", poor prognosis w/ likely 4-6 month expected mortality. Follows w/ Dr. Aranda, states he was to be referring her to GI as outpatient for further eval. 3. Coagulopathy: INR 2.3, secondary to ESLD, monitor closely for bleeding, repeat INR in am. 4. Code Status: discussed extensively with patient, as above she appears to be in denial regarding extent of liver disease and her poor prognosis. States she wishes to talk to her mother regarding code status before making a decision. Will keep Full Code. 5. DVT Prophylaxis: Pharmacologic contraindication due to coagulopathy 6. Social work for d/c planning as needed 7. Case discussed w/ ER physician at length, labs/records/imaging reviewed by me.
--- NOTE | 2018-01-28 23:17 | XR ---
EXAM DATE: 01/28/2018 11:07 PM EST AGE/SEX: 52 years / Female INDICATIONS: Short of breath. CLINICAL DATA: This is the patient's initial encounter. Patient reports that signs and symptoms have been present for 1 day and indicates a pain score of 0/10. MEDICAL/SURGICAL HISTORY: . Cirrhosis. Pancreatitis. Alcohol abuse . Right hip replacement . COMPARISON: [facility] [place], CHEST 1V SINGLE AP, 11/02/2017. [facility] [place], CT CHEST W/O CONTRAST, 10/30/2017. . FINDINGS: Submaximal inspiration with elevation of the right hemidiaphragm. The lungs are clear without focal i nfiltrate or nodular opacity. Both hemidiaphragms are well delineated. No evidence of pneumothorax. T he heart is mildly prominent, probably due to the submaximal inspiration. Healed fractures of the lat eral fourth through sixth ribs. CONCLUSION: The lungs are clear. Submaximal inspiration. Electronically signed by: Jaswant Mcelroy MD Board Certified Radiologist 01/28/2018 11:16 PM EST
[2018-01-28] MEDS ORDERED: Sod Chloride 0.9% Inj 1,000 ML IV.SIG SCH (23:30)
[2018-01-29] MEDS: Albumin Human 25% Inj 50 ML IV.SIG SCH ×2 (04:42→20:35)
[2018-01-29 07:50] LABS: Baso % (Auto) 0.3 % (0.0-2.0); Eos # (Auto) 0.1 th/mm3 (0.0-0.4); Eos % (Auto) 0.8 % (0.0-4.0); Lymph # (Auto) 0.9 th/mm3 (1.0-4.8); Lymph % (Auto) 9.2 % (9.0-44.0); Mean Corpuscular HGB Conc 34.5 % (32.0-36.0); Mean Corpuscular Hemoglobin 35.6 pg (27.0-34.0); Mean Corpuscular Volume 103.2 fL (80.0-100.0); Mean Platelet Volume 7.4 fL (7.0-11.0); Mono # (Auto) 0.8 th/mm3 (0.0-0.9); Mono % (Auto) 8.4 % (0.0-8.0); Neut # (Auto) 7.7 th/mm3 (1.8-7.7); Neut % (Auto) 81.3 % (16.0-70.0); Platelet Count 110 th/mm3 (150-450); Red Cell Distribution Width 17.3 % (11.6-17.2); White Blood Count 9.5 th/mm3 (4.0-11.0)
[2018-01-29 07:53] LABS: INR 2.7 Ratio
[2018-01-29 08:12] LABS: Albumin 1.2 g/dL (3.4-5.0); Carbon Dioxide 21.6 meq/L (21.0-32.0); Potassium 4.1 meq/L (3.5-5.1); Total Protein 5.3 g/dL (6.4-8.2)
[2018-01-29 08:20] LABS: Hematocrit 16.6 % (35.0-46.0); Hemoglobin 5.7 gm/dL (11.6-15.3)
[2018-01-29 08:54] LABS: Lymphocytes 9 % (9-44); Monocytes 2 % (0-8)
[2018-01-29 08:55] LABS: Acanthocytes 1+; Platelet Morphology Normal (Normal)
[2018-01-29] MEDS ORDERED: Furosemide 40 MG Tablet PO SCH (09:00)
--- NOTE | 2018-01-29 09:21 | P.PNIM ---
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 Repeated confirmed to be low at 5.9. Gastroenterology team to be consulted for possible endoscopy. 2 units packed red blood cells. IV Protonix. Repeat CBC posttransfusion. Physical Exam Vital signs: Last Vital Signs Temp 98.3 F 01/29/18 08:00 Pulse 76 01/29/18 08:00 Resp 16 01/29/18 08:00 BP 93/50 L 01/29/18 08:00 Pulse Ox 98 01/29/18 08:00 Intake & Output 01/27/18 01/28/18 01/29/18 01/30/18 06:59 06:59 06:59 06:59 Intake Total 1050 / 1050 Output Total 8000 / 8000 Balance -6950 / -6950 Weight 74.843 kg gen: NAD heent: scleral icterus cvs: s1/s2, rrr resp: inspiratory crackles gi: + abdominal distention, no guarding or rebound. + fluid wave ext: LE 2+ pitting edema noted. no calf tenderness Urinary Catheter Management Indwelling Urethral Catheter: Cath placed during this visit: yes Urethral indwelling: No Insertion date: 01/28/18 Insertion time: 21:43 Results Labs CBC & Chem 7: 01/29/18 09:43 01/29/18 06:45 Imaging Imaging: Impressions Abdomen/Pelvis CT 01/28/18 20:07 CONCLUSION: 1. No significant change in approximate 1 cm nodule left lower lobe, however there is now hazy opacity involving right middle lobe and lingula not present previously may represent pulmonary edema with a small right pleural effusion. Questionable right middle lobe nodule. 2. Cirrhosis with extensive ascites and overall degree of ascites has significantly progressed since the prior exam. Chest X-Ray 01/28/18 21:37 CONCLUSION: The lungs are clear. Submaximal inspiration. Assessment and Plan (1) Ascites: Code(s): R18.8 - Other ascites Status: Acute (2) End-stage liver disease: Code(s): K72.90 - Hepatic failure, unspecified without coma Status: Acute (3) Coagulopathy: Code(s): D68.9 - Coagulation defect, unspecified Status: Acute Plan Patient is a 52-year-old female with past medical history of cirrhosis with abdominal ascites who presents to emergency department for abdominal pain found to have low hemoglobin concern for gastrointestinal bleed in the setting of possible varices versus lower GI bleed source Gastroenterology: History of cirrhosis Gastroenterology team consulted and recommendations to be appreciated. Recommendation at this time after discussion with gastro team is for endoscopy on 01/30 Given low hemoglobin of 5.9 will transfuse 2 units of packed red blood cells and repeat CBC tonight. On physical examination patient is completely asymptomatic without complaints of abdominal pain or back pain CT abdomen and pelvis noncontrast obtained to evaluate for possible retroperitoneal bleed in the setting of recent paracentesis with removal of fluid. No bleed identified at this time Patient with low albumin levels will administer albumin Protonix 40 mg IV twice daily Occult testing for bleed Maintain 2 large-bore peripheral IVs. Maintain active type and screen. We will give prophylactic antibiotic in the setting of possible variceal bleeding. Given patient has documented history of allergies to penicillin (of course) will give empiric ciprofloxacin. . Studies suggest bacterial infections are present in up to 20% of patients with cirrhosis were hospitalized and found to have gastrointestinal bleeding. CODE STATUS: Full code DVT prophylaxis SCD Disposition: Medical surgery unit Diet: N.p.o. Progress Note: Quality VTE Deep Vein Thrombosis/Pulmonary Embolism Present on Admission: No _ (1) Ascites Qualifiers: Ascites type:
[2018-01-29] MEDS: Propranolol 10 MG Tablet PO SCH ×3 (09:57→21:23)
[2018-01-29 10:28] LABS: Hematocrit 17.6 % (35.0-46.0); Hemoglobin 5.9 gm/dL (11.6-15.3)
[2018-01-29] MEDS ORDERED: Sodium Chlor 0.9% Inj 250 ML IV.SIG SCH (11:00)
[2018-01-29] MEDS: Senna/Docusate Sodium 8.6/50 MG Tablet PO SCH ×2 (11:47→21:07)
[2018-01-29] MEDS: Pantoprazole Inj 40 MG Vial IV.PUSH SCH ×2 (11:55→12:32)
[2018-01-29] MEDS: Folic Acid 1 MG Tablet PO SCH (12:32)
--- NOTE | 2018-01-29 12:54 | CT ---
EXAM DATE: 01/29/2018 12:41 PM EST AGE/SEX: 52 years / Female INDICATIONS: Evaluate for retroperitoneal bleeding with hemoglobin drop. CLINICAL DATA: This is the patient's initial encounter. Patient reports that signs and symptoms have been present for 1 day and indicates a pain score of 4/10. MEDICAL/SURGICAL HISTORY: Cirrhosis. Pancreatitis. . Hip replacement. RADIATION DOSE: 13.11 CTDI (mGy) COMPARISON: [facility] [place], CT ABDOMEN & PELVIS W/O CONTRAST, 01/28/2018. . TECHNIQUE: Multiple contiguous axial images were obtained through the abdomen. Images were obtained using multiple row detector helical technique. Using automated exposure control and adjustment of the mA and/or kV according to patient size, radiation dose was kept as low as reasonably achievable to o btain optimal diagnostic quality images. DICOM format image data is available electronically for rev iew and comparison. FINDINGS: Lower Lungs: There is a 13 mm noncalcified nodule within the left lower lobe. Tiny bilateral pleural effusions and posterior pleural thickening are noted. Scattered groundglass densities are noted withi n the right middle lobe. Liver: The liver is small in size and nodular in contour consistent with cirrhosis. No biliary ductal dilatation is noted. The gallbladder is unremarkable. Spleen: Splenomegaly is noted. Pancreas: Unremarkable without mass or calcification. Kidneys: Normal in size and shape. No evidence of mass or hydronephrosis. Tiny faint calcification i s noted within the upper pole of the right kidney consistent with probable nonobstructing calculus. T iny stable 12 mm upper pole right renal cyst is noted. Adrenal Glands: Unremarkable. Aorta: The aorta and proximal iliac vessels are grossly unremarkable without aneurysmal dilation. Bowel/Mesentery: There is a large amount of ascites throughout the abdomen. Gastric fold thickening is noted involving the body and fundus raising the possibility of acute gastritis. Clinical correlati on is recommended. The bowel loops are grossly unremarkable. The cecum and sigmoid colon have a shama l configuration. Abdominal Wall: Diffuse anasarca is noted. Retroperitoneum: No evidence of adenopathy in the retrocrural, para-aortic, or deep pelvic regions. Bladder: Contours are smooth. Reproductive Organs: No abnormal masses or calcifications seen. Inguinal: The inguinal region is unremarkable without evidence of adenopathy. Bony Structures: Degenerative changes and scoliosis of the thoracolumbar spine are noted. CONCLUSION: 1. No evidence of retroperitoneal hematoma. 2. Large amount of ascites. 3. Diffuse anasarca. 4. Small nodular liver suggesting cirrhosis. 5. Splenomegaly. 6. Gastric fold thickening involving the fundus and body suggesting acute gastritis. Clinical correl ation is recommended. 7. Stable 13 mm noncalcified pulmonary nodule within left lower lobe. Line tiny bilateral pleural ef fusions and posterior pleural thickening. 8. Scattered groundglass densities within the right middle lobe. 9. Tiny faint calcification within the upper pole the right kidney consistent with nonobstructing ca lculus. 10. Stable 12 mm right upper pole renal cyst. 11. Degenerative changes and scoliosis of the thoracolumbar spine. Electronically signed by: Ham Méndez MD Board Certified Radiologist 01/29/2018 12:52 PM EST
--- NOTE | 2018-01-29 13:39 | ECG ---
Date Performed: 01/28/2018 Time Performed: 21:11:10 PTAGE: 52 years EKG: Sinus rhythm MODERATE T-WAVE ABNORMALITY, CONSIDER ANTERIOR ISCHEMIA ABNORMAL ECG Compared to PREVIOUS TRACING anterior T wave changes are more prominent PREVIOUS TRACIN01/28/2018 20.22 DOCTOR: Fredi Bonner Interpretating Date/Time 01/29/2018 13:37:25
--- NOTE | 2018-01-29 16:58 | P.CONGI ---
History of Present Illness Consult date: 01/29/18 Consult reason: Cirrhosis Acute blood loss Anemia Chief complaint: Cirrhosis, Ascites, ESLD History of Present Illness: This patient is a 52-year-old female with past medical history of cirrhosis, end-stage liver disease, alcohol abuse and recurrent ascites. Patient presented to [facility] with complaint of increasing abdominal pain and distention. Patient states she was recently informed by her primary care physician that he presume she has 3-6 months to live. Upon consultation, Patient endorses increasing abdominal pain with distention and shortness of breath over the last 3 weeks. Patient underwent paracentesis during ED stay last evening where 8 L of fluid were removed during therapeutic paracentesis. Patient denies any noted bleeding. She states stools are brown and soft. Patient denies any nausea or vomiting. Patient denies any history of EGD or colonoscopy. She endorses 10-year history of alcohol abuse including 4 drinks of vodka daily over the last 10 years. Patient states she has not had any use of alcohol products for 4 months. She endorses tobacco use presently 1/2 pack/day. Patient denies any home medications. Denies taking diuretics, states she stopped taking home medications 4 months ago as she did not follow-up with primary care physician. Our service has been consulted to evaluate patient for anemia and cirrhosis <Marni Edwards - Last Filed: 01/29/18 16:58> Review of Systems All other systems reviewed negative except as stated in HPI <Marni Edwards - Last Filed: 01/29/18 16:58> PMFSH - History History Provided By: Patient, Medical Record - Medical History Medical History: Medical History (Last Reviewed 01/28/18 @ 20:15 by GWEN Carlin) Cirrhosis of liver History of abdominal paracentesis Pancreatitis Weight loss - Surgical History Surgical History: Surgical History (Last Reviewed 01/28/18 @ 20:15 by GWEN Carlin) History of total right hip replacement - Family History Family History: Family History (Last Reviewed 01/28/18 @ 20:15 by GWEN Carlin) Mother Heart disease - Tobacco History Second Hand Smoke Exposure: Yes Tobacco Use In Past 30 Days: Yes Smoking Status: Heavy tobacco smoker Tobacco Type: Cigarettes - Alcohol History How Often Do You Have a Drink Containing Alcohol: Monthly or less - Substance Use History Substance History: No History of Abuse - Immunization History Tetanus Immunization: Unsure <Marni Edwards - Last Filed: 01/29/18 16:58> - Medical History Medical History: Medical History (Last Reviewed 01/28/18 @ 20:15 by GWEN Carlin) Cirrhosis of liver History of abdominal paracentesis Pancreatitis Weight loss - Surgical History Surgical History: Surgical History (Last Reviewed 01/28/18 @ 20:15 by GWEN Carlin) History of total right hip replacement - Family History Family History: Family History (Last Reviewed 01/28/18 @ 20:15 by GWEN Carlin) Mother Heart disease <Nirav Schneider - Last Filed: 01/30/18 09:04> Medications and Allergies Active Medications: Active Medications Al Hydroxide/Mg Hydroxide (Milk Of Magnesia Liq) 30 ml PO Q12H PRN PRN Reason: Mild Constipation Bisacodyl (Dulcolax Supp) 10 mg RECTAL DAILY PRN PRN Reason: SEVERE CONSITIPATION Folic Acid (Folic Acid) 1 mg PO DAILY [facility] Last Admin: 01/29/18 12:32 Dose: 1 mg Furosemide (Lasix) 40 mg PO DAILY [facility] Last Admin: 01/29/18 11:47 Dose: Not Given Albumin Human (Flexbumin 25% Inj) 50 mls @ 60 mls/hr IV.SIG Q12H ERIN Last Infusion: 01/29/18 05:39 Dose: Infused Sodium Chloride (Ns Inj) 250 mls @ 15 mls/hr IV.SIG ONCE ERIN Stop: 01/30/18 03:39 Last Admin: 01/29/18 15:34 Dose: 15 mls/hr Ciprofloxacin/Dextrose (Cipro 400 Mg/200 Ml Inj) 400 mg in 200 mls @ 200 mls/ hr IV.SIG Q24H ERIN Lactulose (Lactulose Liq) 30 ml PO TID ERIN Last Admin: 01/29/18 12:32 Dose: 30 ml Nicotine (Habitrol 14 Mg Patch.24 Hr) 1 patch T-DERMAL DAILY ERIN Last Admin: 01/29/18 12:42 Dose: 1 patch Ondansetron HCl (Zofran Inj) 4 mg IV.PUSH Q6H PRN PRN Reason: NAUSEA OR VOMITING Pantoprazole Sodium (Protonix Inj) 40 mg IV.PUSH Q12H ERIN Last Admin: 01/29/18 12:32 Dose: 40 mg Patch Removal (Remove Old Patch) 1 each T-DERMAL DAILY [facility] Propranolol HCl (Inderal) 10 mg PO BID [facility] Last Admin: 01/29/18 09:57 Dose: Not Given Senna/Docusate Sodium (Isabella-Colace) 1 tab PO BID [facility] Last Admin: 01/29/18 11:47 Dose: Not Given Sennosides (Senokot) 17.2 mg PO Q12H PRN PRN Reason: Moderate Constipation Sodium Chloride (Ns Flush) 2 ml IV.FLUSH BID [facility] Last Admin: 01/29/18 11:47 Dose: 2 ml Sodium Chloride (Ns Flush) 2 ml IV.FLUSH PRN PRN PRN Reason: FLUSH AFTER USING IV ACCESS Spironolactone (Aldactone) 100 mg PO DAILY [facility] Last Admin: 01/29/18 11:47 Dose: Not Given <Marni Edwards - Last Filed: 01/29/18 16:58> Active Medications: Active Medications Al Hydroxide/Mg Hydroxide (Milk Of Magnesia Liq) 30 ml PO Q12H PRN PRN Reason: Mild Constipation Bisacodyl (Dulcolax Supp) 10 mg RECTAL DAILY PRN PRN Reason: SEVERE CONSITIPATION Folic Acid (Folic Acid) 1 mg PO DAILY [facility] Last Admin: 01/29/18 12:32 Dose: 1 mg Furosemide (Lasix) 40 mg PO DAILY [facility] Last Admin: 01/29/18 11:47 Dose: Not Given Albumin Human (Flexbumin 25% Inj) 50 mls @ 60 mls/hr IV.SIG Q12H [facility] Last Infusion: 01/30/18 04:35 Dose: Infused Ciprofloxacin/Dextrose (Cipro 400 Mg/200 Ml Inj) 400 mg in 200 mls @ 200 mls/ hr IV.SIG Q24H [facility] Last Infusion: 01/29/18 20:06 Dose: Infused Lactulose (Lactulose Liq) 30 ml PO TID [facility] Last Admin: 01/29/18 19:04 Dose: 30 ml Lorazepam (Ativan Inj) 0.5 mg IV.PUSH Q8H PRN PRN Reason: ANXIETY Last Admin: 01/29/18 21:09 Dose: 0.5 mg Nicotine (Habitrol 14 Mg Patch.24 Hr) 1 patch T-DERMAL DAILY [facility] Last Admin: 01/29/18 12:42 Dose: 1 patch Ondansetron HCl (Zofran Inj) 4 mg IV.PUSH Q6H PRN PRN Reason: NAUSEA OR VOMITING Last Admin: 01/30/18 03:47 Dose: 4 mg Pantoprazole Sodium (Protonix Inj) 40 mg IV.PUSH Q12H [facility] Last Admin: 01/29/18 12:32 Dose: 40 mg Patch Removal (Remove Old Patch) 1 each T-DERMAL DAILY [facility] Propranolol HCl (Inderal) 10 mg PO BID [facility] Last Admin: 01/29/18 21:23 Dose: Not Given Senna/Docusate Sodium (Isabella-Colace) 1 tab PO BID [facility] Last Admin: 01/29/18 21:07 Dose: 1 tab Sennosides (Senokot) 17.2 mg PO Q12H PRN PRN Reason: Moderate Constipation Sodium Chloride (Ns Flush) 2 ml IV.FLUSH BID [facility] Last Admin: 01/29/18 21:14 Dose: 2 ml Sodium Chloride (Ns Flush) 2 ml IV.FLUSH PRN PRN PRN Reason: FLUSH AFTER USING IV ACCESS Spironolactone (Aldactone) 100 mg PO DAILY [facility] Last Admin: 01/29/18 11:47 Dose: Not Given <Nirav Schneider - Last Filed: 01/30/18 09:04> Allergies Allergy/AdvReac Type Severity Reaction Status Date / Time penicillin G Allergy Mild Rash Verified 01/28/18 19:59 Home Medications Medication Instructions Recorded Confirmed Type fentanyl 1 patch TRANSDERMAL Q72H 01/28/18 01/28/18 History hydrocodone-acetaminophen 1 tab PO Q4-6H PRN 01/28/18 01/28/18 History metoprolol tartrate 25 mg PO BID 01/28/18 01/28/18 History spironolactone 25 mg PO DAILY 01/28/18 01/28/18 History Exam Vital signs: Vital Signs 01/28/18 20:00 01/28/18 20:06 01/28/18 20:07 Temperature 98.8 F Pulse Rate 79 Respiratory Rate 22 19 Blood Pressure 121/68 Pulse Oximetry 99 97 01/28/18 21:25 01/28/18 22:30 01/29/18 00:00 Temperature Pulse Rate 74 78 Respiratory Rate Blood Pressure 106/53 L 95/73 L Pulse Oximetry 91 L 01/29/18 00:06 01/29/18 00:53 01/29/18 01:30 Temperature 98.0 F Pulse Rate 71 Respiratory Rate 16 16 Blood Pressure 100/52 L 82/43 L Pulse Oximetry 97 01/29/18 02:55 01/29/18 04:00 01/29/18 08:00 Temperature 98.0 F 98.3 F Pulse Rate 79 76 Respiratory Rate 17 16 Blood Pressure 95/46 L 111/59 L 93/50 L Pulse Oximetry 99 98 01/29/18 08:25 01/29/18 15:13 01/29/18 15:30 Temperature 98.8 F 98.6 F Pulse Rate 80 79 Respiratory Rate 16 16 Blood Pressure 93/48 L 85/48 L Pulse Oximetry 94 L 90 L 97 Intake & Output 01/28/18 01/29/18 01/29/18 18:59 06:59 18:59 Intake Total 1050 / 1050 0 / 0 Output Total 8000 / 8000 Balance -6950 / -6950 0 / 0 Weight 74.843 kg Intake: IV 1050 / 1050 Flexbumin 25% Inj 50 ML @ 60 50 / 50 mls/hr IV.SIG Q12H ERIN Rx#: [id number] NS Inj 1,000 ML @ 1000 mls/hr 1000 / 1000 IV.SIG BOLUS ERIN Rx#:[id number] Intake (Blood Product) Amt 0 / 0 Rbc As-3 Leukoreduced Unit 0 / 0 [id number] Output: Wound Drainage 8000 / 8000 Left Abdomen 8000 / 8000 Other: # Voids 0 Weight On Admission 74.843 kg - Constitutional thin, chronically ill appearing - Routine HEENT Exam Head: Present: normocephalic Eye: Present: conjunctival icterus ENT: Present: mucous membranes moist - Routine Neck Exam Present: supple - Routine Respiratory Exam Present: CTA bilaterally. Absent: accessory muscle use, respiratory distress - Routine Cardiovascular Exam Present: RRR, S1, S2 - Routine Abdominal Exam Present: soft, normoactive bowel sounds, distended. Absent: tenderness, guarding, firm - Routine Extremities Exam Present: pulses intact. Absent: edema - Routine Skin Exam Present: dry, warm, jaundice - Routine Neurological Exam Present: alert, asterixis <Edwards,Marni - Last Filed: 12/17/18 16:58> Vital signs: Vital Signs 01/29/18 15:13 01/29/18 15:30 01/29/18 19:08 Temperature 98.8 F 98.6 F 97.6 F Pulse Rate 80 79 82 Respiratory Rate 16 16 18 Blood Pressure 93/48 L 85/48 L 96/51 L Pulse Oximetry 90 L 97 96 01/29/18 20:00 01/30/18 00:00 01/30/18 04:00 Temperature 98.5 F 97.9 F 98.7 F Pulse Rate 77 80 80 Respiratory Rate 18 18 17 Blood Pressure 92/55 L 80/50 L 81/47 L Pulse Oximetry 100 100 100 01/30/18 08:00 Temperature 97.8 F Pulse Rate 82 Respiratory Rate 16 Blood Pressure 63/39 L Pulse Oximetry 92 L Intake & Output 01/29/18 01/30/18 01/30/18 18:59 06:59 18:59 Intake Total 0 / 0 700 / 700 250 / 250 Balance 0 / 0 700 / 700 250 / 250 Weight 74.843 kg Intake: IV 300 / 300 250 / 250 Flexbumin 25% Inj 50 ML @ 60 100 / 100 mls/hr IV.SIG Q12H ERIN Rx#: [id number] Cipro 400 MG/200 ML Inj 400 mg 200 / 200 In 200 ml @ 200 mls/hr IV.SIG Q24H ERIN Rx#:[id number] NS Inj 250 ML @ 15 mls/hr IV. 250 / 250 SIG ONCE ERIN Rx#:[id number] Intake (Blood Product) Amt 0 / 0 400 / 400 Rbc As-3 Leukoreduced Unit 0 / 0 400 / 400 [id number] Other: Date of Last Bowel Movement 01/29/18 01/29/18 # Incontinent Bowel Movements 1 <Nirav Schneider - Last Filed: 01/30/18 09:04> Results - Labs CBC & Chem 7: 01/29/18 09:43 01/29/18 06:45 Labs: Laboratory Results - last 24 hr 01/28/18 01/28/18 01/28/18 20:30 20:30 20:30 WBC 5.6 RBC 2.45 L Hgb 8.9 L Hct 24.8 L MCV 101.2 H MCH 36.2 H MCHC 35.7 RDW 17.9 H Plt Count 164 MPV 7.8 Prelim Diff (Auto) Slide review pending Neut % (Auto) 81.5 H Lymph % (Auto) 10.5 [place] % (Auto) 5.2 Eos % (Auto) 2.1 Baso % (Auto) 0.7 Neut # (Auto) 4.6 Lymph # (Auto) 0.6 L [place] # (Auto) 0.3 Eos # (Auto) 0.1 Baso # (Auto) 0.0 WBC Differential . Diff Scan Auto diff confirmed Seg Neuts % (Manual) Band Neuts % (Manual) Lymphocytes % (Manual) Monocytes % (Manual) Abs Neuts (Manual) Differential Comment . Platelet Estimate Platelet Morphology Acanthocytes (Spur) Occ H PT 23.2 H INR 2.3 APTT 39.7 H Sodium 125 L Potassium 4.1 Chloride 99 Carbon Dioxide 16.9 L Anion Gap 9 BUN 16 Creatinine 0.90 Estimated GFR 66 L Random Glucose 116 H Lactic Acid Calcium 7.9 L Calcium Adj for Albumin Magnesium 2.0 Total Bilirubin 12.9 H AST 68 H ALT 21 Alkaline Phosphatase 193 H Ammonia B-Natriuretic Peptide Total Protein 7.4 Albumin 1.1 L Lipase 105 Urine Color Urine Clarity Urine pH Ur Specific [place] Urine Protein Urine Glucose (UA) Urine Ketones Urine Occult Blood Urine Nitrate Urine Bilirubin Urine Ictotest Urine Urobilinogen Ur Leukocyte Esterase Urine RBC Urine WBC Urine WBC Clumps Ur Squamous Epith Cells Urine Bacteria Urine Mucus Micro UA Comment Ur Microscopic Review Urine Culture Comments Blood Type Antibody Screen MTS Gel Crossmatch 01/28/18 01/28/18 01/28/18 20:30 20:30 20:30 WBC RBC Hgb Hct MCV MCH MCHC RDW Plt Count MPV Prelim Diff (Auto) Neut % (Auto) Lymph % (Auto) [place] % (Auto) Eos % (Auto) Baso % (Auto) Neut # (Auto) Lymph # (Auto) [place] # (Auto) Eos # (Auto) Baso # (Auto) WBC Differential Diff Scan Seg Neuts % (Manual) Band Neuts % (Manual) Lymphocytes % (Manual) Monocytes % (Manual) Abs Neuts (Manual) Differential Comment Platelet Estimate Platelet Morphology Acanthocytes (Spur) PT INR APTT Sodium Potassium Chloride Carbon Dioxide Anion Gap BUN Creatinine Estimated GFR Random Glucose Lactic Acid 2.8 H Calcium Calcium Adj for Albumin Magnesium Total Bilirubin AST ALT Alkaline Phosphatase Ammonia 70 H B-Natriuretic Peptide 119 H Total Protein Albumin Lipase Urine Color Urine Clarity Urine pH Ur Specific [place] Urine Protein Urine Glucose (UA) Urine Ketones Urine Occult Blood Urine Nitrate Urine Bilirubin Urine Ictotest Urine Urobilinogen Ur Leukocyte Esterase Urine RBC Urine WBC Urine WBC Clumps Ur Squamous Epith Cells Urine Bacteria Urine Mucus Micro UA Comment Ur Microscopic Review Urine Culture Comments Blood Type Antibody Screen MTS Gel Crossmatch 01/28/18 01/29/18 01/29/18 21:30 06:45 06:45 WBC 9.5 D RBC 1.60 L Hgb 5.7 L* D Hct 16.6 L* MCV 103.2 H MCH 35.6 H MCHC 34.5 RDW 17.3 H Plt Count 110 L D MPV 7.4 Prelim Diff (Auto) Slide review pending Neut % (Auto) 81.3 H Lymph % (Auto) 9.2 [place] % (Auto) 8.4 H Eos % (Auto) 0.8 Baso % (Auto) 0.3 Neut # (Auto) 7.7 Lymph # (Auto) 0.9 L [place] # (Auto) 0.8 Eos # (Auto) 0.1 Baso # (Auto) 0.0 WBC Differential Manual diff final Diff Scan Seg Neuts % (Manual) 74 H Band Neuts % (Manual) 15 H Lymphocytes % (Manual) 9 Monocytes % (Manual) 2 Abs Neuts (Manual) 8.5 H Differential Comment . Platelet Estimate Low L Platelet Morphology Normal Acanthocytes (Spur) 1+ H PT 27.0 H INR 2.7 APTT Sodium Potassium Chloride Carbon Dioxide Anion Gap BUN Creatinine Estimated GFR Random Glucose Lactic Acid Calcium Calcium Adj for Albumin Magnesium Total Bilirubin AST ALT Alkaline Phosphatase Ammonia B-Natriuretic Peptide Total Protein Albumin Lipase Urine Color Ashly Urine Clarity Cloudy H Urine pH 5.0 Ur Specific [place] 1.021 Urine Protein 30 H Urine Glucose (UA) Negative Urine Ketones Negative Urine Occult Blood Negative Urine Nitrate Negative Urine Bilirubin Moderate H Urine Ictotest Positive H Urine Urobilinogen 1.0 Ur Leukocyte Esterase Negative Urine RBC 1 Urine WBC 7 H Urine WBC Clumps Rare H Ur Squamous Epith Cells 10 Urine Bacteria Many H Urine Mucus Many H Micro UA Comment Culture indicated Ur Microscopic Review Not Reportable Urine Culture Comments Culture indicated Blood Type Antibody Screen MTS Gel Crossmatch 01/29/18 01/29/18 01/29/18 06:45 09:43 11:39 WBC RBC Hgb 5.9 L* Hct 17.6 L* MCV MCH MCHC RDW Plt Count MPV Prelim Diff (Auto) Neut % (Auto) Lymph % (Auto) [place] % (Auto) Eos % (Auto) Baso % (Auto) Neut # (Auto) Lymph # (Auto) [place] # (Auto) Eos # (Auto) Baso # (Auto) WBC Differential Diff Scan Seg Neuts % (Manual) Band Neuts % (Manual) Lymphocytes % (Manual) Monocytes % (Manual) Abs Neuts (Manual) Differential Comment Platelet Estimate Platelet Morphology Acanthocytes (Spur) PT INR APTT Sodium 132 L Potassium 4.1 Chloride 102 Carbon Dioxide 21.6 Anion Gap 8 BUN 18 Creatinine 0.98 Estimated GFR 60 L Random Glucose 113 H Lactic Acid Calcium 7.0 L* D Calcium Adj for Albumin 9.2 Magnesium Total Bilirubin 10.3 H AST 46 H ALT 12 Alkaline Phosphatase 123 H Ammonia B-Natriuretic Peptide Total Protein 5.3 L D Albumin 1.2 L Lipase Urine Color Urine Clarity Urine pH Ur Specific [place] Urine Protein Urine Glucose (UA) Urine Ketones Urine Occult Blood Urine Nitrate Urine Bilirubin Urine Ictotest Urine Urobilinogen Ur Leukocyte Esterase Urine RBC Urine WBC Urine WBC Clumps Ur Squamous Epith Cells Urine Bacteria Urine Mucus Micro UA Comment Ur Microscopic Review Urine Culture Comments Blood Type O Positive Antibody Screen Negative MTS Gel Crossmatch See Detail - Imaging Impressions Abdomen/Pelvis CT 01/28/18 20:07 CONCLUSION: 1. No significant change in approximate 1 cm nodule left lower lobe, however there is now hazy opacity involving right middle lobe and lingula not present previously may represent pulmonary edema with a small right pleural effusion. Questionable right middle lobe nodule. 2. Cirrhosis with extensive ascites and overall degree of ascites has significantly progressed since the prior exam. Chest X-Ray 01/28/18 21:37 CONCLUSION: The lungs are clear. Submaximal inspiration. Abdomen/Pelvis CT 01/29/18 00:00 CONCLUSION: 1. No evidence of retroperitoneal hematoma. 2. Large amount of ascites. 3. Diffuse anasarca. 4. Small nodular liver suggesting cirrhosis. 5. Splenomegaly. 6. Gastric fold thickening involving the fundus and body suggesting acute gastritis. Clinical correlation is recommended. 7. Stable 13 mm noncalcified pulmonary nodule within left lower lobe. Line tiny bilateral pleural effusions and posterior pleural thickening. 8. Scattered groundglass densities within the right middle lobe. 9. Tiny faint calcification within the upper pole the right kidney consistent with nonobstructing calculus. 10. Stable 12 mm right upper pole renal cyst. 11. Degenerative changes and scoliosis of the thoracolumbar spine. <Marni Edwards - Last Filed: 01/29/18 16:58> - Labs CBC & Chem 7: 01/29/18 21:24 01/29/18 06:45 Labs: Laboratory Results - last 24 hr 01/28/18 01/29/18 01/29/18 21:30 09:43 11:39 WBC RBC Hgb 5.9 L* Hct 17.6 L* MCV MCH MCHC RDW Plt Count MPV PT INR Vitamin B12 Folate Urine Color Ashly Urine Clarity Cloudy H Urine pH 5.0 Ur Specific [place] 1.021 Urine Protein 30 H Urine Glucose (UA) Negative Urine Ketones Negative Urine Occult Blood Negative Urine Nitrate Negative Urine Bilirubin Moderate H Urine Ictotest Positive H Urine Urobilinogen 1.0 Ur Leukocyte Esterase Negative Urine RBC 1 Urine WBC 7 H Urine WBC Clumps Rare H Ur Squamous Epith Cells 10 Urine Bacteria Many H Urine Mucus Many H Micro UA Comment Culture indicated Urine Culture Comments Culture indicated Blood Type O Positive Antibody Screen Negative MTS Gel Crossmatch See Detail 01/29/18 01/30/18 01/30/18 21:24 03:14 05:29 WBC 10.7 RBC 2.31 L Hgb 8.0 L D Hct 22.7 L MCV 98.4 D MCH 34.4 H MCHC 35.0 RDW 17.2 Plt Count 98 L MPV 7.8 PT 25.3 H INR 2.5 Vitamin B12 Greater than 2000 H Folate 6.8 Urine Color Urine Clarity Urine pH Ur Specific [place] Urine Protein Urine Glucose (UA) Urine Ketones Urine Occult Blood Urine Nitrate Urine Bilirubin Urine Ictotest Urine Urobilinogen Ur Leukocyte Esterase Urine RBC Urine WBC Urine WBC Clumps Ur Squamous Epith Cells Urine Bacteria Urine Mucus Micro UA Comment Urine Culture Comments Blood Type Antibody Screen MTS Gel Crossmatch - Imaging Impressions Abdomen/Pelvis CT 01/29/18 00:00 CONCLUSION: 1. No evidence of retroperitoneal hematoma. 2. Large amount of ascites. 3. Diffuse anasarca. 4. Small nodular liver suggesting cirrhosis. 5. Splenomegaly. 6. Gastric fold thickening involving the fundus and body suggesting acute gastritis. Clinical correlation is recommended. 7. Stable 13 mm noncalcified pulmonary nodule within left lower lobe. Line tiny bilateral pleural effusions and posterior pleural thickening. 8. Scattered groundglass densities within the right middle lobe. 9. Tiny faint calcification within the upper pole the right kidney consistent with nonobstructing calculus. 10. Stable 12 mm right upper pole renal cyst. 11. Degenerative changes and scoliosis of the thoracolumbar spine. <Nirav Schneider - Last Filed: 01/30/18 09:04> Assessment and Plan (1) Acute GI bleeding Status: Acute Code(s): K92.2 - Gastrointestinal hemorrhage, unspecified (2) Anemia Status: Acute Code(s): D64.9 - Anemia, unspecified - Plan This patient is a 52-year-old female with past medical history of cirrhosis, end -stage liver disease, alcohol abuse and recurrent ascites. Patient presented to [facility] with complaint of increasing abdominal pain and distention. Patient states she was recently informed by her primary care physician that he presume she has 3-6 months to live. Upon consultation, Patient endorses increasing abdominal pain with distention and shortness of breath over the last 3 weeks. Patient underwent paracentesis during ED stay last evening where 8 L of fluid were removed during therapeutic paracentesis. Patient denies any noted bleeding. She states stools are brown and soft. Patient denies any nausea or vomiting. Patient denies any history of EGD or colonoscopy. She endorses 10-year history of alcohol abuse including 4 drinks of vodka daily over the last 10 years. Patient states she has not had any use of alcohol products for 4 months. She endorses tobacco use presently 1/2 pack/day. Patient denies any home medications. Denies taking diuretics, states she stopped taking home medications 4 months ago as she did not follow-up with primary care physician. Our service has been consulted to evaluate patient for anemia and cirrhosis Cirrhosis /End-stage liver disease Recurrent ascites Anemia Thrombocytopenia Coagulopathy Patient presented to [facility] with increasing abdominal pain and distention. Marked ascites noted on exam. Therapeutic paracentesis performed last evening, 8 L peritoneal fluid removed. Patient denies any obvious bleeding. Denies melena or bright red blood per rectum. Patient denies any nausea vomiting or hematemesis. 01/29/2018 CT abdomen and pelvis reveal the following-- 1. No evidence of retroperitoneal hematoma. 2. Large amount of ascites. 3. Diffuse anasarca. 4. Small nodular liver suggesting cirrhosis. 5. Splenomegaly. 6. Gastric fold thickening involving the fundus and body suggesting acute gastritis. Clinical correlation is recommended. 7. Stable 13 mm noncalcified pulmonary nodule within left lower lobe. Line tiny bilateral pleural effusions and posterior pleural thickening. 8. Scattered ground glass densities within the right middle lobe. 9. Tiny faint calcification within the upper pole the right kidney consistent with nonobstructing calculus. 10. Stable 12 mm right upper pole renal cyst. 11. Degenerative changes and scoliosis of the thoracolumbar spine. WBC 9.5 hemoglobin 5.9 hematocrit 17.6, patient noted to have 2 units of packed red blood cells transfused INR 2.7 total bili 10.3 AST 46 ALT 12 alk phos 123 ammonia 70 albumin 1.2 Plan -Iron Cutter.o.after midnight -Obtain consent for EGD -Monitor for bleeding -Transfuse if needed -Monitor labs-hemoglobin and hematocrit -Pantoprazole 40 mg IV every 12 hours -Albumin -Lactulose -INR in the a.m. -Notify GI for any active bleeding -Avoid anticoagulants and NSAIDs -Avoid hepatotoxins -Supportive care -Further recommendations to follow This patient has been seen by myself and Dr. Schneider and this note is written on his behalf - Attending Attestation Dr. Schneider <Marni Edwards - Last Filed: 01/29/18 16:58> (1) Acute GI bleeding Status: Acute Code(s): K92.2 - Gastrointestinal hemorrhage, unspecified (2) Anemia Status: Acute Code(s): D64.9 - Anemia, unspecified - Attending Attestation The patient was seen and examined. Agree with above. <Nirav Schneider - Last Filed: 01/30/18 09:04>
[2018-01-29] MEDS: Ciprofloxacin 400 MG/200 ML 400 MG/200 ML PIGGYBACK IV.SIG SCH (19:14)
[2018-01-29 21:51] LABS: Hematocrit 22.7 % (35.0-46.0); Mean Corpuscular Hemoglobin 34.4 pg (27.0-34.0); Mean Corpuscular Volume 98.4 fL (80.0-100.0); Mean Platelet Volume 7.8 fL (7.0-11.0); Platelet Count 98 th/mm3 (150-450); Red Blood Count 2.31 mil/mm3 (4.00-5.30); Red Cell Distribution Width 17.2 % (11.6-17.2); White Blood Count 10.7 th/mm3 (4.0-11.0)
[2018-01-30] MEDS: Albumin Human 25% Inj 50 ML IV.SIG SCH ×2 (03:47→17:14)
[2018-01-30 05:38] LABS: Folate 6.8 ng/mL (3.1-17.5)
[2018-01-30 06:10] LABS: INR 2.5 Ratio; Prothrombin Time 25.3 sec (9.8-11.6)
[2018-01-30 08:59] LABS: Baso # (Auto) 0.1 th/mm3 (0.0-0.2); Baso % (Auto) 1.3 % (0.0-2.0); Eos % (Auto) 0.3 % (0.0-4.0); Lymph # (Auto) 0.6 th/mm3 (1.0-4.8); Lymph % (Auto) 6.7 % (9.0-44.0); Mean Corpuscular HGB Conc 34.8 % (32.0-36.0); Mean Corpuscular Hemoglobin 34.4 pg (27.0-34.0); Mean Corpuscular Volume 98.8 fL (80.0-100.0); Mean Platelet Volume 7.7 fL (7.0-11.0); Mono # (Auto) 0.9 th/mm3 (0.0-0.9); Mono % (Auto) 10.3 % (0.0-8.0); Neut # (Auto) 6.7 th/mm3 (1.8-7.7); Neut % (Auto) 81.4 % (16.0-70.0); Platelet Count 81 th/mm3 (150-450); Red Cell Distribution Width 17.8 % (11.6-17.2); White Blood Count 8.2 th/mm3 (4.0-11.0)
[2018-01-30] MEDS: Propranolol 10 MG Tablet PO SCH ×2 (09:12→21:09)
[2018-01-30] MEDS: Senna/Docusate Sodium 8.6/50 MG Tablet PO SCH ×2 (09:12→21:09)
[2018-01-30] MEDS: Folic Acid 1 MG Tablet PO SCH (09:14)
[2018-01-30 09:53] LABS: Hematocrit 19.8 % (35.0-46.0); Hemoglobin 6.9 gm/dL (11.6-15.3)
[2018-01-30 10:19] LABS: Acanthocytes 1+
[2018-01-30 10:57] LABS: Hematocrit 22.1 % (35.0-46.0); Hemoglobin 7.6 gm/dL (11.6-15.3)
[2018-01-30] MEDS ORDERED: Sodium Chlor 0.9% Inj 250 ML IV.SIG SCH (12:00)
[2018-01-30] MEDS ORDERED: Sodium Chlor 0.9% Inj 500 ML IV.SIG SCH (12:00)
[2018-01-30] MEDS: Pantoprazole Inj 40 MG Vial IV.PUSH SCH ×3 (12:56→23:21)
[2018-01-30] MEDS ORDERED: Phytonadione Inj 10 MG/ML Vial SQ ONE (15:00)
--- NOTE | 2018-01-30 15:14 | P.PNIM ---
Subjective Interval history: 52-year-old female who has history of cirrhosis with alcoholism admitted with severe ascites, being evaluated by GI for anemia. Patient had a drop in her hemoglobin to 6.9, is getting a transfusion. No active bleeding witnessed. Patient seen and examined, a bit hypotensive, she is asking for pain meds and anxiety medications, patient is asking also for hospice consult, has been told she has a poor prognosis, however, she wishes to be a full code, and has poor insight into her prognosis, stating she will stop drinking and has 3 months to go sober to get a transplant. Physical Exam Vital signs: Last Vital Signs Temp 97.7 F 01/30/18 14:00 Pulse 78 01/30/18 14:00 Resp 18 01/30/18 14:00 BP 70/40 L 01/30/18 14:00 Pulse Ox 85 L 01/30/18 14:00 Intake & Output 01/28/18 01/29/18 01/30/18 01/31/18 06:59 06:59 06:59 06:59 Intake Total 1050 / 1050 700 / 700 750 / 750 Output Total 8000 / 8000 Balance -6950 / -6950 700 / 700 750 / 750 Weight 74.843 kg 74.843 kg Frail thin jaundiced 52-year-old female Awake, alert, a bit forgetful, but follows appropriately, no distress Heart S1-S2 regular Lungs decreased breath sounds Abdomen markedly fluid distended, soft, nontender, positive bowel sounds Extremities trace pedal edema, extreme muscle wasting Urinary Catheter Management Indwelling Urethral Catheter: Cath placed during this visit: yes Urethral indwelling: No Insertion date: 01/28/18 Insertion time: 21:43 Results Labs CBC & Chem 7: 01/30/18 10:11 01/29/18 06:45 Labs: Microbiology 01/28/18 21:30 Clean Catch Urine Urine Culture - Final Escherichia coli 01/29/18 17:26 Stool Stool Occult Blood (JAZMIN) - Final Hemoccult negative Assessment and Plan (1) Acute GI bleeding: Code(s): K92.2 - Gastrointestinal hemorrhage, unspecified Status: Acute (2) Anemia: Code(s): D64.9 - Anemia, unspecified Status: Acute Plan Decompensated cirrhosis with retractable ascites status post large volume paracentesis, which much of the fluid has already reaccumulated. End-stage liver disease with alcoholic cirrhosis now with hypotension will try Midodrin to help with blood pressure Chronic alcoholism with withdrawal Anemia with acute drop in H&H, guaiac is negative, continue PPI, transfuse 1 unit packed red blood cells today, DIOGO louise in progress, hold endoscopy for today due to elevated INR, Coagulopathy related to chronic alcoholic liver disease, will get FFP, Thrombocytopenia related to alcoholic liver disease and infection (UTI) E. coli urinary tract infection present on admission start antibiotics, follow- up cultures, change Cipro to doxycycline, patient has penicillin allergy and this E. coli is resistant to Cipro Severe protein calorie malnutrition albumin 1.2, would consider oncotic diuresis , the patient will be getting FFP as well as packed red blood cells, continue nutritional support as tolerated Poor prognosis, agree with palliative care/hospice consult, discussed at length with patient, she is agreeable to hospice at home, she was however wanting to speak to family prior to making decision regarding DNR status. DVT prophylaxis, SCDs Disposition Home/inpatient hospice if/when, patient agrees. Progress Note: Quality VTE Deep Vein Thrombosis/Pulmonary Embolism Present on Admission: No _ (1) Anemia Qualifiers: Anemia type: Bone marrow failure anemia type: Chronic kidney disease stage : Folate deficiency anemia type: Hemolytic anemia type: Iron deficiency anemia type: Other causes of anemia: Vitamin B12 deficiency anemia type:
[2018-01-30] MEDS: Ciprofloxacin 400 MG/200 ML 400 MG/200 ML PIGGYBACK IV.SIG SCH (15:20)
--- NOTE | 2018-01-30 18:03 | P.PNGI ---
Subjective Interval history: Patient lying supine in bed Transfusion packed RBCs in progress FFP ordered with repeat INR Patient denies any obvious bleeding EGD on hold until tomorrow <Marni Edwards - Last Filed: 01/30/18 17:59> Physical Exam Vital signs: Vital Signs 01/29/18 19:08 01/29/18 20:00 01/30/18 00:00 Temperature 97.6 F 98.5 F 97.9 F Pulse Rate 82 77 80 Respiratory Rate 18 18 18 Blood Pressure 96/51 L 92/55 L 80/50 L Pulse Oximetry 96 100 100 01/30/18 04:00 01/30/18 08:00 01/30/18 10:00 Temperature 98.7 F 97.8 F Pulse Rate 80 82 86 Respiratory Rate 17 16 18 Blood Pressure 81/47 L 63/39 L 84/54 L Pulse Oximetry 100 92 L 90 L 01/30/18 12:00 01/30/18 13:44 01/30/18 14:00 Temperature 97.4 F L 97.7 F Pulse Rate 77 78 78 Respiratory Rate 16 18 18 Blood Pressure 73/38 L 72/42 L 70/40 L Pulse Oximetry 86 L 83 L 85 L 01/30/18 16:46 01/30/18 17:44 Temperature 98.3 F 98.3 F Pulse Rate 90 88 Respiratory Rate 18 16 Blood Pressure 93/51 L 88/53 L Pulse Oximetry 98 99 Intake & Output 01/29/18 01/30/18 01/30/18 18:59 06:59 18:59 Intake Total 0 / 0 700 / 700 1380 / 1380 Balance 0 / 0 700 / 700 1380 / 1380 Weight 74.843 kg Intake: IV 300 / 300 980 / 980 Flexbumin 25% Inj 50 ML @ 60 100 / 100 mls/hr IV.SIG Q12H ERIN Rx#: [id number] Cipro 400 MG/200 ML Inj 400 mg 200 / 200 200 / 200 In 200 ml @ 200 mls/hr IV.SIG Q24H ERIN Rx#:[id number] NS Inj 250 ML @ 15 mls/hr IV. 280 / 280 SIG ONCE ERIN Rx#:[id number] NS Inj 500 ML @ 1000 mls/hr IV. 500 / 500 SIG BOLUS ERIN Rx#:[id number] Intake (Blood Product) Amt 0 / 0 400 / 400 400 / 400 Plasma Thawed 5 Day Acda Unit 0 / 0 [id number] Rbc As-3 Leukoreduced Unit 400 / 400 [id number] Rbc As-3 Leukoreduced Unit 0 / 0 400 / 400 [id number] Other: Date of Last Bowel Movement 01/29/18 01/29/18 # Incontinent Bowel Movements 1 - Constitutional thin, chronically ill appearing - Routine HEENT Exam Head: Present: normocephalic Eye: Present: conjunctival icterus - Routine Respiratory Exam Present: CTA bilaterally. Absent: accessory muscle use - Routine Cardiovascular Exam Present: RRR - Routine Abdominal Exam Present: soft, normoactive bowel sounds, distended - Routine Extremities Exam Absent: edema - Routine Skin Exam Present: dry, warm, jaundice - Routine Neurological Exam Present: alert - Urinary Catheter Management Indwelling Urethral Catheter Cath placed during this visit: yes Urethral indwelling: No Reason for continuing: Hourly intake/output Insertion date: 01/28/18 Insertion time: 21:43 <Marni Edwards - Last Filed: 01/30/18 17:59> Vital signs: Vital Signs 01/30/18 09:20 01/30/18 10:00 01/30/18 12:00 Temperature 97.4 F L Pulse Rate 86 77 Respiratory Rate 18 16 Blood Pressure 84/54 L 73/38 L Pulse Oximetry 90 L 90 L 86 L 01/30/18 13:44 01/30/18 14:00 01/30/18 16:46 Temperature 97.7 F 98.3 F Pulse Rate 78 78 90 Respiratory Rate 18 18 18 Blood Pressure 72/42 L 70/40 L 93/51 L Pulse Oximetry 83 L 85 L 98 01/30/18 17:44 01/30/18 18:01 01/30/18 20:00 Temperature 98.3 F 98.1 F 98.2 F Pulse Rate 88 91 H 99 H Respiratory Rate 16 16 16 Blood Pressure 88/53 L 81/46 L 91/53 L Pulse Oximetry 99 99 100 01/30/18 20:29 01/30/18 23:54 01/31/18 00:00 Temperature 99.1 F 99.1 F Pulse Rate 94 H 89 89 Respiratory Rate 18 16 16 Blood Pressure 85/47 L 91/55 L 91/55 L Pulse Oximetry 100 100 100 Intake & Output 12/18/18 12/19/18 12/19/18 18:59 06:59 18:59 Intake Total 1430 / 1430 415 / 415 50 / 50 Output Total 250 / 250 150 / 150 175 / 175 Balance 1180 / 1180 265 / 265 -125 / -125 Weight 74.6 kg Intake: IV 1030 / 1030 50 / 50 Flexbumin 25% Inj 50 ML @ 60 50 / 50 50 / 50 mls/hr IV.SIG Q12H ERIN Rx#: [id number] Cipro 400 MG/200 ML Inj 400 mg 200 / 200 In 200 ml @ 200 mls/hr IV.SIG Q24H ERIN Rx#:[id number] NS Inj 250 ML @ 15 mls/hr IV. 280 / 280 SIG ONCE ERIN Rx#:[id number] NS Inj 500 ML @ 1000 mls/hr IV. 500 / 500 SIG BOLUS ERIN Rx#:[id number] Oral 0 / 0 Intake (Blood Product) Amt 400 / 400 415 / 415 Plasma Thawed 5 Day Acda Unit 0 / 0 224 / 224 [id number] Plasma Thawed 5 Day Cp2d Unit 191 / 191 [id number] Rbc As-3 Leukoreduced Unit 400 / 400 [id number] Output: Urine 150 / 150 Urine Amount (Catheter) 250 / 250 175 / 175 Indwelling Urethral Catheter 250 / 250 175 / 175 Other: Date of Last Bowel Movement 01/30/18 01/30/18 - Urinary Catheter Management Indwelling Urethral Catheter Cath placed during this visit: no <Nirav Schneider - Last Filed: 01/31/18 09:07> Results - Labs CBC & Chem 7: 01/30/18 10:11 01/29/18 06:45 Laboratory Results - last 24 hr 01/29/18 01/29/18 01/30/18 11:39 21:24 03:14 WBC 10.7 RBC 2.31 L Hgb 8.0 L D Hct 22.7 L MCV 98.4 D MCH 34.4 H MCHC 35.0 RDW 17.2 Plt Count 98 L MPV 7.8 Prelim Diff (Auto) Neut % (Auto) Lymph % (Auto) [place] % (Auto) Eos % (Auto) Baso % (Auto) Neut # (Auto) Lymph # (Auto) [place] # (Auto) Eos # (Auto) Baso # (Auto) WBC Differential Diff Scan Differential Comment RBC Morphology Acanthocytes (Spur) PT INR Vitamin B12 Greater than 2000 H Folate 6.8 Blood Type O Positive Antibody Screen Negative MTS Gel Crossmatch See Detail Blood Bank Comment 01/30/18 01/30/18 01/30/18 05:29 08:28 10:11 WBC 8.2 RBC 2.00 L Hgb 6.9 L* 7.6 L Hct 19.8 L* 22.1 L MCV 98.8 MCH 34.4 H MCHC 34.8 RDW 17.8 H Plt Count 81 L MPV 7.7 Prelim Diff (Auto) Slide review pending Neut % (Auto) 81.4 H Lymph % (Auto) 6.7 L [place] % (Auto) 10.3 H Eos % (Auto) 0.3 Baso % (Auto) 1.3 Neut # (Auto) 6.7 Lymph # (Auto) 0.6 L [place] # (Auto) 0.9 Eos # (Auto) 0.0 Baso # (Auto) 0.1 WBC Differential . Diff Scan Auto diff confirmed Differential Comment . RBC Morphology Acanthocytes (Spur) 1+ H PT 25.3 H INR 2.5 Vitamin B12 Folate Blood Type Antibody Screen MTS Gel Crossmatch Blood Bank Comment 01/30/18 11:16 WBC RBC Hgb Hct MCV MCH MCHC RDW Plt Count MPV Prelim Diff (Auto) Neut % (Auto) Lymph % (Auto) [place] % (Auto) Eos % (Auto) Baso % (Auto) Neut # (Auto) Lymph # (Auto) [place] # (Auto) Eos # (Auto) Baso # (Auto) WBC Differential Diff Scan Differential Comment RBC Morphology Acanthocytes (Spur) PT INR Vitamin B12 Folate Blood Type Antibody Screen MTS Gel Crossmatch Blood Bank Comment Microbiology 01/28/18 21:30 Clean Catch Urine Urine Culture - Final Escherichia coli 01/29/18 17:26 Stool Stool Occult Blood (JAZMIN) - Final Hemoccult negative <Marni Edwards - Last Filed: 01/30/18 17:59> - Labs CBC & Chem 7: 01/31/18 05:22 01/31/18 05:22 Laboratory Results - last 24 hr 01/29/18 01/30/18 01/30/18 11:39 08:28 10:11 WBC 8.2 RBC 2.00 L Hgb 6.9 L* 7.6 L Hct 19.8 L* 22.1 L MCV 98.8 MCH 34.4 H MCHC 34.8 RDW 17.8 H Plt Count 81 L MPV 7.7 Prelim Diff (Auto) Slide review pending Neut % (Auto) 81.4 H Lymph % (Auto) 6.7 L [place] % (Auto) 10.3 H Eos % (Auto) 0.3 Baso % (Auto) 1.3 Neut # (Auto) 6.7 Lymph # (Auto) 0.6 L [place] # (Auto) 0.9 Eos # (Auto) 0.0 Baso # (Auto) 0.1 WBC Differential . Diff Scan Auto diff confirmed Differential Comment . RBC Morphology Acanthocytes (Spur) 1+ H PT INR Sodium Potassium Chloride Carbon Dioxide Anion Gap BUN Creatinine Estimated GFR Random Glucose Calcium Calcium Adj for Albumin Magnesium Total Bilirubin AST ALT Alkaline Phosphatase Total Protein Albumin Blood Type O Positive Antibody Screen Negative MTS Gel Crossmatch See Detail Blood Bank Comment 01/30/18 01/30/18 01/30/18 11:16 20:00 22:47 WBC RBC Hgb Hct MCV MCH MCHC RDW Plt Count MPV Prelim Diff (Auto) Neut % (Auto) Lymph % (Auto) [place] % (Auto) Eos % (Auto) Baso % (Auto) Neut # (Auto) Lymph # (Auto) [place] # (Auto) Eos # (Auto) Baso # (Auto) WBC Differential Diff Scan Differential Comment RBC Morphology Acanthocytes (Spur) PT 19.9 H INR 2.0 Sodium Potassium Chloride Carbon Dioxide Anion Gap BUN Creatinine Estimated GFR Random Glucose Calcium Calcium Adj for Albumin Magnesium Total Bilirubin AST ALT Alkaline Phosphatase Total Protein Albumin Blood Type Antibody Screen MTS Gel Crossmatch Blood Bank Comment Cancelled 01/31/18 01/31/18 01/31/18 05:22 05:22 05:22 WBC 9.2 RBC 2.28 L Hgb 7.5 L Hct 21.6 L MCV 94.6 D MCH 33.0 MCHC 34.9 RDW 20.1 H Plt Count 82 L MPV 7.3 Prelim Diff (Auto) Slide review pending Neut % (Auto) 77.7 H Lymph % (Auto) 7.1 L [place] % (Auto) 13.4 H Eos % (Auto) 1.6 Baso % (Auto) 0.2 Neut # (Auto) 7.1 Lymph # (Auto) 0.7 L [place] # (Auto) 1.2 H Eos # (Auto) 0.1 Baso # (Auto) 0.0 WBC Differential . Diff Scan Auto diff confirmed Differential Comment . RBC Morphology Acanthocytes (Spur) 1+ H PT 22.5 H INR 2.2 Sodium 131 L Potassium 4.0 Chloride 100 Carbon Dioxide 22.7 Anion Gap 8 BUN 22 H Creatinine 1.37 H Estimated GFR 41 L Random Glucose 90 Calcium 7.1 L* Calcium Adj for Albumin 9.1 Magnesium 1.9 Total Bilirubin 13.1 H AST 36 ALT 10 Alkaline Phosphatase 110 Total Protein 5.2 L Albumin 1.5 L Blood Type Antibody Screen MTS Gel Crossmatch Blood Bank Comment Microbiology 01/28/18 21:30 Clean Catch Urine Urine Culture - Final Escherichia coli <Nirav Schneider - Last Filed: 01/31/18 09:07> Assessment and Plan (1) Acute GI bleeding Status: Acute Code(s): K92.2 - Gastrointestinal hemorrhage, unspecified (2) Anemia Status: Acute Code(s): D64.9 - Anemia, unspecified - Plan This patient is a 52-year-old female with past medical history of cirrhosis, end -stage liver disease, alcohol abuse and recurrent ascites. Patient presented to [facility] with complaint of increasing abdominal pain and distention. Patient states she was recently informed by her primary care physician that he presume she has 3-6 months to live. Upon consultation, Patient endorses increasing abdominal pain with distention and shortness of breath over the last 3 weeks. Patient underwent paracentesis during ED stay last evening where 8 L of fluid were removed during therapeutic paracentesis. Patient denies any noted bleeding. She states stools are brown and soft. Patient denies any nausea or vomiting. Patient denies any history of EGD or colonoscopy. She endorses 10-year history of alcohol abuse including 4 drinks of vodka daily over the last 10 years. Patient states she has not had any use of alcohol products for 4 months. She endorses tobacco use presently 1/2 pack/day. Patient denies any home medications. Denies taking diuretics, states she stopped taking home medications 4 months ago as she did not follow-up with primary care physician. Our service has been consulted to evaluate patient for anemia and cirrhosis Cirrhosis /End-stage liver disease Recurrent ascites Anemia Thrombocytopenia Coagulopathy Patient presented to [facility] with increasing abdominal pain and distention. Marked ascites noted on exam. Therapeutic paracentesis performed last evening, 8 L peritoneal fluid removed. Patient denies any obvious bleeding. Denies melena or bright red blood per rectum. Patient denies any nausea vomiting or hematemesis. 01/29/2018 CT abdomen and pelvis reveal the following-- 1. No evidence of retroperitoneal hematoma. 2. Large amount of ascites. 3. Diffuse anasarca. 4. Small nodular liver suggesting cirrhosis. 5. Splenomegaly. 6. Gastric fold thickening involving the fundus and body suggesting acute gastritis. Clinical correlation is recommended. 7. Stable 13 mm noncalcified pulmonary nodule within left lower lobe. Line tiny bilateral pleural effusions and posterior pleural thickening. 8. Scattered ground glass densities within the right middle lobe. 9. Tiny faint calcification within the upper pole the right kidney consistent with nonobstructing calculus. 10. Stable 12 mm right upper pole renal cyst. 11. Degenerative changes and scoliosis of the thoracolumbar spine. WBC 9.5 hemoglobin 5.9 hematocrit 17.6, patient noted to have 2 units of packed red blood cells transfused INR 2.7 total bili 10.3 AST 46 ALT 12 alk phos 123 ammonia 70 albumin 1.2 01/30/2018 EGD on hold for today, INR 2.5 WBC 8.2 hemoglobin 6.9 hematocrit 19.8, no obvious bleeding, 2 units packed RBCs ordered for transfusion. 01/30/2018 hemoglobin 7.6 hematocrit 22.1. 2 units fresh frozen plasma ordered with recheck of INR at 8 PM. If INR greater than 2.0 transfuse an additional 2 units of fresh frozen plasma. Plan -[employer]o.after midnight -Monitor for bleeding -Transfuse if needed -Monitor labs-hemoglobin and hematocrit -Pantoprazole 40 mg IV every 12 hours -Albumin -Lactulose -INR at 8 PM, if INR greater than 2.0 transfuse 2 units fresh frozen plasma -Notify GI for any active bleeding -Avoid anticoagulants and NSAIDs -Avoid hepatotoxins -Supportive care -Further recommendations to follow This patient has been seen by myself and Dr. Schneider and this note is written on his behalf - Attending Attestation Dr. Schneider <Marni Edwards - Last Filed: 01/30/18 17:59> (1) Acute GI bleeding Status: Acute Code(s): K92.2 - Gastrointestinal hemorrhage, unspecified (2) Anemia Status: Acute Code(s): D64.9 - Anemia, unspecified - Attending Attestation I have seen and examined the patient. I agree with the above note and recommendations. <Nirav Schneider - Last Filed: 01/31/18 09:07>
[2018-01-30] MEDS: Spironolactone 50 MG Tablet PO SCH (18:39)
[2018-01-30] MEDS ORDERED: Ketorolac Inj 30 MG/ML (IVP) Vial IV.PUSH ONE (21:30)
[2018-01-30 23:21] LABS: Prothrombin Time 19.9 sec (9.8-11.6)
[2018-01-31] MEDS: Albumin Human 25% Inj 50 ML IV.SIG SCH ×2 (05:56→17:17)
[2018-01-31 06:12] LABS: Baso % (Auto) 0.2 % (0.0-2.0); Eos # (Auto) 0.1 th/mm3 (0.0-0.4); Eos % (Auto) 1.6 % (0.0-4.0); Hematocrit 21.6 % (35.0-46.0); Hemoglobin 7.5 gm/dL (11.6-15.3); Lymph # (Auto) 0.7 th/mm3 (1.0-4.8); Lymph % (Auto) 7.1 % (9.0-44.0); Mean Corpuscular HGB Conc 34.9 % (32.0-36.0); Mean Corpuscular Volume 94.6 fL (80.0-100.0); Mean Platelet Volume 7.3 fL (7.0-11.0); Mono # (Auto) 1.2 th/mm3 (0.0-0.9); Mono % (Auto) 13.4 % (0.0-8.0); Neut # (Auto) 7.1 th/mm3 (1.8-7.7); Neut % (Auto) 77.7 % (16.0-70.0); Platelet Count 82 th/mm3 (150-450); Red Blood Count 2.28 mil/mm3 (4.00-5.30); Red Cell Distribution Width 20.1 % (11.6-17.2); White Blood Count 9.2 th/mm3 (4.0-11.0)
[2018-01-31 06:27] LABS: INR 2.2 Ratio; Prothrombin Time 22.5 sec (9.8-11.6)
[2018-01-31 06:51] LABS: Albumin 1.5 g/dL (3.4-5.0); Calcium 7.1 mg/dL (8.5-10.1); Carbon Dioxide 22.7 meq/L (21.0-32.0); Magnesium 1.9 mg/dL (1.5-2.5); Total Protein 5.2 g/dL (6.4-8.2)
[2018-01-31 07:04] LABS: Acanthocytes 1+
[2018-01-31] MEDS ORDERED: Chlorhexidine Gluconate 2% 1 Pack (2 Cloths) TOPICAL SCH (07:41)
[2018-01-31] MEDS ORDERED: Metoprolol Tartrate 25 MG Tablet PO SCH (07:41)
[2018-01-31] MEDS ORDERED: Sodium Chlor 0.9% Inj 500 ML IV.SIG SCH (08:00)
[2018-01-31] MEDS: Spironolactone 50 MG Tablet PO SCH ×2 (09:09→17:17)
[2018-01-31] MEDS: Senna/Docusate Sodium 8.6/50 MG Tablet PO SCH ×2 (09:10→21:25)
[2018-01-31] MEDS: Propranolol 10 MG Tablet PO SCH ×2 (09:10→21:25)
[2018-01-31] MEDS: Folic Acid 1 MG Tablet PO SCH (09:50)
--- NOTE | 2018-01-31 11:16 | P.PNIM ---
Subjective Interval history: The patient is in bed, she appears chronically ill. Denies chest pain has some shortness of breath. Blood pressure was noted very low and order 1 L bolus of normal saline. Repeat blood pressure is better. Patient denies having any profuse/overt bleeding. Feels very tired. Slight abdominal pain. No fever or chills. No palpitations. Physical Exam Vital signs: Last Vital Signs Temp 97.4 F L 01/31/18 10:44 Pulse 84 01/31/18 10:44 Resp 17 01/31/18 10:44 BP 75/37 L 01/31/18 10:44 Pulse Ox 100 01/31/18 10:44 Intake & Output 01/29/18 01/30/18 01/31/18 02/01/18 06:59 06:59 06:59 06:59 Intake Total 1050 / 1050 700 / 700 1845 / 1845 417 / 417 Output Total 8000 / 8000 400 / 400 175 / 175 Balance -6950 / -6950 700 / 700 1445 / 1445 242 / 242 Weight 74.843 kg 74.843 kg 74.6 kg Narrative: PE: GENERAL: Middle-aged, chronically ill-appearing female in no acute distress. SKIN: Focused skin assessment warm and dry. Jaundice. CARDIOVASCULAR: Regular rate and rhythm. No obvious murmurs to auscultation. No chest tenderness to palpation. RESPIRATORY: No wheezing. Decreased breath sounds. GASTROINTESTINAL: Extensive distention due to ascites. BS normal. +caput medusae MUSCULOSKELETAL: Extremities without clubbing, cyanosis, or edema. No obvious deformities. NEUROLOGICAL: Awake, alert and oriented x4. No focal neurologic deficits. Moving both upper and lower extremities spontaneously. PSYCHIATRIC: Appropriate mood and affect. Insight and judgment normal. Urinary Catheter Management Indwelling Urethral Catheter: Cath placed during this visit: yes Urethral indwelling: No Insertion date: 01/28/18 Insertion time: 21:43 Results Labs CBC & Chem 7: 01/31/18 05:22 01/31/18 05:22 Labs: Microbiology 01/28/18 21:30 Clean Catch Urine Urine Culture - Final Escherichia coli Assessment and Plan (1) Acute GI bleeding: Code(s): K92.2 - Gastrointestinal hemorrhage, unspecified Status: Acute (2) Anemia: Code(s): D64.9 - Anemia, unspecified Status: Acute Plan Decompensated cirrhosis with retractable ascites status post large volume paracentesis, which much of the fluid has already reaccumulated. End-stage liver disease with alcoholic cirrhosis now with hypotension Midodrin to help with blood pressure Chronic alcoholism with withdrawal Anemia with acute drop in H&H, guaiac is negative, continue PPI, transfuse 1 unit packed red blood cells GI eval hold endoscopy for today due to elevated INR, attempted EGD 02/01 per GI if INR< 2 Coagulopathy related to chronic alcoholic liver disease will get additional FFP, monitor INR . Plan for EGD whrn INR< 2 Thrombocytopenia related to alcoholic liver disease and infection (UTI) E. coli urinary tract infection present on admission start antibiotics, follow- up cultures, change Cipro to doxycycline, patient has penicillin allergy and this E. coli is resistant to Cipro Severe protein calorie malnutrition albumin 1.2, would consider oncotic diuresis , the patient will be getting FFP as well as packed red blood cells, continue nutritional support as tolerated Poor prognosis, palliative care/hospice consult, discussed at length with patient, she is agreeable to hospice at home, she was however wanting to speak to family prior to making decision regarding DNR status. DVT prophylaxis, SCDs Disposition Home/inpatient hospice if/when, patient agrees For now full code, palliative care ff discussed with the patient, nurse, GI specialist Progress Note: Quality VTE Deep Vein Thrombosis/Pulmonary Embolism Present on Admission: No _ (1) Anemia Qualifiers: Anemia type: Bone marrow failure anemia type: Chronic kidney disease stage : Folate deficiency anemia type: Hemolytic anemia type: Iron deficiency anemia type: Other causes of anemia: Vitamin B12 deficiency anemia type:
[2018-01-31 11:25] LABS: INR 1.9 Ratio; Prothrombin Time 19.5 sec (9.8-11.6)
[2018-01-31] MEDS ORDERED: Sod Chloride 0.9% Inj 1,000 ML IV.SIG SCH (11:30)
[2018-01-31] MEDS: Pantoprazole Inj 40 MG Vial IV.PUSH SCH ×2 (11:34→22:51)
--- NOTE | 2018-01-31 15:34 | P.PNGI ---
Subjective Interval history: Patient laying supine in bed Chronically ill appearing EGD held today due to elevated INR <Marni Edwards - Last Filed: 01/31/18 15:34> Interval history: The patient was seen and examined. I agree with the assessment and recommendations above. <WyattNirav - Last Filed: 02/01/18 13:26> Physical Exam Vital signs: Vital Signs 01/30/18 16:46 01/30/18 17:44 01/30/18 18:01 Temperature 98.3 F 98.3 F 98.1 F Pulse Rate 90 88 91 H Respiratory Rate 18 16 16 Blood Pressure 93/51 L 88/53 L 81/46 L Pulse Oximetry 98 99 99 01/30/18 20:00 01/30/18 20:29 01/30/18 23:54 Temperature 98.2 F 99.1 F Pulse Rate 99 H 94 H 89 Respiratory Rate 16 18 16 Blood Pressure 91/53 L 85/47 L 91/55 L Pulse Oximetry 100 100 100 01/31/18 00:00 01/31/18 08:00 01/31/18 10:09 Temperature 99.1 F 98.2 F 98.0 F Pulse Rate 89 78 78 Respiratory Rate 16 17 17 Blood Pressure 91/55 L 89/47 L 73/41 L Pulse Oximetry 100 94 L 99 01/31/18 10:44 01/31/18 11:21 01/31/18 11:47 Temperature 97.4 F L 97.7 F 97.2 F L Pulse Rate 84 82 81 Respiratory Rate 17 17 Blood Pressure 75/37 L 75/42 L 75/46 L Pulse Oximetry 100 99 Intake & Output 01/30/18 01/31/18 01/31/18 18:59 06:59 18:59 Intake Total 1430 / 1430 415 / 415 1417 / 1417 Output Total 250 / 250 150 / 150 175 / 175 Balance 1180 / 1180 265 / 265 1242 / 1242 Weight 74.6 kg Intake: IV 1030 / 1030 1050 / 1050 Flexbumin 25% Inj 50 ML @ 60 50 / 50 50 / 50 mls/hr IV.SIG Q12H ERIN Rx#: [id number] Cipro 400 MG/200 ML Inj 400 mg 200 / 200 In 200 ml @ 200 mls/hr IV.SIG Q24H ERIN Rx#:[id number] NS Inj 1,000 ML @ 1000 mls/hr 1000 / 1000 IV.SIG BOLUS ERIN Rx#:[id number] NS Inj 250 ML @ 15 mls/hr IV. 280 / 280 SIG ONCE ERIN Rx#:[id number] NS Inj 500 ML @ 1000 mls/hr IV. 500 / 500 SIG BOLUS ERIN Rx#:[id number] Oral 0 / 0 Intake (Blood Product) Amt 400 / 400 415 / 415 367 / 367 Plasma Thawed 5 Day Acda Unit 0 / 0 224 / 224 [id number] Plasma Thawed 5 Day Cp2d Unit 0 / 0 [id number] Plasma Thawed 5 Day Cp2d Unit 191 / 191 [id number] Plasma Thawed 5 Day Cp2d Unit 367 / 367 [id number] Rbc As-3 Leukoreduced Unit 400 / 400 [id number] Output: Urine 150 / 150 Urine Amount (Catheter) 250 / 250 175 / 175 Indwelling Urethral Catheter 250 / 250 175 / 175 Other: Date of Last Bowel Movement 01/30/18 01/30/18 - Constitutional no acute distress, thin, chronically ill appearing - Routine HEENT Exam Eye: Present: conjunctival icterus - Routine Respiratory Exam Present: CTA bilaterally. Absent: accessory muscle use - Routine Cardiovascular Exam Present: RRR - Routine Abdominal Exam Present: soft, distended - Routine Skin Exam Present: dry, warm, jaundice - Routine Neurological Exam Present: alert - Urinary Catheter Management Indwelling Urethral Catheter Cath placed during this visit: yes Urethral indwelling: No Reason for continuing: Hourly intake/output Insertion date: 01/28/18 Insertion time: 21:43 <Marni Edwards - Last Filed: 01/31/18 15:34> Vital signs: Vital Signs 01/31/18 15:55 01/31/18 20:00 01/31/18 22:34 Temperature 97.7 F 98.3 F 98.2 F Pulse Rate 80 78 79 Respiratory Rate 28 H 19 16 Blood Pressure 88/51 L 93/49 L 81/45 L Pulse Oximetry 100 99 01/31/18 22:39 02/01/18 00:00 02/01/18 01:25 Temperature 98.2 F 98.4 F 98.4 F Pulse Rate 76 79 79 Respiratory Rate 16 16 16 Blood Pressure 84/47 L 104/54 L 104/54 L Pulse Oximetry 100 100 100 02/01/18 01:55 02/01/18 02:11 02/01/18 04:00 Temperature 98.2 F 98.2 F 98.4 F Pulse Rate 80 78 83 Respiratory Rate 16 18 20 Blood Pressure 105/54 L 90/62 L 92/51 L Pulse Oximetry 100 100 100 02/01/18 08:00 02/01/18 08:54 02/01/18 10:19 Temperature 98.5 F 97.7 F Pulse Rate 86 82 Respiratory Rate 20 16 Blood Pressure 103/54 L Pulse Oximetry 100 92 L 100 02/01/18 10:40 02/01/18 12:00 Temperature 97.1 F L 98.6 F Pulse Rate 86 87 Respiratory Rate 20 20 Blood Pressure 79/45 L 90/50 L Pulse Oximetry 100 100 Intake & Output 01/31/18 02/01/18 02/01/18 18:59 06:59 18:59 Intake Total 1520 / 1520 996 / 996 0 / 0 Output Total 475 / 475 75 / 75 Balance 1045 / 1045 921 / 921 0 / 0 Weight 75 kg Intake: IV 1153 / 1153 50 / 50 NS Inj 1,000 ML @ 42 mls/hr IV. 53 / 53 CONT .[id number] ERIN Rx#:[id number] Flexbumin 25% Inj 50 ML @ 60 100 / 100 50 / 50 mls/hr IV.SIG Q12H ERIN Rx#: [id number] NS Inj 1,000 ML @ 1000 mls/hr 1000 / 1000 IV.SIG BOLUS ERIN Rx#:[id number] Oral 240 / 240 Intake (Blood Product) Amt 367 / 367 706 / 706 0 / 0 Plasma Thawed 5 Day Cp2d Unit 0 / 0 [id number] Plasma Thawed 5 Day Cp2d Unit 344 / 344 [id number] Plasma Thawed 5 Day Cp2d Unit 367 / 367 [id number] Plasma Thawed 5 Day Cp2d Unit 0 / 0 [id number] Plasma Thawed 5 Day Cp2d Unit 362 / 362 [id number] Output: Urine 300 / 300 75 / 75 Urine Amount (Catheter) 175 / 175 Indwelling Urethral Catheter 175 / 175 Other: Date of Last Bowel Movement 01/30/18 - Urinary Catheter Management Indwelling Urethral Catheter Cath placed during this visit: no <Nirav Schneider - Last Filed: 02/01/18 13:26> Results - Labs CBC & Chem 7: 01/31/18 05:22 01/31/18 05:22 Laboratory Results - last 24 hr 01/29/18 01/30/18 01/30/18 11:39 11:16 20:00 WBC RBC Hgb Hct MCV MCH MCHC RDW Plt Count MPV Prelim Diff (Auto) Neut % (Auto) Lymph % (Auto) Teller % (Auto) Eos % (Auto) Baso % (Auto) Neut # (Auto) Lymph # (Auto) Teller # (Auto) Eos # (Auto) Baso # (Auto) WBC Differential Diff Scan Differential Comment Acanthocytes (Spur) PT INR Sodium Potassium Chloride Carbon Dioxide Anion Gap BUN Creatinine Estimated GFR Random Glucose Calcium Calcium Adj for Albumin Magnesium Total Bilirubin AST ALT Alkaline Phosphatase Total Protein Albumin MTS Gel Crossmatch See Detail Blood Bank Comment Cancelled 01/30/18 01/31/18 01/31/18 22:47 05:22 05:22 WBC 9.2 RBC 2.28 L Hgb 7.5 L Hct 21.6 L MCV 94.6 D MCH 33.0 MCHC 34.9 RDW 20.1 H Plt Count 82 L MPV 7.3 Prelim Diff (Auto) Slide review pending Neut % (Auto) 77.7 H Lymph % (Auto) 7.1 L Teller % (Auto) 13.4 H Eos % (Auto) 1.6 Baso % (Auto) 0.2 Neut # (Auto) 7.1 Lymph # (Auto) 0.7 L Teller # (Auto) 1.2 H Eos # (Auto) 0.1 Baso # (Auto) 0.0 WBC Differential . Diff Scan Auto diff confirmed Differential Comment . Acanthocytes (Spur) 1+ H PT 19.9 H 22.5 H INR 2.0 2.2 Sodium Potassium Chloride Carbon Dioxide Anion Gap BUN Creatinine Estimated GFR Random Glucose Calcium Calcium Adj for Albumin Magnesium Total Bilirubin AST ALT Alkaline Phosphatase Total Protein Albumin MTS Gel Crossmatch Blood Bank Comment 01/31/18 01/31/18 01/31/18 05:22 09:15 10:40 WBC RBC Hgb Hct MCV MCH MCHC RDW Plt Count MPV Prelim Diff (Auto) Neut % (Auto) Lymph % (Auto) Teller % (Auto) Eos % (Auto) Baso % (Auto) Neut # (Auto) Lymph # (Auto) Teller # (Auto) Eos # (Auto) Baso # (Auto) WBC Differential Diff Scan Differential Comment Acanthocytes (Spur) PT 19.5 H INR 1.9 Sodium 131 L Potassium 4.0 Chloride 100 Carbon Dioxide 22.7 Anion Gap 8 BUN 22 H Creatinine 1.37 H Estimated GFR 41 L Random Glucose 90 Calcium 7.1 L* Calcium Adj for Albumin 9.1 Magnesium 1.9 Total Bilirubin 13.1 H AST 36 ALT 10 Alkaline Phosphatase 110 Total Protein 5.2 L Albumin 1.5 L MTS Gel Crossmatch Blood Bank Comment 01/31/18 14:27 WBC RBC Hgb Hct MCV MCH MCHC RDW Plt Count MPV Prelim Diff (Auto) Neut % (Auto) Lymph % (Auto) Teller % (Auto) Eos % (Auto) Baso % (Auto) Neut # (Auto) Lymph # (Auto) Teller # (Auto) Eos # (Auto) Baso # (Auto) WBC Differential Diff Scan Differential Comment Acanthocytes (Spur) PT INR Sodium Potassium Chloride Carbon Dioxide Anion Gap BUN Creatinine Estimated GFR Random Glucose Calcium Calcium Adj for Albumin Magnesium Total Bilirubin AST ALT Alkaline Phosphatase Total Protein Albumin MTS Gel Crossmatch Blood Bank Comment Microbiology 01/28/18 21:30 Clean Catch Urine Urine Culture - Final Escherichia coli <Marni Edwards - Last Filed: 01/31/18 15:34> - Labs CBC & Chem 7: 02/01/18 05:55 02/01/18 05:55 Laboratory Results - last 24 hr 01/31/18 02/01/18 02/01/18 14:27 05:35 05:55 WBC 8.9 RBC 2.20 L Hgb 7.4 L Hct 21.1 L MCV 95.6 MCH 33.4 MCHC 34.9 RDW 20.0 H Plt Count 72 L MPV 7.4 Prelim Diff (Auto) Slide review pending Neut % (Auto) 77.0 H Lymph % (Auto) 7.7 L Teller % (Auto) 13.1 H Eos % (Auto) 2.0 Baso % (Auto) 0.2 Neut # (Auto) 6.8 Lymph # (Auto) 0.7 L Teller # (Auto) 1.2 H Eos # (Auto) 0.2 Baso # (Auto) 0.0 WBC Differential . Diff Scan Auto diff confirmed Differential Comment . Platelet Estimate Low L Platelet Morphology Normal PT 17.0 H INR 1.7 Sodium Potassium Chloride Carbon Dioxide Anion Gap BUN Creatinine Estimated GFR Random Glucose Calcium Total Bilirubin AST ALT Alkaline Phosphatase Total Protein Albumin Blood Type Antibody Screen MTS Gel Crossmatch Blood Bank Comment 02/01/18 02/01/18 02/01/18 05:55 08:24 09:54 WBC RBC Hgb Hct MCV MCH MCHC RDW Plt Count MPV Prelim Diff (Auto) Neut % (Auto) Lymph % (Auto) Teller % (Auto) Eos % (Auto) Baso % (Auto) Neut # (Auto) Lymph # (Auto) Teller # (Auto) Eos # (Auto) Baso # (Auto) WBC Differential Diff Scan Differential Comment Platelet Estimate Platelet Morphology PT INR Sodium 129 L Potassium 3.8 Chloride 98 Carbon Dioxide 21.7 Anion Gap 9 BUN 26 H Creatinine 1.88 H Estimated GFR 28 L Random Glucose 87 Calcium 7.7 L Total Bilirubin 12.9 H AST 32 ALT 11 Alkaline Phosphatase 99 Total Protein 5.8 L D Albumin 2.2 L D Blood Type O Positive Antibody Screen Negative MTS Gel Crossmatch See Detail Blood Bank Comment <Nirav Schneider - Last Filed: 02/01/18 13:26> Assessment and Plan (1) Acute GI bleeding Status: Acute Code(s): K92.2 - Gastrointestinal hemorrhage, unspecified (2) Anemia Status: Acute Code(s): D64.9 - Anemia, unspecified - Plan This patient is a 52-year-old female with past medical history of cirrhosis, end -stage liver disease, alcohol abuse and recurrent ascites. Patient presented to [facility] with complaint of increasing abdominal pain and distention. Patient states she was recently informed by her primary care physician that he presume she has 3-6 months to live. Upon consultation, Patient endorses increasing abdominal pain with distention and shortness of breath over the last 3 weeks. Patient underwent paracentesis during ED stay last evening where 8 L of fluid were removed during therapeutic paracentesis. Patient denies any noted bleeding. She states stools are brown and soft. Patient denies any nausea or vomiting. Patient denies any history of EGD or colonoscopy. She endorses 10-year history of alcohol abuse including 4 drinks of vodka daily over the last 10 years. Patient states she has not had any use of alcohol products for 4 months. She endorses tobacco use presently 1/2 pack/day. Patient denies any home medications. Denies taking diuretics, states she stopped taking home medications 4 months ago as she did not follow-up with primary care physician. Our service has been consulted to evaluate patient for anemia and cirrhosis Cirrhosis /End-stage liver disease Recurrent ascites Anemia Thrombocytopenia Coagulopathy Patient presented to [facility] with increasing abdominal pain and distention. Marked ascites noted on exam. Therapeutic paracentesis performed last evening, 8 L peritoneal fluid removed. Patient denies any obvious bleeding. Denies melena or bright red blood per rectum. Patient denies any nausea vomiting or hematemesis. 01/29/2018 CT abdomen and pelvis reveal the following-- 1. No evidence of retroperitoneal hematoma. 2. Large amount of ascites. 3. Diffuse anasarca. 4. Small nodular liver suggesting cirrhosis. 5. Splenomegaly. 6. Gastric fold thickening involving the fundus and body suggesting acute gastritis. Clinical correlation is recommended. 7. Stable 13 mm noncalcified pulmonary nodule within left lower lobe. Line tiny bilateral pleural effusions and posterior pleural thickening. 8. Scattered ground glass densities within the right middle lobe. 9. Tiny faint calcification within the upper pole the right kidney consistent with nonobstructing calculus. 10. Stable 12 mm right upper pole renal cyst. 11. Degenerative changes and scoliosis of the thoracolumbar spine. WBC 9.5 hemoglobin 5.9 hematocrit 17.6, patient noted to have 2 units of packed red blood cells transfused INR 2.7 total bili 10.3 AST 46 ALT 12 alk phos 123 ammonia 70 albumin 1.2 01/30/2018 EGD on hold for today, INR 2.5 WBC 8.2 hemoglobin 6.9 hematocrit 19.8, no obvious bleeding, 2 units packed RBCs ordered for transfusion. 01/30/2018 hemoglobin 7.6 hematocrit 22.1. 2 units fresh frozen plasma ordered with recheck of INR at 8 PM. If INR greater than 2.0 transfuse an additional 2 units of fresh frozen plasma. 01/31/2018 EGD on hold for today INR 2.2 WBC 9.2 hemoglobin 7.5 hematocrit 21.6 platelet count 82 INR at 1040-1.9 post 2-units of FFP transfused BUN 22 creatinine 1.37 GFR 41 (monitor for hepatorenal syndrome) No active bleeding reported Plan N.p.o. after midnight Monitor for bleeding Transfuse if needed Monitor labs Pantoprazole 40 mg IV every 12 hours Continue albumin every 12 hours Lactulose Transfuse 2 units of FFP at 10 PM INR recheck in a.m. Notify GI for any active bleeding Avoid anticoagulants and NSAIDs Avoid hepatotoxins Supportive care Further recommendations to follow This patient has been seen by myself and Dr. Schneider and this note is written on his behalf - Attending Attestation Dr. Schneider <Marni Edwards - Last Filed: 01/31/18 15:34> (1) Acute GI bleeding Status: Acute Code(s): K92.2 - Gastrointestinal hemorrhage, unspecified (2) Anemia Status: Acute Code(s): D64.9 - Anemia, unspecified <Nirav Schneider - Last Filed: 02/01/18 13:26>
[2018-01-31] MEDS: Sod Chloride 0.9% Inj 1,000 ML IV.CONT SCH (17:17)
[2018-02-01] MEDS: Albumin Human 25% Inj 50 ML IV.SIG SCH ×2 (05:27→18:41)
[2018-02-01 07:01] LABS: INR 1.7 Ratio
[2018-02-01 07:03] LABS: Baso % (Auto) 0.2 % (0.0-2.0); Eos # (Auto) 0.2 th/mm3 (0.0-0.4); Hematocrit 21.1 % (35.0-46.0); Hemoglobin 7.4 gm/dL (11.6-15.3); Lymph # (Auto) 0.7 th/mm3 (1.0-4.8); Lymph % (Auto) 7.7 % (9.0-44.0); Mean Corpuscular HGB Conc 34.9 % (32.0-36.0); Mean Corpuscular Hemoglobin 33.4 pg (27.0-34.0); Mean Corpuscular Volume 95.6 fL (80.0-100.0); Mean Platelet Volume 7.4 fL (7.0-11.0); Mono # (Auto) 1.2 th/mm3 (0.0-0.9); Mono % (Auto) 13.1 % (0.0-8.0); Neut # (Auto) 6.8 th/mm3 (1.8-7.7); Platelet Count 72 th/mm3 (150-450); White Blood Count 8.9 th/mm3 (4.0-11.0)
[2018-02-01 07:17] LABS: Albumin 2.2 g/dL (3.4-5.0); Anion Gap 9 meq/L (5-15); Aspartate Aminotransferase 32 U/L (15-37); Blood Urea Nitrogen 26 mg/dL (7-18); Calcium 7.7 mg/dL (8.5-10.1); Carbon Dioxide 21.7 meq/L (21.0-32.0); Chloride 98 meq/L (98-107); Glomerular Filtration Rate 28 mL/min (>89); Glucose,Random 87 mg/dL (74-106); Potassium 3.8 meq/L (3.5-5.1); Sodium 129 meq/L (136-145)
[2018-02-01 07:23] LABS: Alanine Aminotransferase 11 U/L (10-53); Alkaline Phosphatase 99 U/L (45-117); Total Protein 5.8 g/dL (6.4-8.2)
[2018-02-01 07:53] LABS: Platelet Morphology Normal (Normal)
--- NOTE | 2018-02-01 10:06 | P.PNPAL ---
Spoke with Dr. Solorio, advised patient plans to D/C home with hospice post EGD. She states she will cancel the order.
[2018-02-01] MEDS: Spironolactone 50 MG Tablet PO SCH ×2 (10:28→18:44)
[2018-02-01] MEDS: Propranolol 10 MG Tablet PO SCH ×2 (10:29→20:03)
[2018-02-01] MEDS: Folic Acid 1 MG Tablet PO SCH (10:37)
[2018-02-01] MEDS: Senna/Docusate Sodium 8.6/50 MG Tablet PO SCH ×2 (10:37→20:03)
--- NOTE | 2018-02-01 12:26 | P.PNIM ---
Subjective Interval history: No overt bleeding. INR is 1.7 however HGB is 7.4. Patient with some sob sattign well Not in respiratory distress. Abd is with large volume of ascites. No fever or chills. Physical Exam Vital signs: Last Vital Signs Temp 97.1 F L 02/01/18 10:40 Pulse 86 02/01/18 10:40 Resp 20 02/01/18 10:40 BP 79/45 L 02/01/18 10:40 Pulse Ox 100 02/01/18 10:40 Intake & Output 01/30/18 01/31/18 02/01/18 02/02/18 06:59 06:59 06:59 06:59 Intake Total 700 / 700 1845 / 1845 2516 / 2516 0 / 0 Output Total 400 / 400 550 / 550 Balance 700 / 700 1445 / 1445 1964 / 1965 0 / 0 Weight 74.843 kg 74.6 kg 75 kg Narrative: PE: GENERAL: Middle-aged, chronically ill-appearing female in no acute distress. SKIN: Focused skin assessment warm and dry. Jaundice. CARDIOVASCULAR: Regular rate and rhythm. No obvious murmurs to auscultation. No chest tenderness to palpation. RESPIRATORY: No wheezing. Decreased breath sounds. GASTROINTESTINAL: Extensive distention due to ascites. BS normal. +caput medusae MUSCULOSKELETAL: Extremities without clubbing, cyanosis, or edema. No obvious deformities. NEUROLOGICAL: Awake, alert and oriented x4. No focal neurologic deficits. Moving both upper and lower extremities spontaneously. PSYCHIATRIC: Appropriate mood and affect. Insight and judgment normal. Urinary Catheter Management Indwelling Urethral Catheter: Cath placed during this visit: yes Urethral indwelling: No Insertion date: 01/28/18 Insertion time: 21:43 Results Labs CBC & Chem 7: 02/01/18 05:55 02/01/18 05:55 Assessment and Plan (1) Acute GI bleeding: Code(s): K92.2 - Gastrointestinal hemorrhage, unspecified Status: Acute (2) Anemia: Code(s): D64.9 - Anemia, unspecified Status: Acute Plan Decompensated cirrhosis with retractable ascites status post large volume paracentesis, which much of the fluid has already reaccumulated. End-stage liver disease with alcoholic cirrhosis now with hypotension Midodrin to help with blood pressure Chronic alcoholism with withdrawal Anemia with acute drop in H&H, guaiac is negative, continue PPI, transfuse 1 unit packed red blood cells GI eval hold endoscopy for today due to elevated INR, attempted EGD 02/01 per GI if INR< 2 Coagulopathy related to chronic alcoholic liver disease will get additional FFP, monitor INR . Plan for EGD whrn INR< 2 INR on 02/01 of 1.7 Thrombocytopenia related to alcoholic liver disease and infection (UTI) E. coli urinary tract infection present on admission start antibiotics, follow- up cultures, change Cipro to doxycycline, patient has penicillin allergy and this E. coli is resistant to Cipro Severe protein calorie malnutrition albumin 1.2, started oncotic diuresis, the patient received FFP as well as packed red blood cells, continue nutritional support as tolerated Poor prognosis, palliative care/hospice consult, discussed at length with patient, she is agreeable to hospice at home, she was however wanting to speak to family prior to making decision regarding DNR status. Plan for DC home with hospice after EGD DVT prophylaxis, SCDs Disposition Home/inpatient hospice if/when, patient agrees For now full code, palliative care ff discussed with the patient, nurse, GI specialist Progress Note: Quality VTE Deep Vein Thrombosis/Pulmonary Embolism Present on Admission: No _ (1) Anemia Qualifiers: Anemia type: Bone marrow failure anemia type: Chronic kidney disease stage : Folate deficiency anemia type: Hemolytic anemia type: Iron deficiency anemia type: Other causes of anemia: Vitamin B12 deficiency anemia type:
[2018-02-01] MEDS: Pantoprazole Inj 40 MG Vial IV.PUSH SCH (13:02)
--- NOTE | 2018-02-01 16:30 | P.PCN ---
Date of procedure: 02/01/18 Pre-op diagnosis: Cirrhosis, anemia Post-op diagnosis: other (Gastric ulcer x2, white based, esohpageal varices x1) Procedure: Indication; Cirrhosis and anemia Procedure Performed; upper endoscopy with esophageal variceal band ligation After informing the patient about procedure and possible complications consent was signed. history and physical were updated. Patient was taken to the procedure room and placed in position. Time out was completed. Adequate sedation was performed by anesthesia provider. Upper Endoscopy, the scope was placed in the mouth advanced under video guide to the second portion of the duodenum, then the scope was withdrawal to the stomach and retro-flexion was performed, the scope was withdrawal to the esophagus then out of the mouth without any immediate complication Findings: Esophagus: Z line seen at 36 cm. A single column of varices grade 3 was seen that extended from the z line to 25 cm. Two bands were placed on the varix. Stomach: 2 white based punctated 8 mm ulcers were seen in close proximity to each other in the distal antrum anteriorly. No stigmata of recent bleeding seen. Retroflex showed a normal cardia. Duodenum: Bile seen throughout otherwise a normal exam bulb to second portion. Impression 1- Esophageal varices 2- Gastric ulcer x 2 Recommendations; 1- Supportive care 2- ok to transfer to recovery area then return to floor per protocol 3- Standard dose oral proton pump inhibitors for 12 weeks. [id number] diet 5- EGD in 3 months to follow up healing of the ulcers and consider further variceal band ligation. 6- Beta blockers, nadolol, on discharge to be considered to decrease portal pressure. Anesthesia: MAC Surgeon: Nirav Schneider Pathology: none sent Condition: stable Disposition: floor
[2018-02-01] MEDS ORDERED: Nitroglycerin SL (Override) 0.4 MG Tab SL ONE (16:59)
[2018-02-01] MEDS ORDERED: RESP: Levalbuterol 1.25 MG/3 ML Neb (PRN) NEB ONE (17:30)
[2018-02-01] MEDS: Sod Chloride 0.9% Inj 1,000 ML IV.CONT SCH (17:38)
[2018-02-02] MEDS: Pantoprazole Inj 40 MG Vial IV.PUSH SCH ×3 (00:16→22:33)
[2018-02-02] MEDS: Albumin Human 25% Inj 50 ML IV.SIG SCH ×2 (04:37→18:51)
[2018-02-02 05:26] LABS: INR 1.8 Ratio; Prothrombin Time 18.1 sec (9.8-11.6)
[2018-02-02 05:28] LABS: Baso % (Auto) 0.1 % (0.0-2.0); Eos # (Auto) 0.1 th/mm3 (0.0-0.4); Eos % (Auto) 1.4 % (0.0-4.0); Hematocrit 26.8 % (35.0-46.0); Hemoglobin 9.6 gm/dL (11.6-15.3); Lymph # (Auto) 0.6 th/mm3 (1.0-4.8); Lymph % (Auto) 5.4 % (9.0-44.0); Mean Corpuscular HGB Conc 35.9 % (32.0-36.0); Mean Corpuscular Hemoglobin 33.4 pg (27.0-34.0); Mean Corpuscular Volume 93.1 fL (80.0-100.0); Mean Platelet Volume 7.1 fL (7.0-11.0); Mono # (Auto) 1.1 th/mm3 (0.0-0.9); Mono % (Auto) 10.1 % (0.0-8.0); Platelet Count 70 th/mm3 (150-450); Red Blood Count 2.88 mil/mm3 (4.00-5.30); Red Cell Distribution Width 18.2 % (11.6-17.2); White Blood Count 10.8 th/mm3 (4.0-11.0)
[2018-02-02 05:47] LABS: Alanine Aminotransferase 13 U/L (10-53); Albumin 2.4 g/dL (3.4-5.0); Anion Gap 12 meq/L (5-15); Aspartate Aminotransferase 31 U/L (15-37); Blood Urea Nitrogen 28 mg/dL (7-18); Calcium 7.9 mg/dL (8.5-10.1); Chloride 101 meq/L (98-107); Glomerular Filtration Rate 25 mL/min (>89); Glucose,Random 89 mg/dL (74-106); Sodium 134 meq/L (136-145)
[2018-02-02 05:49] LABS: Alkaline Phosphatase 103 U/L (45-117); Total Protein 5.9 g/dL (6.4-8.2)
--- NOTE | 2018-02-02 08:01 | P.CONCA ---
History of Present Illness Service: cardiology Consult date: 02/02/18 Reason for Consult: chest pain Primary Care Provider: Marco Antonio Aranda DO Chief Complaint: chest pain, abdominal pain History of Present Illness: 52 yo F with no prior cardiac history with cirrhosis, chronic alcohol and tobacco abuse and end-stage liver disease presented several days ago with abdominal pain and progressive ascites. She has since undergone paracentesis with removal of 8L of fluid and an EGD yesterday for anemia which showed esophageal varices and gastric ulcers x 2. Hgb has been as low as 5.7. She has undergone transfusion with PRBC. Patient states soon after her procedure yesterday she developed 10/10 epigastric/lower central chest pain that has remained constant with associated SOB and orthopnea. Stat EKG was nonischemic. BPs have remained low, currently being give midodrine. Heart rates stable. troponin level x 1 negative. Review of Systems All other systems reviewed negative except as stated in HPI PMFSH - History History Provided By: Patient, Medical Record - Medical History Medical History: Medical History (Last Reviewed 02/02/18 @ 08:16 by Jad Soto) Cirrhosis of liver History of abdominal paracentesis Pancreatitis Weight loss - Surgical History Surgical History: Surgical History (Last Reviewed 02/02/18 @ 08:16 by Jad Soto) History of total right hip replacement - Family History Family History: Family History (Last Reviewed 01/28/18 @ 20:15 by GWEN Carlin) Mother Heart disease - Tobacco History Second Hand Smoke Exposure: Yes Tobacco Use In Past 30 Days: Yes Smoking Status: Heavy tobacco smoker Tobacco Type: Cigarettes - Alcohol History How Often Do You Have a Drink Containing Alcohol: Monthly or less - Substance Use History Substance History: No History of Abuse - Immunization History Tetanus Immunization: Unsure Hx Influenza Vaccine This Season: Yes Medications and Allergies Allergies Allergy/AdvReac Type Severity Reaction Status Date / Time penicillin G Allergy Mild Rash Verified 01/28/18 19:59 Home Medications Medication Instructions Recorded Confirmed Type fentanyl 1 patch TRANSDERMAL Q72H 01/28/18 01/28/18 History hydrocodone-acetaminophen 1 tab PO Q4-6H PRN 01/28/18 01/28/18 History metoprolol tartrate 25 mg PO BID 01/28/18 01/28/18 History spironolactone 25 mg PO DAILY 01/28/18 01/28/18 History Active Medications: Active Medications Al Hydroxide/Mg Hydroxide (Milk Of Magnesia Liq) 30 ml PO Q12H PRN PRN Reason: Mild Constipation Bisacodyl (Dulcolax Supp) 10 mg RECTAL DAILY PRN PRN Reason: SEVERE CONSITIPATION Doxycycline Hyclate (Vibramycin) 100 mg PO Q12HR [facility] Last Admin: 02/01/18 19:59 Dose: 100 mg Folic Acid (Folic Acid) 1 mg PO DAILY [facility] Last Admin: 02/01/18 10:37 Dose: 1 mg Furosemide (Lasix) 40 mg PO DAILY [facility] Last Admin: 01/29/18 11:47 Dose: Not Given Albumin Human (Flexbumin 25% Inj) 50 mls @ 60 mls/hr IV.SIG Q12H [facility] Last Infusion: 02/02/18 06:06 Dose: Infused Sodium Chloride (Ns Inj) 1,000 mls @ 42 mls/hr IV.CONT .[id number] [facility] Last Infusion: 02/01/18 17:38 Dose: 42 mls/hr Lactulose (Lactulose Liq) 30 ml PO TID [facility] Last Admin: 02/01/18 18:44 Dose: 30 ml Lorazepam (Ativan Inj) 0.5 mg IV.PUSH Q8H PRN PRN Reason: ANXIETY Last Admin: 02/02/18 03:08 Dose: 0.5 mg Lorazepam (Ativan Inj) 0.5 mg IV.PUSH UNSCH X1 [facility] Stop: 02/02/18 18:31 Last Admin: 02/01/18 19:59 Dose: 0.5 mg Midodrine (Proamatine) 10 mg PO TID@0700,1200,1700 [facility] Last Admin: 02/01/18 18:42 Dose: 10 mg Nicotine (Habitrol 14 Mg Patch.24 Hr) 1 patch T-DERMAL DAILY [facility] Last Admin: 02/01/18 10:37 Dose: 1 patch Ondansetron HCl (Zofran Inj) 4 mg IV.PUSH Q6H PRN PRN Reason: NAUSEA OR VOMITING Last Admin: 01/30/18 03:47 Dose: 4 mg Pantoprazole Sodium (Protonix Inj) 40 mg IV.PUSH Q12H [facility] Last Admin: 02/02/18 00:16 Dose: 40 mg Patch Removal (Remove Old Patch) 1 each T-DERMAL DAILY [facility] Last Admin: 02/01/18 10:38 Dose: 1 each Propranolol HCl (Inderal) 10 mg PO BID [facility] Last Admin: 02/01/18 20:03 Dose: Not Given Senna/Docusate Sodium (Isabella-Colace) 1 tab PO BID [facility] Last Admin: 02/01/18 20:03 Dose: 1 tab Sennosides (Senokot) 17.2 mg PO Q12H PRN PRN Reason: Moderate Constipation Sodium Chloride (Ns Flush) 2 ml IV.FLUSH BID [facility] Last Admin: 02/01/18 20:03 Dose: 2 ml Sodium Chloride (Ns Flush) 2 ml IV.FLUSH PRN PRN PRN Reason: FLUSH AFTER USING IV ACCESS Spironolactone (Aldactone) 50 mg PO BID@0900,1800 [facility] Last Admin: 02/01/18 18:44 Dose: Not Given Exam Vital signs: Vital Signs 02/01/18 08:00 02/01/18 08:54 02/01/18 10:19 Temperature 98.5 F 97.7 F Pulse Rate 86 82 Respiratory Rate 20 16 Blood Pressure 103/54 L Pulse Oximetry 100 92 L 100 02/01/18 10:40 02/01/18 12:00 02/01/18 13:43 Temperature 97.1 F L 98.6 F 97.5 F L Pulse Rate 86 87 79 Respiratory Rate 20 20 20 Blood Pressure 79/45 L 90/50 L 88/78 L Pulse Oximetry 100 100 02/01/18 14:04 02/01/18 16:35 02/01/18 17:17 Temperature 98.2 F 98 F Pulse Rate 79 82 100 H Respiratory Rate 20 18 33 H Blood Pressure 87/47 L 109/53 L 96/55 L Pulse Oximetry 100 94 L 99 02/01/18 17:30 02/01/18 17:45 02/01/18 18:00 Temperature Pulse Rate 92 H 88 86 Respiratory Rate 32 H 30 H 25 H Blood Pressure 98/50 L 94/55 L 100/53 L Pulse Oximetry 99 100 100 02/01/18 18:15 02/01/18 18:20 02/01/18 20:00 Temperature 97.6 F 97.3 F L Pulse Rate 87 95 H Respiratory Rate 23 18 Blood Pressure 92/51 L 93/63 L Pulse Oximetry 100 99 98 02/01/18 21:47 02/02/18 00:00 02/02/18 01:16 Temperature 98.6 F 97.7 F 97.6 F Pulse Rate 72 86 63 Respiratory Rate 22 18 20 Blood Pressure 100/52 L 97/58 L 102/62 Pulse Oximetry 96 100 97 02/02/18 01:42 02/02/18 04:00 Temperature 97.6 F 98.4 F Pulse Rate 72 82 Respiratory Rate 20 18 Blood Pressure 102/62 96/53 L Pulse Oximetry 99 Intake & Output 02/01/18 02/02/18 02/02/18 18:59 06:59 18:59 Intake Total 204 / 204 100 / 100 Output Total 100 / 100 Balance 204 / 204 0 / 0 Weight 73.6 kg Intake: IV 100 / 100 Flexbumin 25% Inj 50 ML @ 60 100 / 100 mls/hr IV.SIG Q12H [facility] Rx#: [id number] Anesthesia Amount 200 / 200 Intake (Blood Product) Amt 0 / 0 Plasma Thawed 5 Day Cp2d Unit [id number] Plasma Thawed 5 Day Cp2d Unit 0 / 0 [id number] Rbc As-3 Leukoreduced Unit 0 / 0 [id number] Rbc As-3 Leukoreduced Unit 0 / 0 [id number] Output: Urine 100 / 100 Other: Date of Last Bowel Movement 02/01/18 # Incontinent Bowel Movements 2 Narrative: GENERAL: frail, underweight SKIN: Warm and dry. jaundiced HEAD: Normocephalic. NECK: Supple, trachea midline. No JVD or lymphadenopathy. CARDIOVASCULAR: regular rate and rhythm, +II/ systolic murmur present RESPIRATORY: Breath sounds equal bilaterally. No accessory muscle use. GASTROINTESTINAL: ascites, diffusely tender abdomen MUSCULOSKELETAL: 1+ LE edema Results 02/02/18 04:55 02/02/18 04:55 Cardiac Enzymes 02/01/18 02/01/18 02/02/18 Range/Units 05:55 18:02 04:55 AST 32 31 (15-37) U/L Troponin I Less than 0.02 L (0.02-0.05) ng/mL Coagulation 01/31/18 02/01/18 02/02/18 Range/Units 10:40 05:35 04:55 PT 19.5 H 17.0 H 18.1 H (9.8-11.6) sec CBC 02/01/18 02/02/18 Range/Units 05:55 04:55 WBC 8.9 10.8 (4.0-11.0) th/mm3 RBC 2.20 L 2.88 L (4.00-5.30) mil/mm3 Hgb 7.4 L 9.6 L D (11.6-15.3) gm/dL Hct 21.1 L 26.8 L (35.0-46.0) % Plt Count 72 L 70 L (150-450) th/mm3 Neut # (Auto) 6.8 9.0 H (1.8-7.7) th/mm3 Lymph # (Auto) 0.7 L 0.6 L (1.0-4.8) th/mm3 Coal # (Auto) 1.2 H 1.1 H (0.0-0.9) th/mm3 Eos # (Auto) 0.2 0.1 (0.0-0.4) th/mm3 Baso # (Auto) 0.0 0.0 (0.0-0.2) th/mm3 Comprehensive Metabolic Panel 02/01/18 02/02/18 Range/Units 05:55 04:55 Sodium 129 L 134 L (136-145) meq/L Potassium 3.8 4.0 (3.5-5.1) meq/L Chloride 98 101 (98-107) meq/L Carbon Dioxide 21.7 21.0 (21.0-32.0) meq/L BUN 26 H 28 H (7-18) mg/dL Creatinine 1.88 H 2.10 H (0.50-1.00) mg/dL Calcium 7.7 L 7.9 L (8.5-10.1) mg/dL AST 32 31 (15-37) U/L ALT 11 13 (10-53) U/L Alkaline Phosphatase 99 103 (45-117) U/L Total Protein 5.8 L D 5.9 L (6.4-8.2) g/dL Albumin 2.2 L D 2.4 L (3.4-5.0) g/dL Intake and Output 02/01/18 02/02/18 02/02/18 22:59 06:59 14:59 Intake Total 254 / 254 50 / 50 Output Total 100 / 100 Balance 254 / 254 -50 / -50 Intake: IV 50 / 50 50 / 50 Flexbumin 25% Inj 50 ML @ 60 50 / 50 50 / 50 mls/hr IV.SIG Q12H [facility] Rx#: [id number] Anesthesia Amount 200 / 200 Intake (Blood Product) Amt 0 / 0 Plasma Thawed 5 Day Cp2d Unit [id number] Rbc As-3 Leukoreduced Unit 0 / 0 [id number] Rbc As-3 Leukoreduced Unit 0 / 0 [id number] Output: Urine 100 / 100 Other: Date of Last Bowel Movement 02/01/18 # Incontinent Bowel Movements 2 Weight 73.6 kg Assessment and Plan - Plan 52 yo F with no prior cardiac history with cirrhosis, chronic alcohol and tobacco abuse and end-stage liver disease presented several days ago with abdominal pain and progressive ascites. She has since undergone paracentesis with removal of 8L of fluid and an EGD yesterday for anemia which showed esophageal varices and gastric ulcers x 2. Hgb has been as low as 5.7. She has undergone transfusion with PRBC. Patient states soon after her procedure yesterday she developed 10/10 epigastric/lower central chest pain that has remained constant with associated SOB and orthopnea. EKG was nonischemic and troponin level x 1 negative. BPs have remained low, currently being give midodrine. Heart rates stable. Apparently patient considering hospice/ palliative care. atypical chest pain- symptoms are more epigastric sounding and likely noncardiac. she is a poor candidate for cardiac catheterization due to anemia, esophageal varices and recent bleed will assess LV systolic function and cardiac murmur with 2D echo. will sign off, contact with questions. - Attending Attestation patient seen and agree with above.
[2018-02-02 08:17] LABS: Platelet Morphology Normal (Normal)
[2018-02-02] MEDS: Senna/Docusate Sodium 8.6/50 MG Tablet PO SCH ×2 (08:39→20:19)
[2018-02-02] MEDS: Folic Acid 1 MG Tablet PO SCH (08:39)
[2018-02-02] MEDS: Spironolactone 50 MG Tablet PO SCH ×2 (08:52→18:50)
[2018-02-02] MEDS: Propranolol 10 MG Tablet PO SCH ×2 (08:53→20:20)
--- NOTE | 2018-02-02 09:47 | ECG ---
Date Performed: 02/01/2018 Time Performed: 17:03:53 PTAGE: 52 years EKG: Sinus rhythm NORMAL ECG PREVIOUS TRACING : 01/28/2018 21.11 DOCTOR: Odilon Álvarez Interpretating Date/Time 02/02/2018 09:45:30
--- NOTE | 2018-02-02 11:09 | P.PNGI ---
Subjective Interval history: Patient sleeping soundly Awakens easily Post EGD <Marni Edwards - Last Filed: 02/02/18 15:02> Physical Exam Vital signs: Vital Signs 02/01/18 12:00 02/01/18 13:43 02/01/18 14:04 Temperature 98.6 F 97.5 F L 98.2 F Pulse Rate 87 79 79 Respiratory Rate 20 20 20 Blood Pressure 90/50 L 88/78 L 87/47 L Pulse Oximetry 100 100 02/01/18 16:35 02/01/18 17:17 02/01/18 17:30 Temperature 98 F Pulse Rate 82 100 H 92 H Respiratory Rate 18 33 H 32 H Blood Pressure 109/53 L 96/55 L 98/50 L Pulse Oximetry 94 L 99 99 02/01/18 17:45 02/01/18 18:00 02/01/18 18:15 Temperature 97.6 F Pulse Rate 88 86 87 Respiratory Rate 30 H 25 H 23 Blood Pressure 94/55 L 100/53 L 92/51 L Pulse Oximetry 100 100 100 02/01/18 18:20 02/01/18 20:00 02/01/18 21:47 Temperature 97.3 F L 98.6 F Pulse Rate 95 H 72 Respiratory Rate 18 22 Blood Pressure 93/63 L 100/52 L Pulse Oximetry 99 98 96 02/02/18 00:00 02/02/18 01:16 02/02/18 01:42 Temperature 97.7 F 97.6 F 97.6 F Pulse Rate 86 63 72 Respiratory Rate 18 20 20 Blood Pressure 97/58 L 102/62 102/62 Pulse Oximetry 100 97 02/02/18 04:00 02/02/18 08:00 Temperature 98.4 F 97.8 F Pulse Rate 82 88 Respiratory Rate 18 16 Blood Pressure 96/53 L 84/33 L Pulse Oximetry 99 98 Intake & Output 02/01/18 02/02/18 02/02/18 18:59 06:59 18:59 Intake Total 204 / 204 100 / 100 Output Total 100 / 100 Balance 204 / 204 0 / 0 Weight 73.6 kg Intake: IV 100 / 100 Flexbumin 25% Inj 50 ML @ 60 100 / 100 mls/hr IV.SIG Q12H [facility] Rx#: [id number] Anesthesia Amount 200 / 200 Intake (Blood Product) Amt 4 / 4 0 / 0 Plasma Thawed 5 Day Cp2d Unit / [id number] Plasma Thawed 5 Day Cp2d Unit 0 / 0 [id number] Rbc As-3 Leukoreduced Unit 0 / 0 [id number] Rbc As-3 Leukoreduced Unit 0 / 0 [id number] Output: Urine 100 / 100 Other: Date of Last Bowel Movement 02/01/18 # Incontinent Bowel Movements 2 - Constitutional chronically ill appearing, cooperative - Routine HEENT Exam Head: Present: normocephalic Eye: Present: conjunctival icterus - Routine Respiratory Exam Present: CTA bilaterally. Absent: accessory muscle use - Routine Cardiovascular Exam Present: RRR, S1, S2 - Routine Abdominal Exam Present: normoactive bowel sounds, distended, firm. Absent: tenderness - Routine Extremities Exam Absent: edema - Routine Skin Exam Present: dry, warm, jaundice - Routine Psychiatric Exam Present: normal affect, cooperative - Urinary Catheter Management Indwelling Urethral Catheter Cath placed during this visit: yes Urethral indwelling: No Reason for continuing: Hourly intake/output Insertion date: 01/28/18 Insertion time: 21:43 <Marni Edwards - Last Filed: 02/02/18 15:02> Vital signs: Vital Signs 02/02/18 12:00 02/02/18 17:15 02/02/18 17:30 Temperature 97.9 F 97.9 F Pulse Rate 77 78 72 Respiratory Rate 15 20 20 Blood Pressure 88/44 L 87/53 L 83/52 L Pulse Oximetry 98 97 97 02/02/18 18:00 02/02/18 19:24 02/02/18 20:00 Temperature 97.5 F L Pulse Rate 76 75 Respiratory Rate 20 18 Blood Pressure 82/51 L 90/56 L Pulse Oximetry 97 97 98 02/03/18 00:00 02/03/18 04:00 Temperature 97.9 F 97.8 F Pulse Rate 81 81 Respiratory Rate 18 18 Blood Pressure 94/60 L 91/54 L Pulse Oximetry 99 97 Intake & Output 02/02/18 02/03/18 02/03/18 18:59 06:59 18:59 Intake Total 100 / 100 Output Total 2700 / 2700 Balance -2600 / -2600 Weight 69.9 kg Intake: IV 100 / 100 Flexbumin 25% Inj 50 ML @ 60 100 / 100 mls/hr IV.SIG Q12H [facility] Rx#: [id number] Output: Urine 100 / 100 Urine Amount (Catheter) 600 / 600 Indwelling Urethral Catheter 600 / 600 Wound Drainage 1999 Left Abdomen 1999 Other: Date of Last Bowel Movement 02/02/18 # Bowel Movements 1 - Urinary Catheter Management Indwelling Urethral Catheter Cath placed during this visit: no <Nirav Schneider - Last Filed: 02/03/18 09:57> Results - Labs CBC & Chem 7: 02/02/18 04:55 02/02/18 04:55 Laboratory Results - last 24 hr 02/01/18 02/01/18 02/01/18 08:24 09:54 18:02 WBC RBC Hgb Hct MCV MCH MCHC RDW Plt Count MPV Prelim Diff (Auto) Neut % (Auto) Lymph % (Auto) [place] % (Auto) Eos % (Auto) Baso % (Auto) Neut # (Auto) Lymph # (Auto) [place] # (Auto) Eos # (Auto) Baso # (Auto) WBC Differential Diff Scan Differential Comment Platelet Estimate Platelet Morphology PT INR Sodium Potassium Chloride Carbon Dioxide Anion Gap BUN Creatinine Estimated GFR Random Glucose Calcium Total Bilirubin AST ALT Alkaline Phosphatase Troponin I Less than 0.02 L Total Protein Albumin Blood Type O Positive Antibody Screen Negative MTS Gel Crossmatch See Detail Blood Bank Comment 02/02/18 02/02/18 02/02/18 04:55 04:55 04:55 WBC 10.8 RBC 2.88 L Hgb 9.6 L D Hct 26.8 L MCV 93.1 MCH 33.4 MCHC 35.9 RDW 18.2 H Plt Count 70 L MPV 7.1 Prelim Diff (Auto) Slide review pending Neut % (Auto) 83.0 H Lymph % (Auto) 5.4 L [place] % (Auto) 10.1 H Eos % (Auto) 1.4 Baso % (Auto) 0.1 Neut # (Auto) 9.0 H Lymph # (Auto) 0.6 L [place] # (Auto) 1.1 H Eos # (Auto) 0.1 Baso # (Auto) 0.0 WBC Differential . Diff Scan Auto diff confirmed Differential Comment . Platelet Estimate Low L Platelet Morphology Normal PT 18.1 H INR 1.8 Sodium 134 L Potassium 4.0 Chloride 101 Carbon Dioxide 21.0 Anion Gap 12 BUN 28 H Creatinine 2.10 H Estimated GFR 25 L Random Glucose 89 Calcium 7.9 L Total Bilirubin 13.5 H AST 31 ALT 13 Alkaline Phosphatase 103 Troponin I Total Protein 5.9 L Albumin 2.4 L Blood Type Antibody Screen MTS Gel Crossmatch Blood Bank Comment <Marni Edwards - Last Filed: 02/02/18 15:02> - Labs CBC & Chem 7: 02/02/18 04:55 02/03/18 04:59 Laboratory Results - last 24 hr 02/03/18 02/03/18 04:59 04:59 PT 20.8 H INR 2.1 Sodium 134 L Potassium 3.7 Chloride 102 Carbon Dioxide 22.3 Anion Gap 10 BUN 35 H Creatinine 2.22 H Estimated GFR 23 L Random Glucose 119 H Calcium 7.9 L Total Bilirubin 13.7 H AST 27 ALT 9 L Alkaline Phosphatase 100 Total Protein 5.5 L Albumin 2.2 L - Imaging Impressions Catheter Placement X-Ray 02/02/18 00:00 CONCLUSION: 1. Uncomplicated placement of tunneled peritoneal Aspira catheter. <Nirav Schneider - Last Filed: 02/03/18 09:57> Assessment and Plan (1) Acute GI bleeding Status: Acute Code(s): K92.2 - Gastrointestinal hemorrhage, unspecified (2) Anemia Status: Acute Code(s): D64.9 - Anemia, unspecified - Plan This patient is a 52-year-old female with past medical history of cirrhosis, end -stage liver disease, alcohol abuse and recurrent ascites. Patient presented to [facility] with complaint of increasing abdominal pain and distention. Patient states she was recently informed by her primary care physician that he presume she has 3-6 months to live. Upon consultation, Patient endorses increasing abdominal pain with distention and shortness of breath over the last 3 weeks. Patient underwent paracentesis during ED stay last evening where 8 L of fluid were removed during therapeutic paracentesis. Patient denies any noted bleeding. She states stools are brown and soft. Patient denies any nausea or vomiting. Patient denies any history of EGD or colonoscopy. She endorses 10-year history of alcohol abuse including 4 drinks of vodka daily over the last 10 years. Patient states she has not had any use of alcohol products for 4 months. She endorses tobacco use presently 1/2 pack/day. Patient denies any home medications. Denies taking diuretics, states she stopped taking home medications 4 months ago as she did not follow-up with primary care physician. Our service has been consulted to evaluate patient for anemia and cirrhosis Cirrhosis /End-stage liver disease Recurrent ascites Anemia Thrombocytopenia Coagulopathy Patient presented to [facility] with increasing abdominal pain and distention. Marked ascites noted on exam. Therapeutic paracentesis performed last evening, 8 L peritoneal fluid removed. Patient denies any obvious bleeding. Denies melena or bright red blood per rectum. Patient denies any nausea vomiting or hematemesis. 01/29/2018 CT abdomen and pelvis reveal the following-- 1. No evidence of retroperitoneal hematoma. 2. Large amount of ascites. 3. Diffuse anasarca. 4. Small nodular liver suggesting cirrhosis. 5. Splenomegaly. 6. Gastric fold thickening involving the fundus and body suggesting acute gastritis. Clinical correlation is recommended. 7. Stable 13 mm noncalcified pulmonary nodule within left lower lobe. Line tiny bilateral pleural effusions and posterior pleural thickening. 8. Scattered ground glass densities within the right middle lobe. 9. Tiny faint calcification within the upper pole the right kidney consistent with nonobstructing calculus. 10. Stable 12 mm right upper pole renal cyst. 11. Degenerative changes and scoliosis of the thoracolumbar spine. WBC 9.5 hemoglobin 5.9 hematocrit 17.6, patient noted to have 2 units of packed red blood cells transfused INR 2.7 total bili 10.3 AST 46 ALT 12 alk phos 123 ammonia 70 albumin 1.2 01/30/2018 EGD on hold for today, INR 2.5 WBC 8.2 hemoglobin 6.9 hematocrit 19.8, no obvious bleeding, 2 units packed RBCs ordered for transfusion. 01/30/2018 hemoglobin 7.6 hematocrit 22.1. 2 units fresh frozen plasma ordered with recheck of INR at 8 PM. If INR greater than 2.0 transfuse an additional 2 units of fresh frozen plasma. 01/31/2018 EGD on hold for today INR 2.2 WBC 9.2 hemoglobin 7.5 hematocrit 21.6 platelet count 82 INR at 1040-1.9 post 2-units of FFP transfused BUN 22 creatinine 1.37 GFR 41 (monitor for hepatorenal syndrome) No active bleeding reported 02/02/2018 Patient resting soundly, Per bedside RN Ativan administered earlier this a.m. Abdomen distended and firm-we will order therapeutic paracentesis WBC 10.8 hemoglobin 9.6 hematocrit 26.8 platelet count 70 INR 1.8 Total bilirubin 13.5 AST 31 ALT 13 alk phos 103 No active bleeding reported 02/01/2018 EGD revealed the following findings: Esophagus: Z line seen at 36 cm. A single column of varices grade 3 was seen that extended from the z line to 25 cm. Two bands were placed on the varix. Stomach: 2 white based punctated 8 mm ulcers were seen in close proximity to each other in the distal antrum anteriorly. No stigmata of recent bleeding seen. Retroflex showed a normal cardia. Duodenum: Bile seen throughout otherwise a normal exam bulb to second portion. Plan -Clear liquids today-post variceal banding -Monitor for bleeding -Transfuse if needed -Therapeutic paracentesis- IR consulted to place Pleurex drainage catheter for recurrent ascites -Monitor labs -Pantoprazole-continue oral PPI for 12 weeks -Albumin -Lactulose -Notify GI for any active bleeding -Avoid anticoagulants and NSAIDs -Avoid hepatotoxins -EGD in 3 months to follow-up healing of ulcers and consider further variceal band ligation -Beta-blockers, nadolol on discharge to be considered to decrease portal pressure -Supportive care -Further recommendations to follow This patient has been seen by myself and Dr. Schneider and this note is written on his behalf - Attending Attestation Dr. Schneider <Marni Edwards - Last Filed: 02/02/18 15:02> (1) Acute GI bleeding Status: Acute Code(s): K92.2 - Gastrointestinal hemorrhage, unspecified (2) Anemia Status: Acute Code(s): D64.9 - Anemia, unspecified - Attending Attestation Patient seen and examined. I agree with the assessment and recommendations above. <Nirav Schneider - Last Filed: 02/03/18 09:57>
[2018-02-02] MEDS ORDERED: fentaNYL Citrate Inj 250 MCG/5 ML Ampul ONE (15:41)
--- NOTE | 2018-02-02 16:25 | P.PNIM ---
Subjective Interval history: Tired sleepy however not in acute dostress. No fever or chils/Some sob Plan for paracentesis and also pleura x discussed with GI Physical Exam Vital signs: Last Vital Signs Temp 97.9 F 02/02/18 12:00 Pulse 77 02/02/18 12:00 Resp 15 02/02/18 12:00 BP 88/44 L 02/02/18 12:00 Pulse Ox 98 02/02/18 12:00 Intake & Output 01/31/18 02/01/18 02/02/18 02/03/18 06:59 06:59 06:59 06:59 Intake Total 1845 / 1845 2516 / 2516 304 / 304 Output Total 400 / 400 550 / 550 100 / 100 Balance 1445 / 1445 1965 / 1965 204 / 204 Weight 74.6 kg 75 kg 73.6 kg Narrative: GENERAL: 52 yo female, frail, underweight SKIN: Warm and dry. jaundiced HEAD: Normocephalic. NECK: Supple, trachea midline. No JVD or lymphadenopathy. CARDIOVASCULAR: regular rate and rhythm, +II/ systolic murmur present RESPIRATORY: Breath sounds equal bilaterally. No accessory muscle use. GASTROINTESTINAL: ascites, diffusely tender abdomen MUSCULOSKELETAL: 1+ LE edema Urinary Catheter Management Indwelling Urethral Catheter: Cath placed during this visit: yes Urethral indwelling: No Insertion date: 01/28/18 Insertion time: 21:43 Results Labs CBC & Chem 7: 02/02/18 04:55 02/02/18 04:55 Assessment and Plan (1) Acute GI bleeding: Code(s): K92.2 - Gastrointestinal hemorrhage, unspecified Status: Acute (2) Anemia: Code(s): D64.9 - Anemia, unspecified Status: Acute Plan Decompensated cirrhosis with retractable ascites status post large volume paracentesis, which much of the fluid has already reaccumulated. End-stage liver disease with alcoholic cirrhosis now with hypotension Midodrin to help with blood pressure Chronic alcoholism with withdrawal Anemia with acute drop in H&H, guaiac is negative, continue PPI, transfuse 1 unit packed red blood cells GI eval hold endoscopy for today due to elevated INR, attempted EGD 02/01 per GI if INR< 2 Coagulopathy related to chronic alcoholic liver disease will get additional FFP, monitor INR . Plan for EGD whrn INR< 2 INR on 02/01 of 1.7 Thrombocytopenia related to alcoholic liver disease and infection (UTI) E. coli urinary tract infection present on admission start antibiotics, follow- up cultures, change Cipro to doxycycline, patient has penicillin allergy and this E. coli is resistant to Cipro Severe protein calorie malnutrition albumin 1.2, started oncotic diuresis, the patient received FFP as well as packed red blood cells, continue nutritional support as tolerated Poor prognosis, palliative care/hospice consult, discussed at length with patient, she is agreeable to hospice at home, she was however wanting to speak to family prior to making decision regarding DNR status. Plan for DC home with hospice after EGD S.P EGD by GI on 02/01 with esophageal varices s/p band ligation Paracentesis and pleura X placement by R on 02/02/18. Mary to DC home with hospice 02/03 18 DVT prophylaxis, SCDs Disposition Home/inpatient hospice if/when, patient agrees For now full code, palliative care ff discussed with the patient, nurse, GI specialist Progress Note: Quality VTE Deep Vein Thrombosis/Pulmonary Embolism Present on Admission: No _ (1) Anemia Qualifiers: Anemia type: Bone marrow failure anemia type: Chronic kidney disease stage : Folate deficiency anemia type: Hemolytic anemia type: Iron deficiency anemia type: Other causes of anemia: Vitamin B12 deficiency anemia type:
--- NOTE | 2018-02-02 16:44 | P.RAD ---
Post Procedure Progress Note - Procedure Information Procedure Date: 02/02/18 Supervising Radiologist: DODIE Mckeon Assisting Physician: Miko Peña Estimated blood loss (mL): 1 Anesthesia: Local, Conscious Sedation - Plan of Activity Patient to Unit: Nursing Unit Patient Condition: Good See PACS Report for procedural detail/treatment.
--- NOTE | 2018-02-02 17:29 | IR ---
EXAM DATE: 02/02/2018 5:18 PM EST AGE/SEX: 52 years / Female INDICATIONS: Patient presents with history of cirrhosis, end stage liver disease, and recurrent asci joana, here for Aspira Drain placement. CLINICAL DATA: This is the patient's initial encounter. Patient reports that signs and symptoms have been present for 3 months and indicates a pain score of 6/10. MEDICAL/SURGICAL HISTORY: Cirrhosis. Pancreatitis. . Hip replacement COMPARISON: [facility] – [place], CT ABDOMEN & PELVIS W/O CONTRAST, 01/29/2018. . FLUORO TIME (min): .3 IMAGE SERIES: 3 RADIATION DOSE: 20.4 mGy ; Combined studies ACCESS SITE: Right SEDATION TIME (min): 30 MEDICATION(S): 3mg midazolam (Versed) IV 150mcg fentanyl (Sublimaze) IV DEVICE(S): Right 15.5F Aspira Drain . . PROCEDURE : 1. Conscious sedation with continuous EKG and Oximetry monitoring. 2. Ultrasound and fluoroscopic guidance 3. Placement of tunneled peritoneal catheter The risks, benefits and alternatives to the procedure were explained and verbal and written consent w as obtained. The site was prepped in sterile fashion. Full sterile technique was used, including ca p, mask, sterile gloves and gown and a large sterile sheet. Hand hygiene and 2% chlorhexidine and Be tadine was utilized per protocol for cutaneous antisepsis with appropriate dry time for site. The sk in and subcutaneous tissues were infiltrated with local anesthetic solution. Next, a 15.5 Yi vascular drainage catheter was advanced through the tract and subsequently insert ed through a peel-away sheath into the peritoneal cavity. Catheter demonstrated appropriate function and was therefore secured into place. Conscious sedation was performed with the prescribed dosages and duration as above in the presence of an independent trained radiology nurse to assist in the monitoring of the patient. EKG and oximetry remained stable throughout the procedure. CONCLUSION: 1. Uncomplicated placement of tunneled peritoneal Aspira catheter. Electronically signed by: Miko Peña MD Board Certified Radiologist 02/02/2018 5:27 PM LUIS Braun
[2018-02-02] MEDS: Sod Chloride 0.9% Inj 1,000 ML IV.CONT SCH (18:50)
--- NOTE | 2018-02-02 19:13 | ECHRPT ---
Indication: Shortness of Breath CONCLUSIONS Normal left ventricular size. The left ventricular systolic function is normal with an estimated ejection fraction in the range of 60-65%. Wall thickness is normal. The left atrial size is upper limits of normal. Mild to moderate mitral valve regurgitation. There is mild tricuspid valve regurgitation. The estimated pulmonary arterial pressure is 46 mmHg. There is a small pericardial effusion present. A large left sided pleural effusion is noted. BP: / HR: Rhythm: MEASUREMENTS (Male / Female) Normal Values Technical Quality:Good 2D ECHO LV Diastolic Diameter PLAX 4.5 cm 4.2 - 5.9 / 3.9 - 5.3 cm LV Systolic Diameter PLAX 2.4 cm IVS Diastolic Thickness 0.9 cm 0.6 - 1.0 / 0.6 - 0.9 cm LVPW Diastolic Thickness 0.9 cm 0.6 - 1.0 / 0.6 - 0.9 cm LV Relative Wall Thickness 0.4 RV Internal Dim ED PLAX 3.2 cm LVOT Diameter 2.0 cm Aortic Root Diameter 2.8 cm LA Systolic Diameter LX 4.0 cm 3.0 - 4.0 / 2.7 - 3.8 cm M-MODE AV Cusp Separation MM 2.2 cm DOPPLER AV Peak Velocity 192.0 cm/s AV Peak Gradient 14.7 mmHg LVOT Peak Velocity 137.0 cm/s LVOT Peak Gradient 7.5 mmHg AV Area Cont Eq pk 2.2 cm Mitral E Point Velocity 98.2 cm/s Mitral A Point Velocity 96.3 cm/s Mitral E to A Ratio 1.0 LV E' Lateral Velocity 12.0 cm/s Mitral E to LV E' Lateral Ratio 8.2 LV E' Septal Velocity 9.9 cm/s Mitral E to LV E' Septal Ratio 9.9 TR Peak Velocity 300.0 cm/s TR Peak Gradient 36.0 mmHg Right Atrial Pressure 10.0 mmHg Pulmonary Artery Systolic Pressu 46.0 mmHg Right Ventricular Systolic Press 46.0 mmHg PV Peak Velocity 121.0 cm/s PV Peak Gradient 5.9 mmHg FINDINGS LEFT VENTRICLE Normal left ventricular size. Wall thickness is normal. The left ventricular systolic function is normal with an estimated ejection fraction in the range of 60-65%. RIGHT VENTRICLE Normal right ventricular size and systolic function. LEFT ATRIUM The left atrial size is upper limits of normal. RIGHT ATRIUM The right atrial size is normal. ATRIAL SEPTUM Normal atrial septal thickness without atrial level shunting by limited color doppler interrogation. AORTA The aortic root and proximal ascending aorta are normal in size on limited imaging. MITRAL VALVE Mild mitral valve regurgitation. AORTIC VALVE Trileaflet aortic valve. No aortic valve stenosis or regurgitation. TRICUSPID VALVE There is mild tricuspid valve regurgitation. The estimated pulmonary arterial pressure is 46 mmHg. PULMONARY VALVE No pulmonary valve regurgitation or stenosis. VESSELS The inferior vena cava was not well visualized. PERICARDIUM There is a small pericardial effusion present. A large left sided pleural effusion is noted. Jose Gibson MD, FACC, FSCAI (Electronically Signed) Final Date:02 February 2018 19:12
--- NOTE | 2018-02-03 00:18 | P.DS ---
DS: Providers Date of admission: 01/29/18 11:11 Primary care physician: Marco Antonio Aranda DO Consults: 01/29/18 10:28 Consult to Gastroenterology Routine Consulting Provider: Nirav Schneider Reason for Consultation: cirrhotic now with acute blood loss anemia over last 12hrs. Notified:: Office Spoke with:: FIDELINA Date Notified:: 01/29/18 Time Notified:: 10:33 Ordering Provider: DAVID 02/01/18 17:49 Consult to Cardiology Routine Consulting Provider: Min Ryan Does the patient have a Buffing Wheel Presser who follows them?: No Preferred Commercial Property Manager:: Clinical Systems Educator Physician Reason for Consultation: RE: CHEST PAIN Notified:: Service Spoke with:: JERALD Date Notified:: 02/01/18 Time Notified:: 18:01 Comments:: Ordering Provider: ELIU Brief History from admission: This is a 52-year-old female with a PMH of Cirrhosis/ESLD, h/o Alcohol Abuse and Recurrent Ascites who presented to the ER w/ c/o abdominal pain and worsening distention. Previous admit 11/25/17 for hepatic encephalopathy/ ascites, estimated 3-month mortality based on Meld score, ultimately LEFT AMA on 12/12/17 after eloping. States she has been following w/ her PCP, Dr. Aranda, who gave her 4-6 months to live. Now w/ worsening abdominal distention. On arrival, BP 121/68, HR 79, O2 sat 99% on 2L NC, Afebrile. CBC essentially at baseline. INR 2.3. Lactic Acid 2.8. Ammonia 70. UA mild bacteriuria. CXR negative. CT Abdomen/Pelvis no significant change, small right pleural effusion, pulmonary edema, extensive ascites significantly progressed from prior exam. S/p Paracentesis in ER w/ 8L removal. DS: Diagnosis Discharge Diagnosis (1) Acute GI bleeding: Status: Acute (2) Anemia: Status: Acute DS: Summary Decompensated cirrhosis with retractable ascites status post large volume paracentesis, which much of the fluid has already reaccumulated. End-stage liver disease with alcoholic cirrhosis now with hypotension Midodrin to help with blood pressure Chronic alcoholism with withdrawal Anemia with acute drop in H&H, guaiac is negative, continue PPI, transfuse 1 unit packed red blood cells GI eval hold endoscopy for today due to elevated INR, attempted EGD 02/01 per GI if INR< 2 Coagulopathy related to chronic alcoholic liver disease will get additional FFP, monitor INR . Plan for EGD whrn INR< 2 INR on 02/01 of 1.7 Thrombocytopenia related to alcoholic liver disease and infection (UTI) E. coli urinary tract infection present on admission start antibiotics, follow- up cultures, change Cipro to doxycycline, patient has penicillin allergy and this E. coli is resistant to Cipro Severe protein calorie malnutrition albumin 1.2, started oncotic diuresis, the patient received FFP as well as packed red blood cells, continue nutritional support as tolerated Poor prognosis, palliative care/hospice consult, discussed at length with patient, she is agreeable to hospice at home, she was however wanting to speak to family prior to making decision regarding DNR status. Plan for DC home with hospice after EGD S.P EGD by GI on 02/01 with esophageal varices s/p band ligation Paracentesis and pleura X placement by R on 02/02/18. DC home with hospice 02/03 18 Time spent discussing smoking cessation with patient: more than 10 minutes Time Spent with Patient Total time spent providing and/or coordinating discharge services:> 30 min Quality: VTE Deep Vein Thrombosis/Pulmonary Embolism Present on Admission: No Exam Narrative Exam Narrative: GENERAL: Well-developed, well-nourished, chronically ill- appearing female. SKIN: Focused skin assessment warm/dry. Jaundiced HEAD: Atraumatic. Normocephalic. EYES: Pupils equal and round. Positive scleral icterus. No injection or drainage. CARDIOVASCULAR: Regular rate and rhythm. No murmur appreciated. RESPIRATORY: No accessory muscle use. Diminished GASTROINTESTINAL: Abdomen significantly distended, firm, tender. Venous distention to the abdomen. MUSCULOSKELETAL: No obvious deformities. No clubbing. No cyanosis. No edema. NEUROLOGICAL: Awake and alert. No obvious cranial nerve deficits. Motor grossly within normal limits. Normal speech. Results Labs on day of discharge: Labs from last 24 hours 02/02/18 02/02/18 02/02/18 04:55 04:55 04:55 WBC 10.8 RBC 2.88 L Hgb 9.6 L D Hct 26.8 L MCV 93.1 MCH 33.4 MCHC 35.9 RDW 18.2 H Plt Count 70 L MPV 7.1 Prelim Diff (Auto) Slide review pending Neut % (Auto) 83.0 H Lymph % (Auto) 5.4 L [place] % (Auto) 10.1 H Eos % (Auto) 1.4 Baso % (Auto) 0.1 Neut # (Auto) 9.0 H Lymph # (Auto) 0.6 L [place] # (Auto) 1.1 H Eos # (Auto) 0.1 Baso # (Auto) 0.0 WBC Differential . Diff Scan Auto diff confirmed Differential Comment . Platelet Estimate Low L Platelet Morphology Normal PT 18.1 H INR 1.8 Sodium 134 L Potassium 4.0 Chloride 101 Carbon Dioxide 21.0 Anion Gap 12 BUN 28 H Creatinine 2.10 H Estimated GFR 25 L Random Glucose 89 Calcium 7.9 L Total Bilirubin 13.5 H AST 31 ALT 13 Alkaline Phosphatase 103 Total Protein 5.9 L Albumin 2.4 L Blood Type Antibody Screen MTS Gel Crossmatch 02/01/18 09:54 WBC RBC Hgb Hct MCV MCH MCHC RDW Plt Count MPV Prelim Diff (Auto) Neut % (Auto) Lymph % (Auto) [place] % (Auto) Eos % (Auto) Baso % (Auto) Neut # (Auto) Lymph # (Auto) [place] # (Auto) Eos # (Auto) Baso # (Auto) WBC Differential Diff Scan Differential Comment Platelet Estimate Platelet Morphology PT INR Sodium Potassium Chloride Carbon Dioxide Anion Gap BUN Creatinine Estimated GFR Random Glucose Calcium Total Bilirubin AST ALT Alkaline Phosphatase Total Protein Albumin Blood Type O Positive Antibody Screen Negative MTS Gel Crossmatch See Detail Impressions ITS Impressions Chest X-Ray 01/28/18 21:37 CONCLUSION: The lungs are clear. Submaximal inspiration. Abdomen/Pelvis CT 01/29/18 00:00 CONCLUSION: 1. No evidence of retroperitoneal hematoma. 2. Large amount of ascites. 3. Diffuse anasarca. 4. Small nodular liver suggesting cirrhosis. 5. Splenomegaly. 6. Gastric fold thickening involving the fundus and body suggesting acute gastritis. Clinical correlation is recommended. 7. Stable 13 mm noncalcified pulmonary nodule within left lower lobe. Line tiny bilateral pleural effusions and posterior pleural thickening. 8. Scattered groundglass densities within the right middle lobe. 9. Tiny faint calcification within the upper pole the right kidney consistent with nonobstructing calculus. 10. Stable 12 mm right upper pole renal cyst. 11. Degenerative changes and scoliosis of the thoracolumbar spine. Catheter Placement X-Ray 02/02/18 00:00 CONCLUSION: 1. Uncomplicated placement of tunneled peritoneal Aspira catheter. Discharge Plan Discharge Disposition Patient Disposition: 50 Hospice/Home Discharge Condition Condition: Serious Discharge Order Discharge Orders: Discharge Order (Routine); Ordered 02/03/18 Ordered By: Catalina Solorio Discharge Details Anticipated Discharge Date: 02/03/18 Discharge Comment: DC when arrangements are done Physicians Team Primary Care Provider: Marco Antonio Aranda Attending Provider: Catalina Solorio Other Providers: Nirav Schneider ; Min Ryan ; [facility] & [facility],Agency Rxs /Orders / Referrals /Forms Prescriptions: New propranolol 10 mg Tablet 10 mg PO BID Qty: 60 RF: 0 folic acid 1 mg Tablet 1 mg PO DAILY Qty: 30 RF: 0 midodrine 5 mg Tablet 10 mg PO TID@0700,1200,1700 Qty: 90 RF: 0 pantoprazole 40 mg tablet,delayed release (DR/EC) 40 mg PO DAILY 28 Days Qty: 28 RF: 0 lactulose 20 gram/30 mL Solution 30 ml PO TID 30 Days Qty: 2700 RF: 0 Discontinued hydrocodone-acetaminophen 5-325 mg Tablet 1 tab PO Q4-6H PRN (Reason: Acute Pain) RF: 0 spironolactone 25 mg Tablet 25 mg PO DAILY RF: 0 fentanyl 25 mcg/hr Patch 72 Hour 1 patch TRANSDERMAL Q72H RF: 0 metoprolol tartrate 25 mg Tablet 25 mg PO BID RF: 0 Referrals: Marco Antonio Aranda, DO [Primary Care Provider] - See Instructions ( Please call the physician's office to book the appointment to be seen within [2-3 ].) Discharge Instructions Patient Printed Instructions: Cirrhosis (DC), Ascites (DC), Esophageal Varices (DC), Esophageal Banding (GEN) Status ED Status: Left Department
[2018-02-03] MEDS: Albumin Human 25% Inj 50 ML IV.SIG SCH ×2 (03:46→16:23)
[2018-02-03 06:35] LABS: INR 2.1 Ratio; Prothrombin Time 20.8 sec (9.8-11.6)
[2018-02-03 06:54] LABS: Alanine Aminotransferase 9 U/L (10-53); Albumin 2.2 g/dL (3.4-5.0); Anion Gap 10 meq/L (5-15); Aspartate Aminotransferase 27 U/L (15-37); Blood Urea Nitrogen 35 mg/dL (7-18); Calcium 7.9 mg/dL (8.5-10.1); Carbon Dioxide 22.3 meq/L (21.0-32.0); Chloride 102 meq/L (98-107); Glomerular Filtration Rate 23 mL/min (>89); Glucose,Random 119 mg/dL (74-106); Potassium 3.7 meq/L (3.5-5.1); Sodium 134 meq/L (136-145)
[2018-02-03 06:56] LABS: Alkaline Phosphatase 100 U/L (45-117); Total Protein 5.5 g/dL (6.4-8.2)
[2018-02-03 09:15] LABS: Baso % (Auto) 0.2 % (0.0-2.0); Eos # (Auto) 0.2 th/mm3 (0.0-0.4); Hematocrit 28.5 % (35.0-46.0); Hemoglobin 10.2 gm/dL (11.6-15.3); Lymph # (Auto) 0.8 th/mm3 (1.0-4.8); Lymph % (Auto) 8.4 % (9.0-44.0); Mean Corpuscular Hemoglobin 34.3 pg (27.0-34.0); Mean Corpuscular Volume 95.4 fL (80.0-100.0); Mean Platelet Volume 7.1 fL (7.0-11.0); Mono # (Auto) 1.3 th/mm3 (0.0-0.9); Mono % (Auto) 13.6 % (0.0-8.0); Neut # (Auto) 7.4 th/mm3 (1.8-7.7); Neut % (Auto) 75.8 % (16.0-70.0); Platelet Count 65 th/mm3 (150-450); Red Blood Count 2.98 mil/mm3 (4.00-5.30); Red Cell Distribution Width 18.4 % (11.6-17.2); White Blood Count 9.8 th/mm3 (4.0-11.0)
[2018-02-03] MEDS: Senna/Docusate Sodium 8.6/50 MG Tablet PO SCH ×2 (09:29→21:05)
[2018-02-03] MEDS: Spironolactone 50 MG Tablet PO SCH (09:31)
[2018-02-03] MEDS: Folic Acid 1 MG Tablet PO SCH (09:31)
[2018-02-03] MEDS: Propranolol 10 MG Tablet PO SCH ×2 (09:32→21:04)
[2018-02-03 10:10] LABS: Acanthocytes 1+; Eosinophils 5 % (0-4); Lymphocytes 5 % (9-44); Metamyelocytes 1 % (0-1); Monocytes 10 % (0-8); Platelet Morphology Normal (Normal)
[2018-02-03 10:12] LABS: Burr Cells 1+
--- NOTE | 2018-02-03 10:13 | P.PNGI ---
Subjective Interval history: Pt is resting in bed, going home today with hospice, rectal tube noted with brown liquid. Denies N/V or hematemesis. <Rome Meier - Last Filed: 02/03/18 10:05> Physical Exam Vital signs: Vital Signs 02/02/18 12:00 02/02/18 17:15 02/02/18 17:30 Temperature 97.9 F 97.9 F Pulse Rate 77 78 72 Respiratory Rate 15 20 20 Blood Pressure 88/44 L 87/53 L 83/52 L Pulse Oximetry 98 97 97 02/02/18 18:00 02/02/18 19:24 02/02/18 20:00 Temperature 97.5 F L Pulse Rate 76 75 Respiratory Rate 20 18 Blood Pressure 82/51 L 90/56 L Pulse Oximetry 97 97 98 02/03/18 00:00 02/03/18 04:00 Temperature 97.9 F 97.8 F Pulse Rate 81 81 Respiratory Rate 18 18 Blood Pressure 94/60 L 91/54 L Pulse Oximetry 99 97 Intake & Output 02/02/18 02/03/18 02/03/18 18:59 06:59 18:59 Intake Total 100 / 100 Output Total 2700 / 2700 Balance -2600 / -2600 Weight 69.9 kg Intake: IV 100 / 100 Flexbumin 25% Inj 50 ML @ 60 100 / 100 mls/hr IV.SIG Q12H [facility] Rx#: [id number] Output: Urine 100 / 100 Urine Amount (Catheter) 600 / 600 Indwelling Urethral Catheter 600 / 600 Wound Drainage 1999 Left Abdomen 1999 Other: Date of Last Bowel Movement 02/02/18 # Bowel Movements 1 Narrative: GENERAL: 52 yo female, frail, underweight SKIN: Warm and dry. jaundiced HEAD: Normocephalic. NECK: Supple, trachea midline. No JVD or lymphadenopathy. CARDIOVASCULAR: regular rate and rhythm, +II/ systolic murmur present RESPIRATORY: Breath sounds equal bilaterally. No accessory muscle use. GASTROINTESTINAL: ascites, diffusely tender abdomen MUSCULOSKELETAL: 1+ LE edema Neuro: Alert - Urinary Catheter Management Indwelling Urethral Catheter Cath placed during this visit: yes Urethral indwelling: No Reason for continuing: Acute urinary retention Insertion date: 01/28/18 Insertion time: 21:43 <Rome Meier - Last Filed: 02/03/18 10:05> Vital signs: Vital Signs 02/02/18 12:00 02/02/18 17:15 02/02/18 17:30 Temperature 97.9 F 97.9 F Pulse Rate 77 78 72 Respiratory Rate 15 20 20 Blood Pressure 88/44 L 87/53 L 83/52 L Pulse Oximetry 98 97 97 02/02/18 18:00 02/02/18 19:24 02/02/18 20:00 Temperature 97.5 F L Pulse Rate 76 75 Respiratory Rate 20 18 Blood Pressure 82/51 L 90/56 L Pulse Oximetry 97 97 98 02/03/18 00:00 02/03/18 04:00 Temperature 97.9 F 97.8 F Pulse Rate 81 81 Respiratory Rate 18 18 Blood Pressure 94/60 L 91/54 L Pulse Oximetry 99 97 Intake & Output 02/02/18 02/03/18 02/03/18 18:59 06:59 18:59 Intake Total 100 / 100 Output Total 2700 / 2700 Balance -2600 / -2600 Weight 69.9 kg Intake: IV 100 / 100 Flexbumin 25% Inj 50 ML @ 60 100 / 100 mls/hr IV.SIG Q12H [facility] Rx#: [id number] Output: Urine 100 / 100 Urine Amount (Catheter) 600 / 600 Indwelling Urethral Catheter 600 / 600 Wound Drainage 1999 Left Abdomen 1999 Other: Date of Last Bowel Movement 02/02/18 # Bowel Movements 1 - Urinary Catheter Management Indwelling Urethral Catheter Cath placed during this visit: no <Nirav Schneider - Last Filed: 02/03/18 10:16> Results - Labs CBC & Chem 7: 02/03/18 08:52 02/03/18 04:59 Laboratory Results - last 24 hr 02/03/18 02/03/18 02/03/18 04:59 04:59 08:52 WBC 9.8 RBC 2.98 L Hgb 10.2 L Hct 28.5 L MCV 95.4 MCH 34.3 H MCHC 36.0 RDW 18.4 H Plt Count 65 L MPV 7.1 Prelim Diff (Auto) Slide review pending Neut % (Auto) 75.8 H Lymph % (Auto) 8.4 L [place] % (Auto) 13.6 H Eos % (Auto) 2.0 Baso % (Auto) 0.2 Neut # (Auto) 7.4 Lymph # (Auto) 0.8 L [place] # (Auto) 1.3 H Eos # (Auto) 0.2 Baso # (Auto) 0.0 Differential Comment . PT 20.8 H INR 2.1 Sodium 134 L Potassium 3.7 Chloride 102 Carbon Dioxide 22.3 Anion Gap 10 BUN 35 H Creatinine 2.22 H Estimated GFR 23 L Random Glucose 119 H Calcium 7.9 L Total Bilirubin 13.7 H AST 27 ALT 9 L Alkaline Phosphatase 100 Total Protein 5.5 L Albumin 2.2 L - Imaging Impressions Catheter Placement X-Ray 02/02/18 00:00 CONCLUSION: 1. Uncomplicated placement of tunneled peritoneal Aspira catheter. <Rome Meier - Last Filed: 02/03/18 10:05> - Labs CBC & Chem 7: 02/03/18 08:52 02/03/18 04:59 Laboratory Results - last 24 hr 02/03/18 02/03/18 02/03/18 04:59 04:59 08:52 WBC 9.8 RBC 2.98 L Hgb 10.2 L Hct 28.5 L MCV 95.4 MCH 34.3 H MCHC 36.0 RDW 18.4 H Plt Count 65 L MPV 7.1 Prelim Diff (Auto) Slide review pending Neut % (Auto) 75.8 H Lymph % (Auto) 8.4 L [place] % (Auto) 13.6 H Eos % (Auto) 2.0 Baso % (Auto) 0.2 Neut # (Auto) 7.4 Lymph # (Auto) 0.8 L [place] # (Auto) 1.3 H Eos # (Auto) 0.2 Baso # (Auto) 0.0 WBC Differential Manual diff final Seg Neuts % (Manual) 70 Band Neuts % (Manual) 9 H Lymphocytes % (Manual) 5 L Monocytes % (Manual) 10 H Eosinophils % (Manual) 5 H Metamyelocytes % (Man) 1 Abs Neuts (Manual) 7.8 H Differential Comment . Platelet Estimate Low L Platelet Morphology Normal [place] Cells 1+ H Acanthocytes (Spur) 1+ H Keratocytes Occ H PT 20.8 H INR 2.1 Sodium 134 L Potassium 3.7 Chloride 102 Carbon Dioxide 22.3 Anion Gap 10 BUN 35 H Creatinine 2.22 H Estimated GFR 23 L Random Glucose 119 H Calcium 7.9 L Total Bilirubin 13.7 H AST 27 ALT 9 L Alkaline Phosphatase 100 Total Protein 5.5 L Albumin 2.2 L - Imaging Impressions Catheter Placement X-Ray 02/02/18 00:00 CONCLUSION: 1. Uncomplicated placement of tunneled peritoneal Aspira catheter. <Nirav Schneider - Last Filed: 02/03/18 10:16> Assessment and Plan (1) Acute GI bleeding Status: Acute Code(s): K92.2 - Gastrointestinal hemorrhage, unspecified (2) Anemia Status: Acute Code(s): D64.9 - Anemia, unspecified - Plan This patient is a 52-year-old female with past medical history of cirrhosis, end -stage liver disease, alcohol abuse and recurrent ascites. Patient presented to [facility] with complaint of increasing abdominal pain and distention. Patient states she was recently informed by her primary care physician that he presume she has 3-6 months to live. Upon consultation, Patient endorses increasing abdominal pain with distention and shortness of breath over the last 3 weeks. Patient underwent paracentesis during ED stay last evening where 8 L of fluid were removed during therapeutic paracentesis. Patient denies any noted bleeding. She states stools are brown and soft. Patient denies any nausea or vomiting. Patient denies any history of EGD or colonoscopy. She endorses 10-year history of alcohol abuse including 4 drinks of vodka daily over the last 10 years. Patient states she has not had any use of alcohol products for 4 months. She endorses tobacco use presently 1/2 pack/day. Patient denies any home medications. Denies taking diuretics, states she stopped taking home medications 4 months ago as she did not follow-up with primary care physician. Our service has been consulted to evaluate patient for anemia and cirrhosis Cirrhosis /End-stage liver disease Recurrent ascites Anemia Thrombocytopenia Coagulopathy Patient presented to [facility] with increasing abdominal pain and distention. Marked ascites noted on exam. Therapeutic paracentesis performed last evening, 8 L peritoneal fluid removed. Patient denies any obvious bleeding. Denies melena or bright red blood per rectum. Patient denies any nausea vomiting or hematemesis. 01/29/2018 CT abdomen and pelvis reveal the following-- 1. No evidence of retroperitoneal hematoma. 2. Large amount of ascites. 3. Diffuse anasarca. 4. Small nodular liver suggesting cirrhosis. 5. Splenomegaly. 6. Gastric fold thickening involving the fundus and body suggesting acute gastritis. Clinical correlation is recommended. 7. Stable 13 mm noncalcified pulmonary nodule within left lower lobe. Line tiny bilateral pleural effusions and posterior pleural thickening. 8. Scattered ground glass densities within the right middle lobe. 9. Tiny faint calcification within the upper pole the right kidney consistent with nonobstructing calculus. 10. Stable 12 mm right upper pole renal cyst. 11. Degenerative changes and scoliosis of the thoracolumbar spine. WBC 9.5 hemoglobin 5.9 hematocrit 17.6, patient noted to have 2 units of packed red blood cells transfused INR 2.7 total bili 10.3 AST 46 ALT 12 alk phos 123 ammonia 70 albumin 1.2 01/30/2018 EGD on hold for today, INR 2.5 WBC 8.2 hemoglobin 6.9 hematocrit 19.8, no obvious bleeding, 2 units packed RBCs ordered for transfusion. 01/30/2018 hemoglobin 7.6 hematocrit 22.1. 2 units fresh frozen plasma ordered with recheck of INR at 8 PM. If INR greater than 2.0 transfuse an additional 2 units of fresh frozen plasma. 01/31/2018 EGD on hold for today INR 2.2 WBC 9.2 hemoglobin 7.5 hematocrit 21.6 platelet count 82 INR at 1040-1.9 post 2-units of FFP transfused BUN 22 creatinine 1.37 GFR 41 (monitor for hepatorenal syndrome) No active bleeding reported 02/02/2018 Patient resting soundly, Per bedside RN Ativan administered earlier this a.m. Abdomen distended and firm-we will order therapeutic paracentesis WBC 10.8 hemoglobin 9.6 hematocrit 26.8 platelet count 70 INR 1.8 Total bilirubin 13.5 AST 31 ALT 13 alk phos 103 No active bleeding reported 02/01/2018 EGD revealed the following findings: Esophagus: Z line seen at 36 cm. A single column of varices grade 3 was seen that extended from the z line to 25 cm. Two bands were placed on the varix. Stomach: 2 white based punctated 8 mm ulcers were seen in close proximity to each other in the distal antrum anteriorly. No stigmata of recent bleeding seen. Retroflex showed a normal cardia. Duodenum: Bile seen throughout otherwise a normal exam bulb to second portion. 02/03/18 Patient going home today with hospice, today 10.04/12.5 stable Not having any bleeding. Plan -may advance diet -Monitor for bleeding -Transfuse if needed - S/p Pleurex drainage catheter for recurrent ascites -Monitor labs -Pantoprazole -Albumin -Lactulose -Notify GI for any active bleeding -Avoid anticoagulants and NSAIDs -Avoid hepatotoxins -EGD in 3 months to follow-up healing of ulcers and consider further variceal band ligation -Beta-blockers, nadolol on discharge to be considered to decrease portal pressure - Ok to go home from GI stand point This patient has been seen by myself and Dr. Schneider and this note is written on his behalf <Rome Meier - Last Filed: 02/03/18 10:05> (1) Acute GI bleeding Status: Acute Code(s): K92.2 - Gastrointestinal hemorrhage, unspecified (2) Anemia Status: Acute Code(s): D64.9 - Anemia, unspecified - Attending Attestation I have seen and examined the patient. I agree with the assessment and recommendations. <Nirav Schneider - Last Filed: 02/03/18 10:16>
[2018-02-03] MEDS: Pantoprazole Inj 40 MG Vial IV.PUSH SCH ×2 (10:46→22:20)
[2018-02-03] MEDS ORDERED: Sodium Chlor 0.9% Inj 250 ML IV.SIG ONE (11:30)
[2018-02-03] MEDS: Sod Chloride 0.9% Inj 1,000 ML IV.CONT SCH (16:24)
[2018-02-04] MEDS: Albumin Human 25% Inj 50 ML IV.SIG SCH ×2 (03:55→16:08)
[2018-02-04] MEDS: Propranolol 10 MG Tablet PO SCH ×2 (09:35→21:20)
[2018-02-04] MEDS: Folic Acid 1 MG Tablet PO SCH (09:35)
[2018-02-04] MEDS: Senna/Docusate Sodium 8.6/50 MG Tablet PO SCH ×2 (09:36→21:23)
[2018-02-04 10:01] LABS: INR 2.2 Ratio; Prothrombin Time 22.1 sec (9.8-11.6)
[2018-02-04 10:18] LABS: Albumin 2.2 g/dL (3.4-5.0); Anion Gap 11 meq/L (5-15); Aspartate Aminotransferase 41 U/L (15-37); Blood Urea Nitrogen 38 mg/dL (7-18); Calcium 7.6 mg/dL (8.5-10.1); Carbon Dioxide 21.9 meq/L (21.0-32.0); Chloride 101 meq/L (98-107); Glomerular Filtration Rate 29 mL/min (>89); Glucose,Random 117 mg/dL (74-106); Potassium 3.4 meq/L (3.5-5.1); Sodium 134 meq/L (136-145)
[2018-02-04 10:19] LABS: Alanine Aminotransferase 12 U/L (10-53)
[2018-02-04 10:21] LABS: Alkaline Phosphatase 105 U/L (45-117); Total Protein 5.7 g/dL (6.4-8.2)
--- NOTE | 2018-02-04 11:35 | P.PNIM ---
Subjective Interval history: The patient is in bed she does not appear in acute distress at this time. Has some pain in her abdomen. No nausea or vomiting. Not eating much. Hospice at bedside. Plan is for patient to go to hospice/ facility if possible tomorrow and they have bed. Physical Exam Vital signs: Last Vital Signs Temp 97.7 F 02/04/18 08:00 Pulse 68 02/04/18 09:31 Resp 15 02/04/18 08:00 BP 94/50 L 02/04/18 08:00 Pulse Ox 98 02/04/18 09:31 Intake & Output 02/02/18 02/03/18 02/04/18 02/05/18 06:59 06:59 06:59 06:59 Intake Total 304 / 304 100 / 100 725 / 725 120 / 120 Output Total 100 / 100 2700 / 2700 4750 / 4750 425 / 425 Balance 204 / 204 -2600 / -2600 -4025 / -4025 -305 / -305 Weight 73.6 kg 69.9 kg 65.7 kg Narrative: GENERAL: 52 yo female, frail, underweight SKIN: Warm and dry. jaundiced HEAD: Normocephalic. NECK: Supple, trachea midline. No JVD or lymphadenopathy. CARDIOVASCULAR: regular rate and rhythm, +II/ systolic murmur present RESPIRATORY: Breath sounds equal bilaterally. No accessory muscle use. GASTROINTESTINAL: ascites, diffusely tender abdomen MUSCULOSKELETAL: 1+ LE edema Neuro: Alert Urinary Catheter Management Indwelling Urethral Catheter: Cath placed during this visit: yes Urethral indwelling: No Insertion date: 01/28/18 Insertion time: 21:43 Results Labs CBC & Chem 7: 02/03/18 08:52 02/04/18 06:47 Assessment and Plan (1) Acute GI bleeding: Code(s): K92.2 - Gastrointestinal hemorrhage, unspecified Status: Acute (2) Anemia: Code(s): D64.9 - Anemia, unspecified Status: Acute Plan Decompensated cirrhosis with retractable ascites status post large volume paracentesis, which much of the fluid has already reaccumulated. End-stage liver disease with alcoholic cirrhosis now with hypotension Midodrin to help with blood pressure Chronic alcoholism with withdrawal Anemia with acute drop in H&H, guaiac is negative, continue PPI, transfuse 1 unit packed red blood cells GI eval hold endoscopy for today due to elevated INR, attempted EGD 02/01 per GI if INR< 2 Coagulopathy related to chronic alcoholic liver disease will get additional FFP, monitor INR . Plan for EGD whrn INR< 2 INR on 02/01 of 1.7 Thrombocytopenia related to alcoholic liver disease and infection (UTI) E. coli urinary tract infection present on admission start antibiotics, follow- up cultures, change Cipro to doxycycline, patient has penicillin allergy and this E. coli is resistant to Cipro Severe protein calorie malnutrition albumin 1.2, started oncotic diuresis, the patient received FFP as well as packed red blood cells, continue nutritional support as tolerated Poor prognosis, palliative care/hospice consult, discussed at length with patient, she is agreeable to hospice at home, she was however wanting to speak to family prior to making decision regarding DNR status. Plan for DC home with hospice after EGD S.P EGD by GI on 02/01 with esophageal varices s/p band ligation Paracentesis and pleura X placement by R on 02/02/18. Mary to DC home with hospice 02/03 18 DVT prophylaxis, SCDs Disposition Home/inpatient hospice if/when, patient agrees For now full code, palliative care ff discussed with the patient, nurse, GI specialist Progress Note: Quality VTE Deep Vein Thrombosis/Pulmonary Embolism Present on Admission: No _ (1) Anemia Qualifiers: Anemia type: Bone marrow failure anemia type: Chronic kidney disease stage : Folate deficiency anemia type: Hemolytic anemia type: Iron deficiency anemia type: Other causes of anemia: Vitamin B12 deficiency anemia type:
[2018-02-04] MEDS: Pantoprazole Inj 40 MG Vial IV.PUSH SCH ×2 (11:47→22:30)
[2018-02-04] MEDS: Sod Chloride 0.9% Inj 1,000 ML IV.CONT SCH (16:07)
[2018-02-05] MEDS: Albumin Human 25% Inj 50 ML IV.SIG SCH ×2 (03:13→17:21)
[2018-02-05 07:26] LABS: INR 2.2 Ratio; Prothrombin Time 22.5 sec (9.8-11.6)
[2018-02-05 07:43] LABS: Albumin 2.1 g/dL (3.4-5.0); Calcium 7.4 mg/dL (8.5-10.1); Potassium 3.5 meq/L (3.5-5.1)
[2018-02-05 07:47] LABS: Total Protein 5.4 g/dL (6.4-8.2)
[2018-02-05] MEDS: Propranolol 10 MG Tablet PO SCH ×2 (11:21→20:13)
[2018-02-05] MEDS: Senna/Docusate Sodium 8.6/50 MG Tablet PO SCH ×2 (11:21→20:22)
[2018-02-05] MEDS: Folic Acid 1 MG Tablet PO SCH (11:21)
--- NOTE | 2018-02-05 13:44 | P.PNIM ---
Subjective Interval history: Patient is currently not in any acute distress. Patient appears jaundiced and weak. No other complaints from the patient. Physical Exam Vital signs: Vital Signs 02/04/18 17:53 02/04/18 18:00 02/04/18 20:00 Temperature 98.5 F 98.3 F Pulse Rate 69 68 Respiratory Rate 17 18 Blood Pressure 108/64 97/55 L Pulse Oximetry 99 99 100 02/05/18 00:00 02/05/18 04:00 Temperature 97.9 F 98.4 F Pulse Rate 72 68 Respiratory Rate 18 18 Blood Pressure 95/51 L 94/55 L Pulse Oximetry 94 L 97 Intake & Output 02/04/18 02/05/18 02/05/18 18:59 06:59 18:59 Intake Total 970 / 970 456 / 456 Output Total 2425 / 2425 3560 / 3560 Balance -1455 / -1455 -3104 / -3104 Weight 60 kg Intake: IV 50 / 50 50 / 50 Flexbumin 25% Inj 50 ML @ 60 50 / 50 50 / 50 mls/hr IV.SIG Q12H [facility] Rx#: [id number] Oral 920 / 920 406 / 406 Output: Urine Amount (Catheter) 725 / 725 160 / 160 Indwelling Urethral Catheter 725 / 725 160 / 160 Wound Drainage 1700 / 1700 3400 / 3400 Left Abdomen 1700 / 1700 Right Lower Anterior Abdomen 3400 / 3400 Other: Date of Last Bowel Movement 02/03/18 02/04/18 # Bowel Movements 0 Narrative: General patient in no acute distress, patient jaundiced HEENT extraocular movements are intact, clear oropharyngeal mucosa, no JVD Cardiovascular S1-S2 audible, RRR, no murmurs rubs or gallops Respiratory clear to auscultation bilaterally Abdomen distended, bowel sounds present, catheter in place. Neuro no focal neurological deficit - Urinary Catheter Management Indwelling Urethral Catheter Cath placed during this visit: yes Urethral indwelling: No Reason for continuing: Hourly intake/output Insertion date: 01/28/18 Insertion time: 21:43 Results - Labs CBC & Chem 7: 02/03/18 08:52 02/05/18 06:50 Laboratory Results - last 24 hr 02/05/18 02/05/18 06:50 06:50 PT 22.5 H INR 2.2 Sodium 133 L Potassium 3.5 Chloride 101 Carbon Dioxide 22.0 Anion Gap 10 BUN 35 H Creatinine 1.54 H Estimated GFR 36 L Random Glucose 118 H Calcium 7.4 L* Calcium Adj for Albumin 8.9 Total Bilirubin 11.6 H AST 38 H ALT 13 Alkaline Phosphatase 94 Total Protein 5.4 L Albumin 2.1 L Assessment and Plan - Assessment (1) Acute GI bleeding Code(s): K92.2 - Gastrointestinal hemorrhage, unspecified Status: Acute (2) Anemia Code(s): D64.9 - Anemia, unspecified Status: Acute - Plan This patient is a 52-year-old female with a diagnosis of end-stage liver disease /cirrhosis, history of alcohol abuse, recurrent ascites. The patient presented to the emergency room with complaints of worsening abdominal pain and distention. She has had previous admissions for hepatic encephalopathy. She also has a history of noncompliance and left AGAINST MEDICAL ADVICE in November of this year. In the emergency department the patient had a paracentesis and 8 L of ascitic fluid was removed. 1. Acute symptomatic anemia likely secondary to end-stage liver disease 2. Esophageal varices status post 2 bands Patient denies any active bleeding. EGD was done which showed esophageal varices no active bleeding status post 2 bands. Patient is also status post Pleurx catheter by IR on 02/02/2018. Hemoglobin has remained stable, we will follow-up a.m. labs. Continue PPI for 12 weeks as per GI EGD should be repeated in 3 months. Continue beta-alea Continue lactulose Stop IV fluids. 3. Acute kidney injury likely secondary to end-stage liver disease Patient elevated serum creatinine that peaked at 2.22. It is downtrending and currently 1.54 after the initiation of care. The patient has end-stage liver disease and low albumin this could possibly be due to third spacing and poor intravascular volume. Continue midodrine for low BP. 4. UTI Continue current antibiotics. We will continue antibiotics for 2 more days then stop. SCDs for DVT prophylaxis Discharge planning, patient will likely go home with hospice today. Case will be discussed with case management.
[2018-02-05] MEDS: Pantoprazole Inj 40 MG Vial IV.PUSH SCH (14:29)
== END 2018-02-05 23:02 | disposition hospice, inpatient (51) ==
LOC: NEPC 19:54 → NEDA 19:54 → NEPGCP 01-29 01:16 → N07 01-30 18:43
PROVIDERS: ADMIT Hospitalist; ATTEND Hospitalist
PROC: PANENDO (2018-02-01 15:42)
DX: F17.210 Nicotine dependence, cigarettes, uncomplicated; K25.4 Chronic or unspecified gastric ulcer with hemorrhage; K72.90 Hepatic failure, unspecified without coma; I85.00 Esophageal varices without bleeding; N17.9 Acute kidney failure, unspecified; E43 Unspecified severe protein-calorie malnutrition; Z68.23 Body mass index [BMI] 23.0-23.9, adult; R07.89 Other chest pain; D62 Acute posthemorrhagic anemia; Z96.641 Presence of right artificial hip joint; D69.59 Other secondary thrombocytopenia; B96.20 Unspecified Escherichia coli [E. coli] as the cause of diseases classified elsewhere; F10.20 Alcohol dependence, uncomplicated; D68.9 Coagulation defect, unspecified; K70.31 Alcoholic cirrhosis of liver with ascites; N39.0 Urinary tract infection, site not specified; I86.8 Varicose veins of other specified sites; I95.9 Hypotension, unspecified; Z51.5 Encounter for palliative care